=== PATIENT | female | born 1940 | race Caucasian/White ===

== ENCOUNTER 2019-02-25 05:00 | Inpatient (IN) | payer MEDICARE, OTHER ==
[2019-02-25] MEDS ORDERED: SODIUM CHLORIDE 0.9% 500 ML 500 ML IV STA (05:31)
[2019-02-25] MEDS ORDERED: LORazepam 2 MG/ML INJ IV STA (05:42)
--- NOTE | 2019-02-25 05:43 | ED ---
Neuro HPI - General Chief Complaint: Neuro Symptoms/Deficit Stated Complaint: Poss Stroke Time Seen by Provider: 02/25/19 05:21 Source: patient, EMS Mode of arrival: EMS Limitations: no limitations - History of Present Illness Is the patient presenting with stroke symptoms?: Yes Last Known Well Date: 02/24/19 Last Known Well Time: 12:00 -: hour(s) Initial Comments: This patient is a 78-year-old woman coming by ambulance from [facility]. When I interview the patient she states that she started feeling weak with her left side yesterday around "midmorning" the patient states that she also shortly thereafter noticed that she was having some shaking of her left side. She states that the symptoms did get progressively worse and the staff there felt she needed to be seen for the shaking this morning. Location: left arm, left leg History of same: No Place: home Severity: severe Quality: weak Improves With: none Worsens With: none Context: gradual onset Associated Symptoms: other (Shaking) - Related Data Home Medications: Home Medications Medication Instructions Recorded Confirmed Aspirin EC [Ecotrin Low Dose] 81 mg PO DAILY 02/25/19 02/25/19 Atenolol [Tenormin] 25 mg PO DAILY 02/25/19 02/25/19 Atorvastatin [Lipitor] 20 mg PO HS 02/25/19 02/25/19 Betamethasone Valerate 1 applic TOPICAL 02/25/19 [Betamethasone Valerate 0.1%] Fluticasone Nasal [place] [Flonase 2 spr EA NOSTRIL DAILY 02/25/19 02/25/19 Nasal [place]] Ipratropium/Albuterol Sulfate 1 puff INHALATION QID 02/25/19 02/25/19 [Combivent Respimat Inhaler] amLODIPine [Norvasc] 5 mg PO DAILY 02/25/19 02/25/19 Allergies/Adverse Reactions: Allergies Allergy/AdvReac Type Severity Reaction Status Date / Time No Known Allergies Allergy Verified 02/25/19 05:12 Review of Systems ROS Statement: Those systems with pertinent positive or pertinent negative responses have been documented in the HPI. ROS Other: All systems not noted in ROS Statement are negative. Constitutional: Denies: fever, chills Respiratory: Denies: cough, dyspnea Cardiovascular: Denies: chest pain, palpitations Gastrointestinal: Denies: abdominal pain, nausea, vomiting Musculoskeletal: Denies: back pain Skin: Denies: rash Neurological: Reports: weakness, numbness. Denies: headache, confusion Hematological/Lymphatic: Denies: easy bleeding General Exam Limitations: no limitations General appearance: alert, in no apparent distress Head exam: Present: atraumatic, normocephalic Eye exam: Present: normal appearance, PERRL, EOMI. Absent: scleral icterus, conjunctival injection ENT exam: Present: normal oropharynx Neck exam: Present: normal inspection. Absent: tenderness, meningismus Respiratory exam: Present: normal lung sounds bilaterally. Absent: respiratory distress, wheezes, rales, rhonchi, stridor Cardiovascular Exam: Present: normal rhythm, tachycardia, normal heart sounds. Absent: systolic murmur, diastolic murmur, rubs, gallop GI/Abdominal exam: Present: soft. Absent: distended, tenderness, guarding, rebound, mass Extremities exam: Present: normal inspection, normal capillary refill. Absent: pedal edema, calf tenderness Back exam: Present: normal inspection. Absent: CVA tenderness (R), CVA tenderness (L) Neurological exam: Present: alert, CN II-XII intact, motor sensory deficit. Absent: oriented X3 (Patient is disoriented to date) Expanded Patient oriented to: Present: person, place. Absent: time Speech: Present: fluid speech Cranial nerves: EOM's Intact: Normal, Gag Reflex: Normal Motor strength exam: RUE: 5, LUE: 0, RLE: 5, LLE: 0 Eye Response: (4) open spontaneously Motor Response: (6) obeys commands Verbal Response: (5) oriented Skin exam: Present: warm, dry, intact, normal color. Absent: rash Stroke MDM - Lab Data Result diagrams: 02/25/19 05:20 02/25/19 05:20 Lab Results 02/25/19 02/25/19 02/25/19 Range/Units 05:20 05:20 05:20 WBC 8.7 (3.8-10.6) k/uL RBC 5.13 (3.80-5.40) m/uL Hgb 14.5 (11.4-16.0) gm/dL Hct 44.3 (34.0-46.0) % MCV 86.3 (80.0-100.0) fL MCH 28.3 (25.0-35.0) pg MCHC 32.8 (31.0-37.0) g/dL RDW 13.4 (11.5-15.5) % Plt Count 204 (150-450) k/uL Neutrophils % 51 % Lymphocytes % 35 % Monocytes % 7 % Eosinophils % 4 % Basophils % 0 % Neutrophils # 4.4 (1.3-7.7) k/uL Lymphocytes # 3.0 (1.0-4.8) k/uL Monocytes # 0.6 (0-1.0) k/uL Eosinophils # 0.3 (0-0.7) k/uL Basophils # 0.0 (0-0.2) k/uL PT 10.8 (9.0-12.0) sec INR 1.0 (<1.2) APTT 25.3 (22.0-30.0) sec Sodium 140 (137-145) mmol/L Potassium 4.2 (3.5-5.1) mmol/L Chloride 106 (98-107) mmol/L Carbon Dioxide 17 L (22-30) mmol/L Anion Gap 17 mmol/L BUN 13 (7-17) mg/dL Creatinine 0.68 (0.52-1.04) mg/dL Est GFR (CKD-EPI)AfAm >90 (>60 ml/min/1.73 sqM) Est GFR (CKD-EPI)NonAf 85 (>60 ml/min/1.73 sqM) Glucose 152 H (74-99) mg/dL Calcium 9.2 (8.4-10.2) mg/dL Total Bilirubin 1.0 (0.2-1.3) mg/dL AST 27 (14-36) U/L ALT 9 (9-52) U/L Alkaline Phosphatase 107 (38-126) U/L Troponin I (0.000-0.034) ng/mL Total Protein 7.4 (6.3-8.2) g/dL Albumin 4.3 (3.5-5.0) g/dL 02/25/19 Range/Units 05:20 WBC (3.8-10.6) k/uL RBC (3.80-5.40) m/uL Hgb (11.4-16.0) gm/dL Hct (34.0-46.0) % MCV (80.0-100.0) fL MCH (25.0-35.0) pg MCHC (31.0-37.0) g/dL RDW (11.5-15.5) % Plt Count (150-450) k/uL Neutrophils % % Lymphocytes % % Monocytes % % Eosinophils % % Basophils % % Neutrophils # (1.3-7.7) k/uL Lymphocytes # (1.0-4.8) k/uL Monocytes # (0-1.0) k/uL Eosinophils # (0-0.7) k/uL Basophils # (0-0.2) k/uL PT (9.0-12.0) sec INR (<1.2) APTT (22.0-30.0) sec Sodium (137-145) mmol/L Potassium (3.5-5.1) mmol/L Chloride (98-107) mmol/L Carbon Dioxide (22-30) mmol/L Anion Gap mmol/L BUN (7-17) mg/dL Creatinine (0.52-1.04) mg/dL Est GFR (CKD-EPI)AfAm (>60 ml/min/1.73 sqM) Est GFR (CKD-EPI)NonAf (>60 ml/min/1.73 sqM) Glucose (74-99) mg/dL Calcium (8.4-10.2) mg/dL Total Bilirubin (0.2-1.3) mg/dL AST (14-36) U/L ALT (9-52) U/L Alkaline Phosphatase (38-126) U/L Troponin I <0.012 (0.000-0.034) ng/mL Total Protein (6.3-8.2) g/dL Albumin (3.5-5.0) g/dL - Thrombolytic Inclusion/Exclusion Thrombolytic Exclusion Criteria: Symptom Onset > 3 Hours - Medical Decision Making When I initially saw the patient, she was having focal seizure. Following a dose of Ativan, the seizure activity did stop. The patient did not have postictal period. - EKG Data -: EKG Interpreted by Me EKG shows normal: sinus rhythm, axis (Normal), intervals (Normal), QRS complexes (Normal) Rate: tachycardia (Approximate 137 bpm) Interpretation: nonspecific ST-T wave changes Past Medical History Past Medical History: No Reported History History of Any Multi-Drug Resistant Organisms: None Reported Past Surgical History: Adenoidectomy, Appendectomy, Cholecystectomy, Tons illectomy Past Psychological History: No Psychological Hx Reported Smoking Status: Current every day smoker Past Alcohol Use History: Occasional Past Drug Use History: None Reported Course Vital Signs 02/25/19 02/25/19 05:04 06:21 Pulse Rate 126 H 89 Respiratory 20 22 Rate Blood Pressure 114/65 O2 Sat by Pulse 99 99 Oximetry Disposition Clinical Impression: Cerebrovascular accident (CVA), Focal seizure Disposition: ADMITTED IP TO THIS HOSP Condition: Serious Is patient prescribed a controlled substance at d/c from ED?: No Referrals: Nonstaff,Physician [REFERRING] - 1-2 days
[2019-02-25 05:54] LABS: Basophils % (A) 0 %; Eosinophils # (A) 0.3 k/uL (0-0.7); Eosinophils % (A) 4 %; HCT 44.3 % (34.0-46.0); HGB 14.5 gm/dL (11.4-16.0); Lymphocytes % (A) 35 %; MCH 28.3 pg (25.0-35.0); MCHC 32.8 g/dL (31.0-37.0); MCV 86.3 fL (80.0-100.0); Mean Platelet Volume 7.4; Monocytes # (A) 0.6 k/uL (0-1.0); Monocytes % (A) 7 %; Neutrophils # (A) 4.4 k/uL (1.3-7.7); Neutrophils % (A) 51 %; Platelet Count 204 k/uL (150-450); RBC 5.13 m/uL (3.80-5.40); RDW 13.4 % (11.5-15.5); WBC 8.7 k/uL (3.8-10.6)
[2019-02-25 06:02] LABS: ALT 9 U/L (9-52); AST 27 U/L (14-36); African American GFR (CKD) >90 (>60 ml/min/1.73 sqM); Albumin 4.3 g/dL (3.5-5.0); Alkaline Phosphatase 107 U/L (38-126); Anion Gap 17 mmol/L; Blood Urea Nitrogen 13 mg/dL (7-17); Calcium 9.2 mg/dL (8.4-10.2); Carbon Dioxide 17 mmol/L (22-30); Chloride 106 mmol/L (98-107); Glucose 152 mg/dL (74-99); Potassium 4.2 mmol/L (3.5-5.1); Sodium 140 mmol/L (137-145); Total Protein 7.4 g/dL (6.3-8.2)
[2019-02-25 06:03] LABS: Partial Thromboplastin Time 25.3 sec (22.0-30.0); Prothrombin Time 10.8 sec (9.0-12.0)
--- NOTE | 2019-02-25 06:30 | XR ---
EXAMINATION TYPE: XR chest 1V portable DATE OF EXAM: 02/25/2019 COMPARISON: NONE HISTORY: Altered mental status and weakness. TECHNIQUE: Single AP portable frontal upright view of the chest is obtained. FINDINGS: Overlying EKG leads are seen. There is chronic parenchymal changes including right apical s carring without suspicious focal air space opacity, pleural effusion, or pneumothorax seen. The card iac silhouette size is upper limits of normal with atherosclerotic aorta. The osseous structures ar e demineralized. Slight scoliotic curvature is present. IMPRESSION: Chronic changes without acute pulmonary process.
--- NOTE | 2019-02-25 06:47 | CT ---
EXAMINATION TYPE: CT brain wo con for TPA DATE OF EXAM: 02/25/2019 HISTORY: Stroke like symptoms, altered mental status CT DLP: 1162.4 mGycm. Automated Exposure Control for Dose Reduction was Utilized. TECHNIQUE: CT scan of the head is performed without contrast. COMPARISON: MRI brain March 13, 2016 FINDINGS: There is no acute intracranial hemorrhage or midline shift identified. There is diffuse v entricular and sulcal prominence consistent with diffuse age-related cerebral atrophy. There is low- attenuation most prominent in the periventricular white matter consistent with chronic small vessel i schemic change. Asymmetric area of low attenuation posterior right frontal lobe axial image 19 is not ed at the level of jones radiata extending superiorly. The globes are intact and the visualized sinu ses are clear. IMPRESSION: No acute intracranial hemorrhage or midline shift. There is moderate diffuse age-relate d cerebral atrophy and advanced chronic small vessel ischemic change redemonstrated. Cannot exclude evolving acute/subacute infarct posterior right frontal lobe. Consider MRI follow-up.
[2019-02-25] MEDS ORDERED: ASPIRIN 325 MG TAB PO STA (06:59)
[2019-02-25] MEDS ORDERED: SODIUM CHLORIDE 0.9% 1,000 ML IV SCH (07:00)
[2019-02-25] MEDS ORDERED: FAMOTIDINE 20 MG/2 ML VIAL IV SCH (09:00)
[2019-02-25] MEDS: IPRATROPIUM-ALBUTEROL 3 ML NEB INHALATION SCH ×4 (09:20→19:57)
[2019-02-25 09:44] LABS: Glucose,Whole Blood 120 mg/dL (75-99)
--- NOTE | 2019-02-25 10:37 | US ---
EXAMINATION TYPE: US carotid duplex BILAT DATE OF EXAM: 02/25/2019 COMPARISON: MRA neck March 13, 2016 CLINICAL HISTORY: Stenosis. Left sided weakness EXAM MEASUREMENTS: RIGHT: Peak Systolic Velocity (PSV) cm/sec ----- Right CCA: 84.6 ----- Right ICA: 218.3 bulb ----- Right ECA: 186.6 ICA/CCA ratio: 2.6 RIGHT: End Diastole cm/sec ----- Right CCA: 16.8 ----- Right ICA: 37.1 ----- Right ECA: 0.0 LEFT: Peak Systolic Velocity (PSV) cm/sec ----- Left CCA: 98.3 ----- Left ICA: 151.1 bulb ----- Left ECA: 126.5 ICA/CCA ratio: 1.5 LEFT: End Diastole cm/sec ----- Left CCA: 13.6 ----- Left ICA: 25.5 ----- Left ECA: 0.0 VERTEBRALS (direction of flow): Right Vertebral: Antegrade Left Vertebral: Antegrade Rhythm: Normal Moderate to severe plaque bilaterally as present most prominent at carotid bulb. Increased peak systo lic velocities bilaterally. Abnormal right-sided ratio. IMPRESSION: Fairly severe atherosclerotic changes, hemodynamically significant stenosis estimated 50-69% likely present on the right. Cannot exclude significant stenosis on the left. Advise CTA or MR A of the neck to better evaluate and characterize. Criteria for Assigning % of Stenosis / Diameter reduction (Estimation based on the indirect measurements of the internal carotid artery velocities (ICA PSV). 1. Normal (no stenosis)=ICA PSV < 125 cm/s: ratio < 2.0: ICA EDV<40 cm/s. 2. Less than 50% stenosis=ICA PSV < 125 cm/s: ratio < 2.0: ICA EDV<40 cm/s. 3. 50 to 69% stenosis=ICA PSV of 125 to 230 cm/s: ration 2.0 ? 4.0: ICA EDV 40-100 cm/s. 4. Greater than 70% stenosis to near occlusion= ICA PSV > 230 cm/s: ratio > 4.0: ICA EDV > 100 cm/s. 5. Near occlusion= ICA PSV velocities may be low or undetectable: variable ratio and ICA EDV. 6. Total occlusion=unable to detect flow.
[2019-02-25] MEDS: ATENOLOL 25 MG TAB PO SCH (11:46)
[2019-02-25] MEDS: amLODIPine 5 MG TAB PO SCH (11:46)
[2019-02-25] MEDS: FLUTICASONE 50MCG/SPRAY NASAL 16GM EA NOSTRIL SCH (11:54)
[2019-02-25 12:40] LABS: Appearance,Urine Clear (Clear); Bacteria,Urine Rare /hpf; Bilirubin,Urine Negative (Negative); Blood,Urine Trace (Negative); Color,Urine Yellow; Glucose,Urine (UA) Negative (Negative); Hyaline Casts,Urine 4 /lpf (0-2); Ketones,Urine Negative (Negative); Leukocyte Esterase,Urine Negative (Negative); Mucus,Urine Rare /hpf; Nitrite,Urine Negative (Negative); PH, Urine 6.5 (5.0-8.0); Protein,Urine Trace (Negative); RBC,Urine 5 /hpf (0-5); Specific Gravity,Urine 1.013 (1.001-1.035); Squamous Epithelial Cell,Urine 1 /hpf (0-4); Urobilinogen,Urine <2.0 mg/dL (<2.0); WBC,Urine 2 /hpf (0-5)
--- NOTE | 2019-02-25 16:02 | P.HPIM ---
History of Present Illness H&P Date: 02/25/19 Presenting complaint: Left arm weakness History of presenting complaint: This is a pleasant 78-year-old patient who is a resident of [facility]. 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 Does not know more ab out the same., Arthritis in multiple joints. Patient was admitted to the ER via the EMS. Patient states that she's been weak in the left arm for about a week. Finding it difficult to scrap picker things. It has not been progressive remained the same. In fact with some improvement. No change in elevation speech headaches. No difficulty walking. No trouble with her swallowing. Patient is also noticed some jerking in the left arm.. Some improvement in the left arm strength since the symptoms started about a week ago. She was admitted for the same. Not sure she's had previous TIAs. 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 Does use a walker. He smoking a pack a day since 1957. No alcohol Family history: Cancer Physical examination: VITAL SIGNS: Afebrile, 89, 22, 11 4/65, 96% on 2 L GENERAL: Average built, sitting up, tired. EYES: Pupils equal. Conjunctiva normal. HEENT: External appearance of nose and ears normal, oral cavity grossly normal. NECK: JVD not raised; masses not palpable. HEART: First and second heart sounds are normal; no edema. LUNGS: Respiratory rate increased, diminished breath sounds on expiration some wheezing. ABDOMEN: Soft, nontender, liver spleen not palpable, no masses palpable. PSYCH: Alert and oriented x3; mood and affect normal. NEUROLOGICAL: Cranial nerves grossly intact; no facial asymmetry, or in the left arm 3/5. Reflexes sensation grossly preserved.. LYMPHATICS: No lymph nodes palpable in the axilla and neck MUSCULOSKELETAL: Evidence of OA's stay in the hands INVESTIGATIONS, reviewed in the clinical context: White count 8.7, hemoglobin 14.5, platelets 204, potassium 4.2, creatinine 0.68, TSH 4.3 EKG tracing personally reviewed by me shows increased heart rate questionable ST segment depression. Chest x-ray film personally reviewed by me-cardiomegaly Computed tomography scan of the brain-cannot exclude an evolving acute subacute infarct posterior right frontal lobe Carotid Doppler-cannot exclude significant stenosis on the left carotid Assessment: -Acute stroke in the right frontal lobe, with symptoms starting about a week ago. Likely ischemic, and the right anterior cerebral artery territory -Possible focal epilepsy in the left arm from ischemic stroke site -COPD in a current smoker -Chronic nicotine dependence patient cigarette smoker -Hyperlipidemia -Essential hypertension -Primary osteoarthritis Plan: Patient is to be on aspirin and high-dose Lipitor. Patient is to benefit from dual antiplatelet agents in the first few days. Hence will add Plavix. MRI of the brain and carotids are been ordered. Physical therapy to be involved. We'll also get a vascular opinion. Neurology was consulted. Neuro checks are in place. Given the presentation for 1 week patient's duration patient is out of the window for any acute invasive intervention. Patient is put on bronchodilators. Nicotine patch. Neuro checks are in place. Home medications resumed. Lovenox for DVT prophylaxis.. Past Medical History Past Medical History: CVA/TIA, Hyperlipidemia, Hypertension, Osteoarthritis (O A), Pneumonia Additional Past Medical History / Comment(s): Possible TIAs in past per pt, pt believes she has the beginnings of dementia, bronchitis, pituitary dysfunction, seasonal allergies/sinus problems, arthritis in multiple joints. History of Any Multi-Drug Resistant Organisms: None Reported Past Surgical History: Adenoidectomy, Appendectomy, Cholecystectomy, Tonsillectomy Past Anesthesia/Blood Transfusion Reactions: No Reported Reaction Smoking Status: Current every day smoker - Past Family History Father Family Medical History: Cancer Additional Family Medical History / Comment(s): Pt states by the time they found out that her father had cancer, it was thru out his body. Mother Family Medical History: No Reported History Additional Family Medical History / Comment(s): Mother was healthy. Medications and Allergies Home Medications Medication Instructions Recorded Confirmed Type Aspirin EC [Ecotrin Low Dose] 81 mg PO DAILY 02/25/19 02/25/19 History Atenolol [Tenormin] 25 mg PO DAILY 02/25/19 02/25/19 History Atorvastatin [Lipitor] 20 mg PO HS 02/25/19 02/25/19 History Betamethasone Valerate 1 applic TOPICAL BID PRN 02/25/19 02/25/19 History [Betamethasone Valerate 0.1%] Fluticasone Nasal [place] [Flonase 2 spr EA NOSTRIL HS 02/25/19 02/25/19 History Nasal [place]] Ipratropium/Albuterol Sulfate 1 puff INHALATION RT-Q6H PRN 02/25/19 02/25/19 His tory [Combivent Respimat Inhaler] Loratadine [Claritin] 10 mg PO DAILY 02/25/19 02/25/19 History amLODIPine [Norvasc] 5 mg PO DAILY 02/25/19 02/25/19 History guaiFENesin [guaiFENesin Oral 10 mg PO Q6H PRN 02/25/19 02/25/19 History Solution] Allergies Allergy/AdvReac Type Severity Reaction Status Date / Time No Known Allergies Allergy Verified 02/25/19 07:48 Physical Exam Vitals: Vital Signs Temp Pulse Resp BP Pulse Ox 02/25/19 12:16 65 02/25/19 12:09 62 02/25/19 12:00 98.2 F 75 15 118/60 94 L 02/25/19 11:00 71 22 113/45 02/25/19 10:00 63 25 H 113/64 02/25/19 07:30 92 16 118/59 96 02/25/19 06:21 89 22 114/65 99 02/25/19 05:04 126 H 20 99 Intake and Output 02/25/19 02/25/19 02/25/19 06:59 14:59 22:59 Intake Total 600 Output Total 250 Balance 350 Intake: IV 600 Sodium Chloride 0.9% 1, 600 000 ml @ 100 mls/hr IV . Q10H ISREAL Rx#:[id number] Output: Urine 250 Other: # Voids 1 Weight 58.967 kg 60.4 kg Results CBC & Chem 7: 02/25/19 05:20 02/25/19 05:20 Labs: Abnormal Lab Results - Last 24 Hours (Table) 02/25/19 02/25/19 02/25/19 Range/Units 05:20 09:41 12:10 Carbon Dioxide 17 L (22-30) mmol/L Glucose 152 H (74-99) mg/dL POC Glucose (mg/dL) 120 H (75-99) mg/dL Urine Protein Trace H (Negative) Urine Blood Trace H (Negative) Urine Bacteria Rare H (None) /hpf Hyaline Casts 4 H (0-2) /lpf Urine Mucus Rare H (None) /hpf Thrombosis Risk Factor Assmnt - Choose All That Apply Any of the Below Risk Factors Present?: Yes Other Risk Factors: Yes Each Risk Factor Represents 3 Points: Age 75 years or older Other congenital or acquired thrombophilia - If yes, enter type in comment: No Each Risk Factor Represents 5 Points: Stroke (< 1 month) Thrombosis Risk Factor Assessment Total Risk Factor Score: 8 Thrombosis Risk Factor Assessment Level: High Risk
--- NOTE | 2019-02-25 16:49 | MR ---
EXAMINATION TYPE: MR brain wo con DATE OF EXAM: 02/25/2019 COMPARISON: 03/13/2016 HISTORY: Weakness, tremor Standard multiplanar, multisequence MRI departmental protocol Multiplanar, multisequence images of the brain were acquired. Diffusion weighted imaging was performe d. FINDINGS: There is diffuse cerebral cortical atrophy. There is extensive abnormal increased signal in the periventricular white matter on the T2 and FLAIR images. There is no mass effect nor midline samantha ft. There is no sign of intracranial hemorrhage. There is mild patchy increased signal within the nataly s. There is thinning of the corpus callosum. Sella turcica appears normal. IMPRESSION: Moderately severe diffuse atrophy. Extensive chronic small vessel ischemia. Demyelinating disease not excluded. No acute intracranial abnormality. No acute cortical infarct.
[2019-02-25] MEDS: ENOXAPARIN 40 MG/0.4 ML SYRINGE SQ SCH (17:10)
[2019-02-25] MEDS: CLOPIDOGREL 75 MG TAB PO SCH (17:11)
[2019-02-25] MEDS: NICOTINE 21MG/24HR PATCH TRANSDERM SCH (17:11)
--- NOTE | 2019-02-25 17:26 | MR ---
EXAMINATION TYPE: MR angio head/neck wo con DATE OF EXAM: 02/25/2019 COMPARISON: Brain MR same date and MR angiogram of the neck 03/13/2016, carotid Doppler 02/25/2019 HISTORY: Weakness, tremor TECHNIQUE: Time of flight images focusing on the [place] were performed without contrast.. 2-D and 3-D postprocessing imaging is performed. FINDINGS: There is motion on the exam. [place] shows no evidence of sizable aneurysm, there is no filling defect or dissection. Ant erior and posterior circulation is patent. Persistent origin of the left posterior cerebral art elyse is noted. Neck MRA shows patent common carotid, internal and external carotid arteries. Right vertebral artery is dominant. No evident dissection or significant stenosis of the proximal internal carotid artery on the left. There is atheromatous change involving the internal carotid artery on the right correspond ing to 60%-70 diameter stenosis by Nascet criteria. Atheromatous changes are present at the bilateral carotid bulbs. IMPRESSION: Hemodynamic significant stenosis of the proximal internal carotid artery on the right cor responding to patient's carotid Doppler exam. Motion present on the exam. CTA may be of benefit.
[2019-02-25] MEDS: ATORVASTATIN 80 MG TAB PO SCH (20:28)
[2019-02-25] MEDS: FAMOTIDINE 20 MG TAB PO SCH (20:28)
[2019-02-25 20:30] LABS: Hemoglobin A1C 5.7 % (4.0-6.0)
[2019-02-26 05:32] LABS: Basophils % (A) 1 %; Eosinophils # (A) 0.2 k/uL (0-0.7); Eosinophils % (A) 3 %; HCT 41.1 % (34.0-46.0); HGB 13.8 gm/dL (11.4-16.0); Lymphocytes # (A) 1.2 k/uL (1.0-4.8); Lymphocytes % (A) 21 %; MCH 28.8 pg (25.0-35.0); MCHC 33.7 g/dL (31.0-37.0); MCV 85.5 fL (80.0-100.0); Mean Platelet Volume 7.6; Monocytes # (A) 0.4 k/uL (0-1.0); Monocytes % (A) 8 %; Neutrophils # (A) 3.6 k/uL (1.3-7.7); Neutrophils % (A) 66 %; Platelet Count 155 k/uL (150-450); RBC 4.81 m/uL (3.80-5.40); RDW 15.3 % (11.5-15.5); WBC 5.5 k/uL (3.8-10.6)
[2019-02-26 05:49] LABS: African American GFR (CKD) >90 (>60 ml/min/1.73 sqM); Anion Gap 6 mmol/L; Blood Urea Nitrogen 7 mg/dL (7-17); Calcium 9.2 mg/dL (8.4-10.2); Carbon Dioxide 29 mmol/L (22-30); Chloride 103 mmol/L (98-107); Cholesterol 127 mg/dL (<200); Glucose 99 mg/dL (74-99); HDL Cholesterol 37 mg/dL (40-60); LDL Cholesterol,Calculated 66 mg/dL (0-99); Potassium 3.6 mmol/L (3.5-5.1); Sodium 138 mmol/L (137-145); Triglycerides 122 mg/dL (<150)
[2019-02-26] MEDS ORDERED: POTASSIUM CHLORIDE ER 20 MEQ TAB.ER PO SCH (07:00)
[2019-02-26] MEDS ORDERED: ASPIRIN 325 MG TAB PO SCH (07:02)
[2019-02-26] MEDS: IPRATROPIUM-ALBUTEROL 3 ML NEB INHALATION SCH ×4 (07:39→21:11)
[2019-02-26] MEDS: ENOXAPARIN 40 MG/0.4 ML SYRINGE SQ SCH (08:21)
[2019-02-26] MEDS: NICOTINE 21MG/24HR PATCH TRANSDERM SCH (08:21)
[2019-02-26] MEDS: ASPIRIN 81 MG PO SCH (08:21)
[2019-02-26] MEDS: FAMOTIDINE 20 MG TAB PO SCH ×2 (08:21→22:20)
[2019-02-26] MEDS: CLOPIDOGREL 75 MG TAB PO SCH (08:21)
[2019-02-26] MEDS: amLODIPine 5 MG TAB PO SCH (08:22)
[2019-02-26] MEDS: ATENOLOL 25 MG TAB PO SCH (08:22)
[2019-02-26] MEDS: FLUTICASONE 50MCG/SPRAY NASAL 16GM EA NOSTRIL SCH (08:22)
--- NOTE | 2019-02-26 09:33 | P.CNNES ---
History of Present Illness Consult date: 02/25/19 Reason for Consult: Stroke Chief complaint: Shaking of her left side History of Present Illness: REFERRING PHYSICIAN: Dr. Anuel Malagon HISTORY OF PRESENT ILLNESS: Thank you for allowing me to evaluate Ms. Aviva Boles. Ms. Boles is a 78-year-old L-handed woman with no known past medical history presenting with acute onset left-sided shaking, consulting neurology for stroke workup and management. Patient lives in an assisted living facility, and since about 1 month ago, patient had been told by people who live near her that she didn't seem well. Around the same time, she started having feeling off balance and had occipital headache. Patient also reports that she had a stroke a couple of months ago, and since then, she has been having some difficulty with patient safety coordinator rdination in her L hand and writing with it. Patient denies any recent sickness, nausea, vomiting, CP, SOB, numbness or tingling, double/blurry vision, dysarthria, aphasia. Patient states she saw some jerking movement of her L arm, maybe lasted for 30 seconds, did not lose consciousness and was fully aware. PAST MEDICAL HISTORY: Hypertension, asthma PAST SURGICAL HISTORY: Appendectomy, cholecystectomy, tonsillectomy, adenoidectomy HOME MEDICATIONS: Patient states that she's been only taking ASA and vitamin, and not much else. However, listed meds include: Aspirin, atenolol, atorvastatin, Flonase, Combivent, amlodipine ALLERGIES: No known ALLERGIES SOCIAL HISTORY: Current every day smoker. Smokes 5 cigs/day, has been smoking since age 25. Social drinker. Denies drug abuse history. Patient used to work in [employer] FAMILY HISTORY: Father with throat cancer. Mother had HTN and CABG (mother's side of family has various heart conditions) REVIEW OF SYSTEMS: The 14 systems are reviewed and no additional points are identified compared to the review of systems documented history and physical PHYSICAL EXAMINATION: VITAL SIGNS: Pulse rate 92 RR 16 blood pressure 118/59 O2 saturation 96% on 2 L via nasal cannula GEN.: NAD, pleasant and cooperative HEENT: NCAT, sclera without icterus NECK: Supple, no carotid bruit SKIN AND EXTREMITIES: Warm to touch, no edema NEURO: MENTAL STATUS: Patient alert and oriented to self, place, time. Able to name the current president. Speech fluent, able to name and repeat, following all commands readily. No right and left disorientation, extinction to double simultaneous stimulation, finger agnosia, neglect. CRANIAL NERVES II THROUGH XII: II: Pupils are equal and reactive to light symmetrically. No afferent pupillary defect. Visual anguiano are intact. III, IV, : No ptosis. Extraocular movements full. No nystagmus. V: Facial sensation intact from V1-3. VII. Mild L facial droop. VIII: Hearing intact to finger rub bilaterally. IX, X: Symmetric palate elevation. XI: Shoulder shrug intact. XII: Tongue midline without fasciculation or atrophy. MOTOR: Normal bulk/tone. LUE pronator drift. Strength is 5/5 in proximal LUE, 4+/5 in biceps/triceps, 4+/5 with finger chainstitch hemmer. Otherwise, strength is 5/5 throughout all other extremities. SENSORY: Intact to light touch in all 4 extremities. Romberg is negative. REFLEXES: 2+ throughout. Toes are downgoing. COORDINATION: Finger to nose intact. No dysmetria. GAIT: Narrow-based and stable. Able to toe/heel/tandem walk but some difficulty with tandem walking. DIAGNOSTIC TESTING: LABORATORY: WBC 8.7 hemoglobin 14.5 platelet 204 PT 10.8 INR 1.0 sodium 140 potassium 4.2 chloride 106 bicarb 17 BUN 13 creatinine 0.68 glucose 152 AST 27 ALT 9 alk phos 107 troponin <0.012 Total cholesterol 127 LDL 66 and HDL 37 triglycerides 122 TSH 4.370 A1C 5.7 IMAGING: CT head without contrast 02/25/2019: No acute intracranial hemorrhage or midline shift. There is moderate diffuse age-related cerebral atrophy and advanced chronic small vessel ischemic change we demonstrated. Cannot exclude evolving acute/subacute infarct posterior right frontal lobe. MRI brain without contrast 02/25/2019: Moderately severe diffuse atrophy. Extensive chronic small vessel ischemia. Demyelinating disease not excluded. No acute intracranial abnormality. No acute cortical infarct. MRI brain without contrast 03/13/2016: No acute intracranial process. Extensive degenerative remote ischemic change. Prominent CSF spaces along both parietal convexities may be related to asymmetric atrophy rather than an arachnoid cyst or tiny subdural chronic hygromas. No significant mass effect or midline shift. Carotid Doppler bilateral 02/25/2019: Fairly severe atherosclerotic changes, hemodynamically significant stenosis estimated 50-69% likely present on the right. Cannot exclude significant stenos is on the left. Advised CTA or MRA of the neck to better evaluate and characterize ASSESSMENT: Ms. Boles is a 78-year-old L-handed woman with no known past medical history presenting with acute onset left-sided shaking, consulting neurology for stroke workup and management. MRI brain with no infarct. There was report of patient having possible L hand shaking. Possible that patient was having a focal seizure that led to weakness of her LUE although Aurelio's paralysis does not usually last for a week. RECOMMENDATIONS: 1. Will start Keppra 750mg BID 2. Transthoracic echocardiogram obtained; pending final read 3. Cardiac monitoring with no events during this admission 4. ASA 81mg qday, Atorvastatin 80mg qhs 5. Routine EEG 6. PT/OT/ST per protocol 7. Patient will need to follow up with neurologist as outpatient 8. Neurology will continue to follow Past Medical History Past Medical History: CVA/TIA, Hyperlipidemia, Hypertension, Osteoarthritis (OA), Pneumonia Additional Past Medical History / Comment(s): Possible TIAs in past per pt, pt believes she has the beginnings of dementia, bronchitis, pituitary dysfunction, seasonal allergies/sinus problems, arthritis in multiple joints. History of Any Multi-Drug Resistant Organisms: None Reported Past Surgical History: Adenoidectomy, Appendectomy, Cholecystectomy, Tonsillectomy Past Anesthesia/Blood Transfusion Reactions: No Reported Reaction Smoking Status: Current every day smoker - Past Family History Father Family Medical History: Cancer Additional Family Medical History / Comment(s): Pt states by the time they found out that her father had cancer, it was thru out his body. Mother Family Medical History: No Reported History Additional Family Medical History / Comment(s): Mother was healthy. Medications and Allergies Home Medications Medication Instructions Recorded Confirmed Type Aspirin EC [Ecotrin Low Dose] 81 mg PO DAILY 02/25/19 02/25/19 History Atenolol [Tenormin] 25 mg PO DAILY 02/25/19 02/25/19 History Atorvastatin [Lipitor] 20 mg PO HS 02/25/19 02/25/19 History Betamethasone Valerate 1 applic TOPICAL BID PRN 02/25/19 02/25/19 History [Betamethasone Valerate 0.1%] Fluticasone Nasal [place] [Flonase 2 spr EA NOSTRIL HS 02/25/19 02/25/19 History Nasal [place]] Ipratropium/Albuterol Sulfate 1 puff INHALATION RT-Q6H PRN 02/25/19 02/25/19 History [Combivent Respimat Inhaler] Loratadine [Claritin] 10 mg PO DAILY 02/25/19 02/25/19 History amLODIPine [Norvasc] 5 mg PO DAILY 02/25/19 02/25/19 History guaiFENesin [guaiFENesin Oral 10 mg PO Q6H PRN 02/25/19 02/25/19 History Solution] Allergies Allergy/AdvReac Type Severity Reaction Status Date / Time No Known Allergies Allergy Verified 02/25/19 07:48 Physical Examination - Vital Signs Vital Signs: Vital Signs Pulse Resp BP Pulse Ox 02/25/19 07:30 92 16 118/59 96 02/25/19 06:21 89 22 114/65 99 02/25/19 05:04 126 H 20 99 Intake and Output 02/24/19 02/25/19 02/25/19 22:59 06:59 14:59 Other: Weight 58.967 kg Results - Laboratory Findings CBC and BMP: 02/26/19 04:58 02/26/19 04:58 Abnormal Lab Findings: Abnormal Labs 02/25/19 05:20 Carbon Dioxide 17 L Glucose 152 H
--- NOTE | 2019-02-26 11:41 | ECHOF ---
Referral Reason:Thrombus MEASUREMENTS -------- HEIGHT: 160.0 cm WEIGHT: 59.0 kg BP: 120/60 IVSd: 1.9 cm (0.6 - 1.1) LVIDd: 2.7 cm (3.9 - 5.3) LVPWd: 1.6 cm (0.6 - 1.1) IVSs: 1.6 cm LVIDs: 2.1 cm LVPWs: 1.3 cm LA Diam: 4.6 cm (2.7 - 3.8) LAESV Index (A-L): 38.29 ml/m Ao Diam: 2.8 cm (2.0 - 3.7) AV Cusp: 1.0 cm (1.5 - 2.6) LA Diam: 4.7 cm (2.7 - 3.8) MV EXCURSION: 10.065 mm (> 18.000) MV EF SLOPE: 27 mm/s (70 - 150) EPSS: 0.2 cm MV E Agus: 1.39 m/s MV DecT: 314 ms MV A Agus: 2.02 m/s MV E/A Ratio: 0.69 RAP: 5.00 mmHg RVSP: 62.11 mmHg FINDINGS -------- Sinus rhythm. This was a technically adequate study. The left ventricular size is normal. There is severe concentric left ventricular hypertrophy. Ove rall left ventricular systolic function is normal with, an EF between 60 - 65 %. Systolic anterior motion of the mitral valve with LVOT Obstruction MaxPg 79.53mmHg & Lvot mean gradient 37.01mmHg. The right ventricle is normal in size. The left atrium is moderately dilated. LA is moderately dilated 34-39 ml/m2 The right atrium was not well visualized. Moderate mitral regurgitation is present. The peak and mean MV gradients are 19.18mmHg 6.17mmHg as measured by doppler. Moderate mitral stenosis. Moderate tricuspid regurgitation present. There is mild pulmonary hypertension. The right ventric ular systolic pressure, as measured by Doppler, is 62.11mmHg. There is no pulmonic regurgitation present. The aortic root size is normal. There is no pericardial effusion. CONCLUSIONS -------- 1. Sinus rhythm. 2. This was a technically adequate study. 3. The left ventricular size is normal. 4. There is severe concentric left ventricular hypertrophy. 5. Overall left ventricular systolic function is normal with, an EF between 60 - 65 %. 6. Systolic anterior motion of the mitral valve with LVOT Obstruction MaxPg 79.53mmHg & Lvot mean gra dient 37.01mmHg. 7. The right ventricle is normal in size. 8. The left atrium is moderately dilated. 9. LA is moderately dilated 34-39 ml/m2 10. The right atrium was not well visualized. 11. Moderate mitral regurgitation is present. 12. The peak and mean MV gradients are 19.18mmHg 6.17mmHg as measured by doppler. 13. Moderate mitral stenosis. 14. Moderate tricuspid regurgitation present. 15. There is mild pulmonary hypertension. 16. The right ventricular systolic pressure, as measured by Doppler, is 62.11mmHg. 17. There is no pulmonic regurgitation present. 18. The aortic root size is normal. 19. There is no pericardial effusion. SKIP TENDER: Nidia Rocha RDCS
--- NOTE | 2019-02-26 12:01 | P.PN ---
Subjective This is a pleasant 78 years old female with past medical history of CVA/TIA, hyperlipidemia, hypertension, osteoarthritis. Presents because of syncope. Patient states that she was walking her living room when she just passed out, her son was there and he called the ambulance for her. She remembers she was in the emergency room however she denies chest pain or dyspnea. No abdominal pain. Also patient was complaining of from left upper extremity weakness and numbness for 1 week which is improved now but not back to normal, as per patient estimated her left arm weakness and numbness is back to normal/usual state by 80%. Patient was admitted to the ICU and she remains fair. She denies chest pain or dyspnea. No abdominal pain. No change in urine or bowel habits. No headache. No swallowing or talking difficulty. No dizziness. Patient is hemodynamically stable. unremarkable cbc and bmp. troponin is negative. patient has been already evaluated by neurologist and found to have significant stenosis in the right carotid artery about 50-60%. also on admission patient had tachycardia has been showing in the ekg at a rate of 137. echocardiogram showing ejection fraction of 60-65%. Severe LVH, moderate mitral regurgitation and tricuspid regurgitation. MRI of the brain: Moderate to Severe diffuse atrophy. MRA and carotid duplex, right carotid artery stenosis, 50-60%. Review of systems CONSTITUTIONAL: No fever, no malaise, no fatigue. HEENT: No recent visual problems or hearing problems. Denied any sore throat. CARDIOVASCULAR: No orthopnea, PND, no palpitations, no syncope. PULMONARY: No shortness of breath, no cough, no hemoptysis. GASTROINTESTINAL: No diarrhea, no nausea, no vomiting, no abdominal pain. Normoa ctive bowel sounds. NEUROLOGICAL: No headaches, no weakness, no numbness. HEMATOLOGICAL: Denies any bleeding or petechiae. GENITOURINARY: Denies any burning micturition, frequency, or urgency. MUSCULOSKELETAL/RHEUMATOLOGICAL: Denies any joint pain, swelling, or any muscle pain. ENDOCRINE: Denies any polyuria or polydipsia. Active Medications Generic Name Dose Route Start Last Admin Trade Name Freq PRN Reason Stop Dose Admin Albuterol/Ipratropium 3 ml 02/25/19 08:00 02/26/19 10:55 Duoneb 0.5 Mg-3 Mg/3 Ml Soln INHALATION 3 ml RT-QID ISREAL Administration Amlodipine Besylate 5 mg 02/25/19 09:00 02/26/19 08:22 Norvasc PO Not Given DAILY ISREAL Aspirin 81 mg 02/26/19 09:00 02/26/19 08:21 Aspirin PO 81 mg DAILY ISREAL Administration Atenolol 25 mg 02/25/19 09:00 02/26/19 08:22 Tenormin PO Not Given DAILY ISREAL Atorvastatin Calcium 80 mg 02/25/19 21:00 02/25/19 20:28 Lipitor PO 80 mg HS ISREAL Administration Clopidogrel Bisulfate 75 mg 02/25/19 16:15 02/26/19 08:21 Plavix PO 75 mg DAILY ISREAL Administration Enoxaparin Sodium 40 mg 02/25/19 16:00 02/26/19 08:21 Lovenox SQ 40 mg DAILY ISREAL Administration Famotidine 20 mg 02/25/19 21:00 02/26/19 08:21 Pepcid PO 20 mg BID ISREAL Administration Fluticasone Propionate 2 spray 02/25/19 09:00 02/26/19 08:22 Flonase Nasal [place] EA NOSTRIL 2 spray DAILY ISREAL Administration Levetiracetam 750 mg 02/26/19 09:30 02/26/19 10:36 Keppra PO 750 mg Q12HR ISREAL Administration Nicotine 1 patch 02/25/19 16:00 02/26/19 08:21 Habitrol 21mg/24hr Patch TRANSDERM 1 patch DAILY ISREAL Administration Objective - Vital Signs Vital signs: Vital Signs Temp 97.8 F 02/26/19 08:00 Pulse 63 02/26/19 11:08 Resp 26 H 02/26/19 08:00 BP 122/96 02/26/19 08:00 Pulse Ox 95 02/26/19 08:00 Intake & Output 02/25/19 02/26/19 02/26/19 18:59 06:59 18:59 Intake Total 600 500 Output Total 250 650 Balance 350 -150 Weight 60.4 kg 60.1 kg Intake: IV 600 Sodium Chloride 0.9% 1, 600 000 ml @ 100 mls/hr IV . Q10H ISREAL Rx#:[id number] Oral 500 Output: Urine 250 650 Other: Voiding Method Toilet Toilet Toilet # Voids 2 1 2 - Exam GENERAL: The patient is alert and oriented x3, not in any acute distress. Well developed, well nourished. HEENT: Pupils are round and equally reacting to light. EOMI. No scleral icterus. No conjunctival pallor. Normocephalic, atraumatic. No pharyngeal erythema. No thyromegaly. CARDIOVASCULAR: S1 and S2 present. No murmurs, rubs, or gallops. PULMONARY: Chest is clear to auscultation, no wheezing or crackles. ABDOMEN: Soft, nontender, nondistended, normoactive bowel sounds. No palpable organomegaly. MUSCULOSKELETAL: No joint swelling or deformity. EXTREMITIES: No cyanosis, clubbing, or pedal edema. -NEUROLOGICAL: Cranial nerves are grossly intact. Strength: 5/5 except Mild left upper extremity weakness. Sensation is intact in all extremities. Meningeal signs are absent SKIN: No rashes. - Labs CBC & Chem 7: 02/26/19 04:58 02/26/19 04:58 Labs: Abnormal Lab Results - Last 24 Hours (Table) 02/25/19 02/26/19 Range/Units 12:10 04:58 HDL Cholesterol 37 L (40-60) mg/dL Urine Protein Trace H (Negative) Urine Blood Trace H (Negative) Urine Bacteria Rare H (None) /hpf Hyaline Casts 4 H (0-2) /lpf Urine Mucus Rare H (None) /hpf Assessment and Plan Assessment: Syncope, rule out cardiac causes Left upper extremity weakness and numbness Right carotid artery stenosis, 50-60%. Plan to have surgical intervention Severe left ventricular hypertrophy with normal ejection fraction Tachycardia Moderate mitral and tricuspid regurgitation Mild pulmonary hypertension Plan: This is a pleasant 78 years old female who presents with syncope and left upper extremity weakness found to have right carotid artery stenosis, patient has been evaluated by vascular surgery and planned to have endarterectomy however she needs to be off aspirin and Plavix for a few days. Also we are going to consult cardiology team and in view of her heart disease with tachycardia, LVH which was contributing to her presentation of syncope and to help in preop evaluation as well. Continue neuro check and patient is ICU. Labs and medication were reviewed.. Continue same treatment. Continue with symptomatic treatment. Resume home medication. Monitor lytes and vitals. DVT and GI prophylaxis. Further recommendations of the clinical course of the patient DVT prophylaxis: Subcutaneous Lovenox GI Prophylaxis: Pepcid PT/OT: Pending Prognosis is guarded
--- NOTE | 2019-02-26 13:48 | P.PN ---
Progress Note - Text Progress Note Date: 02/26/19 SUBJECTIVE/INTERVAL EVENTS: No acute overnight events. Patient is doing well. Denies any headache, nausea, vomiting, weakness or numbness or tingling. PHYSICAL EXAMINATION: VITAL SIGNS: T 97.8 HR 71 RR 20 60 pressure 122/96 O2 saturation 95% on room air GEN.: NAD, pleasant and cooperative HEENT: NCAT, sclera without icterus NECK: Supple, no carotid bruit SKIN AND EXTREMITIES: Warm to touch, no edema NEURO: MENTAL STATUS: Patient alert and oriented to self, place, time. Able to name the current president. Speech fluent, able to name and repeat, following all commands readily. No right and left disorientation, extinction to double simultaneous stimulation, finger agnosia, neglect. CRANIAL NERVES II THROUGH XII: II: Pupils are equal and reactive to light symmetrically. No afferent pupillary defect. Visual anguiano are intact. III, IV, : No ptosis. Extraocular movements full. No nystagmus. V: Facial sensation intact from V1-3. VII. Mild L facial droop. VIII: Hearing intact to finger rub bilaterally. IX, X: Symmetric palate elevation. XI: Shoulder shrug intact. XII: Tongue midline without fasciculation or atrophy. MOTOR: Normal bulk/tone. LUE pronator drift. Strength is 5/5 in proximal LUE, 4+/5 in biceps/triceps, 4+/5 with finger vending stand supervisor. Otherwise, strength is 5/5 throughout all other extremities. SENSORY: Intact to light touch in all 4 extremities. Romberg is negative. REFLEXES: 2+ throughout. Toes are downgoing. COORDINATION: Finger to nose intact. No dysmetria. GAIT: Narrow-based and stable. Able to toe/heel/tandem walk but some difficulty with tandem walking. DIAGNOSTIC TESTING: LABORATORY: WBC 8.7 hemoglobin 14.5 platelet 204 PT 10.8 INR 1.0 sodium 140 potassium 4.2 chloride 106 bicarb 17 BUN 13 creatinine 0.68 glucose 152 AST 27 ALT 9 alk phos 107 troponin <0.012 Total cholesterol 127 LDL 66 and HDL 37 triglycerides 122 TSH 4.370 A1C 5.7 IMAGING: CT head without contrast 02/25/2019: No acute intracranial hemorrhage or midline shift. There is moderate diffuse age-related cerebral atrophy and advanced chronic small vessel ischemic change we demonstrated. Cannot exclude evolving acute/subacute infarct posterior right frontal lobe. MRI brain without contrast 02/25/2019: Moderately severe diffuse atrophy. Extensive chronic small vessel ischemia. Demyelinating disease not excluded. No acute intracranial abnormality. No acute cortical infarct. MRI brain without contrast 03/13/2016: No acute intracranial process. Extensive degenerative remote ischemic change. Prominent CSF spaces along both parietal convexities may be related to asymmetric atrophy rather than an arachnoid cyst or tiny subdural chronic hygromas. No significant mass effect or midline shift. Carotid Doppler bilateral 02/25/2019: Fairly severe atherosclerotic changes, hemodynamically significant stenosis estimated 50-69% likely present on the right. Cannot exclude significant steno sis on the left. Advised CTA or MRA of the neck to better evaluate and characterize Transthoracic echocardiogram 02/25/2019: Signs rhythm. Severe concentric left ventricular hypertrophy. Ejection fraction 60-65%. LV/RV are normal in size. LA is moderately dilated. ASSESSMENT: Ms. Boles is a 78-year-old L-handed woman with no known past medical history presenting with acute onset left-sided shaking, consulting neurology for stroke workup and management. MRI brain with no infarct. There was report of patient having possible L hand shaking. Possible that patient was having a focal seizure that led to weakness of her LUE although Aurelio's paralysis does not usually last for a week. Transthoracic echocardiogram showing dilated left atrium, but patient's cardiac monitoring so far has not shown any arrhythmias. RECOMMENDATIONS: 1. Will start Keppra 750mg BID 2. Cardiac monitoring with no events during this admission. However, patient's MRI with extensive remote ischemic changes along with echocardiogram showing dilated left atrium. Recommend loop recorder placement 3. ASA 81mg qday, Atorvastatin 80mg qhs 4. Routine EEG; will review report later today. 5. PT/OT/ST per protocol 6. Patient will need to follow up with neurologist as outpatient 7. There will be no neurology coverage over the weekend. Feel free to [employer] message me over the weekend if you have any questions or concerns. Neurology will sign off
--- NOTE | 2019-02-26 18:39 | EEG ---
ELECTROENCEPHALOGRAM REPORT DATE OF PROCEDURE: 02/26/2019 ELECTROENCEPHALOGRAM (EEG) REPORT: TECHNIQUE: A routine 18-channel EEG was performed with video using the 10/20 international electrode placement system. HISTORY: Stroke, seizures. Other medical history includes hypertension and asthma. CURRENT MEDICATIONS: 1. Keppra. 2. Pepcid. 3. Plavix. 4. Tenormin. 5. Aspirin,. 6. Norvasc. STUDY DURATION: 25 minutes. FINDINGS: BACKGROUND: The background activity consisted of 7 to 8 Hz rhythmic waveforms symmetrically distributed through both posterior quadrants. ACTIVATION: Hyperventilation: Not performed. Photic stimulation: Mild symmetric driving seen. Sleep: Drowsy. ABNORMALITIES: Frequent focal right midtemporal theta range slowing was seen. IMPRESSION: Abnormal EEG. The frequent focal right midtemporal theta range slowing mentioned above is not epileptiform in nature. In combination with the slow background, these findings indicate mild diffuse cerebral dysfunction with greater focal involvement of the right midtemporal region. No seizures were recorded. Clinical correlation is recommended. MMODL / IJN: [id number] /
--- NOTE | 2019-02-26 20:33 | CONS ---
CONSULTATION Mrs. Boles is a 78-year-old female who is seen for cardiac evaluation. The patient's electronic medical record was reviewed. The patient is a rather poor historian. Patient is a resident of [facility]. The patient has a history of hypertension, hyperlipidemia, pituitary dysfunction. Patient was admitted through the emergency room with a complaint of weakness in the left arm for about a week as well as some shaking. She was told in the past that she had a stroke a couple of months ago. There is no history suggestive of myocardial infarction. Patient denies any shortness of breath with routine activities, orthopnea or PND. PAST MEDICAL HISTORY: Past medical history includes: 1. History of hypertension. 2. Pituitary dysfunction in the remote past. 3. History of possible TIA in the past. 4. History of dementia. 5. The patient has a public legal guardian. 6. Appendicectomy. 7. Cholecystectomy. 8. Tonsillectomy. PHYSICAL EXAMINATION: Physical examination at present reveals a 78-year-old female who does not appear to be in any acute distress. Blood pressure is 130/80 mmHg. Head/ENT examination is negative. Neck is supple. There is no increase in jugular venous pressure. Both the carotid pulses are felt. There is a murmur present which is conducted to the carotid arteries. HEART: The first and second heart sounds are normal. There is a mid systolic murmur heard at the left sternal border which is conducted to the near carotid. Lungs are clinically clear to auscultation and percussion. Abdomen is negative. EXTREMITIES: Peripheral pulsations are 2+. The patient had an echocardiogram done which shows moderate to severe LVH with evidence of subaortic gradient of about 70 mmHg. The patient's MRI does not show any definite evidence of stroke. There is moderate to severe diffuse atrophy and extensive chronic small-vessel disease was noted. MRA is suggestive of right 50% to 60% stenosis of the right internal carotid artery. FINAL IMPRESSION: 1. This patient is admitted with symptoms of weakness and some shaking of left upper extremity. It is not clear whether really patient had any recent stroke. MRI does not show any significant abnormality. 2. Patient has a mid systolic murmur secondary to subaortic hypertrophic cardiomyopathy. There is no evidence of valvular aortic stenosis. 3. History of hypertension. RECOMMENDATIONS: We will discontinue atenolol and amlodipine and start the patient on metoprolol succinate 50 mg daily from tomorrow. The dose can be increased as the patient tolerates. MMODL / IJN: [id number] /
--- NOTE | 2019-02-26 20:37 | P.GSCN ---
History of Present Illness Consult date: 02/26/19 History of present illness: Ms Boles is a 78 year old female who initially presented to the ER from [facility], she reports no past medical history and no medications. She also states that she lives at home currently but then redirects to agreeing she came in from [place]. She notably has a charted history of hypertension, hyperlipidemia, osteoarthritis, pituitary dysfunction. She states that about a week or more ago she noticed she had weakness in her left arm that has improved since. She denied any other weakness or facial droop. She denies any visual changes or headaches. She also noted some jerky movements to her arm. She has underwent an MRI which showed no acute findings. A carotid doppler and MRA showed hemodynamically significant stenosis (likely residing somewhere in the 60s) Review of Systems 14 point review of systems performed. Pertinent positives and negatives per the hpi Past Medical History Past Medical History: CVA/TIA, Hyperlipidemia, Hypertension, Osteoarthritis (OA), Pneumonia Additional Past Medical History / Comment(s): Possible TIAs in past per pt, pt believes she has the beginnings of dementia, bronchitis, pituitary dysfunction, seasonal allergies/sinus problems, arthritis in multiple joints. History of Any Multi-Drug Resistant Organisms: None Reported Past Surgical History: Adenoidectomy, Appendectomy, Cholecystectomy, Tonsillectomy Past Anesthesia/Blood Transfusion Reactions: No Reported Reaction Smoking Status: Current every day smoker - Past Family History Father Family Medical History: Cancer Additional Family Medical History / Comment(s): Pt states by the time they found out that her father had cancer, it was thru out his body. Mother Family Medical History: No Reported History Additional Family Medical History / Comment(s): Mother was healthy. Medications and Allergies Home Medications Medication Instructions Recorded Confirmed Type Aspirin EC [Ecotrin Low Dose] 81 mg PO DAILY 02/25/19 02/25/19 History Atenolol [Tenormin] 25 mg PO DAILY 02/25/19 02/25/19 History Atorvastatin [Lipitor] 20 mg PO HS 02/25/19 02/25/19 History Betamethasone Valerate 1 applic TOPICAL BID PRN 02/25/19 02/25/19 History [Betamethasone Valerate 0.1%] Fluticasone Nasal [place] [Flonase 2 spr EA NOSTRIL HS 02/25/19 02/25/19 History Nasal [place]] Ipratropium/Albuterol Sulfate 1 puff INHALATION RT-Q6H PRN 02/25/19 02/25/19 History [Combivent Respimat Inhaler] Loratadine [Claritin] 10 mg PO DAILY 02/25/19 02/25/19 History amLODIPine [Norvasc] 5 mg PO DAILY 02/25/19 02/25/19 History guaiFENesin [guaiFENesin Oral 10 mg PO Q6H PRN 02/25/19 02/25/19 History Solution] Allergies Allergy/AdvReac Type Severity Reaction Status Date / Time No Known Allergies Allergy Verified 02/25/19 07:48 Surgical - Exam Vital Signs Pulse Resp Pulse Ox 126 H 20 99 02/25/19 05:04 02/25/19 05:04 02/25/19 05:04 Gen: Pleasant female in no acute distress HEENT normocephalic, atraumatic. EOMI Heart RRR Lungs CTAB Abd soft, nt/nd ext palpable radial pulses bilaterally. feet warm and dry, no palpable pulses Results US, MRI reviewed. 50-69% and 60-70% stenosis of the LA respectively. MRI brain no acute ischemic changes - Labs 02/26/19 04:58 02/26/19 04:58 Abnormal Lab Results - Last 24 Hours (Table) 02/26/19 Range/Units 04:58 HDL Cholesterol 37 L (40-60) mg/dL Diabetes panel 02/25/19 02/26/19 Range/Units 05:20 04:58 Sodium 138 (137-145) mmol/L Potassium 3.6 (3.5-5.1) mmol/L Chloride 103 (98-107) mmol/L Carbon Dioxide 29 (22-30) mmol/L BUN 7 (7-17) mg/dL Creatinine 0.58 (0.52-1.04) mg/dL Glucose 99 (74-99) mg/dL Hemoglobin A1c 5.7 (4.0-6.0) % Calcium 9.2 (8.4-10.2) mg/dL Triglycerides 122 (<150) mg/dL HDL Cholesterol 37 L (40-60) mg/dL Calcium panel 02/26/19 Range/Units 04:58 Calcium 9.2 (8.4-10.2) mg/dL Pituitary panel 02/26/19 Range/Units 04:58 Sodium 138 (137-145) mmol/L Potassium 3.6 (3.5-5.1) mmol/L Chloride 103 (98-107) mmol/L Carbon Dioxide 29 (22-30) mmol/L BUN 7 (7-17) mg/dL Creatinine 0.58 (0.52-1.04) mg/dL Glucose 99 (74-99) mg/dL Calcium 9.2 (8.4-10.2) mg/dL Adrenal panel 02/26/19 Range/Units 04:58 Sodium 138 (137-145) mmol/L Potassium 3.6 (3.5-5.1) mmol/L Chloride 103 (98-107) mmol/L Carbon Dioxide 29 (22-30) mmol/L BUN 7 (7-17) mg/dL Creatinine 0.58 (0.52-1.04) mg/dL Glucose 99 (74-99) mg/dL Calcium 9.2 (8.4-10.2) mg/dL Assessment and Plan Assessment: LA stenosis, likely asymptomatic per reports COPD in a current smoker Chronic nicotine dependence Hyperlipidemia Essential hypertension Primary osteoarthritis Plan: Chart thoroughly reviewed, discussion had with neurology. They feel this is more likely seizure related, and in fact EEG correlates with this. At this time, would recommend best medical therapy with aspirin and statin. We will follow up as outpatient for carotid surveillance. Also likely peripheral vascular disease follow up. discussed smoking cessation, pt reluctant. Patient and plan was discussed with primary team.
[2019-02-26] MEDS: ATORVASTATIN 80 MG TAB PO SCH (22:20)
[2019-02-27] MEDS: IPRATROPIUM-ALBUTEROL 3 ML NEB INHALATION SCH ×4 (07:18→19:01)
[2019-02-27] MEDS: ENOXAPARIN 40 MG/0.4 ML SYRINGE SQ SCH (09:58)
[2019-02-27] MEDS: NICOTINE 21MG/24HR PATCH TRANSDERM SCH (09:58)
[2019-02-27] MEDS: FAMOTIDINE 20 MG TAB PO SCH ×2 (09:59→21:06)
[2019-02-27] MEDS: CLOPIDOGREL 75 MG TAB PO SCH (09:59)
[2019-02-27] MEDS: ASPIRIN 81 MG PO SCH (09:59)
[2019-02-27] MEDS: METOPROLOL SUCCINATE (ER) 50 MG TAB.ER.24H PO SCH (09:59)
[2019-02-27] MEDS: FLUTICASONE 50MCG/SPRAY NASAL 16GM EA NOSTRIL SCH (10:00)
--- NOTE | 2019-02-27 10:38 | P.PN ---
Subjective Progress Note Date: 02/27/19 Patient seen and examined. Doing well overall. No further neurologic events. No acute distress No respiratory distress No new motor weakness or changes. Still slightly weaker on the left side upper extremity but very minimal #1 asymptomatic right ICA stenosis, incidental finding #2 left upper extremity weakness/jerking movements, correlated with EEG findings #3 no evidence of acute ischemic events on MRI At this point conversation was had with the patient, we recommend medical management given there is no evidence of this being a symptomatic right ICA stenosis. The patient seemingly understands and is very much in agreement as she is not interested in surgery at this time regardless. Going forward we will follow-up with her for surveillance. Is discussed with her that at some point it may become necessary for surgical intervention, at which time she says she would consider it. We will follow-up with her in the office on an outpatient basis in the next 2-4 weeks. Objective - Vital Signs Vital signs: Vital Signs Temp 97.3 F L 02/27/19 08:25 Pulse 88 02/27/19 08:25 Resp 16 02/27/19 08:25 BP 123/57 02/27/19 08:25 Pulse Ox 95 02/27/19 08:25 Intake & Output 02/26/19 02/27/19 02/27/19 18:59 06:59 18:59 Intake Total 240 Balance 240 Weight 56.2 kg Intake: Oral 240 Other: Voiding Method Toilet Toilet # Voids 2 1 - Labs CBC & Chem 7: 02/26/19 04:58 02/26/19 04:58
[2019-02-27] MEDS ORDERED: POTASSIUM CHLORIDE ER 20 MEQ TAB.ER PO STA (11:25)
--- NOTE | 2019-02-27 11:27 | P.PN ---
Subjective This is a pleasant 78 years old female with past medical history of CVA/TIA, hyperlipidemia, hypertension, osteoarthritis. Presents because of syncope. Patient states that she was walking her living room when she just passed out, her son was there and he called the ambulance for her. She remembers she was in the emergency room however she denies chest pain or dyspnea. No abdominal pain. Also patient was complaining of from left upper extremity weakness and numbness for 1 week which is improved now but not back to normal, as per patient estimated her left arm weakness and numbness is back to normal/usual state by 80%. Patient was admitted to the ICU and she remains fair. She denies chest pain or dyspnea. No abdominal pain. No change in urine or bowel habits. No headache. No swallowing or talking difficulty. No dizziness. Patient is hemodynamically stable. unremarkable cbc and bmp. troponin is negative. patient has been already evaluated by neurologist and found to have significant stenosis in the right carotid artery about 50-60%. also on admission patient had tachycardia has been showing in the ekg at a rate of 137. echocardiogram showing ejection fraction of 60-65%. Severe LVH, moderate mitral regurgitation and tricuspid regurgitation. MRI of the brain: Moderate to Severe diffuse atrophy. MRA and carotid duplex, right carotid artery stenosis, 50-60%. 02/27/2019 Patient was moved out of the ICU to the select unit today. No more dizziness or syncope. No chest pain or dyspnea. Her left upper extremity weakness and numbness improved significantly up to 95% of her normal state as per patient. Discussed the case with vascular surgery team, it looks like the right carotid artery stenosis is incidental finding as her symptoms are not really due to stroke. Differential diagnoses including seizure versus cardiac abnormality. Neurology signed off the case and the recommended loop records. Cartilages evaluated the patient and recommended to stop atenolol and amlodipine and started on metoprolol 50 mg daily. Blood pressure today is 123/57. Patient is cleared by vascular surgery and neurology as well as cardiology for discharge. She is back close to her baseline. Patient does not know where she is going, she states she comes from adult home at [facility] close to a [place] in [place]. 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 Patient has a guardian. preparation room worker has been consulted. Discussed with staff Objective - Vital Signs Vital signs: Vital Signs Temp 97.3 F L 02/27/19 08:25 Pulse 88 02/27/19 08:25 Resp 16 02/27/19 08:25 BP 123/57 02/27/19 08:25 Pulse Ox 95 02/27/19 08:25 Intake & Output 02/26/19 02/27/19 02/27/19 18:59 06:59 18:59 Intake Total 240 Balance 240 Weight 56.2 kg Intake: Oral 240 Other: Voiding Method Toilet Toilet # Voids 2 1 - Exam GENERAL: The patient is alert and oriented x3, not in any acute distress. Well developed, well nourished. HEENT: Pupils are round and equally reacting to light. EOMI. No scleral icterus. No conjunctival pallor. Normocephalic, atraumatic. No pharyngeal erythema. No thyromegaly. CARDIOVASCULAR: S1 and S2 present. No murmurs, rubs, or gallops. PULMONARY: Chest is clear to auscultation, no wheezing or crackles. ABDOMEN: Soft, nontender, nondistended, normoactive bowel sounds. No palpable organomegaly. MUSCULOSKELETAL: No joint swelling or deformity. EXTREMITIES: No cyanosis, clubbing, or pedal edema. -NEUROLOGICAL: Cranial nerves are grossly intact. Strength: 5/5 except Mild left upper extremity weakness, improved. Sensation is intact in all extremities. Meningeal signs are absent SKIN: No rashes. - Labs CBC & Chem 7: 02/26/19 04:58 02/26/19 04:58 Assessment and Plan Assessment: Syncope, cardiac causes ruled out. Left upper extremity weakness and numbness, improving. Could be related to seizure versus other. Catapres started Right carotid artery stenosis, 50-60%. Incidental finding. Discussed with vascular surgery team. Patient needs no surgical intervention currently Severe left ventricular hypertrophy with normal ejection fraction Tachycardia. Improved Moderate mitral and tricuspid regurgitation Mild pulmonary hypertension Plan: This is a pleasant 78 years old female who presents with syncope and left upper extremity weakness found to have right carotid artery stenosis, patient has been evaluated by a consult is for the neurology, vascular surgery and cardiology who cleared her for discharge. No need for surgical intervention as per vascular surgery for her right carotid artery lesion which is most likely incidental. Neurology team and it Keppra and recommended loop records as an outpatient. Cardiology started on metoprolol. Patient is not sure where she is going. We asking for social media designer for further evaluation. Patient states she does not have a primary care doctor currently. Labs and medication were reviewed.. Continue same treatment. Continue with symptomatic treatment. Resume home medication. Monitor lytes and vitals. DVT and GI prophylaxis. Further recommendations of the clinical course of the patient DVT prophylaxis: Subcutaneous Lovenox GI Prophylaxis: Pepcid PT/OT: Recommended home with supervision 06/01 Prognosis is guarded
[2019-02-27] MEDS: ATORVASTATIN 80 MG TAB PO SCH (21:06)
[2019-02-28] MEDS: IPRATROPIUM-ALBUTEROL 3 ML NEB INHALATION SCH ×4 (07:29→21:09)
[2019-02-28] MEDS: FLUTICASONE 50MCG/SPRAY NASAL 16GM EA NOSTRIL SCH (09:17)
[2019-02-28] MEDS: METOPROLOL SUCCINATE (ER) 50 MG TAB.ER.24H PO SCH (09:18)
[2019-02-28] MEDS: NICOTINE 21MG/24HR PATCH TRANSDERM SCH (09:18)
[2019-02-28] MEDS: ENOXAPARIN 40 MG/0.4 ML SYRINGE SQ SCH (09:18)
[2019-02-28] MEDS: ASPIRIN 81 MG PO SCH (09:18)
[2019-02-28] MEDS: CLOPIDOGREL 75 MG TAB PO SCH (09:18)
[2019-02-28] MEDS: FAMOTIDINE 20 MG TAB PO SCH ×2 (09:18→21:04)
--- NOTE | 2019-02-28 10:18 | P.PN ---
Subjective This is a pleasant 78 years old female with past medical history of CVA/TIA, hyperlipidemia, hypertension, osteoarthritis. Presents because of syncope. Patient states that she was walking her living room when she just passed out, her son was there and he called the ambulance for her. She remembers she was in the emergency room however she denies chest pain or dyspnea. No abdominal pain. Also patient was complaining of from left upper extremity weakness and numbness for 1 week which is improved now but not back to normal, as per patient estimated her left arm weakness and numbness is back to normal/usual state by 80%. Patient was admitted to the ICU and she remains fair. She denies chest pain or dyspnea. No abdominal pain. No change in urine or bowel habits. No headache. No swallowing or talking difficulty. No dizziness. Patient is hemodynamically stable. unremarkable cbc and bmp. troponin is negative. patient has been already evaluated by neurologist and found to have significant stenosis in the right carotid artery about 50-60%. also on admission patient had tachycardia has been showing in the ekg at a rate of 137. echocardiogram showing ejection fraction of 60-65%. Severe LVH, moderate mitral regurgitation and tricuspid regurgitation. MRI of the brain: Moderate to Severe diffuse atrophy. MRA and carotid duplex, right carotid artery stenosis, 50-60%. 02/27/2019 Patient was moved out of the ICU to the select unit today. No more dizziness or syncope. No chest pain or dyspnea. Her left upper extremity weakness and numbness improved significantly up to 95% of her normal state as per patient. Discussed the case with vascular surgery team, it looks like the right carotid artery stenosis is incidental finding as her symptoms are not really due to stroke. Differential diagnoses including seizure versus cardiac abnormality. Neurology signed off the case and the recommended loop records. Cartilages evaluated the patient and recommended to stop atenolol and amlodipine and started on metoprolol 50 mg daily. Blood pressure today is 123/57. Patient is cleared by vascular surgery and neurology as well as cardiology for discharge. She is back close to her baseline. Patient does not know where she is going, she states she comes from adult home at [facility] close to a [place] in [place]. 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 Patient has a guardian. social worker masters has been consulted. Discussed with staff 02/28/2019 Patient is awake and alert. No chest pain or dyspnea. Her left upper extremity weakness and numbness are significantly improved back very close to baseline with only very minimal weakness and numbness as per patient. Patient has no abdominal pain or nausea vomiting but she had 5-6 bouts of loose stool yesterday and early this morning. So she complains from frequent urination but she says she drinks a lot of liquids as well. Discussed the case with the social professionals/case management social worker, patient can go back to her assisted living where she came in from. Also we will send urine analysis and check C. diff. Patient states she has no PCP but she agrees to go see Dr. Vaughan in the outpatient setting. I called Dr. Vaughan office and made her an appointment on 03/05/[address] Vaughan and discussed the case with him including the recommendation for outpatient follow-up with the neurologist, foundation director and vascular surgery and he kindly took note of this. Patient can be transferred from select the general medical floor. Discussed with the staff Review of systems CONSTITUTIONAL: No fever, no malaise, no fatigue. HEENT: No recent visual problems or hearing problems. Denied any sore throat. CARDIOVASCULAR: No orthopnea, PND, no palpitations, no syncope. PULMONARY: No shortness of breath, no cough, no hemoptysis. GASTROINTESTINAL: No diarrhea, no nausea, no vomiting, no abdominal pain. Normoactive bowel sounds. NEUROLOGICAL: No headaches, no weakness, no numbness. HEMATOLOGICAL: Denies any bleeding or petechiae. GENITOURINARY: Denies any burning micturition, frequency, or urgency. MUSCULOSKELETAL/RHEUMATOLOGICAL: Denies any joint pain, swelling, or any muscle pain. ENDOCRINE: Denies any polyuria or polydipsia. Active Medications Generic Name Dose Route Start Last Admin Trade Name Freq PRN Reason Stop Dose Admin Albuterol/Ipratropium 3 ml 02/25/19 08:00 02/28/19 07:29 Duoneb 0.5 Mg-3 Mg/3 Ml Soln INHALATION Not Given RT-QID ISREAL Aspirin 81 mg 02/26/19 09:00 02/28/19 09:18 Aspirin PO 81 mg DAILY ISREAL Administration Atorvastatin Calcium 80 mg 02/25/19 21:00 02/27/19 21:06 Lipitor PO 80 mg HS ISREAL Administration Clopidogrel Bisulfate 75 mg 02/25/19 16:15 02/28/19 09:18 Plavix PO 75 mg DAILY ISREAL Administration Enoxaparin Sodium 40 mg 02/25/19 16:00 02/28/19 09:18 Lovenox SQ 40 mg DAILY ISREAL Administration Famotidine 20 mg 02/25/19 21:00 02/28/19 09:18 Pepcid PO 20 mg BID ISREAL Administration Fluticasone Propionate 2 spray 02/25/19 09:00 02/28/19 09:17 Flonase Nasal [place] EA NOSTRIL 2 spray DAILY ISREAL Administration Levetiracetam 750 mg 02/26/19 09:30 02/28/19 09:18 Keppra PO 750 mg Q12HR ISREAL Administration Metoprolol Succinate 50 mg 02/27/19 09:00 02/28/19 09:18 Toprol Xl PO 50 mg DAILY ISREAL Administration Nicotine 1 patch 02/25/19 16:00 02/28/19 09:18 Habitrol 21mg/24hr Patch TRANSDERM 1 patch DAILY ISREAL Administration Objective - Vital Signs Vital signs: Vital Signs Temp 97.4 F L 02/28/19 09:22 Pulse 60 02/28/19 09:22 Resp 16 02/28/19 09:22 BP 156/65 02/28/19 09:22 Pulse Ox 93 L 02/28/19 09:22 Intake & Output 02/27/19 02/28/19 02/28/19 18:59 06:59 18:59 Intake Total 840 240 Balance 840 240 Intake: Oral 840 240 Other: Voiding Method Toilet Toilet Toilet # Voids 2 1 # Bowel Movements 1 - Exam GENERAL: The patient is alert and oriented x3, not in any acute distress. Well developed, well nourished. HEENT: Pupils are round and equally reacting to light. EOMI. No scleral icterus. No conjunctival pallor. Normocephalic, atraumatic. No pharyngeal erythema. No thyromegaly. CARDIOVASCULAR: S1 and S2 present. No murmurs, rubs, or gallops. PULMONARY: Chest is clear to auscultation, no wheezing or crackles. ABDOMEN: Soft, nontender, nondistended, normoactive bowel sounds. No palpable organomegaly. MUSCULOSKELETAL: No joint swelling or deformity. EXTREMITIES: No cyanosis, clubbing, or pedal edema. -NEUROLOGICAL: Cranial nerves are grossly intact. Strength: 5/5 except Mild left upper extremity weakness, improved. Sensation is intact in all extremities. Meningeal signs are absent SKIN: No rashes. - Labs CBC & Chem 7: 02/26/19 04:58 02/26/19 04:58 Assessment and Plan Assessment: Syncope, cardiac causes ruled out. Left upper extremity weakness and numbness, improving. Could be related to seizure versus other. Keppra was started Loose bowel movement with frequent urination. Check C. diff and urine analysis Right carotid artery stenosis, 50-60%. Incidental finding. Discussed with vascular surgery team. Patient needs no surgical intervention currently Severe left ventricular hypertrophy with normal ejection fraction Tachycardia. Improved Moderate mitral and tricuspid regurgitation Mild pulmonary hypertension Plan: This is a pleasant 78 years old female who presents with syncope and left upper extremity weakness found to have right carotid artery stenosis, patient has been evaluated by a consult is for the neurology, vascular surgery and cardiology who cleared her for discharge. No need for surgical intervention as per vascular surgery for her right carotid artery lesion which is most likely incidental. Neurology team and it Kera and recommended loop records as an outpatient. Cardiology started on metoprolol. Patient is not sure where she is going. We asking for social professionals for further evaluation. Patient states she does not have a primary care doctor currently. Labs and medication were reviewed.. Continue same treatment. Continue with symptomatic treatment. Resume home medication. Monitor lytes and vitals. DVT and GI prophylaxis. Further recommendations of the clinical course of the patient DVT prophylaxis: Subcutaneous Lovenox GI Prophylaxis: Pepcid PT/OT: Recommended home with supervision 06/01 Prognosis is guarded I called Dr. Ingram office and made her an appointment on 03/05/[address] Ingram and discussed the case with him including the recommendation for outpatient follow-up with the neurologist, foundation director and vascular surgery and he kindly took note of this. Discussed with the staff
[2019-02-28] MEDS: amLODIPine 5 MG TAB PO SCH (12:08)
[2019-02-28 13:14] LABS: Amorphous Sediment,Urine Rare /hpf; Appearance,Urine Cloudy (Clear); Bilirubin,Urine Negative (Negative); Blood,Urine Trace (Negative); Color,Urine Yellow; Glucose,Urine (UA) Negative (Negative); Ketones,Urine Negative (Negative); Leukocyte Esterase,Urine Large (Negative); Mucus,Urine Rare /hpf; Nitrite,Urine Negative (Negative); PH, Urine 5.5 (5.0-8.0); Protein,Urine Negative (Negative); RBC,Urine 3 /hpf (0-5); Specific Gravity,Urine 1.012 (1.001-1.035); Squamous Epithelial Cell,Urine 8 /hpf (0-4); Urobilinogen,Urine <2.0 mg/dL (<2.0)
[2019-02-28] MEDS: LOPERAMIDE 2 MG CAP PO PRN (18:30)
[2019-02-28 19:23] LABS: Basophils % (A) 0 %; Eosinophils # (A) 0.5 k/uL (0-0.7); Eosinophils % (A) 5 %; HCT 42.7 % (34.0-46.0); HGB 14.2 gm/dL (11.4-16.0); Lymphocytes # (A) 1.3 k/uL (1.0-4.8); Lymphocytes % (A) 15 %; MCH 28.4 pg (25.0-35.0); MCHC 33.1 g/dL (31.0-37.0); MCV 85.8 fL (80.0-100.0); Mean Platelet Volume 7.4; Monocytes # (A) 0.7 k/uL (0-1.0); Monocytes % (A) 7 %; Neutrophils # (A) 6.3 k/uL (1.3-7.7); Neutrophils % (A) 71 %; Platelet Count 164 k/uL (150-450); RBC 4.98 m/uL (3.80-5.40); RDW 13.5 % (11.5-15.5); WBC 8.9 k/uL (3.8-10.6)
[2019-02-28 20:03] LABS: African American GFR (CKD) >90 (>60 ml/min/1.73 sqM); Anion Gap 11 mmol/L; Blood Urea Nitrogen 11 mg/dL (7-17); Calcium 9.4 mg/dL (8.4-10.2); Carbon Dioxide 22 mmol/L (22-30); Chloride 100 mmol/L (98-107); Glucose 120 mg/dL (74-99); Potassium 4.3 mmol/L (3.5-5.1); Sodium 133 mmol/L (137-145)
[2019-02-28] MEDS: ATORVASTATIN 80 MG TAB PO SCH (21:03)
[2019-03-01] MEDS: ENOXAPARIN 40 MG/0.4 ML SYRINGE SQ SCH (08:35)
[2019-03-01] MEDS: ASPIRIN 81 MG PO SCH (08:36)
[2019-03-01] MEDS: FAMOTIDINE 20 MG TAB PO SCH (08:36)
[2019-03-01] MEDS: amLODIPine 5 MG TAB PO SCH (08:36)
[2019-03-01] MEDS: CLOPIDOGREL 75 MG TAB PO SCH (08:36)
[2019-03-01] MEDS: FLUTICASONE 50MCG/SPRAY NASAL 16GM EA NOSTRIL SCH (08:36)
[2019-03-01] MEDS: NICOTINE 21MG/24HR PATCH TRANSDERM SCH (08:36)
[2019-03-01] MEDS: LOPERAMIDE 2 MG CAP PO PRN (08:36)
[2019-03-01] MEDS: METOPROLOL SUCCINATE (ER) 50 MG TAB.ER.24H PO SCH (08:36)
[2019-03-01] MEDS: IPRATROPIUM-ALBUTEROL 3 ML NEB INHALATION SCH ×3 (08:52→15:23)
[2019-03-01 12:08] LABS: Potassium 4.5 mmol/L (3.5-5.1)
[2019-03-01 14:23] VITALS: BP 134/77; RESP 16; TEMP 98.3
[2019-03-01 15:26] VITALS: PULSE 68
--- NOTE | 2019-03-01 21:23 | P.DS ---
Providers Date of admission: 02/25/19 07:00 Attending physician: Mariusz Em Consults: 02/25/19 07:00 Consult Physician Urgent Consulting Provider: Rhea Willis Consult Reason/Comments: Acute ischemic stroke. Seizure Do you want consulting provider notified?: Yes 02/25/19 16:02 Consult Physician Routine Consulting Provider: Jalil Valenzuela Consult Reason/Comments: Carotid stenosis Do you want consulting provider notified?: Yes 02/25/19 17:50 Consult Physician Routine Consulting Provider: Lupis Delatorre Consult Reason/Comments: carotid stenosis Do you want consulting provider notified?: Already Contacted 02/26/19 10:52 Consult Physician Routine Consulting Provider: Alondra Mitchell Consult Reason/Comments: syncope/surgical clearance Do you want consulting provider notified?: Yes Primary care physician: Stated None Hospital Course: Diagnoses: Syncope, cardiac causes ruled out. Left upper extremity weakness and numbness, improving. Could be related to seizure versus other. Keppra was started Right carotid artery stenosis, 50-60%. Incidental finding. Discussed with vascular surgery team. Patient needs no surgical intervention currently Severe left ventricular hypertrophy with normal ejection fraction Tachycardia. Improved Mild UTI, improved ( caused only diarrhea with no overt urinary s/s . and diarrhea resolved 24 hours prior to discharge) dc on oral antibiotic ,short course Moderate mitral and tricuspid regurgitation Mild pulmonary hypertension Hospital course This is a pleasant 78 years old female with past medical history of CVA/TIA, hyperlipidemia, hypertension, osteoarthritis. Presents because of syncope on the day of admission to the hospital associated with left upper extremity weakness and numbness for about a week. Patient has been evaluated by neurologist however workup including MRI and MRA of the brain did not show evidence of stroke. Suspicion was for seizures for this other than neurologist as patient on Keppra. However patient left upper extremity weakness is significantly improved and back to normal or very close to normal with only very minimal weakness and numbness as per patient. No more syncope or dizziness and patient has been evaluated by neurologist and administrative support assistant. Neurologist recommended also loop records as an outpatient. Molding Plasterer recommended to stop atenolol and started on metoprolol 50 mg daily, blood pressure and heart rate are better controlled. Workup also showed significant stenosis in the right carotid artery about 50- 60%, patient has been evaluated by vascular surgery who recommended this an incidental finding and there was no need for surgical intervention and can follow-up as an outpatient. 2 days prior to discharge patient developed loose bowel movement about 5-6 bouts per day and was watery. Workup showed possible UTI and patient was started on ceftriaxone and switched to Ceftin on discharge. On the day of discharge on the day before it patient diarrhea is resolved and patient had no bowel movements are no abdominal pain or vomiting and she tolerates diet. No dysuria or change of frequency of urination. No other S/Sx of UTI Patient back to her baseline and on the day of discharge she denies chest pain or dyspnea. No abdominal pain. No nausea vomiting. No fever Patient was cleared for discharge by neurologist, administrative support assistant and vascular surgery team. Patient has public guardian and she came from assisted living. drug department worker/case monitor helped with her placement. Problems and management plan were discussed with the patient and he verbalized understanding and acceptance Patient was found stable and can be discharged home however he needs follow-up as an outpatient. Patient was instructed to follow up with her PCP in one week as well as with administrative support assistant and neurologist. Patient agrees with the appointments made for her with her PCP, cardiology and vascular surgery and said she will follow up. while neurology office will contact the pt after discharge for f/u Guardian is informed Gen: patient is a AAOx3, no distress CVS: S1-S2, RRR, no murmur Lungs: B/L CTA, no wheezing Abdomen: soft, no distention, no tenderness, positive bowel sounds Extremity: no leg edema or induration Time spent more than 35 minutes Patient Condition at Discharge: Serious Plan - Discharge Summary Discharge Rx Participant: No New Discharge Prescriptions: New Cefuroxime Axetil [Ceftin] 500 mg PO BID 2 Days #4 tab Nicotine 21Mg/24Hr Patch [Habitrol] 1 patch TRANSDERM DAILY #30 patch levETIRAcetam [Keppra] 750 mg PO Q12HR #60 tab Atorvastatin [Lipitor] 80 mg PO HS #30 tab amLODIPine [Norvasc] 2.5 mg PO DAILY #30 tab Famotidine [Pepcid] 20 mg PO BID #30 tab Clopidogrel [Plavix] 75 mg PO DAILY #30 tab Metoprolol Succinate (ER) [Toprol XL] 50 mg PO DAILY #30 tab.er.24h Continue Ipratropium/Albuterol Sulfate [Combivent Respimat Inhaler] 1 puff INHALATION RT-Q6H PRN PRN Reason: Shortness Of Breath Fluticasone Nasal [place] [Flonase Nasal [place]] 2 spr EA NOSTRIL HS Loratadine [Claritin] 10 mg PO DAILY Aspirin EC [Ecotrin Low Dose] 81 mg PO DAILY #30 tab Discontinued Atorvastatin [Lipitor] 20 mg PO HS Atenolol [Tenormin] 25 mg PO DAILY amLODIPine [Norvasc] 5 mg PO DAILY Betamethasone Valerate [Betamethasone Valerate 0.1%] 1 applic TOPICAL BID PRN PRN Reason: Rash guaiFENesin [guaiFENesin Oral Solution] 10 mg PO Q6H PRN PRN Reason: Cough Discharge Medication List Fluticasone Nasal [place] [Flonase Nasal [place]] 2 spr EA NOSTRIL HS 02/25/19 [History] Ipratropium/Albuterol Sulfate [Combivent Respimat Inhaler] 1 puff INHALATION RT- Q6H PRN 02/25/19 [History] Loratadine [Claritin] 10 mg PO DAILY 02/25/19 [History] Aspirin EC [Ecotrin Low Dose] 81 mg PO DAILY #30 tab 03/01/19 [Rx] Atorvastatin [Lipitor] 80 mg PO HS #30 tab 03/01/19 [Rx] Cefuroxime Axetil [Ceftin] 500 mg PO BID 2 Days #4 tab 03/01/19 [Rx] Clopidogrel [Plavix] 75 mg PO DAILY #30 tab 03/01/19 [Rx] Famotidine [Pepcid] 20 mg PO BID #30 tab 03/01/19 [Rx] Metoprolol Succinate (ER) [Toprol XL] 50 mg PO DAILY #30 tab.er.24h 03/01/19 [Rx] Nicotine 21Mg/24Hr Patch [Habitrol] 1 patch TRANSDERM DAILY #30 patch 03/01/19 [Rx] amLODIPine [Norvasc] 2.5 mg PO DAILY #30 tab 03/01/19 [Rx] levETIRAcetam [Keppra] 750 mg PO Q12HR #60 tab 03/01/19 [Rx] Follow up Appointment(s)/Referral(s): Foster Luna MD [REFERRING] - 03/05/19 9:30 am Lupis Delatorre DO [STAFF PHYSICIAN] - 03/10/19 9:00 am (Please follow up with [facility]. [address] [place] [id number] #[phone]) Nonstaff,Physician [REFERRING] - 1-2 days Cristino Villasenor DO [STAFF PHYSICIAN] - 10 Days (Office will call with appointment time and date) Alondra Mitchell MD [STAFF PHYSICIAN] - 03/15/19 2:45 pm Patient Instructions/Handouts: Epilepsy (DC) Activity/Diet/Wound Care/Special Instructions: APPT WITH DR RIVAS IF NOT AVAIL WITH DR VILLASENOR cardiac diet activity is limited till you see your doctor Discharge Disposition: HOME SELF-CARE
== END 2019-03-01 15:57 | disposition home or self-care (01) | DRG 101 ==
LOC: EC 05:00 → EEVIPCON 05:00 → 2SICU 07:00 → 3SCARD 02-26 12:34 → 4MS4W 02-28 10:21
PROVIDERS: ADMIT Hospitalist; ATTEND Hospitalist
DX: G40.909 Epilepsy, unspecified, not intractable, without status epilepticus (principal); I42.2 Other hypertrophic cardiomyopathy; N39.0 Urinary tract infection, site not specified; E78.5 Hyperlipidemia, unspecified; F03.90 Unspecified dementia, unspecified severity, without behavioral disturbance, psychotic disturbance, mood disturbance, and anxiety; F17.210 Nicotine dependence, cigarettes, uncomplicated; I08.1 Rheumatic disorders of both mitral and tricuspid valves; I10 Essential (primary) hypertension; I27.20 Pulmonary hypertension, unspecified; I65.21 Occlusion and stenosis of right carotid artery; J44.9 Chronic obstructive pulmonary disease, unspecified; M19.91 Primary osteoarthritis, unspecified site; Z79.82 Long term (current) use of aspirin; Z79.899 Other long term (current) drug therapy; Z80.8 Family history of malignant neoplasm of other organs or systems; Z82.49 Family history of ischemic heart disease and other diseases of the circulatory system; Z86.73 Personal history of transient ischemic attack (TIA), and cerebral infarction without residual deficits; Z90.49 Acquired absence of other specified parts of digestive tract; Z79.51 Long term (current) use of inhaled steroids
CPT/HCPCS: 36415; 70450; 70544; 70547; 70551; 71045; 80048; 80051; 80053; 80061; 81001; 83036; 84443; 84484; 85025; 85610; 85730; 87324; 93005; 93306; 93880; 94640; 95816; 96361; 96374; 99285

== ENCOUNTER 2019-03-26 16:11 | Emergency (ER) | payer MEDICARE, OTHER ==
[2019-03-26] MEDS ORDERED: SODIUM CHLORIDE 0.9% 1,000 ML IV STA (16:43)
--- NOTE | 2019-03-26 16:46 | ED ---
General Adult HPI - General Chief complaint: Neuro Symptoms/Deficit Stated complaint: Neuro symptoms Time Seen by Provider: 03/26/19 16:32 Source: patient, RN notes reviewed Mode of arrival: EMS Limitations: no limitations - History of Present Illness Initial comments: Patient is a pleasant 79-year-old female presenting to the emergency Department with left arm weakness. Last known well was 10 PM when she went to bed last night. Patient woke up at 1:30 the morning and did notice some symptoms. Patient laid down again for a nap today at 12:30 and woke up around 2 and feels symptoms were somewhat worse at that time. Patient denies any confusion or speech problems. No leg problems or difficulty with gait. No headaches. - Related Data Home Medications Medication Instructions Recorded Confirmed Fluticasone Nasal [place] [Flonase 2 spr EA NOSTRIL HS 02/25/19 03/26/19 Nasal [place]] Loratadine [Claritin] 10 mg PO DAILY 02/25/19 03/26/19 Previous Rx's Medication Instructions Recorded Aspirin EC [Ecotrin Low Dose] 81 mg PO DAILY #30 tab 03/01/19 Atorvastatin [Lipitor] 80 mg PO HS #30 tab 03/01/19 Clopidogrel [Plavix] 75 mg PO DAILY #30 tab 03/01/19 Famotidine [Pepcid] 20 mg PO BID #30 tab 03/01/19 Metoprolol Succinate (ER) [Toprol 50 mg PO DAILY #30 tab.er.24h 03/01/19 XL] amLODIPine [Norvasc] 2.5 mg PO DAILY #30 tab 03/01/19 levETIRAcetam [Keppra] 750 mg PO Q12HR #60 tab 03/01/19 Allergies Allergy/AdvReac Type Severity Reaction Status Date / Time No Known Allergies Allergy Verified 03/26/19 17:18 Review of Systems ROS Statement: Those systems with pertinent positive or pertinent negative responses have been documented in the HPI. ROS Other: All systems not noted in ROS Statement are negative. Constitutional: Denies: fever Eyes: Denies: eye pain ENT: Denies: ear pain Respiratory: Denies: cough, dyspnea Cardiovascular: Denies: chest pain Endocrine: Denies: fatigue Gastrointestinal: Denies: abdominal pain Genitourinary: Denies: dysuria Musculoskeletal: Denies: back pain Skin: Denies: rash Neurological: Reports: weakness. Denies: headache Past Medical History Past Medical History: CVA/TIA, Hyperlipidemia, Hypertension, Osteoarthritis (OA), Pneumonia Additional Past Medical History / Comment(s): Possible TIAs in past per pt, pt believes she has the beginnings of dementia, bronchitis, pituitary dysfunction, seasonal allergies/sinus problems, arthritis in multiple joints. History of Any Multi-Drug Resistant Organisms: None Reported Past Surgical History: Adenoidectomy, Appendectomy, Cholecystectomy, Tonsillectomy Past Anesthesia/Blood Transfusion Reactions: No Reported Reaction Past Psychological History: No Psychological Hx Reported Smoking Status: Current every day smoker Past Alcohol Use History: None Reported Past Drug Use History: None Reported - Past Family History Father Family Medical History: Cancer Additional Family Medical History / Comment(s): Pt states by the time they found out that her father had cancer, it was thru out his body. Mother Family Medical History: No Reported History Additional Family Medical History / Comment(s): Mother was healthy. General Exam Limitations: no limitations General appearance: alert, in no apparent distress Head exam: Present: normocephalic Eye exam: Present: normal appearance, PERRL ENT exam: Present: normal oropharynx Neck exam: Present: normal inspection Respiratory exam: Present: normal lung sounds bilaterally Cardiovascular Exam: Present: regular rate, normal rhythm GI/Abdominal exam: Present: soft. Absent: tenderness Extremities exam: Present: normal inspection. Absent: pedal edema, calf tenderness Neurological exam: Present: alert, CN II-XII intact Expanded Neurological exam: Present: protecting the airway Patient oriented to: Present: person, place. Absent: time Speech: Present: fluid speech Cranial nerves: EOM's Intact: Normal, Facial Sensation: Normal Cerebellar function: Finger to Nose: Abnormal Left Motor strength exam: RUE: 5, LUE: 3, RLE: 5, LLE: 5 Eye Response: (4) open spontaneously Motor Response: (6) obeys commands Verbal Response: (4) confused conversation Psychiatric exam: Present: normal affect, normal mood Skin exam: Present: normal color Course Vital Signs 03/26/19 03/26/19 03/26/19 16:18 17:00 17:15 Temperature 98.1 F Pulse Rate 61 64 58 L Respiratory 20 22 30 H Rate Blood Pressure 168/68 157/64 153/57 O2 Sat by Pulse 97 99 99 Oximetry - Reevaluation(s) Reevaluation #1: 03/26/19 16:59 Case was discussed in detail with Dr. Ling who agrees patient is not a TPA candidate. EKG Findings - EKG Comments: EKG Findings:: Normal sinus rhythm 62. NJ 166. QRS 74. QT 438. QTC 444. Left axis. LVH with repolarization change. Medical Decision Making - Medical Decision Making Patient reevaluated and resting comfortably in bed. There may be slight improvement of left arm weakness. Patient is updated on results and plan. Case was discussed in detail with Dr. Paiz, at [facility], who will accept transfer. - Lab Data Result diagrams: 03/26/19 16:30 03/26/19 16:30 Lab Results 03/26/19 03/26/19 03/26/19 Range/Units 16:30 16:30 16:30 WBC 5.7 (3.8-10.6) k/uL RBC 4.72 (3.80-5.40) m/uL Hgb 14.3 (11.4-16.0) gm/dL Hct 41.1 (34.0-46.0) % MCV 87.1 (80.0-100.0) fL MCH 30.2 (25.0-35.0) pg MCHC 34.7 (31.0-37.0) g/dL RDW 13.1 (11.5-15.5) % Plt Count 150 (150-450) k/uL Neutrophils % 63 % Lymphocytes % 22 % Monocytes % 8 % Eosinophils % 5 % Basophils % 0 % Neutrophils # 3.6 (1.3-7.7) k/uL Lymphocytes # 1.3 (1.0-4.8) k/uL Monocytes # 0.4 (0-1.0) k/uL Eosinophils # 0.3 (0-0.7) k/uL Basophils # 0.0 (0-0.2) k/uL PT 10.5 (9.0-12.0) sec INR 1.0 (<1.2) APTT 25.4 (22.0-30.0) sec Sodium 140 (137-145) mmol/L Potassium 4.0 (3.5-5.1) mmol/L Chloride 102 (98-107) mmol/L Carbon Dioxide 29 (22-30) mmol/L Anion Gap 9 mmol/L BUN 12 (7-17) mg/dL Creatinine 0.80 (0.52-1.04) mg/dL Est GFR (CKD-EPI)AfAm 82 (>60 ml/min/1.73 sqM) Est GFR (CKD-EPI)NonAf 72 (>60 ml/min/1.73 sqM) Glucose 105 H (74-99) mg/dL POC Glucose (mg/dL) (75-99) mg/dL POC Glu Failure Analysis Technician ID Calcium 9.2 (8.4-10.2) mg/dL Total Bilirubin 0.8 (0.2-1.3) mg/dL AST 29 (14-36) U/L ALT 19 (9-52) U/L Alkaline Phosphatase 115 (38-126) U/L Troponin I (0.000-0.034) ng/mL Total Protein 6.9 (6.3-8.2) g/dL Albumin 4.0 (3.5-5.0) g/dL 03/26/19 03/26/19 Range/Units 16:30 16:41 WBC (3.8-10.6) k/uL RBC (3.80-5.40) m/uL Hgb (11.4-16.0) gm/dL Hct (34.0-46.0) % MCV (80.0-100.0) fL MCH (25.0-35.0) pg MCHC (31.0-37.0) g/dL RDW (11.5-15.5) % Plt Count (150-450) k/uL Neutrophils % % Lymphocytes % % Monocytes % % Eosinophils % % Basophils % % Neutrophils # (1.3-7.7) k/uL Lymphocytes # (1.0-4.8) k/uL Monocytes # (0-1.0) k/uL Eosinophils # (0-0.7) k/uL Basophils # (0-0.2) k/uL PT (9.0-12.0) sec INR (<1.2) APTT (22.0-30.0) sec Sodium (137-145) mmol/L Potassium (3.5-5.1) mmol/L Chloride (98-107) mmol/L Carbon Dioxide (22-30) mmol/L Anion Gap mmol/L BUN (7-17) mg/dL Creatinine (0.52-1.04) mg/dL Est GFR (CKD-EPI)AfAm (>60 ml/min/1.73 sqM) Est GFR (CKD-EPI)NonAf (>60 ml/min/1.73 sqM) Glucose (74-99) mg/dL POC Glucose (mg/dL) 113 H (75-99) mg/dL POC Glu Failure Analysis Technician ID Duane Monique Calcium (8.4-10.2) mg/dL Total Bilirubin (0.2-1.3) mg/dL AST (14-36) U/L ALT (9-52) U/L Alkaline Phosphatase (38-126) U/L Troponin I <0.012 (0.000-0.034) ng/mL Total Protein (6.3-8.2) g/dL Albumin (3.5-5.0) g/dL - Radiology Data Radiology results: report reviewed (Computed tomography scan of the brain shows old infarct. No acute abnormality. CTA shows up to 50% stenosis), image reviewed (Chest x-ray shows no acute abnormality. COPD.) Disposition Clinical Impression: Cerebrovascular accident (CVA) Disposition: OTHER INSTITUTION NOT DEFINED Is patient prescribed a controlled substance at d/c from ED?: No Referrals: None,Stated [Primary Care Provider] - 1-2 days Time of Disposition: 19:19 - Out of Hospital Transfer - Req. Specs Out of Hospital Transfer - Requested Specifics: Other Emergency Center
[2019-03-26 16:51] LABS: Basophils % (A) 0 %; Eosinophils # (A) 0.3 k/uL (0-0.7); Eosinophils % (A) 5 %; HCT 41.1 % (34.0-46.0); HGB 14.3 gm/dL (11.4-16.0); Lymphocytes # (A) 1.3 k/uL (1.0-4.8); Lymphocytes % (A) 22 %; MCH 30.2 pg (25.0-35.0); MCHC 34.7 g/dL (31.0-37.0); MCV 87.1 fL (80.0-100.0); Mean Platelet Volume 7.2; Monocytes # (A) 0.4 k/uL (0-1.0); Monocytes % (A) 8 %; Neutrophils # (A) 3.6 k/uL (1.3-7.7); Neutrophils % (A) 63 %; Platelet Count 150 k/uL (150-450); RBC 4.72 m/uL (3.80-5.40); RDW 13.1 % (11.5-15.5); WBC 5.7 k/uL (3.8-10.6)
[2019-03-26 16:59] LABS: Glucose,Whole Blood 113 mg/dL (75-99)
[2019-03-26 16:59] LABS: Partial Thromboplastin Time 25.4 sec (22.0-30.0); Prothrombin Time 10.5 sec (9.0-12.0)
[2019-03-26 17:01] LABS: Calcium 9.2 mg/dL (8.4-10.2); Total Bilirubin 0.8 mg/dL (0.2-1.3); Total Protein 6.9 g/dL (6.3-8.2)
--- NOTE | 2019-03-26 17:07 | CT ---
EXAMINATION TYPE: CT brain wo con for TPA DATE OF EXAM: 03/26/2019 COMPARISON: 02/25/2019 HISTORY: neuro deficits CT DLP: unavailable mGycm Automated exposure control for dose reduction was used. FINDINGS: There is extensive hypodensity in the periventricular white matter. Atrophy and encephalomalacia invo lving the right parietal lobe related to ischemic infarct. There is no mass effect nor midline shift. There is no sign of intracranial hemorrhage. The calvarium is intact. IMPRESSION: CEREBRAL ATROPHY AND CHRONIC SMALL VESSEL ISCHEMIA. OLD RIGHT PARIETAL CORTICAL INFARCT. NO SIGNIFICA NT CHANGE COMPARED TO LAST EXAM.
--- NOTE | 2019-03-26 17:32 | CT ---
EXAMINATION TYPE: CT angio head neck DATE OF EXAM: 03/26/2019 HISTORY: neuro deficits COMPARISON: None CT DLP: 325.4 mGycm. Automated Exposure Control for Dose Reduction was Utilized. TECHNIQUE: CTA scan of the neck is performed with IV Contrast, patient injected with 65 mL of Isovue 370, axial images are obtained, coronal and sagittal reformatted images are reviewed. Three-D recons tructed images are created on an independent workstation and reviewed. FINDINGS: There is normal branching pattern of the great vessels on the aortic arch. There is moderate atheroma tous change of the aortic arch. There is arterial flow in both subclavian arteries. There is arterial flow in the common internal and external carotid arteries bilaterally. There is extensive calcificat ion. There is approximate 50% stenosis of the distal left common carotid artery. There is probably 50 % stenosis origin of the right internal carotid artery. There is bilateral arterial flow in the verte bral arteries. Right vertebral artery is larger than the left. The basilar artery fills mostly from t he right side. There is arterial flow in the anterior middle and posterior cerebral arteries. There is arterial flow in the vertebrobasilar artery system. I see no evidence of intracranial hemodynamic stenosis. There is no mass effect. There is no sign of intracranial aneurysm or neovascularity. There is normal contr ast opacification of the venous sinuses. IMPRESSION: Atherosclerotic plaque at the carotid artery bifurcations as above. No intracranial angiographic abno rmality.
--- NOTE | 2019-03-26 18:10 | XR ---
EXAMINATION TYPE: XR chest 2V DATE OF EXAM: 03/26/2019 COMPARISON: 02/25/2019 HISTORY: Weakness and numbness TECHNIQUE: Frontal and lateral views of the chest are obtained. FINDINGS: There is no heart failure nor confluent pneumonic infiltrate. Costophrenic angles are aissatou r. There is flattening of the diaphragm. Thoracic aorta is atheromatous. There are chest leads. IMPRESSION: There is evidence of COPD. No acute lung disease. No change.
[2019-03-26 19:59] VITALS: BP 156/66; PULSE 77; RESP 18; TEMP 97
== END 2019-03-26 19:58 | disposition short-term general hospital (02) ==
LOC: EC 16:11
DX: I63.9 Cerebral infarction, unspecified (principal); F17.200 Nicotine dependence, unspecified, uncomplicated; Z79.51 Long term (current) use of inhaled steroids; Z79.899 Other long term (current) drug therapy; Z87.01 Personal history of pneumonia (recurrent)
CPT/HCPCS: 36415; 93005; 80053; 84484; 85025; 85610; 85730; 71046; 70496; 70450; 70498; 99285; 96360; 96361 ×2; Q9967

== ENCOUNTER 2019-05-02 16:10 | Emergency (ER) | payer MEDICARE ==
[2019-05-02] MEDS ORDERED: SODIUM CHLORIDE 0.9% 1,000 ML IV STA (16:12)
[2019-05-02] MEDS ORDERED: levETIRAcetam IV 500 MG in SODIUM CHLORIDE 0.9% 100 ML IVPB STA (16:15)
[2019-05-02 16:19] VITALS: TEMP 98.2
--- NOTE | 2019-05-02 16:34 | ED ---
Seizure HPI - General Chief Complaint: Seizure Stated Complaint: seizures Time Seen by Provider: 05/02/19 16:10 Source: patient, EMS, RN notes reviewed Mode of arrival: EMS Limitations: no limitations - History of Present Illness Initial Comments: This is a 79-year-old female with a known seizure disorder who does take Keppra who is brought in from a local adult care facility with complaints of left-sided seizure that started earlier this afternoon lasting approximately 10-15 minutes. She states she normally his pain prior to the seizure did not have any today. No recent change in medications no falls no fevers chills nausea vomiting sweats or other symptoms. It did seem to settle down she did have some slight tremor to left upper extremity but arrival with the resolved and recurred again and is now resolved. Nothing new in the presentation of the above MD Complaint: seizure - Related Data Home Medications Medication Instructions Recorded Confirmed Fluticasone Nasal [place] [Flonase 2 spr EA NOSTRIL HS 02/25/19 05/02/19 Nasal [place]] Loratadine [Claritin] 10 mg PO DAILY 02/25/19 05/02/19 Atorvastatin [Lipitor] 20 mg PO HS 05/02/19 05/02/19 Previous Rx's Medication Instructions Recorded Aspirin EC [Ecotrin Low Dose] 81 mg PO DAILY #30 tab 03/01/19 Clopidogrel [Plavix] 75 mg PO DAILY #30 tab 03/01/19 Famotidine [Pepcid] 20 mg PO BID #30 tab 03/01/19 Metoprolol Succinate (ER) [Toprol 50 mg PO DAILY #30 tab.er.24h 03/01/19 XL] amLODIPine [Norvasc] 2.5 mg PO DAILY #30 tab 03/01/19 levETIRAcetam [Keppra] 750 mg PO Q12HR #60 tab 03/01/19 Allergies Allergy/AdvReac Type Severity Reaction Status Date / Time No Known Allergies Allergy Verified 05/02/19 17:40 Review of Systems ROS Statement: Those systems with pertinent positive or pertinent negative responses have been documented in the HPI. ROS Other: All systems not noted in ROS Statement are negative. Past Medical History Past Medical History: CVA/TIA, Hyperlipidemia, Hypertension, Osteoarthritis (OA), Pneumonia Additional Past Medical History / Comment(s): Possible TIAs in past per pt, pt believes she has the beginnings of dementia, bronchitis, pituitary dysfunction, seasonal allergies/sinus problems, arthritis in multiple joints. History of Any Multi-Drug Resistant Organisms: None Reported Past Surgical History: Adenoidectomy, Appendectomy, Cholecystectomy, Tonsillectomy Past Anesthesia/Blood Transfusion Reactions: No Reported Reaction Past Psychological History: No Psychological Hx Reported Smoking Status: Current every day smoker Past Alcohol Use History: None Reported Past Drug Use History: None Reported - Past Family History Father Family Medical History: Cancer Additional Family Medical History / Comment(s): Pt states by the time they found out that her father had cancer, it was thru out his body. Mother Family Medical History: No Reported History Additional Family Medical History / Comment(s): Mother was healthy. General Exam - General Exam Comments Initial Comments: This is a well-developed sec appearing female who is awake alert oriented 3 Limitations: no limitations General appearance: alert, in no apparent distress Head exam: Present: atraumatic, normocephalic, normal inspection Eye exam: Present: normal appearance, PERRL, EOMI. Absent: scleral icterus, conjunctival injection, periorbital swelling ENT exam: Present: mucous membranes dry Neck exam: Present: normal inspection, full ROM, other (No stridor JVD or bruits). Absent: tenderness, meningismus, lymphadenopathy Respiratory exam: Present: normal lung sounds bilaterally. Absent: respiratory distress, wheezes, rales, rhonchi, stridor Cardiovascular Exam: Present: regular rate, normal rhythm, normal heart sounds. Absent: systolic murmur, diastolic murmur, rubs, gallop, clicks GI/Abdominal exam: Present: soft, normal bowel sounds. Absent: distended, tenderness, guarding, rebound, rigid Extremities exam: Present: normal inspection, full ROM, normal capillary refill. Absent: tenderness, pedal edema, joint swelling, calf tenderness Back exam: Present: normal inspection Neurological exam: Present: alert, oriented X3, CN II-XII intact Psychiatric exam: Present: normal affect, normal mood Skin exam: Present: warm, dry, intact, normal color. Absent: rash Course Vital Signs 05/02/19 05/02/19 05/02/19 16:11 16:27 17:26 Temperature 98.2 F Pulse Rate 71 65 62 Respiratory 16 16 16 Rate Blood Pressure 116/57 116/57 104/81 O2 Sat by Pulse 98 100 96 Oximetry Medical Decision Making - Medical Decision Making Patient is feeling much improved this time she will be discharged she did get an additional dose of Keppra. She did get IV fluids. She did get food and fluids and she was noted have a mildly low blood sugar and labs. She is in satisfactory condition for discharge back to her facility. - Lab Data Result diagrams: 05/02/19 16:25 05/02/19 16:55 Lab Results 05/02/19 05/02/19 Range/Units 16:25 16:55 WBC 6.5 (3.8-10.6) k/uL RBC 4.57 (3.80-5.40) m/uL Hgb 13.3 (11.4-16.0) gm/dL Hct 39.3 (34.0-46.0) % MCV 86.0 (80.0-100.0) fL MCH 29.2 (25.0-35.0) pg MCHC 34.0 (31.0-37.0) g/dL RDW 13.1 (11.5-15.5) % Plt Count 161 (150-450) k/uL Neutrophils % 73 % Lymphocytes % 15 % Monocytes % 6 % Eosinophils % 3 % Basophils % 1 % Neutrophils # 4.7 (1.3-7.7) k/uL Lymphocytes # 1.0 (1.0-4.8) k/uL Monocytes # 0.4 (0-1.0) k/uL Eosinophils # 0.2 (0-0.7) k/uL Basophils # 0.1 (0-0.2) k/uL Sodium 133 L (137-145) mmol/L Potassium 4.5 (3.5-5.1) mmol/L Chloride 105 (98-107) mmol/L Carbon Dioxide 25 (22-30) mmol/L Anion Gap 3 mmol/L BUN 15 (7-17) mg/dL Creatinine 0.68 (0.52-1.04) mg/dL Est GFR (CKD-EPI)AfAm >90 (>60 ml/min/1.73 sqM) Est GFR (CKD-EPI)NonAf 85 (>60 ml/min/1.73 sqM) Glucose 65 L (74-99) mg/dL Calcium 8.4 (8.4-10.2) mg/dL Magnesium 1.8 (1.6-2.3) mg/dL Total Bilirubin 1.1 (0.2-1.3) mg/dL AST 34 (14-36) U/L ALT 23 (9-52) U/L Alkaline Phosphatase 92 (38-126) U/L Creatine Kinase 47 (30-135) U/L Total Protein 6.5 (6.3-8.2) g/dL Albumin 3.6 (3.5-5.0) g/dL - EKG Data -: EKG Interpreted by De EKG shows normal: sinus rhythm (Sinus rhythm a 73. Interval 156 QRS duration 74 QT since QTC 420/462 evidence of LVH.) - Radiology Data Radiology results: report reviewed (Imaging was reviewed no acute findings), image reviewed Disposition Clinical Impression: Seizure, Hypoglycemia, Dehydration Disposition: HOME SELF-CARE Condition: Good Instructions (If sedation given, give patient instructions): Recurrent Seizures in Adults (ED), Dehydration (ED), Non-diabetic Hypoglycemia (ED) Is patient prescribed a controlled substance at d/c from ED?: No Referrals: None,Stated [Primary Care Provider] - 1-2 days
[2019-05-02 16:40] LABS: Basophils # (A) 0.1 k/uL (0-0.2); Basophils % (A) 1 %; Eosinophils # (A) 0.2 k/uL (0-0.7); Eosinophils % (A) 3 %; HCT 39.3 % (34.0-46.0); HGB 13.3 gm/dL (11.4-16.0); Lymphocytes % (A) 15 %; MCH 29.2 pg (25.0-35.0); Mean Platelet Volume 7.6; Monocytes # (A) 0.4 k/uL (0-1.0); Monocytes % (A) 6 %; Neutrophils # (A) 4.7 k/uL (1.3-7.7); Neutrophils % (A) 73 %; Platelet Count 161 k/uL (150-450); RBC 4.57 m/uL (3.80-5.40); RDW 13.1 % (11.5-15.5); WBC 6.5 k/uL (3.8-10.6)
--- NOTE | 2019-05-02 16:54 | CT ---
EXAMINATION TYPE: CT brain wo con DATE OF EXAM: 05/02/2019 COMPARISON: 03/26/2019 HISTORY: new onset of seizures CT DLP: 1070.4 mGycm Automated exposure control for dose reduction was used. FINDINGS: There is cerebral cortical atrophy. There is extensive hypodensity in the periventricular white matte r. There is evidence of old bilateral temporal parietal cortical infarcts. There is no midline shift. There is no sign of intracranial hemorrhage. Calvarium is intact. IMPRESSION: CEREBRAL ATROPHY AND CHRONIC SMALL VESSEL ISCHEMIA. 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 NO ACUTE INTRACRANIAL ABN ORMALITY. NO CHANGE.
[2019-05-02 17:31] LABS: ALT 23 U/L (9-52); AST 34 U/L (14-36); African American GFR (CKD) >90 (>60 ml/min/1.73 sqM); Albumin 3.6 g/dL (3.5-5.0); Alkaline Phosphatase 92 U/L (38-126); Anion Gap 3 mmol/L; Blood Urea Nitrogen 15 mg/dL (7-17); Calcium 8.4 mg/dL (8.4-10.2); Carbon Dioxide 25 mmol/L (22-30); Chloride 105 mmol/L (98-107); Creatine Kinase 47 U/L (30-135); Glucose 65 mg/dL (74-99); Magnesium 1.8 mg/dL (1.6-2.3); Non-African American GFR(CKD) 85 (>60 ml/min/1.73 sqM); Sodium 133 mmol/L (137-145); Total Bilirubin 1.1 mg/dL (0.2-1.3); Total Protein 6.5 g/dL (6.3-8.2)
[2019-05-02 17:32] LABS: Potassium 4.5 mmol/L (3.5-5.1)
[2019-05-02 18:42] VITALS: RESP 18
[2019-05-02 19:03] VITALS: BP 104/81; PULSE 79
== END 2019-05-02 19:36 | disposition home or self-care (01) ==
LOC: EC 16:10
DX: G40.909 Epilepsy, unspecified, not intractable, without status epilepticus (principal); E16.2 Hypoglycemia, unspecified; E86.0 Dehydration; E78.5 Hyperlipidemia, unspecified; F17.200 Nicotine dependence, unspecified, uncomplicated; Z86.73 Personal history of transient ischemic attack (TIA), and cerebral infarction without residual deficits; Z79.899 Other long term (current) drug therapy
CPT/HCPCS: 99285; 96374; 96361 ×2; 36415; 93005; 80053; 82550; 83735; 85025; 70450; J1953

== ENCOUNTER 2019-06-09 17:52 | Inpatient (IN) | payer MEDICARE ==
[2019-06-09] MEDS ORDERED: DILTIAZEM DRIP BOLUS FROM BAG 1 MG SOLN IV ONE (18:12)
--- NOTE | 2019-06-09 18:17 | ED ---
General Adult HPI - General Chief complaint: Arrhythmia/Palpitations Stated complaint: palpitations Time Seen by Provider: 06/09/19 18:07 Source: patient, EMS Mode of arrival: EMS Limitations: no limitations - History of Present Illness Initial comments: Patient presents to the ED by ambulance from her assisted living facility for evaluation. Patient states that she has felt generally weak and dyspneic today, and she states that she has had rapid heart palpitations today. Patient also states that she has fallen today secondary to generalized weakness, but she denies syncope, and she denies any injury from her fall. Patient denies having any pain, fever or chills, head injury, headache, LOC, focal numbness/weakness/neuro deficit, visual changes, neck/back/extremity pain, chest pain, cough or cold symptoms, abdominal pain, nausea/vomiting/diarrhea, bloody or melanotic stool, dysuria or urinary symptoms, leg or calf swelling or pain, or any other symptoms or complaints. - Related Data Home Medications Medication Instructions Recorded Confirmed Fluticasone Nasal [place] [Flonase 2 spray EA NOSTRIL HS@199902/25/19 06/09/19 Nasal [place]] Loratadine [Claritin] 10 mg PO HS@199902/25/19 06/09/19 Atorvastatin [Lipitor] 20 mg PO HS@199905/02/19 06/09/19 Aspirin EC [Ecotrin Low Dose] 81 mg PO DAILY@0800 06/09/19 06/09/19 Clopidogrel [Plavix] 75 mg PO HS@199906/09/19 06/09/19 Famotidine [Pepcid] 20 mg PO BID@080006/09/19 06/09/19 Metoprolol Succinate (ER) [Toprol 50 mg PO DAILY@0800 06/09/19 06/09/19 XL] amLODIPine [Norvasc] 2.5 mg PO HS@199906/09/19 06/09/19 levETIRAcetam [Keppra] 750 mg PO BID@0800,199906/09/19 06/09/19 Allergies Allergy/AdvReac Type Severity Reaction Status Date / Time No Known Allergies Allergy Verified 06/09/19 19:44 Review of Systems ROS Statement: Those systems with pertinent positive or pertinent negative responses have been documented in the HPI. ROS Other: All systems not noted in ROS Statement are negative. Past Medical History Past Medical History: CVA/TIA, Hyperlipidemia, Hypertension, Osteoarthritis (OA), Pneumonia Additional Past Medical History / Comment(s): Possible TIAs in past per pt, pt believes she has the beginnings of dementia, bronchitis, pituitary dysfunction, seasonal allergies/sinus problems, arthritis in multiple joints. History of Any Multi-Drug Resistant Organisms: None Reported Past Surgical History: Adenoidectomy, Appendectomy, Cholecystectomy, Tonsillectomy Past Anesthesia/Blood Transfusion Reactions: No Reported Reaction Past Psychological History: No Psychological Hx Reported Smoking Status: Current every day smoker Past Alcohol Use History: None Reported Past Drug Use History: None Reported - Past Family History Father Family Medical History: Cancer Additional Family Medical History / Comment(s): Pt states by the time they found out that her father had cancer, it was thru out his body. Mother Family Medical History: No Reported History Additional Family Medical History / Comment(s): Mother was healthy. General Exam Limitations: no limitations General appearance: alert, in no apparent distress Head exam: Present: atraumatic, normocephalic Eye exam: Present: normal appearance, PERRL, EOMI ENT exam: Present: mucous membranes dry Neck exam: Present: full ROM, other (Trachea is in midline). Absent: tenderness, meningismus Respiratory exam: Present: normal lung sounds bilaterally. Absent: respiratory distress, wheezes, rales, rhonchi Cardiovascular Exam: Present: tachycardia, irregular rhythm, normal heart sounds, other (Normal radial pulses bilaterally) GI/Abdominal exam: Present: soft. Absent: distended, tenderness, guarding Extremities exam: Present: full ROM, other (Negative Curt's sign bilaterally). Absent: tenderness, pedal edema, calf tenderness Back exam: Present: normal inspection. Absent: tenderness Neurological exam: Present: alert, oriented X3, CN II-XII intact. Absent: motor sensory deficit Psychiatric exam: Present: normal affect, normal mood Skin exam: Present: warm, dry, intact, normal color Course Vital Signs 06/09/19 06/09/19 06/09/19 18:04 18:18 18:47 Temperature 97.9 F Pulse Rate 164 H 125 H Pulse Rate [ 174 H Bilateral Radial] Respiratory 15 18 Rate Blood Pressure 104/87 82/45 O2 Sat by Pulse 98 97 Oximetry 06/09/19 19:35 Temperature Pulse Rate 155 H Pulse Rate [ Bilateral Radial] Respiratory 20 Rate Blood Pressure 100/67 O2 Sat by Pulse 95 Oximetry - Reevaluation(s) Reevaluation #1: 06/09/19 20:24 Case, H&P, test results and ED management thus far were discussed with Dr. Mahan. He accepts hospital admission. He recommends heparin anticoagulation and cardiology consultation. He has no further recommendations at this time. 06/09/19 20:33 Patient states that she is now feeling better. Patient continues to deny having any chest pain, and she denies development of any new symptoms while in the ED. Patient remains alert and breathing comfortably. 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 Diltiazem IV drip has been ordered and will be started shortly. Patient is aware of her test results, and she agrees with hospital admission this time. EKG Findings - EKG Comments: EKG Findings:: Atrial fibrillation with RVR, ventricular rate of 179 bpm, EKG findings of LVH with QRS widening, QRS duration of 162 ms, normal QT interval, left axis deviation, diffuse ST and T-wave abnormality Medical Decision Making - Medical Decision Making I suspect the patient's symptoms are secondary to new onset atrial fibrillation with RVR. IV diltiazem drip was started for rate control. IV heparin was ordered for anticoagulation. Patient's troponin is elevated, but she denies having any chest pain-> I suspect that this elevation is likely rate-related. Patient was also given a dose of aspirin in the ED. Patient is aware of her test results, and she agrees with hospital admission. Dr. Mahan has accepted hospital admission. - Lab Data Result diagrams: 06/09/19 18:16 06/09/19 18:16 Lab Results 06/09/19 06/09/19 06/09/19 Range/Units 18:16 18:16 18:16 WBC 12.2 H (3.8-10.6) k/uL RBC 4.54 (3.80-5.40) m/uL Hgb 13.5 (11.4-16.0) gm/dL Hct 39.2 (34.0-46.0) % MCV 86.4 (80.0-100.0) fL MCH 29.7 (25.0-35.0) pg MCHC 34.4 (31.0-37.0) g/dL RDW 13.2 (11.5-15.5) % Plt Count 170 (150-450) k/uL Neutrophils % 83 % Lymphocytes % 9 % Monocytes % 6 % Eosinophils % 1 % Basophils % 0 % Neutrophils # 10.2 H (1.3-7.7) k/uL Lymphocytes # 1.1 (1.0-4.8) k/uL Monocytes # 0.8 (0-1.0) k/uL Eosinophils # 0.1 (0-0.7) k/uL Basophils # 0.0 (0-0.2) k/uL PT 10.9 (9.0-12.0) sec INR 1.0 (<1.2) APTT 22.4 (22.0-30.0) sec Sodium 141 (137-145) mmol/L Potassium 4.2 (3.5-5.1) mmol/L Chloride 106 (98-107) mmol/L Carbon Dioxide 23 (22-30) mmol/L Anion Gap 12 mmol/L BUN 17 (7-17) mg/dL Creatinine 1.02 (0.52-1.04) mg/dL Est GFR (CKD-EPI)AfAm 62 (>60 ml/min/1.73 sqM) Est GFR (CKD-EPI)NonAf 54 (>60 ml/min/1.73 sqM) Glucose 163 H (74-99) mg/dL Calcium 9.2 (8.4-10.2) mg/dL Magnesium 1.9 (1.6-2.3) mg/dL Total Bilirubin 0.8 (0.2-1.3) mg/dL AST 34 (14-36) U/L ALT 15 (4-34) U/L Alkaline Phosphatase 112 (38-126) U/L Troponin I (0.000-0.034) ng/mL NT-Pro-B Natriuret Pep pg/mL Total Protein 7.0 (6.3-8.2) g/dL Albumin 4.1 (3.5-5.0) g/dL TSH 2.600 (0.465-4.680) mIU/L 12/25/19 12/25/19 Range/Units 18:16 18:16 WBC (3.8-10.6) k/uL RBC (3.80-5.40) m/uL Hgb (11.4-16.0) gm/dL Hct (34.0-46.0) % MCV (80.0-100.0) fL MCH (25.0-35.0) pg MCHC (31.0-37.0) g/dL RDW (11.5-15.5) % Plt Count (150-450) k/uL Neutrophils % % Lymphocytes % % Monocytes % % Eosinophils % % Basophils % % Neutrophils # (1.3-7.7) k/uL Lymphocytes # (1.0-4.8) k/uL Monocytes # (0-1.0) k/uL Eosinophils # (0-0.7) k/uL Basophils # (0-0.2) k/uL PT (9.0-12.0) sec INR (<1.2) APTT (22.0-30.0) sec Sodium (137-145) mmol/L Potassium (3.5-5.1) mmol/L Chloride (98-107) mmol/L Carbon Dioxide (22-30) mmol/L Anion Gap mmol/L BUN (7-17) mg/dL Creatinine (0.52-1.04) mg/dL Est GFR (CKD-EPI)AfAm (>60 ml/min/1.73 sqM) Est GFR (CKD-EPI)NonAf (>60 ml/min/1.73 sqM) Glucose (74-99) mg/dL Calcium (8.4-10.2) mg/dL Magnesium (1.6-2.3) mg/dL Total Bilirubin (0.2-1.3) mg/dL AST (14-36) U/L ALT (4-34) U/L Alkaline Phosphatase (38-126) U/L Troponin I 0.107 H* (0.000-0.034) ng/mL NT-Pro-B Natriuret Pep 800 pg/mL Total Protein (6.3-8.2) g/dL Albumin (3.5-5.0) g/dL TSH (0.465-4.680) mIU/L - Radiology Data Radiology results: image reviewed (Chest x-ray is negative) Disposition Clinical Impression: Atrial fibrillation with rapid ventricular response, Elevated troponin Disposition: ADMITTED IP TO THIS HOSP Condition: Stable Is patient prescribed a controlled substance at d/c from ED?: No Referrals: Mir Sosa MD [Primary Care Provider] - 1-2 days Time of Disposition: 20:24
[2019-06-09 18:53] LABS: Basophils % (A) 0 %; Eosinophils # (A) 0.1 k/uL (0-0.7); Eosinophils % (A) 1 %; HCT 39.2 % (34.0-46.0); HGB 13.5 gm/dL (11.4-16.0); Lymphocytes # (A) 1.1 k/uL (1.0-4.8); Lymphocytes % (A) 9 %; MCH 29.7 pg (25.0-35.0); MCHC 34.4 g/dL (31.0-37.0); MCV 86.4 fL (80.0-100.0); Mean Platelet Volume 7.7; Monocytes # (A) 0.8 k/uL (0-1.0); Monocytes % (A) 6 %; Neutrophils # (A) 10.2 k/uL (1.3-7.7); Neutrophils % (A) 83 %; Platelet Count 170 k/uL (150-450); RBC 4.54 m/uL (3.80-5.40); RDW 13.2 % (11.5-15.5); WBC 12.2 k/uL (3.8-10.6)
[2019-06-09 19:03] LABS: Partial Thromboplastin Time 22.4 sec (22.0-30.0); Prothrombin Time 10.9 sec (9.0-12.0)
--- NOTE | 2019-06-09 19:04 | XR ---
EXAMINATION TYPE: XR chest 2V DATE OF EXAM: 06/09/2019 COMPARISON: 03/26/2019 HISTORY: Altered mental status TECHNIQUE: 2 views FINDINGS: There is no heart failure nor confluent pneumonic infiltrate. Costophrenic angles are clear . Thoracic aorta is atheromatous. There are chest leads. There are calcified pleural plaques at the l sunita apices. IMPRESSION: No active cardiopulmonary disease. No change.
[2019-06-09 19:28] LABS: Albumin 4.1 g/dL (3.5-5.0); Calcium 9.2 mg/dL (8.4-10.2); Magnesium 1.9 mg/dL (1.6-2.3); Potassium 4.2 mmol/L (3.5-5.1); Total Bilirubin 0.8 mg/dL (0.2-1.3)
[2019-06-09] MEDS ORDERED: SODIUM CHLORIDE 0.9% 1,000 ML IV ONE (19:28)
[2019-06-09] MEDS ORDERED: DILTIAZEM 125 MG in SODIUM CHLORIDE 0.9% 100 ML IV SCH (20:00)
[2019-06-09] MEDS ORDERED: ASPIRIN 81 MG PO STA (20:01)
[2019-06-09] MEDS ORDERED: HEPARIN SODIUM,PORCINE 5,000 UNIT/ML 1 ML VIAL IV PRN (20:27)
[2019-06-09] MEDS ORDERED: HEPARIN SODIUM,PORCINE 5,000 UNIT/ML 1 ML VIAL IV ONE (20:27)
[2019-06-09] MEDS: HEPARIN SOD,PORK IN 0.45% NACL 25,000 UNIT in 0.45% NACL 1 250ML.BAG IV SCH (21:08)
--- NOTE | 2019-06-09 23:30 | P.HPIM ---
History of Present Illness H&P Date: 06/09/19 Patient is a 79-year-old female, was sent from her assisted living facility due to a fall with possible loss of consciousness. The patient notes that ever since waking up this morning, she felt more fatigued along with having palpitations and dyspnea. She notes that she was in her bed in the afternoon and feels that she might gotten up too early as she became lightheaded and fell to the ground. She denies hitting her head, though is unable to fully recall the events and is unsure if she lost consciousness or not. She denied having any complaints at time of the interview. She notes that she often gets lightheaded if she stands up too quickly at her assisted living facility. She denied chest pain, cough, fever, chills, nausea, vomiting, dizziness, or diaphoresis. She also denied dysuria, melena, or leg pain. The patient underwent an extensive evaluation in the ED with EKG showing Afib w/ RVR @ 179 bpm. CXR was unremarkable with laboratory evaluation showing troponin 0.107, BNP 800, TSH 2.6, WBC 12.2, hemoglobin 13.5, sodium 141, potassium 4.2, BUN 17, creatinine 1.02, and glucose 163. She was given Cardizem IV push, and was started on a Cardizem infusion along with heparin for evaluation. Cardiology was consulted and the patient was admitted for further management. Review of Systems Pertinent positives and negatives as discussed in HPI, a complete review of systems was performed and all other systems are negative. Past Medical History Past Medical History: CVA/TIA, Hyperlipidemia, Hypertension, Osteoarthritis (OA), Pneumonia Additional Past Medical History / Comment(s): Possible TIAs in past per pt, pt believes she has the beginnings of dementia, bronchitis, pituitary dysfunction, seasonal allergies/sinus problems, arthritis in multiple joints. History of Any Multi-Drug Resistant Organisms: None Reported Past Surgical History: Adenoidectomy, Appendectomy, Cholecystectomy, Tonsillectomy Past Anesthesia/Blood Transfusion Reactions: No Reported Reaction Past Psychological History: No Psychological Hx Reported Additional Psychological History / Comment(s): Pt has a public legal guardian. She states that she was not functioning well at one point and a legal guardian was appointed. She resides at [facility]. She uses a walker to ambulate. Staff manages her meds. Pt states she is able to perform the rest of her ADLs. Smoking Status: Current every day smoker Past Alcohol Use History: None Reported Additional Past Alcohol Use History / Comment(s): Pt started smoking in 1958 and is a ppd smoker. Past Drug Use History: None Reported - Past Family History Father Family Medical History: Cancer Additional Family Medical History / Comment(s): Pt states by the time they found out that her father had cancer, it was thru out his body. Mother Family Medical History: No Reported History Additional Family Medical History / Comment(s): Mother was healthy. Medications and Allergies Home Medications Medication Instructions Recorded Confirmed Type Fluticasone Nasal [place] [Flonase 2 spray EA NOSTRIL HS@199902/25/19 06/09/19 History Nasal [place]] Loratadine [Claritin] 10 mg PO HS@199902/25/19 06/09/19 History Atorvastatin [Lipitor] 20 mg PO HS@199905/02/19 06/09/19 History Aspirin EC [Ecotrin Low Dose] 81 mg PO DAILY@0800 06/09/19 06/09/19 History Clopidogrel [Plavix] 75 mg PO HS@199906/09/19 06/09/19 History Famotidine [Pepcid] 20 mg PO BID@0800,199906/09/19 06/09/19 History Metoprolol Succinate (ER) [Toprol 50 mg PO DAILY@0800 06/09/19 06/09/19 History XL] amLODIPine [Norvasc] 2.5 mg PO HS@199906/09/19 06/09/19 History levETIRAcetam [Keppra] 750 mg PO BID@0800,199906/09/19 06/09/19 History Allergies Allergy/AdvReac Type Severity Reaction Status Date / Time No Known Allergies Allergy Verified 06/09/19 19:44 Physical Exam Vitals: Vital Signs Temp Pulse Pulse Resp BP Pulse Ox 06/09/19 20:36 150 H 20 108/77 95 06/09/19 19:35 155 H 20 100/67 95 06/09/19 18:47 125 H 18 82/45 97 06/09/19 18:18 174 H 06/09/19 18:04 97.9 F 164 H 15 104/87 98 Intake and Output 06/09/19 06/09/19 06/10/19 14:59 22:59 06:59 Other: Weight 56.2 kg General: non toxic, no distress, appears at stated age, normal weight Derm: no unusual rashes/lesions no unusual ecchymoses, warm, dry Head: atraumatic, normocephalic, symmetric Eyes: EOMI, no lid lag, anicteric sclera, pupils equal round reactive to light ENT: Nose and ears atraumatic, no thrush, no pharyngeal erythema Neck: No thyromegaly, no cervical lymphadenopathy, trachea midline, supple Mouth: no lip lesion, mucus membranes moist Cardiovascular: Irregularly irregular, tachycardia, no murmur, positive posterior tibial pulse bilateral, no edema, capillary refill less than 2 seconds Lungs: CTA bilateral, no rhonchi, no rales , no accessory muscle use Abdominal: soft, nontender to palpation, no guarding, no appreciable organomegaly, normal bowel sounds Ext: no gross muscle atrophy, muscle strength 4 out of 5 in all 4 extremities grossly, no contractures, Neuro: CN II-XI grossly intact, light touch intact all 4 extremities, finger to nose within normal limits, Psych: Alert, oriented, appropriate affect Results CBC & Chem 7: 06/09/19 18:16 06/09/19 18:16 Labs: Abnormal Lab Results - Last 24 Hours (Table) 06/09/19 06/09/19 06/09/19 Range/Units 18:16 18:16 18:16 WBC 12.2 H (3.8-10.6) k/uL Neutrophils # 10.2 H (1.3-7.7) k/uL Glucose 163 H (74-99) mg/dL Troponin I 0.107 H* (0.000-0.034) ng/mL Thrombosis Risk Factor Assmnt - Choose All That Apply Any of the Below Risk Factors Present?: No Other Risk Factors: Yes Each Risk Factor Represents 3 Points: Age 75 years or older Other congenital or acquired thrombophilia - If yes, enter type in comment: No Thrombosis Risk Factor Assessment Total Risk Factor Score: 3 Thrombosis Risk Factor Assessment Level: Moderate Risk Assessment and Plan Plan: Tracie valdez with RVR -Cardiology consult -Continue with heparin infusion -Cardizem infusion -Cardiac monitoring Elevated troponin -Likely secondary to demand due to tachycardia -Given aspirin 325 mg once in the ED -Continue with aspirin daily -Trend troponin -Currently on heparin infusion Fall with possible loss of consciousness -Possibly due to A. fib with RVR -Patient with recent CVA, though no residual deficits noted -Continue with home antiseizure medications Chronic conditions: Hypertension, hyperlipidemia, history of CVA, seizure disorder -Continue with home meds Hyperglycemia -Check A1c -Sliding scale Leukocytosis -Likely due to stress -Monitor CBC DVT prophylaxis -Heparin infusion The patient is admitted with an anticipated greater than 2 midnight stay for evaluation of Afib with RVR CODE STATUS: No Code Discussed with: Patient Anticipated discharge date: 2-[address]: Assisted living A total of 40 minutes was spent on the care of this complex patient more than 50% of the time was spent in counseling and care coordination.
[2019-06-09] MEDS ORDERED: METOPROLOL TARTRATE 50 MG TAB PO STA (23:55)
[2019-06-10 01:10] LABS: Basophils % (A) 0 %; Eosinophils % (A) 0 %; HCT 38.2 % (34.0-46.0); HGB 12.4 gm/dL (11.4-16.0); Lymphocytes # (A) 0.8 k/uL (1.0-4.8); Lymphocytes % (A) 8 %; MCH 28.7 pg (25.0-35.0); MCHC 32.4 g/dL (31.0-37.0); MCV 88.4 fL (80.0-100.0); Monocytes # (A) 0.6 k/uL (0-1.0); Monocytes % (A) 6 %; Neutrophils # (A) 8.3 k/uL (1.3-7.7); Neutrophils % (A) 84 %; Platelet Count 142 k/uL (150-450); RBC 4.33 m/uL (3.80-5.40); RDW 13.4 % (11.5-15.5); WBC 9.8 k/uL (3.8-10.6)
[2019-06-10 01:34] LABS: INR 1.1 (<1.2); Prothrombin Time 11.1 sec (9.0-12.0)
[2019-06-10 01:43] LABS: Partial Thromboplastin Time 148.1 sec (22.0-30.0)
[2019-06-10 03:02] LABS: Basophils % (A) 0 %; Eosinophils % (A) 0 %; HGB 12.4 gm/dL (11.4-16.0); Lymphocytes # (A) 1.2 k/uL (1.0-4.8); Lymphocytes % (A) 11 %; MCH 28.2 pg (25.0-35.0); MCHC 31.7 g/dL (31.0-37.0); MCV 88.9 fL (80.0-100.0); Mean Platelet Volume 8.5; Monocytes # (A) 0.9 k/uL (0-1.0); Monocytes % (A) 8 %; Neutrophils # (A) 9.2 k/uL (1.3-7.7); Neutrophils % (A) 80 %; Platelet Count 167 k/uL (150-450); RBC 4.38 m/uL (3.80-5.40); RDW 13.4 % (11.5-15.5); WBC 11.5 k/uL (3.8-10.6)
[2019-06-10 03:25] LABS: Albumin 3.5 g/dL (3.5-5.0); Total Bilirubin 0.8 mg/dL (0.2-1.3); Total Protein 6.3 g/dL (6.3-8.2)
[2019-06-10 04:13] LABS: Calcium 8.2 mg/dL (8.4-10.2)
[2019-06-10] MEDS ORDERED: METOPROLOL SUCCINATE (ER) 50 MG TAB.ER.24H PO SCH (08:00)
[2019-06-10] MEDS: INSULIN ASPART (NovoLOG) 100 UNIT/ML VIAL SQ SCH ×3 (08:41→17:14)
[2019-06-10 08:45] LABS: Glucose,Whole Blood 111 mg/dL (75-99)
[2019-06-10] MEDS ORDERED: SODIUM CHLORIDE 0.9% 500 ML 500 ML IV ONE (09:23)
--- NOTE | 2019-06-10 09:34 | P.PN ---
Subjective Progress Note Date: 06/10/19 Patient presented with syncope at home found to be in A. fib with RVR, overnight patient also had episode @ appx 0230 was bradycardic with HR - 30 -40s and hypotensive SBP 60 -70s. Patient complains of lightheadedness and thinks she would be unsteady sure able to get up, continue bedrest. Echocardiogram results are pending, magnesium 1.9. Troponins 0.107/1.800/3.29 Objective - Vital Signs Vital signs: Vital Signs Temp 98.3 F 06/10/19 08:00 Pulse 136 H 06/10/19 08:00 Resp 18 06/10/19 08:00 BP 90/60 06/10/19 08:00 Pulse Ox 98 06/10/19 08:00 Intake & Output 06/09/19 06/10/19 06/10/19 18:59 06:59 18:59 Intake Total 626.298 Output Total 300 Balance 326.298 Weight 58.06 kg 72.5 kg Intake: Intake, IV Titration 86.298 Amount Diltiazem 125 mg In 54.250 Sodium Chloride 0.9% 100 ml @ 15 MG/HR 15 mls/hr IV .Q8H20M [facility] Rx#: [id number] Heparin Sod,Pork in 0.45% 32.048 NaCl 25,000 unit In 0.45 % NaCl 1 250ml.bag @ 12 UNITS/KG/HR 6.967 mls/hr IV .Q24H [facility] Rx#: [id number] Oral 540 Output: Urine 300 Other: Voiding Method Bedpan Bedpan Diaper Diaper - Exam Constitutional: No acute distress, conversant, pleasant Eyes: Anicteric sclerae, moist conjunctiva, no lid-lag, PERRLA ENMT: NC/AT,Oropharynx clear, no erythema, exudates Neck:Supple, FROM, no masses, or JVD, No carotid bruits; No thyromegaly Lungs: Clear to auscultation, Clear to percussion, Normal respiratory effort, no accessory muscle use Cardiovascular: Irregularly irregular tachycardic, No murmurs, gallops, or rubs no peripheral edema Abdominal: Soft Nontender, nom distended, no guarding, no rebound or rigidity, Normoactive bowel sounds No hepatomegaly, No splenomegaly, No palpable mass No abdominal wall hernia noted Skin: Normal temperature, tone, texture, turgor, No induration No subcutaneous nodules, No rash, lesions, No ulcers Extremities:No digital cyanosis No clubbing, Pedal pulses intact and symmetrical Radial pulses intact and symmetrical Normal gait and station, No calf tenderness Psychiatric: Alert and oriented to person, place and time, Appropriate affect Intact judgement Neuro: Muscles Strength 5/5 in all 4 extremities, Sensation to light touch grossly present throughout, Cranial nerves II-XII grossly intact. No focal sensory deficits - Labs CBC & Chem 7: 06/10/19 02:31 06/10/19 02:31 Labs: Abnormal Lab Results - Last 24 Hours (Table) 06/09/19 06/09/19 06/09/19 Range/Units 18:16 18:16 18:16 WBC 12.2 H (3.8-10.6) k/uL Plt Count (150-450) k/uL Neutrophils # 10.2 H (1.3-7.7) k/uL Lymphocytes # (1.0-4.8) k/uL APTT (22.0-30.0) sec Chloride (98-107) mmol/L Glucose 163 H (74-99) mg/dL POC Glucose (mg/dL) (75-99) mg/dL Calcium (8.4-10.2) mg/dL AST (14-36) U/L Troponin I 0.107 H* (0.000-0.034) ng/mL 06/10/19 06/10/19 06/10/19 Range/Units 00:33 00:33 00:33 WBC (3.8-10.6) k/uL Plt Count 142 L (150-450) k/uL Neutrophils # 8.3 H (1.3-7.7) k/uL Lymphocytes # 0.8 L (1.0-4.8) k/uL APTT 148.1 H* (22.0-30.0) sec Chloride (98-107) mmol/L Glucose (74-99) mg/dL POC Glucose (mg/dL) (75-99) mg/dL Calcium (8.4-10.2) mg/dL AST (14-36) U/L Troponin I 1.800 H* (0.000-0.034) ng/mL 06/10/19 06/10/19 06/10/19 Range/Units 02:31 02:31 02:31 WBC 11.5 H (3.8-10.6) k/uL Plt Count (150-450) k/uL Neutrophils # 9.2 H (1.3-7.7) k/uL Lymphocytes # (1.0-4.8) k/uL APTT 82.5 H (22.0-30.0) sec Chloride 109 H (98-107) mmol/L Glucose 224 H (74-99) mg/dL POC Glucose (mg/dL) (75-99) mg/dL Calcium 8.2 L (8.4-10.2) mg/dL AST 76 H (14-36) U/L Troponin I (0.000-0.034) ng/mL 06/10/19 06/10/19 Range/Units 06:28 08:40 WBC (3.8-10.6) k/uL Plt Count (150-450) k/uL Neutrophils # (1.3-7.7) k/uL Lymphocytes # (1.0-4.8) k/uL APTT (22.0-30.0) sec Chloride (98-107) mmol/L Glucose (74-99) mg/dL POC Glucose (mg/dL) 111 H (75-99) mg/dL Calcium (8.4-10.2) mg/dL AST (14-36) U/L Troponin I 3.290 H* (0.000-0.034) ng/mL Assessment and Plan Assessment: A. fib with RVR * Cardiology consult pending consider cardioversion as blood pressure is borderline plan for 500 mL NS bolus * Cardizem infusion and continue IV heparin will likely be transitioned to DOACs This patient is a high risk for repeat CVA * Echocardiogram ordered results are pending, consider adding amiodarone Elevated troponin * Likely secondary to demand due to A. fib with RVR in due to demand perfusion mismatch * -Given aspirin 325 mg once in the ED * -Continue with aspirin daily * -Currently on heparin infusion * Patient will likely good candidate for heart catheterization Syncopal episode * Possibly due to A. fib with RVR * Patient with recent CVA, though no residual deficits noted * Continue with home antiseizure medications Hypotension * Given 500 cc NS bolus and recheck blood pressure Chronic conditions: Hypertension, hyperlipidemia, history of CVA, seizure disorder * Continue with home meds Hyperglycemia * Check A1c * Sliding scale Leukocytosis * -lkely due to stress Monitor CBC DVT prophylaxis -Heparin infusion The patient is admitted with an anticipated greater than 2 midnight stay for evaluation of Afib with RVR CODE STATUS: No Code Discussed with: Patient Anticipated discharge date: 2-[address]: Assisted living A total of 40 minutes was spent on the care of this complex patient more than 50% of the time was spent in counseling and care coordination.
[2019-06-10] MEDS: DIGOXIN 250 MCG/ML 2 ML AMP IVP SCH ×2 (09:59→15:49)
--- NOTE | 2019-06-10 10:27 | P.CRDCN ---
History of Present Illness Consult date: 06/10/19 History of present illness: This is a 79-year-old female with history of hypertension and previous CVA who [facility] who was admitted to the hospital with an episode of syncope. Patient was found to be in atrial fibrillation with rapid ventricular response. Patient was treated with IV Cardizem 20 mg bolus. Apparently patient became hypotensive and also bradycardic and had another episode of syncope while in the hospital. Patient denied any chest pains. Her EKG showed atrial fibrillation with rapid ventricular response with a diffuse ST-T changes. Echocardiogram showed severe concentric left ventricle hypertrophy with preserved LV function. See was also given metoprolol but that is discontinued now. Patient received IV Cardizem 1 bolus and repeat dose is being given in 6 hours. Most probably once blood pressure is stable, we will start her on amiodarone bolus and drip. If necessary DARLENE cardioversion will be considered. Patient may also need a cardiac catheterization to rule out underlying ischemic heart disease. At this point, patient appears to be comfortable. Further recommendation will depend upon the clinical course. Review of Systems As per the chart Past Medical History Past Medical History: CVA/TIA, Hyperlipidemia, Hypertension, Osteoarthritis (OA), Pneumonia Additional Past Medical History / Comment(s): Possible TIAs in past per pt, pt believes she has the beginnings of dementia, bronchitis, pituitary dysfunction, seasonal allergies/sinus problems, arthritis in multiple joints. History of Any Multi-Drug Resistant Organisms: None Reported Past Surgical History: Adenoidectomy, Appendectomy, Cholecystectomy, Tonsillectomy Past Anesthesia/Blood Transfusion Reactions: No Reported Reaction Past Psychological History: No Psychological Hx Reported Additional Psychological History / Comment(s): Pt has a public legal guardian. She states that she was not functioning well at one point and a legal guardian was appointed. She resides at [facility]. She uses a walker to ambulate. Staff manages her meds. Pt states she is able to perform the rest of her ADLs. Smoking Status: Current every day smoker Past Alcohol Use History: None Reported Additional Past Alcohol Use History / Comment(s): Pt started smoking in 1958 and is a ppd smoker. Past Drug Use History: None Reported - Past Family History Father Family Medical History: Cancer Additional Family Medical History / Comment(s): Pt states by the time they found out that her father had cancer, it was thru out his body. Mother Family Medical History: No Reported History Additional Family Medical History / Comment(s): Mother was healthy. Medications and Allergies Home Medications Medication Instructions Recorded Confirmed Type Fluticasone Nasal [place] [Flonase 2 spray EA NOSTRIL HS@199902/25/19 06/09/19 History Nasal [place]] Loratadine [Claritin] 10 mg PO HS@199902/25/19 06/09/19 History Atorvastatin [Lipitor] 20 mg PO HS@199905/02/19 06/09/19 History Aspirin EC [Ecotrin Low Dose] 81 mg PO DAILY@0800 06/09/19 06/09/19 History Clopidogrel [Plavix] 75 mg PO HS@199906/09/19 06/09/19 History Famotidine [Pepcid] 20 mg PO BID@0800,199906/09/19 06/09/19 History Metoprolol Succinate (ER) [Toprol 50 mg PO DAILY@0800 06/09/19 06/09/19 History XL] amLODIPine [Norvasc] 2.5 mg PO HS@199906/09/19 06/09/19 History levETIRAcetam [Keppra] 750 mg PO BID@0800,199906/09/19 06/09/19 History Allergies Allergy/AdvReac Type Severity Reaction Status Date / Time No Known Allergies Allergy Verified 06/09/19 19:44 Physical Exam Vitals: Vital Signs Temp Pulse Pulse Pulse Resp BP BP 06/10/19 10:05 140 H 81/49 06/10/19 09:42 147 H 78/52 06/10/19 09:35 150 H 63/42 06/10/19 08:00 98.3 F 136 H 18 90/60 06/10/19 04:00 98.0 F 118 H 141 H 20 117/74 06/10/19 02:39 111 H 107/68 06/10/19 02:28 114 H 104/59 06/10/19 02:02 104 H 68/40 06/10/19 02:00 86 100/60 06/10/19 01:53 74/58 06/10/19 00:42 156/57 06/10/19 00:00 97.8 F 147 H 147 H 18 112/69 06/09/19 20:36 150 H 20 108/77 06/09/19 19:35 155 H 20 100/67 06/09/19 18:47 125 H 18 82/45 06/09/19 18:18 174 H 06/09/19 18:04 97.9 F 164 H 15 104/87 Pulse Ox 06/10/19 10:05 06/10/19 09:42 06/10/19 09:35 06/10/19 08:00 98 06/10/19 04:00 98 06/10/19 02:39 06/10/19 02:28 06/10/19 02:02 06/10/19 02:00 06/10/19 01:53 06/10/19 00:42 06/10/19 00:00 93 L 06/09/19 20:36 95 06/09/19 19:35 95 06/09/19 18:47 97 06/09/19 18:18 06/09/19 18:04 98 Intake and Output 06/09/19 06/10/19 06/10/19 22:59 06:59 14:59 Intake Total 10.083 616.215 47.608 Output Total 0 300 Balance 10.083 316.215 47.608 Intake: Intake, IV Titration 10.083 76.215 47.608 Amount Diltiazem 125 mg In 10.083 44.167 Sodium Chloride 0.9% 100 ml @ 15 MG/HR 15 mls/hr IV .Q8H20M [facility] Rx#: [id number] Heparin Sod,Pork in 0.45% 32.048 47.608 NaCl 25,000 unit In 0.45 % NaCl 1 250ml.bag @ 12 UNITS/KG/HR 6.967 mls/hr IV .Q24H [facility] Rx#: [id number] Oral 0 540 Output: Urine 0 300 Other: Voiding Method Bedpan Bedpan Diaper Diaper Weight 56.2 kg 72.5 kg GENERAL EXAM: Patient is alert and oriented and doesn't appear to be in any acute distress HEENT: Normocephalic. Normal reaction of pupils, equal size, normal range of extraocular motion. No erythema or exudates in the throat. NECK: No masses, no nuchal rigidity. CHEST: No chest wall deformity. LUNGS: Equal air entry with no crackles or wheeze. HEART: S1 and S2 normal. Irregular heart sounds ABDOMEN: No hepatosplenomegaly, normal bowel sounds, no guarding or rigidity. SKIN: No rashes CENTRAL NERVOUS SYSTEM: No focal deficits. EXTREMITIES: No cyanosis, clubbing or edema. Results 06/10/19 02:31 06/10/19 02:31 Cardiac Enzymes 06/09/19 06/09/19 06/10/19 Range/Units 18:16 18:16 00:33 AST 34 (14-36) U/L Troponin I 0.107 H* 1.800 H* (0.000-0.034) ng/mL 06/10/19 06/10/19 Range/Units 02:31 06:28 AST 76 H (14-36) U/L Troponin I 3.290 H* (0.000-0.034) ng/mL Coagulation 06/09/19 06/10/19 06/10/19 Range/Units 18:16 00:33 02:31 PT 10.9 11.1 (9.0-12.0) sec APTT 22.4 148.1 H* 82.5 H (22.0-30.0) sec 06/10/19 Range/Units 08:43 PT (9.0-12.0) sec APTT 91.7 H (22.0-30.0) sec CBC 06/09/19 06/10/19 06/10/19 Range/Units 18:16 00:33 02:31 WBC 12.2 H 9.8 11.5 H (3.8-10.6) k/uL RBC 4.54 4.33 4.38 (3.80-5.40) m/uL Hgb 13.5 12.4 12.4 (11.4-16.0) gm/dL Hct 39.2 38.2 39.0 (34.0-46.0) % Plt Count 170 142 L 167 (150-450) k/uL Comprehensive Metabolic Panel 06/09/19 06/10/19 Range/Units 18:16 02:31 Sodium 141 142 (137-145) mmol/L Potassium 4.2 5.0 (3.5-5.1) mmol/L Chloride 106 109 H (98-107) mmol/L Carbon Dioxide 23 23 (22-30) mmol/L BUN 17 17 (7-17) mg/dL Creatinine 1.02 0.76 (0.52-1.04) mg/dL Glucose 163 H 224 H (74-99) mg/dL Calcium 9.2 8.2 L (8.4-10.2) mg/dL AST 34 76 H (14-36) U/L ALT 15 34 (4-34) U/L Alkaline Phosphatase 112 115 (38-126) U/L Total Protein 7.0 6.3 (6.3-8.2) g/dL Albumin 4.1 3.5 (3.5-5.0) g/dL Current Medications Generic Name Dose Route Start Last Admin Trade Name Freq PRN Reason Stop Dose Admin Aspirin 81 mg 06/10/19 08:00 Aspirin PO DAILY@0800 [facility] Atorvastatin Calcium 20 mg 06/10/19 20:00 Lipitor PO HS@1999 [facility] Clopidogrel Bisulfate 75 mg 06/10/19 20:00 Plavix PO HS@1999 [facility] Digoxin 250 mcg 06/10/19 12:00 06/10/19 09:59 Lanoxin IVP 06/10/19 18:01 250 mcg Q6HR [facility] Administration Famotidine 20 mg 06/10/19 08:00 Pepcid PO BID@799,1999 [facility] Heparin Sodium (Porcine) 0 unit 06/09/19 20:27 Heparin IV PER PROTOCOL PRN Low PTT Protocol Diltiazem HCl 125 mg/ Sodium 125 mls @ 15 mls/hr 06/09/19 20:00 06/10/19 05:12 Chloride IV 5 mg/hr .Q8H20M [facility] 5 mls/hr Infusion 15 MG/HR Heparin Sodium/Sodium Chloride 250 mls @ 6.967 mls/hr 06/09/19 20:30 06/10/19 09:44 25,000 unit/ Sodium Chloride IV 10 units/kg/hr .Q24H [facility] 5.806 mls/hr Titration Protocol 12 UNITS/KG/HR Insulin Aspart 0 unit 06/10/19 07:30 06/10/19 08:41 Novolog SQ Not Given AC-TID [facility] Protocol Levetiracetam 750 mg 06/10/19 08:00 Keppra PO BID@08,1999 [facility] Metoprolol Succinate 50 mg 06/10/19 08:00 Toprol Xl PO DAILY@0800 [facility] Intake and Output 06/09/19 06/10/19 06/10/19 22:59 06:59 14:59 Intake Total 10.083 616.215 47.608 Output Total 0 300 Balance 10.083 316.215 47.608 Intake: Intake, IV Titration 10.083 76.215 47.608 Amount Diltiazem 125 mg In 10.083 44.167 Sodium Chloride 0.9% 100 ml @ 15 MG/HR 15 mls/hr IV .Q8H20M [facility] Rx#: [id number] Heparin Sod,Pork in 0.45% 32.048 47.608 NaCl 25,000 unit In 0.45 % NaCl 1 250ml.bag @ 12 UNITS/KG/HR 6.967 mls/hr IV .Q24H [facility] Rx#: [id number] Oral 0 540 Output: Urine 0 300 Other: Voiding Method Bedpan Bedpan Diaper Diaper Weight 56.2 kg 72.5 kg 06/10/19 02:31 06/10/19 02:31 EKG Interpretations (text) Atrial fibrillation with rapid ventricular response. Diffuse ST-T changes Assessment and Plan (1) History of hypertension Current Visit: Yes Status: Acute Code(s): Z86.79 - PERSONAL HISTORY OF OTHER DISEASES OF THE CIRCULATORY SYSTEM SNOMED Code(s): 849246534 (2) Atrial fibrillation with rapid ventricular response Current Visit: Yes Status: Acute Code(s): I48.91 - UNSPECIFIED ATRIAL FIBRILLATION SNOMED Code(s): 485560314724848 (3) Elevated troponin Current Visit: Yes Status: Acute Code(s): R79.89 - OTHER SPECIFIED ABNORMAL FINDINGS OF BLOOD CHEMISTRY SNOMED Code(s): 209928455 (4) Cerebrovascular accident (CVA) Current Visit: No Status: Acute Code(s): I63.9 - CEREBRAL INFARCTION, UNSPECIFIED SNOMED Code(s): 063913081 (5) Recurrent syncope Current Visit: Yes Status: Acute Code(s): R55 - SYNCOPE AND COLLAPSE SNOMED Code(s): 812449432 Plan: Continue with the IV Lanoxin. We'll may also start her on IV amiodarone. If necessary, may consider DARLENE cardioversion. We'll continue with IV heparin. Patient may need a cardiac catheterization to rule out underlying ischemic heart disease though the troponin elevation could be secondary to supply demand mismatch, underlying ischemic heart disease cannot be excluded. Prognosis is guarded
[2019-06-10] MEDS: ASPIRIN 81 MG PO SCH (10:36)
[2019-06-10] MEDS: FAMOTIDINE 20 MG TAB PO SCH ×2 (10:36→21:40)
[2019-06-10] MEDS ORDERED: DEXTROSE 5% IN WATER 100 ML with AMIODARONE 150 MG IV ONE (11:45)
--- NOTE | 2019-06-10 11:55 | ECHOF ---
Referral Reason:Afib MEASUREMENTS -------- HEIGHT: 157.5 cm WEIGHT: 72.1 kg BP: 112/69 IVSd: 1.8 cm (0.6 - 1.1) LVIDd: 2.9 cm (3.9 - 5.3) LVPWd: 1.5 cm (0.6 - 1.1) IVSs: 2.0 cm LVIDs: 2.5 cm LVPWs: 1.6 cm LAESV Index (A-L): 47.94 ml/m Ao Diam: 2.7 cm (2.0 - 3.7) AV Cusp: 1.6 cm (1.5 - 2.6) LA Diam: 4.7 cm (2.7 - 3.8) RAP: 5.00 mmHg RVSP: 36.29 mmHg FINDINGS -------- Atrial fibrillation. This was a technically adequate study. The left ventricular size is normal. There is severe concentric left ventricular hypertrophy. Ove rall left ventricular systolic function is normal with, an EF between 55 - 60 %. Left ventricular f illimg pressure cannot be estimated due to Atrial fibrillation. Lvot Obstruction Gradient Of (LVOT 83.57 max PG). The right ventricle is normal in size. LA is severely dilated >40 ml/m2 The right atrial size is normal. There is mild aortic valve sclerosis. There is no evidence of aortic regurgitation. Mild mitral annular calcification present. Moderate mitral regurgitation is present. Moderate tricuspid regurgitation present. There is mild pulmonary hypertension. The right ventric ular systolic pressure, as measured by Doppler, is 36.29mmHg. Trace/mild (physiologic) pulmonic regurgitation. The aortic root size is normal. There is no pericardial effusion. CONCLUSIONS -------- 1. Atrial fibrillation. 2. This was a technically adequate study. 3. There is severe concentric left ventricular hypertrophy. 4. Overall left ventricular systolic function is normal with, an EF between 55 - 60 %. 5. Left ventricular fillimg pressure cannot be estimated due to Atrial fibrillation. 6. Lvot Obstruction Gradient Of (LVOT 83.57 max PG). 7. LA is severely dilated >40 ml/m2 8. There is mild aortic valve sclerosis. 9. Mild mitral annular calcification present. 10. Moderate mitral regurgitation is present. 11. Moderate tricuspid regurgitation present. 12. There is mild pulmonary hypertension. 13. Trace/mild (physiologic) pulmonic regurgitation. 14. There is no pericardial effusion. CHECK OUT CASHIER: Nidia Rocha RDCS
[2019-06-10] MEDS ORDERED: AMIODARONE 360 MG in DEXTROSE 5% IN WATER 200 ML IV ONE ×2 (12:00)
[2019-06-10] MEDS ORDERED: MAGNESIUM SULFATE-D5W PMX 1 GM in DEXTROSE/WATER 1 100ML.BAG IVPB ONE (12:00)
[2019-06-10 12:01] LABS: Glucose,Whole Blood 109 mg/dL (75-99)
[2019-06-10 14:42] LABS: Hemoglobin A1C 5.4 % (4.0-6.0)
[2019-06-10] MEDS ORDERED: DILTIAZEM 125 MG in SODIUM CHLORIDE 0.9% 100 ML IV SCH (16:00)
[2019-06-10 16:56] LABS: Glucose,Whole Blood 135 mg/dL (75-99)
[2019-06-10] MEDS ORDERED: AMIODARONE 300 MG in DEXTROSE 5% IN WATER 250 ML IV SCH ×2 (18:00)
[2019-06-10] MEDS: DILTIAZEM 125 MG in SODIUM CHLORIDE 0.9% 100 ML IV SCH ×2 (19:00→21:14)
[2019-06-10] MEDS ORDERED: ACETAMINOPHEN TAB 325 MG TAB PO PRN (19:25)
[2019-06-10] MEDS ORDERED: amLODIPine 2.5 MG TAB PO SCH (20:00)
[2019-06-10 20:34] LABS: Glucose,Whole Blood 143 mg/dL (75-99)
[2019-06-10] MEDS: CLOPIDOGREL 75 MG TAB PO SCH (21:40)
[2019-06-10] MEDS: ATORVASTATIN 20 MG TAB PO SCH (21:40)
[2019-06-10] MEDS: METOPROLOL TARTRATE 25 MG TAB PO SCH (23:35)
[2019-06-11 00:37] LABS: Glucose,Whole Blood 337 mg/dL (75-99)
[2019-06-11 01:06] LABS: ABG HCO3 24 mmol/L (21-25); ABG PO2 219 mmHg (83-108); ABG TCO2 26 mmol/L (19-24); Allen Test Performed? Yes
[2019-06-11 01:08] LABS: ABG PCO2 88 mmHg (35-45); ABG PH 7.04 (7.35-7.45)
--- NOTE | 2019-06-11 01:08 | XR ---
EXAMINATION TYPE: XR chest 1V portable DATE OF EXAM: 06/11/2019 COMPARISON: 06/09/2019 HISTORY: Short of breath TECHNIQUE: 2 views FINDINGS: There is pulmonary interstitial edema. Heart is not grossly enlarged. There are chest leads . Thoracic aorta is atheromatous. IMPRESSION: There is new pulmonary edema compared to last exam and could relate to acute heart failur e.
[2019-06-11 01:22] LABS: Basophils # (A) 0.1 k/uL (0-0.2); Basophils % (A) 0 %; Eosinophils # (A) 0.2 k/uL (0-0.7); Eosinophils % (A) 1 %; HCT 41.7 % (34.0-46.0); Hypochromasia Slight; Lymphocytes # (A) 1.9 k/uL (1.0-4.8); Lymphocytes % (A) 9 %; MCH 28.8 pg (25.0-35.0); MCHC 31.2 g/dL (31.0-37.0); MCV 92.3 fL (80.0-100.0); Mean Platelet Volume 8.2; Monocytes # (A) 1.4 k/uL (0-1.0); Monocytes % (A) 7 %; Neutrophils # (A) 17.4 k/uL (1.3-7.7); Neutrophils % (A) 82 %; Platelet Count 204 k/uL (150-450); RBC 4.52 m/uL (3.80-5.40); RDW 13.3 % (11.5-15.5); WBC 21.2 k/uL (3.8-10.6)
[2019-06-11 01:35] LABS: African American GFR (CKD) >90 (>60 ml/min/1.73 sqM); Anion Gap 10 mmol/L; Blood Urea Nitrogen 18 mg/dL (7-17); Calcium 8.4 mg/dL (8.4-10.2); Carbon Dioxide 23 mmol/L (22-30); Chloride 106 mmol/L (98-107); Glucose 314 mg/dL (74-99); Non-African American GFR(CKD) 79 (>60 ml/min/1.73 sqM); Potassium 3.9 mmol/L (3.5-5.1); Sodium 139 mmol/L (137-145)
[2019-06-11] MEDS: HEPARIN SOD,PORK IN 0.45% NACL 25,000 UNIT in 0.45% NACL 1 250ML.BAG IV SCH (01:37)
[2019-06-11] MEDS ORDERED: FUROSEMIDE 10 MG/ML 4 ML VIAL IV STA (01:55)
--- NOTE | 2019-06-11 02:08 | P.PN ---
Progress Note - Text Progress Note Date: 06/11/19 A team was called on the patient at 12:25 am. The patient was previously seen at 11:45 pm, at which time she was awake, alert, responsive, and following commands appropriately as per the nursing staff. The patient was subsequently found at 12:25 am with her nasal canula off (6 L/min), unresponsive with SpO2 75%. The patient was immediately placed on 10 L via Oxy-mask. Within a few minutes, the patient began moving her extremities and grimacing to noxious stimuli. CXR was obtained which revealed new pulmonary edema, as compared to previous exam. ABG revealed pCO2 88 with pH 7.04. She was placed on BiPAP with gradual improvement of her mental status. Physical examination was performed as below. At 1:50, the patient was opening her eyes to verbal stimuli, able to follow commands, moving all extremities equally, and without slurring of speech. Cardiac monitoring revealed period of normal sinus rhythm along with sinus tachycardia and atrial fibrillation with RVR. Physical examination General: Elderly F, on BiPAP, in NAD HEENT: Anicteric sclera, PERRL Cardiovascular: S1 S2 normal with no murmurs, rubs, or gallops appreciated Lungs: Scattered coarse breath sounds appreciated. Minimal bibasilar rales. Extremities: No LE edema greg Neuro: Opening eyes to verbal stimuli, following commands, strength 4/5 and equal bilaterally, lethargic Assessment/Plan Episode of unresponsive -Likely secondary to hypoxia from nasal canula coming off -Significantly improved with supplemental oxygen -Continue to monitor closely -Patient is a DNI -Neurochecks q4h Leukocytosis -Likely due to acute stress -Monitor for now Pulmonary edema -Will give single dose of Lasix 40 mg IVP
[2019-06-11 06:03] LABS: Glucose,Whole Blood 153 mg/dL (75-99)
[2019-06-11 06:46] LABS: Basophils % (A) 0 %; Eosinophils % (A) 0 %; HGB 11.8 gm/dL (11.4-16.0); Lymphocytes # (A) 0.4 k/uL (1.0-4.8); Lymphocytes % (A) 4 %; MCH 29.4 pg (25.0-35.0); MCHC 32.8 g/dL (31.0-37.0); MCV 89.7 fL (80.0-100.0); Monocytes # (A) 0.8 k/uL (0-1.0); Monocytes % (A) 8 %; Neutrophils # (A) 9.5 k/uL (1.3-7.7); Neutrophils % (A) 87 %; Platelet Count 119 k/uL (150-450); RBC 4.02 m/uL (3.80-5.40); RDW 13.4 % (11.5-15.5); WBC 10.9 k/uL (3.8-10.6)
--- NOTE | 2019-06-11 07:47 | XR ---
EXAMINATION TYPE: XR chest 1V DATE OF EXAM: 06/11/2019 CLINICAL HISTORY: Difficulty breathing and CHF progress study. TECHNIQUE: Single AP portable upright view of the chest is obtained. COMPARISON: Chest x-ray from earlier today and older studies. FINDINGS: There is persistent cardiomegaly with bibasilar opacity silhouetting left hemidiaphragm. B ackground chronic emphysematous change. Atherosclerotic thoracic aorta with mitral annular calcificat ions redemonstrated. Osseous structures are demineralized. IMPRESSION: There is some improved interstitial edema. Persistent mild cardiomegaly with left greater than right bibasilar acute infiltrate and/or atelectasis and probable small bilateral pleural effusi ons best appreciated in the right lung.
[2019-06-11] MEDS: INSULIN ASPART (NovoLOG) 100 UNIT/ML VIAL SQ SCH ×3 (08:55→17:10)
[2019-06-11] MEDS: METOPROLOL TARTRATE 25 MG TAB PO SCH ×2 (09:05→20:47)
[2019-06-11] MEDS: ASPIRIN 81 MG PO SCH (09:06)
[2019-06-11] MEDS: FAMOTIDINE 20 MG TAB PO SCH ×2 (09:08→20:47)
[2019-06-11] MEDS: APIXABAN 2.5 MG TABLET PO SCH ×2 (11:28→20:47)
[2019-06-11] MEDS: FUROSEMIDE 10 MG/ML 2 ML VIAL IV SCH ×3 (11:28→20:48)
[2019-06-11] MEDS: DILTIAZEM 125 MG in SODIUM CHLORIDE 0.9% 100 ML IV SCH (11:29)
[2019-06-11 11:48] LABS: Glucose,Whole Blood 131 mg/dL (75-99)
[2019-06-11] MEDS ORDERED: PIPERACILLIN-TAZOBACTAM 3.375 GM in SODIUM CHLORIDE 0.9% 100 ML IVPB SCH (12:00)
--- NOTE | 2019-06-11 12:07 | P.PN ---
Subjective Progress Note Date: 06/11/19 Patient seen and examined at bedside reporting that her breathing is much improved since this morning when patient had an episode of unresponsiveness and was found to be hypoxic and had been placed on BiPAP. ABG suggested severe hypercarbic respiratory acidosis. she's currently on 6 L via nasal cannula and reports to being more comfortable. White count is down to 10.9, patient has been off of amiodarone drip and continues on IV Lasix. Chest x-ray showing improvement in interstitial edema, [id number] Objective - Vital Signs Vital signs: Vital Signs Temp 98.2 F 06/11/19 08:35 Pulse 68 06/11/19 10:55 Resp 20 06/11/19 10:55 BP 119/54 06/11/19 10:55 Pulse Ox 99 06/11/19 10:55 Intake & Output 06/10/19 06/11/19 06/11/19 18:59 06:59 18:59 Intake Total 782.025 997.167 Balance 782.025 997.167 Weight 62.9 kg Intake: Intake, IV Titration 662.025 79.167 Amount Diltiazem 125 mg In 79.167 Sodium Chloride 0.9% 100 ml @ 10 MG/HR 10 mls/hr IV .[id number] [facility] [place] Rx#: [id number] Diltiazem 125 mg In 14.417 Sodium Chloride 0.9% 100 ml @ 5 MG/HR 5 mls/hr IV .Q24H [facility] [place] Rx#:[id number] Heparin Sod,Pork in 0.45% 47.608 NaCl 25,000 unit In 0.45 % NaCl 1 250ml.bag @ 12 UNITS/KG/HR 6.967 mls/hr IV .Q24H [facility] [place] Rx#: [id number] Magnesium Sulfate-D5w Pmx 100 1 gm In Dextrose/Water 1 100ml.bag @ 100 mls/hr IVPB ONCE ONE Rx#: [id number] Sodium Chloride 0.9% 500 500 ml 500 ml @ 999 mls/hr IV .Q31M [facility] Rx#:[id number] Oral 120 918 Other: Voiding Method Bedpan Bedpan Bedpan Diaper Diaper Diaper # Voids 1 - Exam Constitutional: No acute distress, conversant, pleasant Eyes: Anicteric sclerae, moist conjunctiva, no lid-lag, PERRLA ENMT: NC/AT,Oropharynx clear, no erythema, exudates Neck:Supple, FROM, no masses, or JVD, No carotid bruits; No thyromegaly Lungs: Clear to auscultation, Clear to percussion, Normal respiratory effort, no accessory muscle use Cardiovascular: Regular rate and rhythm, No murmurs, gallops, or rubs no peripheral edema Abdominal: Soft Nontender, nom distended, no guarding, no rebound or rigidity, Normoactive bowel sounds No hepatomegaly, No splenomegaly, No palpable mass No abdominal wall hernia noted Skin: Normal temperature, tone, texture, turgor, No induration No subcutaneous nodules, No rash, lesions, No ulcers Extremities:No digital cyanosis No clubbing, Pedal pulses intact and symmetrical Radial pulses intact and symmetrical Normal gait and station, No calf tenderness Psychiatric: Alert and oriented to person, place and time, Appropriate affect Intact judgement Neuro: Muscles Strength 5/5 in all 4 extremities, Sensation to light touch grossly present throughout, Cranial nerves II-XII grossly intact. No focal sensory deficits - Labs CBC & Chem 7: 06/11/19 05:59 06/11/19 00:47 Labs: Abnormal Lab Results - Last 24 Hours (Table) 06/10/19 06/10/19 06/10/19 Range/Units 12:00 16:11 16:54 WBC (3.8-10.6) k/uL Plt Count (150-450) k/uL Neutrophils # (1.3-7.7) k/uL Lymphocytes # (1.0-4.8) k/uL Monocytes # (0-1.0) k/uL APTT 65.6 H (22.0-30.0) sec ABG pH (7.35-7.45) ABG pCO2 (35-45) mmHg ABG pO2 (83-108) mmHg ABG Total CO2 (19-24) mmol/L ABG O2 Saturation (94-97) % BUN (7-17) mg/dL Glucose (74-99) mg/dL POC Glucose (mg/dL) 109 H 135 H (75-99) mg/dL 06/10/19 06/11/19 06/11/19 Range/Units 20:33 00:35 00:47 WBC 21.2 H (3.8-10.6) k/uL Plt Count (150-450) k/uL Neutrophils # 17.4 H (1.3-7.7) k/uL Lymphocytes # (1.0-4.8) k/uL Monocytes # 1.4 H (0-1.0) k/uL APTT (22.0-30.0) sec ABG pH (7.35-7.45) ABG pCO2 (35-45) mmHg ABG pO2 (83-108) mmHg ABG Total CO2 (19-24) mmol/L ABG O2 Saturation (94-97) % BUN (7-17) mg/dL Glucose (74-99) mg/dL POC Glucose (mg/dL) 143 H 337 H (75-99) mg/dL 06/11/19 06/11/19 06/11/19 Range/Units 00:47 01:03 05:59 WBC 10.9 H (3.8-10.6) k/uL Plt Count 119 L (150-450) k/uL Neutrophils # 9.5 H (1.3-7.7) k/uL Lymphocytes # 0.4 L (1.0-4.8) k/uL Monocytes # (0-1.0) k/uL APTT (22.0-30.0) sec ABG pH 7.04 L* (7.35-7.45) ABG pCO2 88 H* (35-45) mmHg ABG pO2 219 H (83-108) mmHg ABG Total CO2 26 H (19-24) mmol/L ABG O2 Saturation 99.0 H (94-97) % BUN 18 H (7-17) mg/dL Glucose 314 H (74-99) mg/dL POC Glucose (mg/dL) (75-99) mg/dL 06/11/19 06/11/19 Range/Units 05:59 06:02 WBC (3.8-10.6) k/uL Plt Count (150-450) k/uL Neutrophils # (1.3-7.7) k/uL Lymphocytes # (1.0-4.8) k/uL Monocytes # (0-1.0) k/uL APTT 63.9 H (22.0-30.0) sec ABG pH (7.35-7.45) ABG pCO2 (35-45) mmHg ABG pO2 (83-108) mmHg ABG Total CO2 (19-24) mmol/L ABG O2 Saturation (94-97) % BUN (7-17) mg/dL Glucose (74-99) mg/dL POC Glucose (mg/dL) 153 H (75-99) mg/dL Assessment and Plan Assessment: Acute respiratory failure with hypoxemia and hypercapnia * Multifactorial secondary to acute diastolic CHF superimposed on possible underlying pneumonia * Metabolic encephalopathy secondary to CO2 narcosis with severe respiratory acidosis pulmonary consulted for further recommendation * Patient encouraged to wear her BiPAP when sleeping but has been minimally compliant Acute diastolic CHF * Chest x-ray showing improving interstitial edema, mild persistent cardiomegaly left greater than right basilar acute infiltrate * Echo with preserved LVEF of 55-60%, severely dilated left atrium, moderate MR, moderate TR * Continue diuresis with Lasix 20 mg IV TID A. fib with RVR * Converted to normal sinus rhythm rate is currently controlled * Cardizem infusion and discontinue IV heparin and transitioned to Eliquis This patient is a high risk for repeat CVA * Echocardiogram indicating dilated left atrium Elevated troponin * Likely secondary to demand due to A. fib with RVR in due to demand perfusion mismatch * -Given aspirin 325 mg once in the ED * -Continue with aspirin daily * Patient will likely good candidate for heart catheterization Syncopal episode * Possibly due to A. fib with RVR * Patient with recent CVA, though no residual deficits noted * Continue with home antiseizure medications history of CVA * Continue to do on Depakote therapy with Plavix and aspirin Hypotension * Resolved continue to monitor closely Thrombocytopenia * Significant drop in platelets possibly secondary to heparin which was discontinued we'll check a hit antibody * Continue to monitor platelets Hyperglycemia * Check A1c * Sliding scale Chronic conditions: Hypertension, hyperlipidemia, , seizure disorder * Continue with home meds DVT prophylaxis -eliquis The patient is admitted with an anticipated greater than 2 midnight stay for evaluation of Afib with RVR CODE STATUS: No Code Discussed with: Patient Anticipated discharge date: 2-[address]: Assisted living A total of 40 minutes was spent on the care of this complex patient more than 50% of the time was spent in counseling and care coordination.
[2019-06-11 12:25] LABS: Calcium 8.4 mg/dL (8.4-10.2); Potassium 4.2 mmol/L (3.5-5.1)
[2019-06-11 12:29] LABS: ABG Base Excess 1.3 mmol/L; ABG HCO3 27 mmol/L (21-25); ABG Oxygen Saturation 99.4 % (94-97); ABG PCO2 52 mmHg (35-45); ABG PH 7.33 (7.35-7.45); ABG PO2 174 mmHg (83-108); ABG TCO2 29 mmol/L (19-24); Allen Test Performed? Yes
--- NOTE | 2019-06-11 13:30 | P.CNPUL ---
History of Present Illness Consult date: 06/11/19 Requesting physician: Tammie Mahan Reason for consult: dyspnea Chief complaint: Palpitations, lightheadedness, falls, weakness History of present illness: This is a pleasant 79-year-old female patient who follows with Dr. Wei as her primary care physician. She has a history of CVA/TIAs, hyperlipidemia, hypertension, osteoarthritis, chronic obstructive pulmonary disease, chronic and ongoing tobacco dependence. She resides in a foster care facility. She was brought in on 06/09/2019. EMS with recurrent falls without injury, palpitations, weakness. She was found to be in atrial fibrillation with a rapid ventricular response and was admitted for the same. She had been followed by cardiology. She been on and off Cardizem drip, amiodarone drip and digoxin. She is currently in normal sinus rhythm. Last night she developed increasing shortness of breath atrial fibrillation with rapid ventricular response. An A team was called Arterial blood gases were drawn on 100% FiO2 with a PaO2 of 219, pCO2 of 88 and a pH of 7.04. She was placed on BiPAP 12/6 and 60% FiO2. She was initiated on Lasix 20 mg IV every 8 hours. She had been taking her BiPAP off and approximately 11:00 this morning she was yelling for help from her room. Her O2 saturation was still at 88%. She is placed on 6 L and subsequently recovered. We are consulted for the same. She is seen today by Dr. Sorensen on the selective care unit. Currently she is on the BiPAP 12/6. Decrease the FiO2 to 30%. Most recent blood gases reveal a pCO2 of 174, pCO2 52 and a pH of 7.33 on 60% FiO2. He had that one of the patient on more than 2 L nasal cannula once she is off the BiPAP. She is awake and alert denies any worsening shortness of breath at this time. She is currently in sinus rhythm in the 70s. She has been afebrile. Chest x-ray shows some atelectatic changes in the right lung base. No infiltrates. White count 10.9. Hemoglobin 11.8. Sodium 140. Potassium 4.2. Creatinine 0.81. Heart rate controlled with Lopressor 25 twice a day now. Anticoagulation initiated with Eliquis. Review of Systems REVIEW OF SYSTEMS: CONSTITUTIONAL: Denies any recent significant weight loss or weight gain. EYES: Denies change in vision. EARS, NOSE, MOUTH, THROAT: Denies headaches, denies sore throat. CARDIOVASCULAR: Positive for palpitations or syncopal episodes. RESPIRATORY: Denies shortness of breath, cough, congestion or hemoptysis. GASTROINTESTINAL: Denies change in appetite, denies abdominal pain GENITOURINARY: Denies hematuria, denies infections. MUSKULOSKELETAL: Denies pain, denies swelling. INTEGUMENTARY: Denies rash, denies eczema. NEUROLOGICAL: Positive for recent memory loss, no recent seizure activity. PSYCHIATRIC: Positive for anxiety, denies depression. HEMATOLOGIC/LYMPHATIC: Denies anemia, denies enlarged lymph nodes. Past Medical History Past Medical History: CVA/TIA, Hyperlipidemia, Hypertension, Osteoarthritis (OA), Pneumonia Additional Past Medical History / Comment(s): Possible TIAs in past per pt, pt believes she has the beginnings of dementia, bronchitis, pituitary dysfunction, seasonal allergies/sinus problems, arthritis in multiple joints. History of Any Multi-Drug Resistant Organisms: None Reported Past Surgical History: Adenoidectomy, Appendectomy, Cholecystectomy, Tonsillectomy Past Anesthesia/Blood Transfusion Reactions: No Reported Reaction Past Psychological History: No Psychological Hx Reported Additional Psychological History / Comment(s): Pt has a public legal guardian. She states that she was not functioning well at one point and a legal guardian was appointed. She resides at [facility]. She uses a walker to ambulate. Staff manages her meds. Pt states she is able to perform the rest of her ADLs. Smoking Status: Current every day smoker Past Alcohol Use History: None Reported Additional Past Alcohol Use History / Comment(s): Pt started smoking in 1958 and is a ppd smoker. Past Drug Use History: None Reported - Past Family History Father Family Medical History: Cancer Additional Family Medical History / Comment(s): Pt states by the time they found out that her father had cancer, it was thru out his body. Mother Family Medical History: No Reported History Additional Family Medical History / Comment(s): Mother was healthy. Medications and Allergies Home Medications Medication Instructions Recorded Confirmed Type Fluticasone Nasal Mary D [Flonase 2 spray EA NOSTRIL HS@199902/25/19 06/09/19 History Nasal Mary D] Loratadine [Claritin] 10 mg PO HS@199902/25/19 06/09/19 History Atorvastatin [Lipitor] 20 mg PO HS@199905/02/19 06/09/19 History Aspirin EC [Ecotrin Low Dose] 81 mg PO DAILY@0800 06/09/19 06/09/19 History Clopidogrel [Plavix] 75 mg PO HS@199906/09/19 06/09/19 History Famotidine [Pepcid] 20 mg PO BID@0800,199906/09/19 06/09/19 History Metoprolol Succinate (ER) [Toprol 50 mg PO DAILY@0800 06/09/19 06/09/19 History XL] amLODIPine [Norvasc] 2.5 mg PO HS@199906/09/19 06/09/19 History levETIRAcetam [Keppra] 750 mg PO BID@0800,199906/09/19 06/09/19 History Allergies Allergy/AdvReac Type Severity Reaction Status Date / Time No Known Allergies Allergy Verified 06/09/19 19:44 Physical Exam Vitals: Vital Signs Temp Pulse Pulse Resp BP Pulse Ox 06/11/19 12:00 98.0 F 66 18 106/57 100 06/11/19 10:55 68 20 119/54 99 06/11/19 08:35 98.2 F 75 18 107/61 99 06/11/19 04:00 118 H 60 20 84/46 99 06/11/19 00:00 98 F 118 H 120 H 22 96/48 93 L 06/10/19 20:25 93 L 06/10/19 20:00 98.1 F 118 H 124 H 22 120/71 92 L 06/10/19 17:09 98.6 F 130 H 18 101/64 96 06/10/19 16:30 155 H 20 95/51 96 06/10/19 15:37 156 H 20 101/62 96 06/10/19 13:46 67 102/62 Intake and Output 06/10/19 06/11/19 06/11/19 22:59 06:59 14:59 Intake Total 532.417 479.167 280 Balance 532.417 479.167 280 Intake: IV 160 saline 160 Intake, IV Titration 14.417 79.167 Amount Diltiazem 125 mg In 79.167 Sodium Chloride 0.9% 100 ml @ 10 MG/HR 10 mls/hr IV .[id number] [facility] Rx#: [id number] Diltiazem 125 mg In 14.417 Sodium Chloride 0.9% 100 ml @ 5 MG/HR 5 mls/hr IV .Q24H [facility] Rx#:[id number] Oral 518 400 120 Other: Voiding Method Bedpan Bedpan Bedpan Diaper Diaper Diaper Weight 62.9 kg GENERAL EXAM: Alert, frail, cachectic 79-year-old female patient, on BiPAP 12/6 and 30% FiO2, more comfortable in no apparent distress. HEAD: Normocephalic. EYES: Normal reaction of pupils, equal size. NOSE: Clear with pink turbinates. THROAT: No erythema or exudates. NECK: No masses, no JVD. CHEST: No chest wall deformity. LUNGS: Equal air entry with no crackles, wheeze, rhonchi or dullness. Diminished throughout. CVS: S1 and S2 normal with no audible murmur,irregular rhythm. ABDOMEN: No hepatosplenomegaly, normal bowel sounds, no guarding or rigidity. SPINE: No scoliosis or deformity SKIN: No rashes CENTRAL NERVOUS SYSTEM: No focal deficits, tone is normal in all 4 extremities. EXTREMITIES: There is no peripheral edema. No clubbing, no cyanosis. Peripheral pulses are intact. Results - Laboratory Findings CBC and BMP: 06/11/19 05:59 06/11/19 05:59 ABG ABG pH 7.33 (7.35-7.45) L 06/11/19 12:03 ABG pCO2 52 mmHg (35-45) H 06/11/19 12:03 ABG pO2 174 mmHg (83-108) H 06/11/19 12:03 ABG O2 Saturation 99.4 % (94-97) H 06/11/19 12:03 PT/INR, D-dimer PT 11.1 sec (9.0-12.0) 06/10/19 00:33 INR 1.1 (<1.2) 06/10/19 00:33 Abnormal lab findings: Abnormal Labs 06/09/19 06/09/19 06/09/19 18:16 18:16 18:16 WBC 12.2 H Plt Count Neutrophils # 10.2 H Lymphocytes # Monocytes # APTT ABG pH ABG pCO2 ABG pO2 ABG HCO3 ABG Total CO2 ABG O2 Saturation Chloride BUN Glucose 163 H POC Glucose (mg/dL) Calcium AST Troponin I 0.107 H* 06/10/19 06/10/19 06/10/19 00:33 00:33 00:33 WBC Plt Count 142 L Neutrophils # 8.3 H Lymphocytes # 0.8 L Monocytes # APTT 148.1 H* ABG pH ABG pCO2 ABG pO2 ABG HCO3 ABG Total CO2 ABG O2 Saturation Chloride BUN Glucose POC Glucose (mg/dL) Calcium AST Troponin I 1.800 H* 06/10/19 06/10/19 06/10/19 02:31 02:31 02:31 WBC 11.5 H Plt Count Neutrophils # 9.2 H Lymphocytes # Monocytes # APTT 82.5 H ABG pH ABG pCO2 ABG pO2 ABG HCO3 ABG Total CO2 ABG O2 Saturation Chloride 109 H BUN Glucose 224 H POC Glucose (mg/dL) Calcium 8.2 L AST 76 H Troponin I 06/10/19 06/10/19 06/10/19 06:28 08:40 08:43 WBC Plt Count Neutrophils # Lymphocytes # Monocytes # APTT 91.7 H ABG pH ABG pCO2 ABG pO2 ABG HCO3 ABG Total CO2 ABG O2 Saturation Chloride BUN Glucose POC Glucose (mg/dL) 111 H Calcium AST Troponin I 3.290 H* 06/10/19 06/10/19 06/10/19 12:00 16:11 16:54 WBC Plt Count Neutrophils # Lymphocytes # Monocytes # APTT 65.6 H ABG pH ABG pCO2 ABG pO2 ABG HCO3 ABG Total CO2 ABG O2 Saturation Chloride BUN Glucose POC Glucose (mg/dL) 109 H 135 H Calcium AST Troponin I 06/10/19 06/11/19 06/11/19 20:33 00:35 00:47 WBC 21.2 H Plt Count Neutrophils # 17.4 H Lymphocytes # Monocytes # 1.4 H APTT ABG pH ABG pCO2 ABG pO2 ABG HCO3 ABG Total CO2 ABG O2 Saturation Chloride BUN Glucose POC Glucose (mg/dL) 143 H 337 H Calcium AST Troponin I 06/11/19 06/11/19 06/11/19 00:47 01:03 05:59 WBC 10.9 H Plt Count 119 L Neutrophils # 9.5 H Lymphocytes # 0.4 L Monocytes # APTT ABG pH 7.04 L* ABG pCO2 88 H* ABG pO2 219 H ABG HCO3 ABG Total CO2 26 H ABG O2 Saturation 99.0 H Chloride BUN 18 H Glucose 314 H POC Glucose (mg/dL) Calcium AST Troponin I 06/11/19 06/11/19 06/11/19 05:59 05:59 06:02 WBC Plt Count Neutrophils # Lymphocytes # Monocytes # APTT 63.9 H ABG pH ABG pCO2 ABG pO2 ABG HCO3 ABG Total CO2 ABG O2 Saturation Chloride BUN 22 H Glucose 149 H POC Glucose (mg/dL) 153 H Calcium AST Troponin I 06/11/19 06/11/19 11:46 12:03 WBC Plt Count Neutrophils # Lymphocytes # Monocytes # APTT ABG pH 7.33 L ABG pCO2 52 H ABG pO2 174 H ABG HCO3 27 H ABG Total CO2 29 H ABG O2 Saturation 99.4 H Chloride BUN Glucose POC Glucose (mg/dL) 131 H Calcium AST Troponin I - Diagnostic Findings Chest x-ray: image reviewed Assessment and Plan Assessment: 1 Acute hypercapnic respiratory failure secondary to an acute exacerbation of chronic obstructive pulmonary disease 2 Chronic and ongoing tobacco dependence. 3 New-onset atrial fibrillation with rapid ventricular response currently in normal sinus rhythm, anticoagulated with Eliquis 4 Recurrent syncope suspect secondary to atrial fibrillation with rapid ventricular response 5 Elevated troponin 6 History of CVA/TIA 7 History of hypertension 8 Hyperlipidemia 9 Early dementia his legal guardian, resides in adult foster care Plan The patient was seen and evaluated by Dr. Sorensen. Chest x-ray, ABGs and labs reviewed We'll continue with BiPAP for now 05/21 on 30% FiO2 Transitioned to nasal canula oxygen once stable to be kept at 2 L with O2 saturations 88-92% Add DuoNeb inhalations and Pulmicort Add IV Cymetra 40 mg IV every 8 hours Discontinue Zosyn She is educated regarding importance of complete smoking cessation NicoDerm patch will be offered She would benefit from a workup in our office including full PFTs to determine the severity of her COPD and make recommendations regarding maintenance medications We will continue to follow and make further recommendations based on her clinical status I, the cosigning physician, performed a history & physical examination of the patient. Lungs sounds are clear. Maintaining good O2 saturations in the 90s on BiPAP /6 and 30% FiO2. I discussed the assessment and plan of care with my nurse practitioner, Yasmine Crow. I attest to the above consultation as dictated by her. Time with Patient: Greater than 30
--- NOTE | 2019-06-11 14:05 | P.PN ---
Subjective Progress Note Date: 06/11/19 This is a pleasant 79-year-old female who has a history of CVA/TIAs, hyperlipidemia, hypertension, osteoarthritis, chronic obstructive pulmonary disease, chronic and ongoing tobacco dependence. She resides in a foster care facility. She was brought in on 06/09/2019. EMS with recurrent falls without injury, palpitations, weakness. She was found to be in atrial fibrillation with a rapid ventricular response and was admitted for the same. She has been on and off Cardizem drip, amiodarone drip and digoxin. She is currently in normal sinus rhythm. Last night she developed increasing shortness of breath atrial fibrillation with rapid ventricular response. An A team was called Arterial blood gases were drawn on 100% FiO2 with a PaO2 of 219, pCO2 of 88 and a pH of 7.04. She was placed on BiPAP 05/21 and 60% FiO2. She was initiated on Lasix 20 mg IV every 8 hours. She had been taking her BiPAP off and approximately 11:00 this morning she was yelling for help from her room. Her O2 saturation was still at 88%. She is placed on 6 L and subsequently recovered. Pulmonary consultation was requested. Currently she is on the BiPAP . She is awake and alert complainsof worsening shortness of breath at this time. She is currently in sinus rhythm in the 70s. She has been afebrile. Chest x-ray shows some atelectatic changes in the right lung base. No infiltrates. White count 10.9. Hemoglobin 11.8. Sodium 140. Potassium 4.2. Creatinine 0.81. Heart rate controlled with Lopressor 25 twice a day now. we will initiate anticoagulation with Eliquis and discontinue the IV heparin. We also recommend a pulmonary evaluation. Objective - Vital Signs Vital signs: Vital Signs Temp 98.0 F 06/11/19 12:00 Pulse 66 06/11/19 12:00 Resp 20 06/11/19 13:20 BP 106/57 06/11/19 12:00 Pulse Ox 95 06/11/19 13:20 Intake & Output 06/10/19 06/11/19 06/11/19 18:59 06:59 18:59 Intake Total 782.025 997.167 280 Balance 782.025 997.167 280 Weight 62.9 kg Intake: IV 160 saline 160 Intake, IV Titration 662.025 79.167 Amount Diltiazem 125 mg In 79.167 Sodium Chloride 0.9% 100 ml @ 10 MG/HR 10 mls/hr IV .[id number] [facility] Rx#: [id number] Diltiazem 125 mg In 14.417 Sodium Chloride 0.9% 100 ml @ 5 MG/HR 5 mls/hr IV .Q24H [facility] Rx#:[id number] Heparin Sod,Pork in 0.45% 47.608 NaCl 25,000 unit In 0.45 % NaCl 1 250ml.bag @ 12 UNITS/KG/HR 6.967 mls/hr IV .Q24H [facility] Rx#: [id number] Magnesium Sulfate-D5w Pmx 100 1 gm In Dextrose/Water 1 100ml.bag @ 100 mls/hr IVPB ONCE ONE Rx#: [id number] Sodium Chloride 0.9% 500 500 ml 500 ml @ 999 mls/hr IV .Q31M [facility] Rx#:[id number] Oral 120 918 120 Other: Voiding Method Bedpan Bedpan Bedpan Diaper Diaper Diaper # Voids 1 - Exam GENERAL EXAM: Alert, frail, cachectic 79-year-old female patient, on BiPAP 12/6 and 30% FiO2, more comfortable in no apparent distress. HEAD: Normocephalic. EYES: Normal reaction of pupils, equal size. NOSE: Clear with pink turbinates. THROAT: No erythema or exudates. NECK: No masses, no JVD. CHEST: No chest wall deformity. LUNGS: Equal air entry with crackles bilaterally to the bases. Diminished throughout. CVS: S1 and S2 normal with no audible murmur,irregular rhythm. ABDOMEN: No hepatosplenomegaly, normal bowel sounds, no guarding or rigidity. SPINE: No scoliosis or deformity SKIN: No rashes CENTRAL NERVOUS SYSTEM: No focal deficits, tone is normal in all 4 extremities. EXTREMITIES: There is no peripheral edema. No clubbing, no cyanosis. Peripheral pulses are intact. - Labs CBC & Chem 7: 06/11/19 05:59 06/11/19 05:59 Labs: Abnormal Lab Results - Last 24 Hours (Table) 06/10/19 06/10/19 06/10/19 Range/Units 16:11 16:54 20:33 WBC (3.8-10.6) k/uL Plt Count (150-450) k/uL Neutrophils # (1.3-7.7) k/uL Lymphocytes # (1.0-4.8) k/uL Monocytes # (0-1.0) k/uL APTT 65.6 H (22.0-30.0) sec ABG pH (7.35-7.45) ABG pCO2 (35-45) mmHg ABG pO2 (83-108) mmHg ABG HCO3 (21-25) mmol/L ABG Total CO2 (19-24) mmol/L ABG O2 Saturation (94-97) % BUN (7-17) mg/dL Glucose (74-99) mg/dL POC Glucose (mg/dL) 135 H 143 H (75-99) mg/dL 06/11/19 06/11/19 06/11/19 Range/Units 00:35 00:47 00:47 WBC 21.2 H (3.8-10.6) k/uL Plt Count (150-450) k/uL Neutrophils # 17.4 H (1.3-7.7) k/uL Lymphocytes # (1.0-4.8) k/uL Monocytes # 1.4 H (0-1.0) k/uL APTT (22.0-30.0) sec ABG pH (7.35-7.45) ABG pCO2 (35-45) mmHg ABG pO2 (83-108) mmHg ABG HCO3 (21-25) mmol/L ABG Total CO2 (19-24) mmol/L ABG O2 Saturation (94-97) % BUN 18 H (7-17) mg/dL Glucose 314 H (74-99) mg/dL POC Glucose (mg/dL) 337 H (75-99) mg/dL 06/11/19 06/11/19 06/11/19 Range/Units 01:03 05:59 05:59 WBC 10.9 H (3.8-10.6) k/uL Plt Count 119 L (150-450) k/uL Neutrophils # 9.5 H (1.3-7.7) k/uL Lymphocytes # 0.4 L (1.0-4.8) k/uL Monocytes # (0-1.0) k/uL APTT 63.9 H (22.0-30.0) sec ABG pH 7.04 L* (7.35-7.45) ABG pCO2 88 H* (35-45) mmHg ABG pO2 219 H (83-108) mmHg ABG HCO3 (21-25) mmol/L ABG Total CO2 26 H (19-24) mmol/L ABG O2 Saturation 99.0 H (94-97) % BUN (7-17) mg/dL Glucose (74-99) mg/dL POC Glucose (mg/dL) (75-99) mg/dL 06/11/19 06/11/19 06/11/19 Range/Units 05:59 06:02 11:46 WBC (3.8-10.6) k/uL Plt Count (150-450) k/uL Neutrophils # (1.3-7.7) k/uL Lymphocytes # (1.0-4.8) k/uL Monocytes # (0-1.0) k/uL APTT (22.0-30.0) sec ABG pH (7.35-7.45) ABG pCO2 (35-45) mmHg ABG pO2 (83-108) mmHg ABG HCO3 (21-25) mmol/L ABG Total CO2 (19-24) mmol/L ABG O2 Saturation (94-97) % BUN 22 H (7-17) mg/dL Glucose 149 H (74-99) mg/dL POC Glucose (mg/dL) 153 H 131 H (75-99) mg/dL 06/11/19 Range/Units 12:03 WBC (3.8-10.6) k/uL Plt Count (150-450) k/uL Neutrophils # (1.3-7.7) k/uL Lymphocytes # (1.0-4.8) k/uL Monocytes # (0-1.0) k/uL APTT (22.0-30.0) sec ABG pH 7.33 L (7.35-7.45) ABG pCO2 52 H (35-45) mmHg ABG pO2 174 H (83-108) mmHg ABG HCO3 27 H (21-25) mmol/L ABG Total CO2 29 H (19-24) mmol/L ABG O2 Saturation 99.4 H (94-97) % BUN (7-17) mg/dL Glucose (74-99) mg/dL POC Glucose (mg/dL) (75-99) mg/dL Assessment and Plan Plan: Assessmentand plan: 1 Acute hypercapnic respiratory failure secondary to an acute exacerbation of chronic obstructive pulmonary disease and CHF exacerbation 2 Chronic and ongoing tobacco dependence. 3 New-onset atrial fibrillation with rapid ventricular response , paroxysmal currently in normal sinus rhythm, anticoagulated with Eliquis 4 Recurrent syncope suspect secondary to atrial fibrillation with rapid ventricular response 5 Elevated troponin 6 History of CVA/TIA 7 History of hypertension 8 Hyperlipidemia 9 Early dementia his legal guardian, resides in adult foster care Plan Discontinue the IV heparin and initiate Eliquis,Initiate amiodarone, increase dose of beta maria dolores. Start the patient on Lasix 20 mg IV every 8 hourly and consult pulmonary. DNP note has been reviewed, I agree with a documented findings and plan of care. Patient was seen and examined.
[2019-06-11] MEDS: NICOTINE 14MG/24HR PATCH TRANSDERM SCH (15:50)
[2019-06-11] MEDS: methylPREDNISolone SOD SUCCI 40 MG/ML 1 ML VIAL IV SCH ×2 (15:50→20:48)
[2019-06-11 17:04] LABS: Glucose,Whole Blood 112 mg/dL (75-99)
[2019-06-11] MEDS: CLOPIDOGREL 75 MG TAB PO SCH (20:47)
[2019-06-11] MEDS: ATORVASTATIN 20 MG TAB PO SCH (20:47)
[2019-06-11] MEDS: IPRATROPIUM-ALBUTEROL 3 ML NEB INHALATION PRN (21:35)
[2019-06-11] MEDS: BUDESONIDE 1 MG/2 ML NEBU INHALATION SCH (21:35)
[2019-06-12 06:34] LABS: Glucose,Whole Blood 160 mg/dL (75-99)
[2019-06-12] MEDS: INSULIN ASPART (NovoLOG) 100 UNIT/ML VIAL SQ SCH ×3 (06:38→18:17)
[2019-06-12 07:01] LABS: Basophils % (A) 0 %; Eosinophils % (A) 0 %; HCT 33.3 % (34.0-46.0); HGB 11.1 gm/dL (11.4-16.0); Lymphocytes # (A) 0.4 k/uL (1.0-4.8); Lymphocytes % (A) 5 %; MCH 28.7 pg (25.0-35.0); MCHC 33.2 g/dL (31.0-37.0); MCV 86.5 fL (80.0-100.0); Mean Platelet Volume 8.6; Monocytes # (A) 0.3 k/uL (0-1.0); Monocytes % (A) 5 %; Neutrophils # (A) 6.7 k/uL (1.3-7.7); Neutrophils % (A) 90 %; Platelet Count 132 k/uL (150-450); RBC 3.85 m/uL (3.80-5.40); RDW 13.1 % (11.5-15.5); WBC 7.5 k/uL (3.8-10.6)
[2019-06-12 07:15] LABS: African American GFR (CKD) >90 (>60 ml/min/1.73 sqM); Anion Gap 7 mmol/L; Blood Urea Nitrogen 24 mg/dL (7-17); Calcium 8.7 mg/dL (8.4-10.2); Carbon Dioxide 31 mmol/L (22-30); Chloride 101 mmol/L (98-107); Glucose 134 mg/dL (74-99); Non-African American GFR(CKD) 87 (>60 ml/min/1.73 sqM); Potassium 3.8 mmol/L (3.5-5.1); Sodium 139 mmol/L (137-145)
[2019-06-12] MEDS: FUROSEMIDE 10 MG/ML 2 ML VIAL IV SCH ×2 (08:46→21:20)
[2019-06-12] MEDS: METOPROLOL TARTRATE 25 MG TAB PO SCH ×3 (08:46→21:19)
[2019-06-12] MEDS: methylPREDNISolone SOD SUCCI 40 MG/ML 1 ML VIAL IV SCH ×3 (08:46→21:20)
[2019-06-12] MEDS: ASPIRIN 81 MG PO SCH (08:46)
[2019-06-12] MEDS: APIXABAN 2.5 MG TABLET PO SCH ×2 (08:46→21:18)
[2019-06-12] MEDS: FAMOTIDINE 20 MG TAB PO SCH ×2 (08:46→21:18)
[2019-06-12] MEDS: NICOTINE 14MG/24HR PATCH TRANSDERM SCH (08:46)
[2019-06-12] MEDS: IPRATROPIUM-ALBUTEROL 3 ML NEB INHALATION PRN ×4 (09:04→20:16)
[2019-06-12] MEDS: BUDESONIDE 1 MG/2 ML NEBU INHALATION SCH ×2 (09:05→20:16)
[2019-06-12 11:56] LABS: Glucose,Whole Blood 217 mg/dL (75-99)
--- NOTE | 2019-06-12 13:31 | P.PN ---
Subjective Progress Note Date: 06/12/19 Principal diagnosis: Acute hypercapnic respiratory failure secondary to an acute exacerbation of chronic obstructive pulmonary disease This is a pleasant 79-year-old female patient who follows with Dr. Jimenez as her primary care physician. She has a history of CVA/TIAs, hyperlipidemia, hypertension, osteoarthritis, chronic obstructive pulmonary disease, chronic and ongoing tobacco dependence. She resides in a foster care facility. She was brought in on 06/09/2019. EMS with recurrent falls without injury, palpitations, weakness. She was found to be in atrial fibrillation with a rapid ventricular response and was admitted for the same. She had been followed by cardiology. She been on and off Cardizem drip, amiodarone drip and digoxin. She is currently in normal sinus rhythm. Last night she developed increasing shortness of breath atrial fibrillation with rapid ventricular response. An A team was called Arterial blood gases were drawn on 100% FiO2 with a PaO2 of 219, pCO2 of 88 and a pH of 7.04. She was placed on BiPAP 12/6 and 60% FiO2. She was initiated on Lasix 20 mg IV every 8 hours. She had been taking her BiPAP off and approximately 11:00 this morning she was yelling for help from her room. Her O2 saturation was still at 88%. She is placed on 6 L and subsequently recovered. We are consulted for the same. She is seen today by Dr. Sorensen on the selective care unit. Currently she is on the BiPAP 12/6. Decrease the FiO2 to 30%. Most recent blood gases reveal a pCO2 of 174, pCO2 52 and a pH of 7.33 on 60% FiO2. He had that one of the patient on more than 2 L nasal cannula once she is off the BiPAP. She is awake and alert denies any worsening shortness of breath at this time. She is currently in sinus rhythm in the 70s. She has been afebrile. Chest x-ray shows some atelectatic changes in the right lung base. No infiltrates. White count 10.9. Hemoglobin 11.8. Sodium 140. Potassium 4.2. Creatinine 0.81. Heart rate controlled with Lopressor 25 twice a day now. Anticoagulation initiated with Eliquis. The patient is seen today 06/12/2019 on the selective care unit. She is awake and alert in no acute distress. Resting comfortably in bed. Maintaining O2 saturations in the 90s on 2 L/m per nasal cannula. She's been afebrile. Heart rate better controlled today. White count 7.5. Hemoglobin 11.1. Sodium 139. Potassium 3.8. Creatinine 0.62. Remains on bronchodilators, IV diuretics, IV Solu-Medrol. NicoDerm patch in place. Anticoagulated with Eliquis. Objective - Vital Signs Vital signs: Vital Signs Temp 96.4 F L 06/12/19 08:00 Pulse 78 06/12/19 12:24 Resp 16 06/12/19 11:37 BP 125/57 06/12/19 08:00 Pulse Ox 97 06/12/19 08:00 Intake & Output 06/11/19 06/12/19 06/12/19 18:59 06:59 18:59 Intake Total 280 240 Output Total 600 1200 1025 Balance -320 -1200 -785 Weight 61 kg Intake: IV 160 saline 160 Oral 120 240 Output: Urine 600 1200 1025 Other: Voiding Method Indwelling Catheter Indwelling Catheter Indwelling Catheter # Voids 1 - Exam GENERAL EXAM: Alert, frail, cachectic 79-year-old female patient, on 3 L/m per nasal cannula, more comfortable in no apparent distress. HEAD: Normocephalic. EYES: Normal reaction of pupils, equal size. NOSE: Clear with pink turbinates. THROAT: No erythema or exudates. NECK: No masses, no JVD. CHEST: No chest wall deformity. LUNGS: Equal air entry with no crackles, wheeze, rhonchi or dullness. Diminished throughout. CVS: S1 and S2 normal with no audible murmur,irregular rhythm. ABDOMEN: No hepatosplenomegaly, normal bowel sounds, no guarding or rigidity. SPINE: No scoliosis or deformity SKIN: No rashes CENTRAL NERVOUS SYSTEM: No focal deficits, tone is normal in all 4 extremities. EXTREMITIES: There is no peripheral edema. No clubbing, no cyanosis. Peripheral pulses are intact. - Labs CBC & Chem 7: 06/12/19 06:17 06/12/19 06:17 Labs: Abnormal Lab Results - Last 24 Hours (Table) 06/11/19 06/11/19 06/12/19 Range/Units 05:59 17:01 06:17 Hgb 11.1 L (11.4-16.0) gm/dL Hct 33.3 L (34.0-46.0) % Plt Count 132 L (150-450) k/uL Lymphocytes # 0.4 L (1.0-4.8) k/uL Carbon Dioxide (22-30) mmol/L BUN (7-17) mg/dL Glucose (74-99) mg/dL POC Glucose (mg/dL) 112 H (75-99) mg/dL Procalcitonin 0.16 H (0.02-0.09) ng/mL 06/12/19 06/12/19 06/12/19 Range/Units 06:17 06:32 11:50 Hgb (11.4-16.0) gm/dL Hct (34.0-46.0) % Plt Count (150-450) k/uL Lymphocytes # (1.0-4.8) k/uL Carbon Dioxide 31 H (22-30) mmol/L BUN 24 H (7-17) mg/dL Glucose 134 H (74-99) mg/dL POC Glucose (mg/dL) 160 H 217 H (75-99) mg/dL Procalcitonin (0.02-0.09) ng/mL Assessment and Plan Assessment: 1 Acute hypercapnic respiratory failure secondary to an acute exacerbation of chronic obstructive pulmonary disease, improved and off BiPAP 2 Chronic and ongoing tobacco dependence 3 New-onset atrial fibrillation with rapid ventricular response currently in normal sinus rhythm, anticoagulated with Eliquis 4 Recurrent syncope suspect secondary to atrial fibrillation with rapid ventricular response 5 Elevated troponin 6 History of CVA/TIA 7 History of hypertension 8 Hyperlipidemia 9 Early dementia his legal guardian, resides in adult foster care Plan The patient was seen and evaluated by Dr. Sorensen. Transitioned to nasal canula oxygen once stable to be kept at 2 L with O2 saturations 88-92% Continue DuoNeb inhalations and Pulmicort Continue IV Solu-Medrol 40 mg IV every 8 hours Continue IV diuretic She is again educated regarding importance of complete smoking cessation She would benefit from a workup in our office including full PFTs to determine the severity of her COPD and make recommendations regarding maintenance medica tions We will continue to follow and make further recommendations based on her clinical status I, the cosigning physician, performed a history & physical examination of the patient. Lungs sounds are clear, diminished. Maintaining good O2 saturations in the 90s on 3 L/m per nasal cannula. I discussed the assessment and plan of care with my nurse practitioner, Yasmine Crow. I attest to the above note as dictated by her.
--- NOTE | 2019-06-12 15:03 | P.PN ---
Subjective Progress Note Date: 06/12/19 Principal diagnosis: new onset A. fib RVR. PROGRESS NOTE: 06/12/19 Patient examined at bedside with no current complaints of chest pain, chest pressure or palpitations. Patient resting comfortably with no acute distress. Patient sinus rhythm on monitors currently heart rate 79. VSS. Pt continues wiht Eliquis 2.5 mg twice daily for anticoagulation. Cardiology to follow-up on a when necessary basis. Patient to have follow-up visit with Dr. Garcias at discharge. Pt continues with Bipap use at hour of sleep. PHYSICAL EXAMINATION: HEENT: Head is atraumatic, normocephalic. Pupils are equal, round. Sclerae anicteric. Conjunctivae are clear. Mucous membranes of the mouth are moist. Neck is supple. There is no jugular venous distention. No carotid bruit is heard. No thyromegaly. LUNGS: Clear to auscultation no wheezes, rales or rhonchi. No chest wall tenderness is noted on palpation or with deep breathing. HEART: Regular rate and rhythm without murmurs, rubs or gallops. S1 and S2 heard. ABDOMEN: Abdominal exam revealed normal bowel sounds. The abdomen was soft, non- tender, and without masses, organomegaly, or appreciable enlargement of the abdominal aorta. EXTREMITIES: Examination of the extremities revealed easily palpable radial, femoral and pedal pulses. There was no cyanosis, clubbing or edema. No calf tenderness noted. VASCULAR: Radial and dorsalis pedis pulses palpated, no evidence of clubbing. NEUROLOGIC: Patient is awake, alert and oriented x3. There were no obvious focal neurologic abnormalities. LAB DATA: WNL. FINAL IMPRESSION: 1. New onset atrial fibrillation - resolved 2. hypertension 3. hyperlipidemia 4. smoking 5. COPD PLAN: Increase metoprolol tartrate 25 mg to every 8 hours. Continue same all other medications/medical regime. Cardiology to follow along on a when necessary basis. Smoking cessation education advised. Patient to have follow-up visit with Dr. Garcias at discharge. Pt continues with Bipap use at hour of sleep. Objective - Vital Signs Vital signs: Vital Signs Temp 96.4 F L 06/12/19 08:00 Pulse 78 06/12/19 12:24 Resp 16 06/12/19 14:41 BP 125/57 12/28/19 08:00 Pulse Ox 97 06/12/19 08:00 Intake & Output 06/11/19 06/12/19 06/12/19 18:59 06:59 18:59 Intake Total 280 240 Output Total 600 1200 1025 Balance -320 1200 -786 Weight 61 kg Intake: IV 160 saline 160 Oral 120 240 Output: Urine 600 1200 1025 Other: Voiding Method Indwelling Catheter Indwelling Catheter Indwelling Catheter # Voids 1 1 - Labs CBC & Chem 7: 06/12/19 06:17 06/12/19 06:17 Labs: Abnormal Lab Results - Last 24 Hours (Table) 06/11/19 06/11/19 06/12/19 Range/Units 05:59 17:01 06:17 Hgb 11.1 L (11.4-16.0) gm/dL Hct 33.3 L (34.0-46.0) % Plt Count 132 L (150-450) k/uL Lymphocytes # 0.4 L (1.0-4.8) k/uL Carbon Dioxide (22-30) mmol/L BUN (7-17) mg/dL Glucose (74-99) mg/dL POC Glucose (mg/dL) 112 H (75-99) mg/dL Procalcitonin 0.16 H (0.02-0.09) ng/mL 06/12/19 06/12/19 06/12/19 Range/Units 06:17 06:32 11:50 Hgb (11.4-16.0) gm/dL Hct (34.0-46.0) % Plt Count (150-450) k/uL Lymphocytes # (1.0-4.8) k/uL Carbon Dioxide 31 H (22-30) mmol/L BUN 24 H (7-17) mg/dL Glucose 134 H (74-99) mg/dL POC Glucose (mg/dL) 160 H 217 H (75-99) mg/dL Procalcitonin (0.02-0.09) ng/mL
[2019-06-12 17:18] LABS: Glucose,Whole Blood 176 mg/dL (75-99)
--- NOTE | 2019-06-12 17:51 | P.PN ---
Subjective Progress Note Date: 06/12/19 Principal diagnosis: Dyspnea Patient is a 79 yo CF with a past medical hisotry of HTN, HLD, CVA, and dementia who presented fro [place] assisted living due to shortness of breath ad palpitations. She believed that she had gotten up to early and fell to the ground strikin her head, but is unable to confirm if she every lost consciousness. The emergency department extensive evaluation. She was found in A. fib with rapid ventricular response at 179 bpm. Chest x-ray was unremarkable and troponin was mildly elevated at 0.107, BNP was normal for her age at 800, TSH 2.6, mild elevated white blood cell count of 12.2 area and electrolytes were within normal limits. She was given a dose of IV Cardizem and started on Cardizem infusion and heparin infusion. She was admitted for A. fib with RVR and possible syncopal episode. Cardiology was consulted. She underwent an echo which showed EF 55-60 % associated with MR and TR adn LVOT gradient due to severe concentric left ventricular hypertrophy. She had been weaned off of the BiPAP. Overnight on 06/11 she was found to be altered and hypoxic and had taken herself off of her nasal cannula. ABG showed hypercapnia. She was placed on BiPAP therapy. She progressed well throughout her hospital stay howevere she was seen by physical therapy and was quite weak and will require SNF on Discharge. By 06/12 she had converted back to NSR. She was continued on eliquis and metoprolol. Patient seen and examined at bedside. She has no complaints and states that her breathing is back to baseline, she has no palpitations, she denies any chest pain.She thinks that she is living at the [facility] and that she has been walking outside, though she has been to weak to get out of bed. Objective - Vital Signs Vital signs: Vital Signs Temp 96.4 F L 06/12/19 08:00 Pulse 76 06/12/19 16:20 Resp 16 06/12/19 16:00 BP 111/56 06/12/19 16:00 Pulse Ox 93 L 06/12/19 16:00 Intake & Output 06/11/19 06/12/19 06/12/19 18:59 06:59 18:59 Intake Total 280 480 Output Total 600 1200 1025 Balance -320 -1200 -545 Weight 61 kg Intake: IV 160 saline 160 Oral 120 480 Output: Urine 600 1200 1025 Other: Voiding Method Indwelling Catheter Indwelling Catheter Indwelling Catheter # Voids 1 1 - Exam General: non toxic, no distress, appears at stated age Derm: warm, dry Head: atraumatic, normocephalic, symmetric Eyes: EOMI, no lid lag, anicteric sclera Mouth: no lip lesion, mucus membranes moist Cardiovascular: S1S2 reg, + murmur addear mitral and grade 2-3, positive posterior tibial pulse bilateral, Lungs: CTA bilateral, no rhonchi, no rales , no accessory muscle use Abdominal: soft, nontender to palpation, no guarding, no appreciable organomegaly Ext: no gross muscle atrophy, no edema, no contractures Neuro: CN II-XI grossly intact, no focal neuro deficits Psych: Alert, oriented to self, appropriate affect - Labs CBC & Chem 7: 06/12/19 06:17 06/12/19 06:17 Labs: Abnormal Lab Results - Last 24 Hours (Table) 06/11/19 06/12/19 06/12/19 Range/Units 05:59 06:17 06:17 Hgb 11.1 L (11.4-16.0) gm/dL Hct 33.3 L (34.0-46.0) % Plt Count 132 L (150-450) k/uL Lymphocytes # 0.4 L (1.0-4.8) k/uL Carbon Dioxide 31 H (22-30) mmol/L BUN 24 H (7-17) mg/dL Glucose 134 H (74-99) mg/dL POC Glucose (mg/dL) (75-99) mg/dL Procalcitonin 0.16 H (0.02-0.09) ng/mL 06/12/19 06/12/19 06/12/19 Range/Units 06:32 11:50 17:14 Hgb (11.4-16.0) gm/dL Hct (34.0-46.0) % Plt Count (150-450) k/uL Lymphocytes # (1.0-4.8) k/uL Carbon Dioxide (22-30) mmol/L BUN (7-17) mg/dL Glucose (74-99) mg/dL POC Glucose (mg/dL) 160 H 217 H 176 H (75-99) mg/dL Procalcitonin (0.02-0.09) ng/mL Assessment and Plan Assessment: A fib with RR, new onset - now in NSR - Continue wtih metoprolol and follow with Dr. Garcias in 1 week Myocardial infarction - ASA, betablocker - cardio recs, will discuss with team inpatient vs outpatient ischemic evaluation Acute exacerbation of COPD - pulm recs - steroids, bronchodilators, pulm hygeine - doxycycline - follow-up in Pulmonary office Fall with possible syncopal episode - Has LVOT gradient - Cardio recs - PT evaluation - check orthostatics Hyperglycemia - improveind - A1C 5.4 - continue to monitor Leukocytosis - resolved - suspect stress induced and steroid use Tobacco abuse - cessation - nicotine replacement Chronic conditions: Hypertension Dyslipidemia History of CVA Seizure disorder DVT prophylaxis: Go Discussed with: patient, nursing Anticipated discharge: 1-[address]: SNF, requiring 2 person assist A total of 65 minutes was spent on the care of this complex patient more than 50% of the time was spent in counseling and care coordination.
[2019-06-12 20:59] LABS: Glucose,Whole Blood 225 mg/dL (75-99)
[2019-06-12] MEDS: ATORVASTATIN 20 MG TAB PO SCH (21:18)
[2019-06-12] MEDS: CLOPIDOGREL 75 MG TAB PO SCH (21:18)
[2019-06-13 06:59] LABS: Glucose,Whole Blood 143 mg/dL (75-99)
[2019-06-13] MEDS: INSULIN ASPART (NovoLOG) 100 UNIT/ML VIAL SQ SCH ×2 (07:05→13:27)
[2019-06-13 07:49] LABS: African American GFR (CKD) >90 (>60 ml/min/1.73 sqM); Anion Gap 5 mmol/L; Blood Urea Nitrogen 19 mg/dL (7-17); Calcium 8.8 mg/dL (8.4-10.2); Carbon Dioxide 34 mmol/L (22-30); Chloride 99 mmol/L (98-107); Glucose 132 mg/dL (74-99); Non-African American GFR(CKD) 87 (>60 ml/min/1.73 sqM); Potassium 3.7 mmol/L (3.5-5.1); Sodium 138 mmol/L (137-145)
[2019-06-13] MEDS: NICOTINE 14MG/24HR PATCH TRANSDERM SCH (08:34)
[2019-06-13] MEDS: ASPIRIN 81 MG PO SCH (08:41)
[2019-06-13] MEDS: FAMOTIDINE 20 MG TAB PO SCH ×2 (08:41→20:04)
[2019-06-13] MEDS: METOPROLOL TARTRATE 25 MG TAB PO SCH ×3 (08:41→20:04)
[2019-06-13] MEDS: APIXABAN 2.5 MG TABLET PO SCH ×2 (08:41→20:04)
[2019-06-13] MEDS: methylPREDNISolone SOD SUCCI 40 MG/ML 1 ML VIAL IV SCH (08:41)
[2019-06-13] MEDS: FUROSEMIDE 10 MG/ML 2 ML VIAL IV SCH ×2 (08:41→20:04)
[2019-06-13] MEDS: BUDESONIDE 1 MG/2 ML NEBU INHALATION SCH ×2 (09:55→21:49)
[2019-06-13] MEDS: IPRATROPIUM-ALBUTEROL 3 ML NEB INHALATION PRN ×3 (09:55→21:49)
--- NOTE | 2019-06-13 11:42 | P.PN ---
Subjective Progress Note Date: 06/13/19 Principal diagnosis: Acute hypercapnic respiratory failure secondary to Acute exacerbation of COPD This is a pleasant 79-year-old female patient who follows with Dr. Jimenez as her primary care physician. She has a history of CVA/TIAs, hyperlipidemia, hypertension, osteoarthritis, chronic obstructive pulmonary disease, chronic and ongoing tobacco dependence. She resides in a foster care facility. She was brought in on 06/09/2019. EMS with recurrent falls without injury, p alpitations, weakness. She was found to be in atrial fibrillation with a rapid ventricular response and was admitted for the same. She had been followed by cardiology. She been on and off Cardizem drip, amiodarone drip and digoxin. She is currently in normal sinus rhythm. Last night she developed increasing shortness of breath atrial fibrillation with rapid ventricular response. An A team was called Arterial blood gases were drawn on 100% FiO2 with a PaO2 of 219, pCO2 of 88 and a pH of 7.04. She was placed on BiPAP 12/6 and 60% FiO2. She was initiated on Lasix 20 mg IV every 8 hours. She had been taking her BiPAP off and approximately 11:00 this morning she was yelling for help from her room. Her O2 saturation was still at 88%. She is placed on 6 L and subsequently recovered. We are consulted for the same. She is seen today by Dr. Sorensen on the selective care unit. Currently she is on the BiPAP 12/6. Decrease the FiO2 to 30%. Most recent blood gases reveal a pCO2 of 174, pCO2 52 and a pH of 7.33 on 60% FiO2. He had that one of the patient on more than 2 L nasal cannula once she is off the BiPAP. She is awake and alert denies any worsening shortness of breath at this time. She is currently in sinus rhythm in the 70s. She has been afebrile. Chest x-ray shows some atelectatic changes in the right lung base. No infiltrates. White count 10.9. Hemoglobin 11.8. Sodium 140. Potassium 4.2. Creatinine 0.81. Heart rate controlled with Lopressor 25 twice a day now. Anticoagulation initiated with Eliquis. The patient is seen today 06/12/2019 on the selective care unit. She is awake and alert in no acute distress. Resting comfortably in bed. Maintaining O2 saturations in the 90s on 2 L/m per nasal cannula. She's been afebrile. Heart rate better controlled today. White count 7.5. Hemoglobin 11.1. Sodium 139. Potassium 3.8. Creatinine 0.62. Remains on bronchodilators, IV diuretics, IV Solu-Medrol. NicoDerm patch in place. Anticoagulated with Eliquis. On 06/13/2019 patient seen in follow-up on selective care unit, she is awake and alert, breathing has significantly improved in last couple of days, has not required BiPAP in the last 24 hours, currently on 2 L of oxygen and her pulse ox is 94-97%, she is afebrile, hemodynamically patient is stable, no arrhythmias, currently in sinus rhythm with a controlled rate. Apparently patient at times is confused, but she was able to tell me that she is in the hospital, although she thought she was in [place], he correctly stated the month but not the year. Lung sounds reveal extremely diminished breath sounds, with a few rales, no major wheezing or rhonchi. These labs have been reviewed, showing sodium of 138, potassium is 3.7, chloride is 99, CO2 is 34, BUN is 19, creatinine 0.62. Patient has had no fever or chills, she continues on IV Solu-Medrol, nebulized bronchodilators, Pulmicort and Perforomist. Vision is on IV Lasix at 20 mg every 12 hours, she is maintaining negative fluid balance. Objective - Vital Signs Vital signs: Vital Signs Temp 97.7 F 06/13/19 08:00 Pulse 72 06/13/19 10:08 Resp 16 06/13/19 08:00 BP 159/67 06/13/19 08:00 Pulse Ox 97 06/13/19 08:00 Intake & Output 06/12/19 06/13/19 06/13/19 18:59 06:59 18:59 Intake Total 680 400 Output Total 1025 1950 Balance -345 -1550 Weight 61 kg Intake: Oral 680 400 Output: Urine 1025 1950 Other: Voiding Method Indwelling Catheter Indwelling Catheter # Voids 1 1 # Bowel Movements 3 2 - Exam GENERAL EXAM: Alert, very pleasant, 79-year-old white female, on 2 L of oxygen with a pulse ox of 97%, comfortable in no apparent distress. HEAD: Normocephalic/atraumatic. EYES: Normal reaction of pupils, equal size. Conjunctiva pink, sclera white. NOSE: Clear with pink turbinates. THROAT: No erythema or exudates. NECK: No masses, no JVD, no thyroid enlargement, no adenopathy. CHEST: No chest wall deformity. Symmetrical expansion. LUNGS: Equal air entry with minimal basilar crackles, wheeze, rhonchi or dullness. CVS: Regular rate and rhythm, normal S1 and S2, no gallops, no murmurs, no rubs ABDOMEN: Soft, nontender. No hepatosplenomegaly, normal bowel sounds, no guarding or rigidity. EXTREMITIES: No clubbing, no edema, no cyanosis, 2+ pulses and upper and lower extremities. MUSCULOSKELETAL: Muscle strength and tone normal. SPINE: No scoliosis or deformity SKIN: No rashes CENTRAL NERVOUS SYSTEM: Alert and oriented -3. No focal deficits, tone is normal in all 4 extremities. PSYCHIATRIC: Alert and oriented -3. Appropriate affect. Intact judgment and insight. - Labs CBC & Chem 7: 06/12/19 06:17 06/13/19 05:55 Labs: Abnormal Lab Results - Last 24 Hours (Table) 06/12/19 06/12/19 06/12/19 Range/Units 11:50 17:14 20:44 Carbon Dioxide (22-30) mmol/L BUN (7-17) mg/dL Glucose (74-99) mg/dL POC Glucose (mg/dL) 217 H 176 H 225 H (75-99) mg/dL 06/13/19 06/13/19 Range/Units 05:55 06:55 Carbon Dioxide 34 H (22-30) mmol/L BUN 19 H (7-17) mg/dL Glucose 132 H (74-99) mg/dL POC Glucose (mg/dL) 143 H (75-99) mg/dL Assessment and Plan Plan: Assessment: #1. Acute hypercapnic respiratory failure secondary to an acute exacerbation of COPD improved. #2. Chronic and ongoing tobacco dependence #3. New onset atrial fibrillation with rapid ventricular response, currently in sinus rhythm anticoagulated with Eliquis #4. Recurrent syncope possibly related to A. fib with RVR #5. Elevated troponin, possibly related to acute myocardial infarction, cardiology is on the case and is following with the patient #6. History of CVA/TIA #7. History of hypertension #8. Hyperlipidemia #9. History of dementia, patient is a legal guardian resides in adult foster care Plan: Continue breathing treatments, and continues to diurese, maintaining negative fluid balance, did not require BiPAP support last night, vital signs have been stable, switch the IV steroids to oral prednisone. Continue oral anticoagulation, currently patient is in sinus rhythm. Cardiology is following. maintain safety precautions, and fall precautions. Breathing easier, less bronchospastic. Increase activity as tolerated. I performed a history & physical examination of the patient and discussed their management with my nurse practitioner, Araceli Mckeon. I reviewed the nurse practitioner's note and agree with the documented findings and plan of care. Lung sounds are positive for minimal crackles. The findings and the impression was discussed with the patient. I attest to the documentation by the nurse practitioner. Time with Patient: Less than 30
[2019-06-13 13:19] LABS: Glucose,Whole Blood 130 mg/dL (75-99)
--- NOTE | 2019-06-13 15:57 | PN ---
PROGRESS NOTE Mrs. Boles has significant issues of COPD. Also, had atrial fibrillation, RVR, and also echocardiogram revealed a normal LV function with mid cavitary obstruction and hyperdynamic LV. I have started her on beta blockers yesterday. Elevated troponin was noted but I do not believe this represents primary myocardial injury. This could be contributed because of atrial fibrillation, rapid rate, COPD, hypoxia, and also hypercontractile state with a mid cavitary obstruction. I am recommending that she should be on a beta maria dolores, can be discharged tomorrow and advised to see Dr. Garcias in one week for further workup if necessary. Vitals are stable. Ejection systolic murmur is audible at the left lower sternal border. Lungs reveal diminished air entry. Abdomen and lower extremity exam otherwise is unchanged. MMODL / IJN: [id number] /
--- NOTE | 2019-06-13 17:13 | P.PN ---
Subjective Progress Note Date: 06/13/19 (delayed charting seen at 1000) Principal diagnosis: Dyspnea Patient is a 79 yo CF with a past medical history of HTN, HLD, CVA, and dementia who presented fro [facility] assisted [facility] due to shortness of breath and palpitations. She believed that she had gotten up to early and fell to the ground striking her head, but is unable to confirm if she every lost consciousne ss. The emergency department she underwent an extensive evaluation. She was found in A. fib with rapid ventricular response at 179 bpm. Chest x-ray was unremarkable and troponin was mildly elevated at 0.107, BNP was normal for her age at 800, TSH 2.6, mild elevated white blood cell count of 12.2 and electrolytes were within normal limits. She was given a dose of IV Cardizem and started on Cardizem infusion and heparin infusion. She was admitted for A. fib with RVR and possible syncopal episode. Cardiology was consulted. Her troponin were elevated to increaed to 3. She underwent an echo which showed EF 55-60 % associated with MR and TR and LVOT gradient due to severe concentric left v entricular hypertrophy. She had been weaned off of the BiPAP. Overnight on 06/11 she was found to be altered and hypoxic and had taken herself off of her nasal cannula. ABG showed hypercapnia. She was placed on BiPAP therapy. She progressed well throughout her hospital stay. Howevere she was seen by physical therapy and was quite weak and will require SNF on Discharge. By 06/12 she had converted back to NSR. She was continued on eliquis and metoprolol. Patient seen and examined at bedside. Feeling well, No chest pain, SOB, or nausea. Still confused to the fact that she is in the hospital, confuses this with rehab. Objective - Vital Signs Vital signs: Vital Signs Temp 97.7 F 06/13/19 08:00 Pulse 72 06/13/19 16:00 Resp 16 06/13/19 16:00 BP 133/64 06/13/19 16:00 Pulse Ox 97 06/13/19 08:00 Intake & Output 06/12/19 06/13/19 06/13/19 18:59 06:59 18:59 Intake Total 680 400 430 Output Total 1025 1950 Balance -345 -1550 430 Weight 61 kg Intake: Oral 680 400 430 Output: Urine 1025 1950 Other: Voiding Method Indwelling Catheter Indwelling Catheter Indwelling Catheter # Voids 1 1 # Bowel Movements 3 2 - Exam General: non toxic, no distress, appears at stated age Derm: warm, dry Head: atraumatic, normocephalic, symmetric Eyes: EOMI, no lid lag, anicteric sclera Mouth: no lip lesion, mucus membranes moist Cardiovascular: S1S2 reg, + murmur rade 2-3, positive posterior tibial pulse bilateral, Lungs: CTA bilateral, no rhonchi, no rales , no accessory muscle use Abdominal: soft, nontender to palpation, no guarding, no appreciable organomegaly Ext: no gross muscle atrophy, no edema, no contractures Neuro: CN II-XI grossly intact, no focal neuro deficits Psych: Alert, oriented to self, appropriate affect - Labs CBC & Chem 7: 06/12/19 06:17 06/13/19 05:55 Labs: Abnormal Lab Results - Last 24 Hours (Table) 06/12/19 06/12/19 06/13/19 Range/Units 17:14 20:44 05:55 Carbon Dioxide 34 H (22-30) mmol/L BUN 19 H (7-17) mg/dL Glucose 132 H (74-99) mg/dL POC Glucose (mg/dL) 176 H 225 H (75-99) mg/dL 06/13/19 06/13/19 Range/Units 06:55 13:17 Carbon Dioxide (22-30) mmol/L BUN (7-17) mg/dL Glucose (74-99) mg/dL POC Glucose (mg/dL) 143 H 130 H (75-99) mg/dL Assessment and Plan Assessment: A fib with RR, new onset - now in NSR - Continue with metoprolol and eliquis and follow with Dr. Garcias in 1 week - fall precautions Myocardial infarction, undetermined etiology - ASA, betablocker, lipitor - D/W cardio, plan will be for outpatient evaluation in 1-2 weeks Acute exacerbation of COPD - pulm recs - steroids, bronchodilators, pulm hygeine - doxycycline - follow-up in Pulmonary office Fall with possible syncopal episode - Has LVOT gradient, BB initiated - D/W cardio - PT evaluation - check orthostatics Tobacco abuse - cessation - nicotine replacement Hyperglycemia, resolved A1C 5.4 Leukocytosis, resolved Chronic conditions: Hypertension Dyslipidemia History of CVA Seizure disorder DVT prophylaxis: Eliquis Discussed with: patient, nursing Anticipated discharge: in AM Anticipated discharge place: SNF, requiring 2 person assist A total of 35 minutes was spent on the care of this complex patient more than 50% of the time was spent in counseling and care coordination.
[2019-06-13 18:11] LABS: Glucose,Whole Blood 148 mg/dL (75-99)
[2019-06-13] MEDS: ATORVASTATIN 20 MG TAB PO SCH (20:04)
[2019-06-13] MEDS: CLOPIDOGREL 75 MG TAB PO SCH (20:04)
[2019-06-13 20:29] LABS: Glucose,Whole Blood 180 mg/dL (75-99)
[2019-06-14 03:58] VITALS: TEMP 97.6
[2019-06-14 06:35] LABS: Calcium 8.9 mg/dL (8.4-10.2); Potassium 3.3 mmol/L (3.5-5.1)
[2019-06-14] MEDS: IPRATROPIUM-ALBUTEROL 3 ML NEB INHALATION PRN (07:29)
[2019-06-14] MEDS: BUDESONIDE 1 MG/2 ML NEBU INHALATION SCH (07:29)
[2019-06-14] MEDS: APIXABAN 2.5 MG TABLET PO SCH (08:30)
[2019-06-14] MEDS: ASPIRIN 81 MG PO SCH (08:30)
[2019-06-14] MEDS: FAMOTIDINE 20 MG TAB PO SCH (08:30)
[2019-06-14] MEDS: METOPROLOL TARTRATE 25 MG TAB PO SCH (08:31)
[2019-06-14] MEDS: NICOTINE 14MG/24HR PATCH TRANSDERM SCH (08:31)
[2019-06-14] MEDS: FUROSEMIDE 10 MG/ML 2 ML VIAL IV SCH (08:31)
[2019-06-14] MEDS ORDERED: predniSONE 20 MG TAB PO SCH (09:00)
[2019-06-14] MEDS ORDERED: POTASSIUM CHLORIDE ER 20 MEQ TAB.ER PO STA (09:10)
[2019-06-14 12:03] LABS: Glucose,Whole Blood 141 mg/dL (75-99)
[2019-06-14 12:40] VITALS: BP 141/67; PULSE 55; RESP 18
--- NOTE | 2019-06-14 12:53 | P.DS ---
Providers Date of admission: 06/09/19 20:31 Expected date of discharge: 06/14/19 Attending physician: Tammie Mahan MD Consults: 06/09/19 20:33 Consult Physician Urgent Consulting Provider: Vinita Wu Consult Reason/Comments: atrial fibrillation Do you want consulting provider notified?: Yes 06/11/19 11:01 Consult Physician Urgent Consulting Provider: Eloise Sorensen Consult Reason/Comments: respiratory distress/abg's Do you want consulting provider notified?: Yes Primary care physician: Mir Sosa Hospital Course: Discharge Diagnosis: A fib ith RVR, new onset Myocardial infarction, undetermined etiology Acute Exacerbation of COPD Fall with possible syncopal episode Tobacco abuse Hyperglycemia Leukocytosis HTN HLD Hx of CVA Seizure disorder Hospital Course: Patient is a 79 yo CF with a past medical history of HTN, HLD, CVA, and dementia who presented from [facility] assisted [facility] due to shortness of breath and palpitations. She believed that she had gotten up early and fell to the ground striking her head, but is unable to confirm if she every lost consciousness. In the emergency department she underwent an extensive evaluation. She was found in A. fib with rapid ventricular response at 179 bpm. Chest x-ray was unremarkable and troponin was mildly elevated at 0.107, BNP was normal for her a ge at 800, TSH 2.6, mild elevated white blood cell count of 12.2 and electrolytes were within normal limits. She was given a dose of IV Cardizem and started on Cardizem infusion and heparin infusion. She was admitted for A. fib with RVR and possible syncopal episode. Cardiology was consulted. Her troponin were elevated to increaed to 3. She underwent an echo which showed EF 55-60 % associated with MR and TR and LVOT gradient due to severe concentric left ventricular hypertrophy. She had been weaned off of the BiPAP. Overnight on 06/11 she was found to be altered and hypoxic and had taken herself off of her nasal cannula. ABG showed hypercapnia. She was placed on BiPAP therapy. She progressed well throughout her hospital stay. However she was seen by physical therapy and was quite weak and will require SNF on Discharge. By 06/12 she had converted back to NSR. She was continued on eliquis and metoprolol. She will follow-up with Dr. Garcias in 1 week, Dr. [facility], and Dr. Sorensen in 1-2 weeks Patient seen and examined at bedside. Feeling well, no chest pain, SOB, wheezing, or nausea. Vital signs reviewed and stable. General: non toxic, no distress, appears at stated age Derm: warm, dry Head: atraumatic, normocephalic, symmetric Eyes: EOMI, no lid lag, anicteric sclera Mouth: no lip lesion, mucus membranes moist Cardiovascular: S1S2 reg, no murmur, positive posterior tibial pulse bilateral, Lungs: CTA bilateral, no rhonchi, no rales , no accessory muscle use Abdominal: soft, nontender to palpation, no guarding, no appreciable organomegaly Ext: no gross muscle atrophy, no edema, no contractures Neuro: CN II-XI grossly intact, no focal neuro deficits Psych: Alert, oriented to place and intermittently situation, appropriate affect A total of 35 minutes of time were spent preparing this complex discharge summary . Patient Condition at Discharge: Stable Plan - Discharge Summary Discharge Rx Participant: No New Discharge Prescriptions: New Ipratropium-Albuterol Nebulize [Duoneb 0.5 mg-3 mg/3 ml Soln] 3 ml INHALATION RT-QID PRN ampul.neb PRN Reason: Shortness Of Breath Or Wheezing Apixaban [Eliquis] 2.5 mg PO BID tablet Nicotine 14Mg/24Hr Patch [Habitrol] 1 patch TRANSDERM DAILY patch Furosemide [Lasix] 20 mg PO DAILY tab Metoprolol Tartrate [Lopressor] 25 mg PO TID tab predniSONE 40 mg PO DAILY 5 Days tab Continue Fluticasone Nasal [place] [Flonase Nasal [place]] 2 spray EA NOSTRIL HS@1999 Loratadine [Claritin] 10 mg PO HS@1999 Atorvastatin [Lipitor] 20 mg PO HS@1999 Clopidogrel [Plavix] 75 mg PO HS@1999 Aspirin EC [Ecotrin Low Dose] 81 mg PO DAILY@0800 Famotidine [Pepcid] 20 mg PO BID@ levETIRAcetam [Keppra] 750 mg PO BID@799,1999 Discontinued amLODIPine [Norvasc] 2.5 mg PO HS@1999 Metoprolol Succinate (ER) [Toprol XL] 50 mg PO DAILY@0800 Discharge Medication List Fluticasone Nasal [place] [Flonase Nasal [place]] 2 spray EA NOSTRIL HS@02/14 [History] Loratadine [Claritin] 10 mg PO HS@199902/25/19 [History] Atorvastatin [Lipitor] 20 mg PO HS@199905/02/19 [History] Aspirin EC [Ecotrin Low Dose] 81 mg PO DAILY@0800 06/09/19 [History] Clopidogrel [Plavix] 75 mg PO HS@199906/09/19 [History] Famotidine [Pepcid] 20 mg PO BID@08,199906/09/19 [History] levETIRAcetam [Keppra] 750 mg PO BID@799,199906/09/19 [History] Apixaban [Eliquis] 2.5 mg PO BID tablet 06/14/19 [Rx] Furosemide [Lasix] 20 mg PO DAILY tab 06/14/19 [Rx] Ipratropium-Albuterol Nebulize [Duoneb 0.5 mg-3 mg/3 ml Soln] 3 ml INHALATION RT-QID PRN ampul.neb 06/14/19 [Rx] Metoprolol Tartrate [Lopressor] 25 mg PO TID tab 06/14/19 [Rx] Nicotine 14Mg/24Hr Patch [Habitrol] 1 patch TRANSDERM DAILY patch 06/14/19 [Rx] predniSONE 40 mg PO DAILY 5 Days tab 06/14/19 [Rx] Follow up Appointment(s)/Referral(s): Mir Sosa MD [Primary Care Provider] - 1-2 days Amy Garcias MD [STAFF PHYSICIAN] - 1 Week Eloise Sorensen MD [STAFF PHYSICIAN] - 1 Week Activity/Diet/Wound Care/Special Instructions: Activity: as tolerated fall precautions Diet: Heart Healthy Special Instructions: CBC and BMP in the next 2-3 days DK: hypokalemia, anemia
--- NOTE | 2019-06-14 15:26 | P.PN ---
Subjective Progress Note Date: 06/14/19 Principal diagnosis: Acute hypercapnic respiratory failure secondary to Acute exacerbation of COPD This is a pleasant 79-year-old female patient who follows with Dr. Jimenez as her primary care physician. She has a history of CVA/TIAs, hyperlipidemia, hypertension, osteoarthritis, chronic obstructive pulmonary disease, chronic and ongoing tobacco dependence. She resides in a foster care facility. She was brought in on 06/09/2019. EMS with recurrent falls without injury, p alpitations, weakness. She was found to be in atrial fibrillation with a rapid ventricular response and was admitted for the same. She had been followed by cardiology. She been on and off Cardizem drip, amiodarone drip and digoxin. She is currently in normal sinus rhythm. Last night she developed increasing shortness of breath atrial fibrillation with rapid ventricular response. An A team was called Arterial blood gases were drawn on 100% FiO2 with a PaO2 of 219, pCO2 of 88 and a pH of 7.04. She was placed on BiPAP 12/6 and 60% FiO2. She was initiated on Lasix 20 mg IV every 8 hours. She had been taking her BiPAP off and approximately 11:00 this morning she was yelling for help from her room. Her O2 saturation was still at 88%. She is placed on 6 L and subsequently recovered. We are consulted for the same. She is seen today by Dr. Sorensen on the selective care unit. Currently she is on the BiPAP 12/6. Decrease the FiO2 to 30%. Most recent blood gases reveal a pCO2 of 174, pCO2 52 and a pH of 7.33 on 60% FiO2. He had that one of the patient on more than 2 L nasal cannula once she is off the BiPAP. She is awake and alert denies any worsening shortness of breath at this time. She is currently in sinus rhythm in the 70s. She has been afebrile. Chest x-ray shows some atelectatic changes in the right lung base. No infiltrates. White count 10.9. Hemoglobin 11.8. Sodium 140. Potassium 4.2. Creatinine 0.81. Heart rate controlled with Lopressor 25 twice a day now. Anticoagulation initiated with Eliquis. The patient is seen today 06/12/2019 on the selective care unit. She is awake and alert in no acute distress. Resting comfortably in bed. Maintaining O2 saturations in the 90s on 2 L/m per nasal cannula. She's been afebrile. Heart rate better controlled today. White count 7.5. Hemoglobin 11.1. Sodium 139. Potassium 3.8. Creatinine 0.62. Remains on bronchodilators, IV diuretics, IV Solu-Medrol. NicoDerm patch in place. Anticoagulated with Eliquis. On 06/13/2019 patient seen in follow-up on selective care unit, she is awake and alert, breathing has significantly improved in last couple of days, has not required BiPAP in the last 24 hours, currently on 2 L of oxygen and her pulse ox is 94-97%, she is afebrile, hemodynamically patient is stable, no arrhythmias, currently in sinus rhythm with a controlled rate. Apparently patient at times is confused, but she was able to tell me that she is in the hospital, although she thought she was in [place], he correctly stated the month but not the year. Lung sounds reveal extremely diminished breath sounds, with a few rales, no major wheezing or rhonchi. These labs have been reviewed, showing sodium of 138, potassium is 3.7, chloride is 99, CO2 is 34, BUN is 19, creatinine 0.62. Patient has had no fever or chills, she continues on IV Solu-Medrol, nebulized bronchodilators, Pulmicort and Perforomist. Vision is on IV Lasix at 20 mg every 12 hours, she is maintaining negative fluid balance. On 06/14/2019 patient seen in follow-up on medical surgical floor. Patient is awake and alert, in no acute distress, patient is on 2 L of oxygen with a pulse ox of 95%, no fever or chills, hemodynamically patient is stable, no worsening dyspnea, lung sounds are clear. Patient has been transitioned to oral prednisone, she is on oral Lasix, nebulized bronchodilators, she is on oral anticoagulation for her new onset atrial fibrillation, currently remains in sinus rhythm, doing well, she is in negative fluid balance, did not require BiPAP support, reading much improved, Objective - Vital Signs Vital signs: Vital Signs Temp 97.6 F 06/14/19 12:05 Pulse 55 L 06/14/19 12:15 Resp 18 06/14/19 12:05 BP 141/67 06/14/19 12:05 Pulse Ox 95 06/14/19 12:05 Intake & Output 06/13/19 06/14/19 06/14/19 18:59 06:59 18:59 Intake Total 430 480 Output Total 1600 2700 650 Balance -1170 -2700 -170 Weight 53.6 kg Intake: Oral 430 480 Output: Urine 1600 2700 650 Uretheral (Delatorre) 800 650 Other: Voiding Method Indwelling Catheter Indwelling Catheter # Voids 1 3 # Bowel Movements 1 - Exam GENERAL EXAM: Alert, very pleasant, 79-year-old white female, on 2 L of oxygen with a pulse ox of 97%, comfortable in no apparent distress. HEAD: Normocephalic/atraumatic. EYES: Normal reaction of pupils, equal size. Conjunctiva pink, sclera white. NOSE: Clear with pink turbinates. THROAT: No erythema or exudates. NECK: No masses, no JVD, no thyroid enlargement, no adenopathy. CHEST: No chest wall deformity. Symmetrical expansion. LUNGS: Equal air entry with minimal basilar crackles, wheeze, rhonchi or du llness. CVS: Regular rate and rhythm, normal S1 and S2, no gallops, no murmurs, no rubs ABDOMEN: Soft, nontender. No hepatosplenomegaly, normal bowel sounds, no guarding or rigidity. EXTREMITIES: No clubbing, no edema, no cyanosis, 2+ pulses and upper and lower extremities. MUSCULOSKELETAL: Muscle strength and tone normal. SPINE: No scoliosis or deformity SKIN: No rashes CENTRAL NERVOUS SYSTEM: Alert and oriented -3. No focal deficits, tone is normal in all 4 extremities. PSYCHIATRIC: Alert and oriented -3. Appropriate affect. Intact judgment and insight. - Labs CBC & Chem 7: 06/12/19 06:17 06/14/19 05:42 Labs: Abnormal Lab Results - Last 24 Hours (Table) 06/13/19 06/13/19 06/14/19 Range/Units 18:09 20:27 05:42 Potassium 3.3 L (3.5-5.1) mmol/L Chloride 97 L (98-107) mmol/L Carbon Dioxide 38 H (22-30) mmol/L BUN 20 H (7-17) mg/dL POC Glucose (mg/dL) 148 H 180 H (75-99) mg/dL 06/14/19 Range/Units 12:00 Potassium (3.5-5.1) mmol/L Chloride (98-107) mmol/L Carbon Dioxide (22-30) mmol/L BUN (7-17) mg/dL POC Glucose (mg/dL) 141 H (75-99) mg/dL Assessment and Plan Plan: Assessment: #1. Acute hypercapnic respiratory failure secondary to an acute exacerbation of COPD improved. #2. Chronic and ongoing tobacco dependence #3. New onset atrial fibrillation with rapid ventricular response, currently in sinus rhythm anticoagulated with Eliquis #4. Recurrent syncope possibly related to A. fib with RVR #5. Elevated troponin, possibly related to acute myocardial infarction, gricel chavarria is on the case and is following with the patient #6. History of CVA/TIA #7. History of hypertension #8. Hyperlipidemia #9. History of dementia, patient is a legal guardian resides in adult foster care Plan: Continue current medical treatment, oral prednisone, oral diuretics, patient is doing well, diuresed, maintaining negative fluid balance, breathing easier, vital signs are stable, no couplets of chest pain or shortness of breath, anticipate discharge home today. Follow-up with Dr. Winkler in the office in one to 2 weeks. I performed a history & physical examination of the patient and discussed their management with my nurse practitioner, Araceli Mckeon. I reviewed the nurse practitioner's note and agree with the documented findings and plan of care. Lung sounds are positive for minimal crackles. The findings and the impression was discussed with the patient. I attest to the documentation by the nurse practitioner. Time with Patient: Less than 30
--- NOTE | 2019-06-14 15:32 | P.PN ---
Subjective Progress Note Date: 06/14/19 This is a pleasant 79-year-old female who has a history of CVA/TIAs, hyperlipidemia, hypertension, osteoarthritis, chronic obstructive pulmonary disease, chronic and ongoing tobacco dependence. She resides in a foster care facility. She was brought in on 06/09/2019. EMS with recurrent falls without injury, palpitations, weakness. She was found to be in atrial fibrillation with a rapid ventricular response and was admitted for the same. She has been on and off Cardizem drip, amiodarone drip and digoxin. She is currently in normal sinus rhythm. Last night she developed increasing shortness of breath atrial fibrillation with rapid ventricular response. An A team was called Arterial blood gases were drawn on 100% FiO2 with a PaO2 of 219, pCO2 of 88 and a pH of 7.04. She was placed on BiPAP 05/21 and 60% FiO2. She was initiated on Lasix 20 mg IV every 8 hours. She had been taking her BiPAP off and approximately 11:00 this morning she was yelling for help from her room. Her O2 saturation was still at 88%. She is placed on 6 L and subsequently recovered. Pulmonary consultation was requested. Currently she is on the BiPAP . She is awake and alert complainsof worsening shortness of breath at this time. She is currently in sinus rhythm in the 70s. She has been afebrile. Chest x-ray shows some atelectatic changes in the right lung base. No infiltrates. White count 10.9. Hemoglobin 11.8. Sodium 140. Potassium 4.2. Creatinine 0.81. Heart rate controlled with Lopressor 25 twice a day now. we will initiate anticoagulation with Eliquis and discontinue the IV heparin. We also recommend a pulmonary evaluation. 06/14/2019 Patient seen and examined this morning, overall doing well. Dr. Garcias did have a lengthy discussion with the patient regarding possible need for pacemaker. It appears that when the patient converts from A. fib to sinus rhythm that she does have significant pauses. At this point in time the patient wishes to wait on that she will be discharged to the [facility] today, we recommend that she has an event monitor on discharge. And a follow-up in the office. Objective - Vital Signs Vital signs: Vital Signs Temp 97.6 F 06/14/19 12:05 Pulse 55 L 06/14/19 12:15 Resp 18 06/14/19 12:05 BP 141/67 06/14/19 12:05 Pulse Ox 95 06/14/19 12:05 Intake & Output 06/13/19 06/14/19 06/14/19 18:59 06:59 18:59 Intake Total 430 480 Output Total 1600 2700 650 Balance -1170 -2700 -170 Weight 53.6 kg Intake: Oral 430 480 Output: Urine 1600 2700 650 Uretheral (Delatorre) 800 650 Other: Voiding Method Indwelling Catheter Indwelling Catheter # Voids 1 3 # Bowel Movements 1 - Exam GENERAL EXAM: Alert, frail, cachectic 79-year-old female patient, on BiPAP 05/21 and 30% FiO2, more comfortable in no apparent distress. HEAD: Normocephalic. EYES: Normal reaction of pupils, equal size. NOSE: Clear with pink turbinates. THROAT: No erythema or exudates. NECK: No masses, no JVD. CHEST: No chest wall deformity. LUNGS: Equal air entry with crackles bilaterally to the bases. Diminished throughout. CVS: S1 and S2 normal with no audible murmur,irregular rhythm. ABDOMEN: No hepatosplenomegaly, normal bowel sounds, no guarding or rigidity. SPINE: No scoliosis or deformity SKIN: No rashes CENTRAL NERVOUS SYSTEM: No focal deficits, tone is normal in all 4 extremities. EXTREMITIES: There is no peripheral edema. No clubbing, no cyanosis. Peripheral pulses are intact. - Labs CBC & Chem 7: 06/12/19 06:17 06/14/19 05:42 Labs: Abnormal Lab Results - Last 24 Hours (Table) 06/13/19 06/13/19 06/14/19 Range/Units 18:09 20:27 05:42 Potassium 3.3 L (3.5-5.1) mmol/L Chloride 97 L (98-107) mmol/L Carbon Dioxide 38 H (22-30) mmol/L BUN 20 H (7-17) mg/dL POC Glucose (mg/dL) 148 H 180 H (75-99) mg/dL 06/14/19 Range/Units 12:00 Potassium (3.5-5.1) mmol/L Chloride (98-107) mmol/L Carbon Dioxide (22-30) mmol/L BUN (7-17) mg/dL POC Glucose (mg/dL) 141 H (75-99) mg/dL Assessment and Plan Plan: Assessmentand plan: 1 Acute hypercapnic respiratory failure secondary to an acute exacerbation of chronic obstructive pulmonary disease and CHF exacerbation 2 Chronic and ongoing tobacco dependence. 3 New-onset atrial fibrillation with rapid ventricular response , paroxysmal currently in normal sinus rhythm, anticoagulated with Eliquis 4 Recurrent syncope suspect secondary to atrial fibrillation with rapid ventricular response 5 Elevated troponin 6 History of CVA/TIA 7 History of hypertension 8 Hyperlipidemia 9 Early dementia his legal guardian, resides in adult foster care Plan cardiology's perspective, [facility] may be [facility]. We do recommend that the patient have a 30 day event monitor on discharge. DNP note has been reviewed, I agree with a documented findings and plan of care. Patient was seen and examined.
[2019-06-15] MEDS ORDERED: FUROSEMIDE 20 MG TAB PO SCH (09:00)
== END 2019-06-14 15:20 | DRG 280 ==
LOC: EC 17:52 → 3SCARD 20:31
PROVIDERS: ADMIT Internal Medicine; ATTEND Internal Medicine
DX: I21.9 Acute myocardial infarction, unspecified (principal); G93.41 Metabolic encephalopathy; I50.31 Acute diastolic (congestive) heart failure; J96.01 Acute respiratory failure with hypoxia; J96.02 Acute respiratory failure with hypercapnia; E87.2 Acidosis; J44.1 Chronic obstructive pulmonary disease with (acute) exacerbation; D69.6 Thrombocytopenia, unspecified; D72.829 Elevated white blood cell count, unspecified; E78.5 Hyperlipidemia, unspecified; F03.90 Unspecified dementia, unspecified severity, without behavioral disturbance, psychotic disturbance, mood disturbance, and anxiety; F17.210 Nicotine dependence, cigarettes, uncomplicated; G40.909 Epilepsy, unspecified, not intractable, without status epilepticus; I11.0 Hypertensive heart disease with heart failure; I48.91 Unspecified atrial fibrillation; Z86.73 Personal history of transient ischemic attack (TIA), and cerebral infarction without residual deficits; R29.6 Repeated falls; W19.XXXA Unspecified fall, initial encounter; Z66 Do not resuscitate; Z79.01 Long term (current) use of anticoagulants; Z79.82 Long term (current) use of aspirin; Z79.899 Other long term (current) drug therapy; Z80.9 Family history of malignant neoplasm, unspecified; Z87.01 Personal history of pneumonia (recurrent); R73.9 Hyperglycemia, unspecified; M15.9 Polyosteoarthritis, unspecified; Z79.51 Long term (current) use of inhaled steroids; Z90.49 Acquired absence of other specified parts of digestive tract; Z91.81 History of falling; R55 Syncope and collapse
CPT/HCPCS: 36415; 36600; 71045; 71046; 80048; 80053; 82805; 83036; 83735; 83880; 84145; 84443; 84484; 85025; 85610; 85730; 86022; 93005; 93270; 93306; 94640; 94660; 94760; 96361; 96365; 96375; 96376; 99285

== ENCOUNTER 2019-06-15 12:40 | Inpatient (IN) | payer MEDICARE ==
--- NOTE | 2019-06-15 12:55 | ED ---
General Adult HPI - General Stated complaint: Tachycardia Time Seen by Provider: 06/15/19 12:40 Source: patient, EMS, RN notes reviewed, old records reviewed - History of Present Illness Initial comments: This is a 79-year-old female who presents to the emergency department with past medical history significant for atrial fibrillation. Patient was at physical therapy and they took her pulse rate and they realized it was high so they called EMS. Patient according to EMS was asymptomatic at the time. Patient currently denies any chest pain or palpitations. Patient denies any shortness of breath. Patient denies any abdominal pain. Patient denies any nausea or vomiting. Patient denies any recent fever chills or cough. - Related Data Home Medications Medication Instructions Recorded Confirmed Fluticasone Nasal [place] [Flonase 2 spray EA NOSTRIL HS@199902/25/19 06/09/19 Nasal [place]] Loratadine [Claritin] 10 mg PO HS@199902/25/19 06/09/19 Atorvastatin [Lipitor] 20 mg PO HS@199905/02/19 06/09/19 Aspirin EC [Ecotrin Low Dose] 81 mg PO DAILY@0800 06/09/19 06/09/19 Clopidogrel [Plavix] 75 mg PO HS@199906/09/19 06/09/19 Famotidine [Pepcid] 20 mg PO BID@0800,199906/09/19 06/09/19 levETIRAcetam [Keppra] 750 mg PO BID@0800,199906/09/19 06/09/19 Previous Rx's Medication Instructions Recorded Apixaban [Eliquis] 2.5 mg PO BID tablet 06/14/19 Furosemide [Lasix] 20 mg PO DAILY tab 06/14/19 Ipratropium-Albuterol Nebulize 3 ml INHALATION RT-QID PRN 06/14/19 [Duoneb 0.5 mg-3 mg/3 ml Soln] ampul.neb Metoprolol Tartrate [Lopressor] 25 mg PO TID tab 06/14/19 Nicotine 14Mg/24Hr Patch [Habitrol] 1 patch TRANSDERM DAILY patch 06/14/19 predniSONE 40 mg PO DAILY 5 Days tab 06/14/19 Allergies Allergy/AdvReac Type Severity Reaction Status Date / Time No Known Allergies Allergy Verified 06/09/19 19:44 Review of Systems ROS Statement: Those systems with pertinent positive or pertinent negative responses have been documented in the HPI. ROS Other: All systems not noted in ROS Statement are negative. Past Medical History Past Medical History: CVA/TIA, Hyperlipidemia, Hypertension, Osteoarthritis (OA), Pneumonia Additional Past Medical History / Comment(s): Possible TIAs in past per pt, pt believes she has the beginnings of dementia, bronchitis, pituitary dysfunction, seasonal allergies/sinus problems, arthritis in multiple joints. History of Any Multi-Drug Resistant Organisms: None Reported Past Surgical History: Adenoidectomy, Appendectomy, Cholecystectomy, Tonsillectomy Past Anesthesia/Blood Transfusion Reactions: No Reported Reaction Past Psychological History: No Psychological Hx Reported Additional Psychological History / Comment(s): Pt has a public legal guardian. She states that she was not functioning well at one point and a legal guardian was appointed. She resides at [facility]. She uses a walker to ambulate. Staff manages her meds. Pt states she is able to perform the rest of her ADLs. Smoking Status: Current every day smoker Past Alcohol Use History: None Reported Additional Past Alcohol Use History / Comment(s): Pt started smoking in 10 and is a ppd smoker. Past Drug Use History: None Reported - Past Family History Father Family Medical History: Cancer Additional Family Medical History / Comment(s): Pt states by the time they found out that her father had cancer, it was thru out his body. Mother Family Medical History: No Reported History Additional Family Medical History / Comment(s): Mother was healthy. General Exam - General Exam Comments Initial Comments: GENERAL: Patient is well-developed and well-nourished. Patient is nontoxic and well-h ydrated and is in mild distress. ENT: Neck is soft and supple. No significant lymphadenopathy is noted. Oropharynx is clear. Moist mucous membranes. Neck has full range of motion without eliciting any pain. EYES: The sclera were anicteric and conjunctiva were pink and moist. Extraocular mov ements were intact and pupils were equal round and reactive to light. Eyelids were unremarkable. PULMONARY: Unlabored respirations. Good breath sounds bilaterally. No audible rales rhonchi or wheezing was noted. CARDIOVASCULAR: She is tachycardic at about 150 beats a minute ABDOMEN: Soft and nontender with normal bowel sounds. No palpable organomegaly was noted. There is no palpable pulsatile mass. SKIN: Skin is clear with no lesions or rashes and otherwise unremarkable. NEUROLOGIC: Patient is alert and oriented x3. Cranial nerves II through XII are grossly intact. Motor and sensory are also intact. Normal speech, volume and content. Symmetrical smile. MUSCULOSKELETAL: Normal extremities with adequate strength and full range of motion. LYMPHATICS: No significant lymphadenopathy is noted PSYCHIATRIC: Normal psychiatric evaluation. Course Vital Signs 06/15/19 06/15/19 06/15/19 12:49 12:50 13:00 Temperature 98.6 F Pulse Rate 154 H 156 H 154 H Pulse Rate [ 156 H Pulse Oximetery ] Respiratory 19 18 18 Rate Blood Pressure 112/84 104/73 93/73 O2 Sat by Pulse 97 98 98 Oximetry 06/15/19 06/15/19 06/15/19 13:15 13:30 14:00 Temperature Pulse Rate 156 H 156 H 158 H Pulse Rate [ Pulse Oximetery ] Respiratory 15 17 16 Rate Blood Pressure 96/69 93/67 103/74 O2 Sat by Pulse 96 97 Oximetry Medical Decision Making - Medical Decision Making EKG shows atrial flutter with a 2-1 block at a rate of 156 bpm QRS 162 QT interval 314 QTC is 506 per patient's EKG shows no ST segment elevation. I started the patient on a Cardizem drip at 5 an hour and gave the patient 5 mg bolus. That did not slow the patient's heart rate down but the blood pressure was between 96 systolic 203. I spoke with Dr. Wu he wanted me to increase the drip to 10 give her another 10 bolus of Cardizem and give her 50 of Lopressor by mouth. This was done. I spoke with Dr. Pulido he agreed to admit the patient admitted the patient wrote admitting orders. - Lab Data Result diagrams: 06/15/19 12:49 06/15/19 12:49 Lab Results 06/15/19 06/15/19 06/15/19 Range/Units 12:49 12:49 12:49 WBC 12.3 H (3.8-10.6) k/uL RBC 4.80 (3.80-5.40) m/uL Hgb 14.1 D (11.4-16.0) gm/dL Hct 41.0 (34.0-46.0) % MCV 85.3 (80.0-100.0) fL MCH 29.4 (25.0-35.0) pg MCHC 34.4 (31.0-37.0) g/dL RDW 13.3 (11.5-15.5) % Plt Count 281 D (150-450) k/uL Neutrophils % 73 % Lymphocytes % 15 % Monocytes % 9 % Eosinophils % 1 % Basophils % 0 % Neutrophils # 8.9 H (1.3-7.7) k/uL Lymphocytes # 1.8 (1.0-4.8) k/uL Monocytes # 1.1 H (0-1.0) k/uL Eosinophils # 0.1 (0-0.7) k/uL Basophils # 0.0 (0-0.2) k/uL PT 10.8 (9.0-12.0) sec INR 1.0 (<1.2) APTT 23.6 (22.0-30.0) sec Sodium 138 (137-145) mmol/L Potassium 3.7 (3.5-5.1) mmol/L Chloride 100 (98-107) mmol/L Carbon Dioxide 31 H (22-30) mmol/L Anion Gap 7 mmol/L BUN 23 H (7-17) mg/dL Creatinine 0.81 (0.52-1.04) mg/dL Est GFR (CKD-EPI)AfAm 82 (>60 ml/min/1.73 sqM) Est GFR (CKD-EPI)NonAf 71 (>60 ml/min/1.73 sqM) Glucose 123 H (74-99) mg/dL Calcium 9.3 (8.4-10.2) mg/dL Magnesium 1.9 (1.6-2.3) mg/dL Total Bilirubin 1.2 (0.2-1.3) mg/dL AST 29 (14-36) U/L ALT 27 (4-34) U/L Alkaline Phosphatase 97 (38-126) U/L Troponin I (0.000-0.034) ng/mL Total Protein 6.7 (6.3-8.2) g/dL Albumin 3.7 (3.5-5.0) g/dL 06/15/19 Range/Units 12:49 WBC (3.8-10.6) k/uL RBC (3.80-5.40) m/uL Hgb (11.4-16.0) gm/dL Hct (34.0-46.0) % MCV (80.0-100.0) fL MCH (25.0-35.0) pg MCHC (31.0-37.0) g/dL RDW (11.5-15.5) % Plt Count (150-450) k/uL Neutrophils % % Lymphocytes % % Monocytes % % Eosinophils % % Basophils % % Neutrophils # (1.3-7.7) k/uL Lymphocytes # (1.0-4.8) k/uL Monocytes # (0-1.0) k/uL Eosinophils # (0-0.7) k/uL Basophils # (0-0.2) k/uL PT (9.0-12.0) sec INR (<1.2) APTT (22.0-30.0) sec Sodium (137-145) mmol/L Potassium (3.5-5.1) mmol/L Chloride (98-107) mmol/L Carbon Dioxide (22-30) mmol/L Anion Gap mmol/L BUN (7-17) mg/dL Creatinine (0.52-1.04) mg/dL Est GFR (CKD-EPI)AfAm (>60 ml/min/1.73 sqM) Est GFR (CKD-EPI)NonAf (>60 ml/min/1.73 sqM) Glucose (74-99) mg/dL Calcium (8.4-10.2) mg/dL Magnesium (1.6-2.3) mg/dL Total Bilirubin (0.2-1.3) mg/dL AST (14-36) U/L ALT (4-34) U/L Alkaline Phosphatase (38-126) U/L Troponin I 0.390 H* (0.000-0.034) ng/mL Total Protein (6.3-8.2) g/dL Albumin (3.5-5.0) g/dL Critical Care Time Critical Care Time: Yes Total Critical Care Time: 35 Disposition Clinical Impression: Atrial flutter with rapid ventricular response Disposition: ADMITTED IP TO THIS HOSP Referrals: Danny Rodriguez DO [Primary Care Provider] - 1-2 days Time of Disposition: 14:19
[2019-06-15 13:08] LABS: Basophils % (A) 0 %; Eosinophils # (A) 0.1 k/uL (0-0.7); Eosinophils % (A) 1 %; Lymphocytes # (A) 1.8 k/uL (1.0-4.8); Lymphocytes % (A) 15 %; MCH 29.4 pg (25.0-35.0); MCHC 34.4 g/dL (31.0-37.0); MCV 85.3 fL (80.0-100.0); Monocytes # (A) 1.1 k/uL (0-1.0); Monocytes % (A) 9 %; Neutrophils # (A) 8.9 k/uL (1.3-7.7); Neutrophils % (A) 73 %; RDW 13.3 % (11.5-15.5); WBC 12.3 k/uL (3.8-10.6)
[2019-06-15] MEDS ORDERED: DILTIAZEM DRIP BOLUS FROM BAG 1 MG SOLN IV ONE ×2 (13:13→14:13)
[2019-06-15 13:14] LABS: HGB 14.1 gm/dL (11.4-16.0); Platelet Count 281 k/uL (150-450)
[2019-06-15 13:16] LABS: Albumin 3.7 g/dL (3.5-5.0); Calcium 9.3 mg/dL (8.4-10.2); Magnesium 1.9 mg/dL (1.6-2.3); Potassium 3.7 mmol/L (3.5-5.1); Total Bilirubin 1.2 mg/dL (0.2-1.3); Total Protein 6.7 g/dL (6.3-8.2)
--- NOTE | 2019-06-15 13:19 | XR ---
EXAMINATION TYPE: XR chest 2V DATE OF EXAM: 06/15/2019 COMPARISON: 06/11/2019 TECHNIQUE: PA and lateral views submitted. HISTORY: Shortness of breath FINDINGS: Heart is enlarged and there is hyperinflation. Calcifications overlying the apices could be vascular. Atherosclerotic change aorta. Hyperinflation suggests COPD and there is degenerative change of the s pine. Suspect tiny bilateral pleural effusions. Interval improvement in the interstitium suggestive o f improving vascular congestion. Annular calcification noted. IMPRESSION: 1. COPD, cardiomegaly and small bilateral pleural effusions improved from the prior exam of 9.
[2019-06-15 13:23] LABS: Partial Thromboplastin Time 23.6 sec (22.0-30.0); Prothrombin Time 10.8 sec (9.0-12.0)
[2019-06-15] MEDS ORDERED: DILTIAZEM 125 MG in SODIUM CHLORIDE 0.9% 100 ML IV SCH (13:30)
[2019-06-15] MEDS ORDERED: SODIUM CHLORIDE 0.9% 1,000 ML IV STA (13:30)
[2019-06-15] MEDS ORDERED: METOPROLOL TARTRATE 50 MG TAB PO STA (14:13)
[2019-06-15] MEDS ORDERED: NITROGLYCERIN SL TABS 0.4 MG TAB SUBLINGUAL PRN (14:20)
[2019-06-15] MEDS: DILTIAZEM 125 MG in SODIUM CHLORIDE 0.9% 100 ML IV SCH (14:27)
[2019-06-15] MEDS ORDERED: IPRATROPIUM-ALBUTEROL 3 ML NEB INHALATION PRN (15:13)
[2019-06-15] MEDS ORDERED: ALPRAZolam 0.25 MG TAB PO PRN (15:14)
[2019-06-15] MEDS ORDERED: ACETAMINOPHEN TAB 500 MG TAB PO PRN (15:14)
[2019-06-15] MEDS ORDERED: HYDROcodone/APAP 5-325MG 1 EACH TAB PO PRN (15:14)
--- NOTE | 2019-06-15 16:02 | HP ---
HISTORY AND PHYSICAL DATE OF SERVICE: 06/15/2019 CHIEF COMPLAINTS: Tachycardia, palpitations. HISTORY OF PRESENT ILLNESS: This 79-year-old woman with a past medical history of hypertension, hyperlipidemia, history of DJD, history of pneumonia, history of TIA, being followed by Dr. Rodriguez in the outpatient setting, was complaining of palpitations. The patient was at physical therapy and the pulse rate was very high. The patient was taken to [facility] and admitted for further evaluation and treatment. Cardizem was given. Subsequently the patient had some relatively slight hypotension and Cardiology was consulted. The troponin was found to be 0.390. There is no history of any fever, rigor or chills. No history of headache, loss of consciousness, seizures at this time. Cardiology recommended Cardizem drip and beta blockers. PAST MEDICAL HISTORY: 1. History of CVA, TIA. 2. Hypertension. 3. Hyperlipidemia. 4. History of DJD. 5. History of pneumonia. 6. History of multiple TIAs. HOME MEDICATIONS: 1. Keppra 750 mg p.o. b.i.d. 2. Lopressor 25 mg p.o. t.i.d. 3. Claritin 10 mg at bedtime. 4. DuoNeb q.i.d. and p.r.n. 5. Flonase 2 sprays at bedtime. 6. Pepcid 20 mg p.o. b.i.d. 7. Plavix 75 mg at bedtime. 8. Lipitor 20 mg at bedtime. 9. Ecotrin 81 mg daily. 10.Eliquis 2.5 mg daily b.i.d. ALLERGIES: NONE. FAMILY HISTORY: History of cancer in the family. SOCIAL HISTORY: History of smoking, continued ongoing. Occasional alcohol intake. REVIEW OF SYSTEMS: ENT: Diminished hearing. Diminished vision. CARDIOVASCULAR SYSTEM: As mentioned earlier. RESPIRATORY SYSTEM: As mentioned earlier. GI: No nausea, vomiting. : No dysuria or retention. NERVOUS SYSTEM: No numbness, weakness. ALLERGY/IMMUNOLOGY: No asthma, hayfever. MUSCULOSKELETAL: As mentioned earlier. HEMATOLOGY/ONCOLOGY: No history of anemia. ENDOCRINE: No history of diabetes, hypothyroidism. CONSTITUTIONAL: As mentioned earlier. DERMATOLOGY: Negative. RHEUMATOLOGY: Negative. NEUROLOGY: As mentioned earlier. PSYCHIATRY: As mentioned earlier. PHYSICAL EXAMINATION: Patient alert and oriented x3. Pulse 154, irregular. Blood pressure is 100/71, respiration 15, temperature normal, pulse ox 98% on 2 L. HEENT: Conjunctivae normal. Oral mucosa moist. NECK: No jugular venous distention. No carotid bruit. No lymph node enlargement. CARDIOVASCULAR SYSTEM: S1, S2 muffled. RESPIRATORY SYSTEM: Breath sounds diminished at the bases. Bilateral scattered rhonchi and crackles. CARDIOVASCULAR SYSTEM: S1, S2 muffled and tachycardic. ABDOMEN: Soft, non-tender. No mass palpable. LEGS: No edema. No swelling. NERVOUS SYSTEM: Higher functions as mentioned earlier. Moves all 4 limbs. No focal motor or sensory deficit. LYMPHATICS: No lymph node palpable in neck, axillae or groin. SKIN: No ulcer, rash, bleeding. JOINTS: No active deforming arthropathy. LABS: WBC 12.3, hemoglobin 14.1. Sodium 138, potassium 3.7. Troponin 0.39. ASSESSMENT: 1. Atrial flutter with fast ventricular rate with possible 2:1 AV block. 2. Troponin 0.390; possible acute ucb-SN-fkeoyoa-elevation myocardial infarction. 3. Increased random blood sugar. 4. Increased white count. 5. History of cerebrovascular accident, transient ischemic attack. 6. Hypertension. 7. Hyperlipidemia. 8. History of degenerative joint disease. 9. History of pneumonia. 10.History of multiple transient ischemic attacks. 11.History of pituitary dysfunction. 12.Seasonal allergies. 13.Adenoidectomy. 14.History of cholecystectomy. 15.Continued ongoing nicotine dependence. 16.Public legal guardian. RECOMMENDATIONS AND DISCUSSION: In this 79-year-old woman who presented with multiple complex medical issues, we will monitor the patient closely, continue the current medications, continue symptomatic treatment. Otherwise at this time cardiology consultation. Continue with the beta blockers as recommended. I would also recommend antiplatelet agents, anticoagulants. Two-D echo with Doppler. Also recommend TSH. Guarded prognosis because of multiple complex medical issues. Further recommendations to follow. A copy of this dictation is being forwarded to Dr. Rodriguez, who is the primary physician. MMODL / IJN: [id number] /
[2019-06-15] MEDS: NICOTINE 14MG/24HR PATCH TRANSDERM SCH (16:36)
[2019-06-15 20:21] LABS: Glucose,Whole Blood 138 mg/dL (75-99)
[2019-06-15] MEDS ORDERED: CLOPIDOGREL 75 MG TAB PO SCH (21:00)
[2019-06-15] MEDS ORDERED: APIXABAN 2.5 MG TABLET PO SCH (21:00)
[2019-06-15] MEDS: FAMOTIDINE 20 MG TAB PO SCH (22:13)
[2019-06-15] MEDS: ATORVASTATIN 20 MG TAB PO SCH (22:13)
[2019-06-15] MEDS: LORATADINE 10 MG TAB PO SCH (22:13)
[2019-06-15] MEDS: FLUTICASONE 50MCG/SPRAY NASAL 16GM EA NOSTRIL SCH (22:14)
[2019-06-16 05:30] LABS: Basophils % (A) 0 %; Eosinophils # (A) 0.3 k/uL (0-0.7); Eosinophils % (A) 4 %; HGB 13.1 gm/dL (11.4-16.0); Lymphocytes # (A) 1.5 k/uL (1.0-4.8); Lymphocytes % (A) 18 %; MCHC 33.7 g/dL (31.0-37.0); MCV 86.1 fL (80.0-100.0); Mean Platelet Volume 7.5; Monocytes # (A) 0.6 k/uL (0-1.0); Monocytes % (A) 7 %; Neutrophils # (A) 5.4 k/uL (1.3-7.7); Neutrophils % (A) 68 %; Platelet Count 219 k/uL (150-450); RBC 4.53 m/uL (3.80-5.40); RDW 13.2 % (11.5-15.5)
[2019-06-16 05:36] LABS: African American GFR (CKD) >90 (>60 ml/min/1.73 sqM); Anion Gap 2 mmol/L; Blood Urea Nitrogen 18 mg/dL (7-17); Calcium 8.3 mg/dL (8.4-10.2); Carbon Dioxide 30 mmol/L (22-30); Chloride 106 mmol/L (98-107); Cholesterol 132 mg/dL (<200); Glucose 93 mg/dL (74-99); HDL Cholesterol 42 mg/dL (40-60); LDL Cholesterol,Calculated 66 mg/dL (0-99); Non-African American GFR(CKD) 87 (>60 ml/min/1.73 sqM); Sodium 138 mmol/L (137-145); Triglycerides 120 mg/dL (<150)
[2019-06-16 05:55] LABS: Glucose,Whole Blood 96 mg/dL (75-99)
[2019-06-16] MEDS: PANTOPRAZOLE 40 MG TABLET PO SCH (07:11)
[2019-06-16] MEDS: DILTIAZEM 125 MG in SODIUM CHLORIDE 0.9% 100 ML IV SCH ×2 (08:53→14:59)
[2019-06-16] MEDS ORDERED: ASPIRIN 325 MG TAB PO SCH (09:00)
[2019-06-16] MEDS ORDERED: ASPIRIN 81 MG PO SCH (09:00)
[2019-06-16] MEDS: APIXABAN 5 MG TAB PO SCH ×2 (09:02→19:50)
[2019-06-16] MEDS: MULTIVITAMINS, THERA 1 EACH TAB PO SCH (09:03)
[2019-06-16] MEDS: NICOTINE 14MG/24HR PATCH TRANSDERM SCH (09:03)
[2019-06-16] MEDS: FAMOTIDINE 20 MG TAB PO SCH ×2 (09:03→19:50)
[2019-06-16] MEDS: METOPROLOL TARTRATE 25 MG TAB PO SCH ×2 (09:05→19:49)
[2019-06-16 12:16] LABS: Glucose,Whole Blood 99 mg/dL (75-99)
--- NOTE | 2019-06-16 12:22 | P.CRDCN ---
<Ynes Sheets - Last Filed: 06/16/19 12:21> History of Present Illness History of present illness: This is Ynes Sheets PA-C dictating a consult on this patient The patient was interviewed and examined by me as well as by Dr. Linda Case discussed with Dr. Linda and he agrees with the plan of care IMPRESSION / ASSESSMENT: Symptomatic atrial flutter with RVR, converted on IV Cardizem with long postconversion pause, anticoagulated Abnormal troponins, likely type II [place], secondary to demand ischemia secondary to tachycardia arrhythmia History of CVA Hypertension Dyslipidemia Current smoker PLAN: Based on her age, kidney function, and weight she should be on eliquis 5 mg twice a day Stop IV Cardizem and start metoprolol 25 mg twice a day Stop aspirin and continue Plavix to minimize bleeding risk Continue Lipitor Discussion with patient about treatment options, would recommend and atrial flutter ablation in view of her frequent symptomatic episodes, long postconversion pauses on medications, and history of syncope HPI Patient is a 79-year-old female with a medical history significant for CVA, hypertension, dyslipidemia, and atrial fibrillation who presented with complaints of shortness of breath. Patient states she has seen a precision jig grinder in the past but does not follow with a precision jig grinder regularly. She states she was at home when she became short of breath and felt a tightness and heaviness in her chest. She felt dizzy but she did not pass out. Denies palpitations. She states she has had symptoms like this before and she has passed out from it. She has also had a productive cough. No fevers. She presented to the emergency department for further evaluation. EKG upon admission shows likely atrial flutter RVR, rate 156. Chest x-ray showed hyperinflation suggestive of COPD, small bilateral pleural effusions. Troponins are abnormal. She was started on IV Cardizem and converted to sinus rhythm with a long postconversion pause. Patient seen and examined resting in bed. States she had some dizziness while in the hospital but is feeling better. Continues to have a productive cough and some shortness of breath. Denies chest pain. She has a significant history of smoking and continues to smoke a few cigarettes a day She denies a history of anemia or bleeding issues ROS: No fevers, chills or rigors, Positive for cough, phlegm no nausea, vomiting or diarrhea, no hematuria, dysuria, no musculoskeletal complaints, no strokes or seizures, no skin lesions. EXAMINATION: Patient is afebrile, pulse 52, respirations 16, blood pressure 139/68, oxygen saturation 99% on 2 L nasal cannula Patient seen and examined resting in bed, in no acute distress Bilateral breath sounds severely reduced, rhonchi bilaterally Heart is regular, systolic murmur audible No elevated JVD No lower extremity edema Abdomen soft and nontender to palpation REVIEW OF LABS, ECG & MEDICAL DATA WBC 8.0, hemoglobin 13, platelets 219, potassium 4.0, BUN 18, creatinine 0.62 Troponin 0.390, 0.53, 0.453 TSH normal LDL 66 Echocardiogram on 06/10/2019 showed EF 55-60%, severe concentric LVH Past Medical History Past Medical History: Atrial Fibrillation, CVA/TIA, Hyperlipidemia, Hypertension, Osteoarthritis (OA), Pneumonia Additional Past Medical History / Comment(s): Possible TIAs in past per pt, pt believes she has the beginnings of dementia, bronchitis, pituitary dysfunction, seasonal allergies/sinus problems, arthritis in multiple joints. History of Any Multi-Drug Resistant Organisms: None Reported Past Surgical History: Adenoidectomy, Appendectomy, Cholecystectomy, Tonsillectomy Past Anesthesia/Blood Transfusion Reactions: No Reported Reaction Smoking Status: Current every day smoker - Past Family History Father Family Medical History: Cancer Additional Family Medical History / Comment(s): Pt states by the time they found out that her father had cancer, it was thru out his body. Mother Family Medical History: No Reported History Additional Family Medical History / Comment(s): Mother was healthy. Medications and Allergies Home Medications Medication Instructions Recorded Confirmed Type Fluticasone Nasal [place] [Flonase 2 spray EA NOSTRIL HS 02/25/19 06/15/19 History Nasal [place]] Loratadine [Claritin] 10 mg PO HS 02/25/19 06/15/19 History Atorvastatin [Lipitor] 20 mg PO HS 05/02/19 06/15/19 History Aspirin EC [Ecotrin Low Dose] 81 mg PO DAILY 06/09/19 06/15/19 History Clopidogrel [Plavix] 75 mg PO HS 06/09/19 06/15/19 History Famotidine [Pepcid] 20 mg PO BID 06/09/19 06/15/19 History levETIRAcetam [Keppra] 750 mg PO BID@0800,199906/09/19 06/15/19 History Apixaban [Eliquis] 2.5 mg PO BID tablet 06/14/19 06/15/19 Rx Metoprolol Tartrate [Lopressor] 25 mg PO TID tab 06/14/19 06/15/19 Rx Ipratropium-Albuterol Nebulize 3 ml INHALATION RT-Q6H PRN 06/15/19 06/15/19 Hi story [Duoneb 0.5 mg-3 mg/3 ml Soln] Allergies Allergy/AdvReac Type Severity Reaction Status Date / Time No Known Allergies Allergy Verified 06/15/19 14:37 Physical Exam Vitals: Vital Signs Temp Pulse Pulse Resp BP BP Pulse Ox 06/16/19 11:07 98.6 F 52 L 16 139/68 99 06/16/19 08:00 97.8 F 69 16 144/62 96 06/16/19 04:30 97.3 F L 60 16 160/78 95 06/15/19 23:25 97.9 F 67 16 131/60 95 06/15/19 21:05 97.7 F 85 18 111/56 97 06/15/19 17:30 98 F 93 18 119/66 95 06/15/19 16:37 86 18 97/76 99 06/15/19 16:00 129 H 18 97/76 100 06/15/19 15:00 101 H 15 98/61 98 06/15/19 14:33 154 H 15 100/71 98 06/15/19 14:30 152 H 19 90/67 98 06/15/19 14:00 158 H 16 103/74 97 06/15/19 13:30 156 H 17 93/67 06/15/19 13:15 156 H 15 96/69 96 06/15/19 13:00 154 H 156 H 18 93/73 98 06/15/19 12:50 156 H 18 104/73 98 06/15/19 12:49 98.6 F 154 H 19 112/84 97 Intake and Output 06/15/19 06/16/19 06/16/19 22:59 06:59 14:59 Intake Total 120 110 Output Total 241 280 Balance -121 -280 110 Intake: Oral 120 110 Output: Urine 240 280 Stool 1 Other: Voiding Method Toilet Toilet Toilet # Voids 1 1 1 Weight 53.524 kg 76 kg Results 06/16/19 04:56 06/16/19 04:56 Cardiac Enzymes 06/15/19 06/15/19 06/15/19 Range/Units 12:49 12:49 17:59 AST 29 (14-36) U/L Troponin I 0.390 H* 0.532 H* (0.000-0.034) ng/mL 06/16/19 Range/Units 00:06 AST (14-36) U/L Troponin I 0.453 H* (0.000-0.034) ng/mL Coagulation 06/15/19 Range/Units 12:49 PT 10.8 (9.0-12.0) sec APTT 23.6 (22.0-30.0) sec Lipids 06/16/19 Range/Units 04:56 Triglycerides 120 (<150) mg/dL Cholesterol 132 (<200) mg/dL HDL Cholesterol 42 (40-60) mg/dL CBC 06/15/19 06/16/19 Range/Units 12:49 04:56 WBC 12.3 H 8.0 (3.8-10.6) k/uL RBC 4.80 4.53 (3.80-5.40) m/uL Hgb 14.1 D 13.1 (11.4-16.0) gm/dL Hct 41.0 39.0 (34.0-46.0) % Plt Count 281 D 219 (150-450) k/uL Comprehensive Metabolic Panel 06/15/19 06/16/19 Range/Units 12:49 04:56 Sodium 138 138 (137-145) mmol/L Potassium 3.7 4.0 (3.5-5.1) mmol/L Chloride 100 106 (98-107) mmol/L Carbon Dioxide 31 H 30 (22-30) mmol/L BUN 23 H 18 H (7-17) mg/dL Creatinine 0.81 0.62 (0.52-1.04) mg/dL Glucose 123 H 93 (74-99) mg/dL Calcium 9.3 8.3 L (8.4-10.2) mg/dL AST 29 (14-36) U/L ALT 27 (4-34) U/L Alkaline Phosphatase 97 (38-126) U/L Total Protein 6.7 (6.3-8.2) g/dL Albumin 3.7 (3.5-5.0) g/dL Current Medications Generic Name Dose Route Start Last Admin Trade Name Freq PRN Reason Stop Dose Admin Acetaminophen 500 mg 06/15/19 15:14 Tylenol Tab PO Q6HR PRN Fever and/ or Mild Pain Hydrocodone Bitart/Acetaminophen 1 each 06/15/19 15:14 [place] 5-325 PO Q6HR PRN Pain Albuterol/Ipratropium 3 ml 06/15/19 15:13 Duoneb 0.5 Mg-3 Mg/3 Ml Soln INHALATION RT-Q6H PRN Shortness Of Breath Or Wheezing Alprazolam 0.25 mg 06/15/19 15:14 Xanax PO TID PRN Anxiety Apixaban 5 mg 06/16/19 09:00 06/16/19 09:02 Eliquis PO 5 mg BID ISREAL Administration Atorvastatin Calcium 20 mg 06/15/19 21:00 06/15/19 22:13 Lipitor PO 20 mg HS ISREAL Administration Clopidogrel Bisulfate 75 mg 06/16/19 21:00 Plavix PO HS ISREAL Famotidine 20 mg 06/15/19 21:00 06/16/19 09:03 Pepcid PO 20 mg BID ISREAL Administration Fluticasone Propionate 2 spray 06/15/19 21:00 06/15/19 22:14 Flonase Nasal [place] EA NOSTRIL 2 spray HS ISREAL Administration Sodium Chloride 1,000 mls @ 20 mls/hr 06/15/19 13:30 06/15/19 13:35 Saline 0.9% IV 06/16/19 13:29 20 mls/hr .Q24H STA Administration Diltiazem HCl 125 mg/ Sodium 125 mls @ 10 mls/hr 06/15/19 14:15 06/16/19 08:53 Chloride IV Not Given .[id number] ISREAL 10 MG/HR Levetiracetam 750 mg 06/15/19 20:00 06/16/19 09:02 Keppra PO 750 mg BID@0800,2000 ISREAL Administration Loratadine 10 mg 06/15/19 21:00 06/15/19 22:13 Claritin PO 10 mg HS ISREAL Administration Metoprolol Tartrate 25 mg 06/16/19 09:00 06/16/19 09:05 Lopressor PO 25 mg BID ISREAL Administration Multivitamins 1 each 06/16/19 12:00 06/16/19 09:03 Theragran PO 1 each DAILY@1200 ISREAL Administration Nicotine 1 patch 06/15/19 15:30 06/16/19 09:03 Habitrol 14mg/24hr Patch TRANSDERM 1 patch DAILY ISREAL Administration Nitroglycerin 0.4 mg 06/15/19 14:20 Nitrostat SUBLINGUAL Q5M PRN Chest Pain Pantoprazole Sodium 40 mg 06/16/19 07:30 06/16/19 07:11 Protonix PO 40 mg [id number] ISREAL Administration Intake and Output 06/15/19 06/16/19 06/16/19 22:59 06:59 14:59 Intake Total 120 110 Output Total 241 280 Balance -121 -280 110 Intake: Oral 120 110 Output: Urine 240 280 Stool 1 Other: Voiding Method Toilet Toilet Toilet # Voids 1 1 1 Weight 53.524 kg 76 kg 06/16/19 04:56 06/16/19 04:56 <Neptali Linda - Last Filed: 06/16/19 14:25> History of Present Illness History of present illness: This lady presented with symptomatic atrial flutter flutter with RVR She's had recurrent episodes of shortness of breath palpitations and dizzy spells possibly presyncope or syncope She had a very long postconversion pause on IV Cardizem She needs anticoagulation lifelong but she was on 2.5 g twice daily of ELIQUIS Would recommend increasing to 5 g twice daily Her best option would be in atrial flutter ablation. I would not advise medical treatment for atrial flutter especially since she is very long postconversion pauses If in the future she develops atrial fibrillation, hopefully this can be better controlled with medications I will talk to her about an atrial flutter ablation At this time she has a COPD exacerbation also Borderline troponins likely type II [place] Physical Exam Vitals: Vital Signs Temp Pulse Pulse Resp BP BP Pulse Ox 06/16/19 11:07 98.6 F 52 L 16 139/68 99 06/16/19 08:00 97.8 F 69 16 144/62 96 06/16/19 04:30 97.3 F L 60 16 160/78 95 06/15/19 23:25 97.9 F 67 16 131/60 95 06/15/19 21:05 97.7 F 85 18 111/56 97 06/15/19 17:30 98 F 93 18 119/66 95 06/15/19 16:37 86 18 97/76 99 06/15/19 16:00 129 H 18 97/76 100 06/15/19 15:00 101 H 15 98/61 98 06/15/19 14:33 154 H 15 100/71 98 06/15/19 14:30 152 H 19 90/67 98 Intake and Output 06/15/19 06/16/19 06/16/19 22:59 06:59 14:59 Intake Total 120 230 Output Total 241 280 Balance -121 -280 230 Intake: Oral 120 230 Output: Urine 240 280 Stool 1 Other: Voiding Method Toilet Toilet Toilet # Voids 1 1 3 Weight 53.524 kg 76 kg Results 06/16/19 04:56 06/16/19 04:56 Cardiac Enzymes 06/15/19 06/16/19 Range/Units 17:59 00:06 Troponin I 0.532 H* 0.453 H* (0.000-0.034) ng/mL Lipids 06/16/19 Range/Units 04:56 Triglycerides 120 (<150) mg/dL Cholesterol 132 (<200) mg/dL HDL Cholesterol 42 (40-60) mg/dL CBC 06/16/19 Range/Units 04:56 WBC 8.0 (3.8-10.6) k/uL RBC 4.53 (3.80-5.40) m/uL Hgb 13.1 (11.4-16.0) gm/dL Hct 39.0 (34.0-46.0) % Plt Count 219 (150-450) k/uL Comprehensive Metabolic Panel 06/16/19 Range/Units 04:56 Sodium 138 (137-145) mmol/L Potassium 4.0 (3.5-5.1) mmol/L Chloride 106 (98-107) mmol/L Carbon Dioxide 30 (22-30) mmol/L BUN 18 H (7-17) mg/dL Creatinine 0.62 (0.52-1.04) mg/dL Glucose 93 (74-99) mg/dL Calcium 8.3 L (8.4-10.2) mg/dL Current Medications Generic Name Dose Route Start Last Admin Trade Name Freq PRN Reason Stop Dose Admin Acetaminophen 500 mg 06/15/19 15:14 Tylenol Tab PO Q6HR PRN Fever and/ or Mild Pain Hydrocodone Bitart/Acetaminophen 1 each 06/15/19 15:14 [place] 5-325 PO Q6HR PRN Pain Albuterol/Ipratropium 3 ml 06/15/19 15:13 Duoneb 0.5 Mg-3 Mg/3 Ml Soln INHALATION RT-Q6H PRN Shortness Of Breath Or Wheezing Alprazolam 0.25 mg 06/15/19 15:14 Xanax PO TID PRN Anxiety Apixaban 5 mg 06/16/19 09:00 06/16/19 09:02 Eliquis PO 5 mg BID ISREAL Administration Atorvastatin Calcium 20 mg 06/15/19 21:00 06/15/19 22:13 Lipitor PO 20 mg HS ISREAL Administration Clopidogrel Bisulfate 75 mg 06/16/19 21:00 Plavix PO HS ISREAL Famotidine 20 mg 06/15/19 21:00 06/16/19 09:03 Pepcid PO 20 mg BID ISREAL Administration Fluticasone Propionate 2 spray 06/15/19 21:00 06/15/19 22:14 Flonase Nasal [place] EA NOSTRIL 2 spray HS ISREAL Administration Diltiazem HCl 125 mg/ Sodium 125 mls @ 10 mls/hr 06/15/19 14:15 06/16/19 08:53 Chloride IV Not Given .[id number] ISREAL 10 MG/HR Levetiracetam 750 mg 06/15/19 20:00 06/16/19 09:02 Keppra PO 750 mg BID@0800,2000 ISREAL Administration Loratadine 10 mg 06/15/19 21:00 06/15/19 22:13 Claritin PO 10 mg HS ISREAL Administration Metoprolol Tartrate 25 mg 06/16/19 09:00 06/16/19 09:05 Lopressor PO 25 mg BID ISREAL Administration Multivitamins 1 each 06/16/19 12:00 01/01/20 09:03 Theragran PO 1 each DAILY@1200 ISREAL Administration Nicotine 1 patch 06/15/19 15:30 06/16/19 09:03 Habitrol 14mg/24hr Patch TRANSDERM 1 patch DAILY ISREAL Administration Nitroglycerin 0.4 mg 06/15/19 14:20 Nitrostat SUBLINGUAL Q5M PRN Chest Pain Pantoprazole Sodium 40 mg 06/16/19 07:30 06/16/19 07:11 Protonix PO 40 mg AC-[id number] ISREAL Administration Intake and Output 06/15/19 06/16/19 06/16/19 22:59 06:59 14:59 Intake Total 120 230 Output Total 241 280 Balance -121 -280 230 Intake: Oral 120 230 Output: Urine 240 280 Stool 1 Other: Voiding Method Toilet Toilet Toilet # Voids 1 1 3 Weight 53.524 kg 76 kg 06/16/19 04:56 06/16/19 04:56
[2019-06-16 17:09] LABS: Glucose,Whole Blood 121 mg/dL (75-99)
[2019-06-16] MEDS: FLUTICASONE 50MCG/SPRAY NASAL 16GM EA NOSTRIL SCH (19:49)
[2019-06-16] MEDS: CLOPIDOGREL 75 MG TAB PO SCH (19:49)
[2019-06-16] MEDS: ATORVASTATIN 20 MG TAB PO SCH (19:49)
[2019-06-16] MEDS: LORATADINE 10 MG TAB PO SCH (19:50)
[2019-06-16 20:29] LABS: Glucose,Whole Blood 138 mg/dL (75-99)
[2019-06-17] MEDS: PANTOPRAZOLE 40 MG TABLET PO SCH (06:04)
--- NOTE | 2019-06-17 06:11 | PN ---
PROGRESS NOTE DATE OF SERVICE: 06/16/2019 This 79-year-old woman who was admitted with acute cardiac palpitations, atrial flutter with a fast ventricular rate. Patient is being closely monitored with Cardiology. After Cardizem, patient was cardioverted. Beta-blockers have been initiated. Atrial flutter ablation was recommended by Dr. Linda. No chest pain. No palpitations. No fever. PHYSICAL EXAMINATION: On exam, alert and oriented x3. Pulse 58, blood pressure 163/70, respirations 16, temperature 97.9, pulse ox 99% on 3 L. HEENT: Conjunctivae normal. Neck: No jugular venous distention. CARDIOVASCULAR: S1, S2 muffled. RESPIRATORY: Breath sounds diminished at the bases. A few scattered rhonchi and crackles. ABDOMEN: Soft, nontender. LEGS: No edema, no swelling. NERVOUS SYSTEM: No focal deficit. LABS: CBC within normal limits, otherwise glucose 121. Troponin 0.453. ASSESSMENT: 1. Atrial flutter with fast ventricular rate with possible 2:1 AV block, converted to normal sinus rhythm, paroxysmal. 2. Troponin 0.39, rule out acute bok-QC-veskzzj-elevation myocardial infarction or type 2 myocardial infarction supply demand mismatch. 3. Increased random blood sugar. 4. Increased WBC. 5. History of cerebrovascular accident, transient ischemic attack. 6. History of hypertension. 7. History of hyperlipidemia. 8. History of degenerative joint disease. 9. History of pneumonia. 10.History of multiple transient ischemic attacks. 11.History of pituitary dysfunction. 12.Seasonal allergies. 13.History of adenoidectomy. 14.History of cholecystectomy. 15.Continued ongoing nicotine dependence. 16.Public legal guardian. RECOMMENDATIONS AND DISCUSSION: I recommend to continue current medications. Continue monitoring and continue symptomatic treatment. Closely follow with Cardiology. Continue the rest of medications. Prognosis guarded. Further recommendations to follow. MMODL / IJN: [id number] /
[2019-06-17 06:18] LABS: Glucose,Whole Blood 100 mg/dL (75-99)
[2019-06-17 06:59] LABS: Basophils % (A) 0 %; Eosinophils # (A) 0.4 k/uL (0-0.7); Eosinophils % (A) 5 %; HCT 38.2 % (34.0-46.0); HGB 12.8 gm/dL (11.4-16.0); Lymphocytes # (A) 1.1 k/uL (1.0-4.8); Lymphocytes % (A) 16 %; MCH 29.3 pg (25.0-35.0); MCHC 33.6 g/dL (31.0-37.0); MCV 87.1 fL (80.0-100.0); Mean Platelet Volume 7.7; Monocytes # (A) 0.5 k/uL (0-1.0); Monocytes % (A) 7 %; Neutrophils # (A) 5.2 k/uL (1.3-7.7); Neutrophils % (A) 71 %; Platelet Count 228 k/uL (150-450); RBC 4.38 m/uL (3.80-5.40); RDW 13.4 % (11.5-15.5); WBC 7.4 k/uL (3.8-10.6)
[2019-06-17 07:06] LABS: African American GFR (CKD) >90 (>60 ml/min/1.73 sqM); Anion Gap 1 mmol/L; Blood Urea Nitrogen 14 mg/dL (7-17); Calcium 8.3 mg/dL (8.4-10.2); Carbon Dioxide 34 mmol/L (22-30); Chloride 103 mmol/L (98-107); Glucose 88 mg/dL (74-99); Non-African American GFR(CKD) 84 (>60 ml/min/1.73 sqM); Sodium 138 mmol/L (137-145)
[2019-06-17] MEDS: APIXABAN 5 MG TAB PO SCH ×2 (08:58→21:21)
[2019-06-17] MEDS: NICOTINE 14MG/24HR PATCH TRANSDERM SCH (08:58)
[2019-06-17] MEDS: FAMOTIDINE 20 MG TAB PO SCH ×2 (08:58→21:20)
[2019-06-17] MEDS: METOPROLOL TARTRATE 25 MG TAB PO SCH ×2 (08:58→21:21)
[2019-06-17] MEDS: MULTIVITAMINS, THERA 1 EACH TAB PO SCH (12:21)
--- NOTE | 2019-06-17 14:30 | P.PN ---
Subjective Progress Note Date: 06/17/19 Patient is a 79-year-old female with a medical history significant for CVA, hypertension, dyslipidemia, and atrial fibrillation who presented with complaints of shortness of breath. Patient states she has seen a attending anesthesiologist in the past but does not follow with a attending anesthesiologist regularly. She states she w as at home when she became short of breath and felt a tightness and heaviness in her chest. She felt dizzy but she did not pass out. Denies palpitations. She states she has had symptoms like this before and she has passed out from it. She has also had a productive cough. No fevers. She presented to the emergency department for further evaluation. EKG upon admission shows likely atrial flutt er RVR, rate 156. Chest x-ray showed hyperinflation suggestive of COPD, small bilateral pleural effusions. Troponins are abnormal. She was started on IV Cardizem and converted to sinus rhythm with a long postconversion pause. Patient seen and examined resting in bed. States she had some dizziness while in the hospital but is feeling better. Continues to have a productive cough and some shortness of breath. Denies chest pain. 06/17/2019 Patient was seen and examined this morning, she does state that her breathing is improved significantly from presentation here. Patient is currently in a normal sinus rhythm. Blood pressure 140/60 with a heart rate in the 50s, 97% on 2 L of oxygen. Blood cell count 7.4, hemoglobin 12.8, platelet count 228. Sodium 138, potassium 4.0, BUN 14 and creatinine 0.6. We will repeat a chest x-ray tomorrow morning. Objective - Vital Signs Vital signs: Vital Signs Temp 97.5 F L 06/17/19 11:14 Pulse 56 L 06/17/19 11:14 Resp 20 06/17/19 11:14 BP 140/64 06/17/19 11:14 Pulse Ox 97 06/17/19 11:14 Intake & Output 06/16/19 06/17/19 06/17/19 18:59 06:59 18:59 Intake Total 350 198 240 Output Total 1 Balance 350 197 240 Weight 54.1 kg Intake: Intake, IV Titration 80 Amount Sodium Chloride 0.9% 1, 80 000 ml @ 20 mls/hr IV . Q24H STA Rx#:[id number] Oral 350 118 240 Output: Stool 1 Other: Voiding Method Toilet Toilet Toilet # Voids 3 - Exam GENERAL EXAM: Alert, frail, cachectic 79-year-old female patient, on BiPAP 12/6 and 30% FiO2, more comfortable in no apparent distress. HEAD: Normocephalic. EYES: Normal reaction of pupils, equal size. NOSE: Clear with pink turbinates. THROAT: No erythema or exudates. NECK: No masses, no JVD. CHEST: No chest wall deformity. LUNGS: Equal air entry with crackles bilaterally to the bases. Diminished t hroughout. CVS: S1 and S2 normal with no audible murmur,irregular rhythm. ABDOMEN: No hepatosplenomegaly, normal bowel sounds, no guarding or rigidity. SPINE: No scoliosis or deformity SKIN: No rashes CENTRAL NERVOUS SYSTEM: No focal deficits, tone is normal in all 4 extremities. EXTREMITIES: There is no peripheral edema. No clubbing, no cyanosis. Peripheral pulses are intact. - Labs CBC & Chem 7: 06/17/19 05:57 06/17/19 05:57 Labs: Abnormal Lab Results - Last 24 Hours (Table) 06/16/19 06/16/19 06/17/19 Range/Units 17:08 20:28 05:57 Carbon Dioxide 34 H (22-30) mmol/L POC Glucose (mg/dL) 121 H 138 H (75-99) mg/dL Calcium 8.3 L (8.4-10.2) mg/dL 06/17/19 Range/Units 06:17 Carbon Dioxide (22-30) mmol/L POC Glucose (mg/dL) 100 H (75-99) mg/dL Calcium (8.4-10.2) mg/dL Assessment and Plan Plan: IMPRESSION / ASSESSMENT: #1Symptomatic atrial flutter with RVR, converted on IV Cardizem with long postconversion pause, anticoagulated #2Abnormal troponins, likely type II [place], secondary to demand ischemia secondary to tachycardia arrhythmia #3History of CVA #4Hypertension #5Dyslipidemia #6Current smoker Plan We will repeat the patient's chest x-ray in the morning tomorrow. Patient does require a flutter ablation once her lungs have stabilized. She is in agreement with this DNP note has been reviewed, I agree with a documented findings and plan of care. Patient was seen and examined.
[2019-06-17] MEDS: DILTIAZEM 125 MG in SODIUM CHLORIDE 0.9% 100 ML IV SCH (19:33)
[2019-06-17 20:38] LABS: Glucose,Whole Blood 280 mg/dL (75-99)
[2019-06-17] MEDS: CLOPIDOGREL 75 MG TAB PO SCH (21:21)
[2019-06-17] MEDS: ATORVASTATIN 20 MG TAB PO SCH (21:21)
[2019-06-17] MEDS: LORATADINE 10 MG TAB PO SCH (21:21)
[2019-06-17] MEDS: FLUTICASONE 50MCG/SPRAY NASAL 16GM EA NOSTRIL SCH (21:25)
--- NOTE | 2019-06-17 23:01 | PN ---
PROGRESS NOTE DATE OF SERVICE: 06/17/2019 This 79-year-old woman was admitted with atrial flutter with fast ventricular rate also had elevated troponin. Cardiology is following the patient closely for possible flutter ablation. No chest pain. No palpitations. No fever. EXAM: Alert and oriented times three. Pulse 57. Blood pressure 150/71, respiration 20, temperature 97.6, pulse ox 97 percent on 2 L. HEENT is conjunctivae normal. NECK: No JVD. CARDIOVASCULAR system: S1, S2 muffled. RESPIRATIONS: Breath sounds diminished in the bases. Bilateral scattered rhonchi and crackles. Abdomen soft, nontender. LEGS are no edema. No swelling. CENTRAL NERVOUS SYSTEM: No focal deficits. LABS: Calcium 8.3. CBC, BMP noted. Chest x-ray shows COPD and cardiomegaly. Small bilateral pleural effusions. Otherwise other labs are noted. ASSESSMENT: 1. Atrial flutter with fast ventricular rate with possible 2:1 AV block converted normal sinus rhythm paroxysmal. 2. Troponin 0.39. Possible acute dde-CP-ouobowm-elevation myocardial infarction type 2 for supply demand mismatch. 3. Increased random blood sugars. 4. Increased WBC. 5. History of cerebrovascular accident/transient ischemic attack. 6. Hypertension. 7. Hyperlipidemia. 8. History of degenerative joint disease. 9. History of pneumonia. 10.History of multiple transient ischemic attacks. 11.History of pituitary dysfunction. 12.History of allergies. 13.History of adenoidectomy. 14.History of cholecystectomy. 15.Continued ongoing nicotine dependence. 16.Public legal guardian. RECOMMENDATIONS AND DISCUSSION: Recommend to continue current medications, management and symptomatic treatment. Continue with beta blockers. Patient is on 25 mg p.o. twice daily as well as Plavix 75 mg p.o. daily at this time. Continue to monitor. Follow closely with Cardiology. Guarded prognosis because of multiple complex medical issues. Further recommendations to follow. MMODL / IJN: [id number] /
[2019-06-18 06:35] LABS: Glucose,Whole Blood 119 mg/dL (75-99)
[2019-06-18 06:43] LABS: Basophils % (A) 0 %; Eosinophils # (A) 0.3 k/uL (0-0.7); Eosinophils % (A) 4 %; HCT 37.3 % (34.0-46.0); HGB 12.6 gm/dL (11.4-16.0); Lymphocytes # (A) 1.1 k/uL (1.0-4.8); Lymphocytes % (A) 15 %; MCH 29.3 pg (25.0-35.0); MCHC 33.8 g/dL (31.0-37.0); MCV 86.6 fL (80.0-100.0); Mean Platelet Volume 7.8; Monocytes # (A) 0.5 k/uL (0-1.0); Monocytes % (A) 6 %; Neutrophils # (A) 5.7 k/uL (1.3-7.7); Neutrophils % (A) 73 %; Platelet Count 226 k/uL (150-450); RBC 4.31 m/uL (3.80-5.40); RDW 13.2 % (11.5-15.5); WBC 7.7 k/uL (3.8-10.6)
[2019-06-18] MEDS: PANTOPRAZOLE 40 MG TABLET PO SCH (06:47)
[2019-06-18 06:55] LABS: African American GFR (CKD) >90 (>60 ml/min/1.73 sqM); Anion Gap 2 mmol/L; Blood Urea Nitrogen 13 mg/dL (7-17); Calcium 8.4 mg/dL (8.4-10.2); Carbon Dioxide 34 mmol/L (22-30); Chloride 103 mmol/L (98-107); Glucose 90 mg/dL (74-99); Non-African American GFR(CKD) 87 (>60 ml/min/1.73 sqM); Potassium 3.9 mmol/L (3.5-5.1); Sodium 139 mmol/L (137-145)
[2019-06-18] MEDS: METOPROLOL TARTRATE 25 MG TAB PO SCH ×2 (09:25→20:07)
[2019-06-18] MEDS: APIXABAN 5 MG TAB PO SCH ×2 (09:25→20:08)
[2019-06-18] MEDS: FAMOTIDINE 20 MG TAB PO SCH ×2 (09:25→20:07)
[2019-06-18] MEDS: NICOTINE 14MG/24HR PATCH TRANSDERM SCH (09:25)
[2019-06-18 12:01] LABS: Glucose,Whole Blood 106 mg/dL (75-99)
[2019-06-18] MEDS: MULTIVITAMINS, THERA 1 EACH TAB PO SCH (12:22)
--- NOTE | 2019-06-18 13:00 | P.PN ---
Subjective Progress Note Date: 06/18/19 Patient is a 79-year-old female with a medical history significant for CVA, hypertension, dyslipidemia, and atrial fibrillation who presented with complaints of shortness of breath. Patient states she has seen a conveyancer in the past but does not follow with a conveyancer regularly. She states she w as at home when she became short of breath and felt a tightness and heaviness in her chest. She felt dizzy but she did not pass out. Denies palpitations. She states she has had symptoms like this before and she has passed out from it. She has also had a productive cough. No fevers. She presented to the emergency department for further evaluation. EKG upon admission shows likely atrial flutt er RVR, rate 156. Chest x-ray showed hyperinflation suggestive of COPD, small bilateral pleural effusions. Troponins are abnormal. She was started on IV Cardizem and converted to sinus rhythm with a long postconversion pause. Patient seen and examined resting in bed. States she had some dizziness while in the hospital but is feeling better. Continues to have a productive cough and some shortness of breath. Denies chest pain. 06/17/2019 Patient was seen and examined this morning, she does state that her breathing is improved significantly from presentation here. Patient is currently in a normal sinus rhythm. Blood pressure 140/60 with a heart rate in the 50s, 97% on 2 L of oxygen. Blood cell count 7.4, hemoglobin 12.8, platelet count 228. Sodium 138, potassium 4.0, BUN 14 and creatinine 0.6. We will repeat a chest x-ray tomorrow morning. 06/18/2019 Patient seen and examined this morning, breathing is significantly improved overall. Lungs are clear today.blood pressure 140/60 with a heart rate in the 60s, 93% on room air.White blood cell count 7.7, hemoglobin 12.6, platelet count 226. Sodium 139, potassium 3.9, BUN 13 and creatinine 0.6.we'll continue patient on her current medications. We did again have a discussion with the patient regarding her ablation procedure. Dr. Linda will be in to discuss this further again with her tomorrow. Probable flutter ablation next week. Objective - Vital Signs Vital signs: Vital Signs Temp 97.3 F L 06/18/19 11:28 Pulse 64 06/18/19 11:28 Resp 20 06/18/19 11:28 BP 144/68 06/18/19 11:28 Pulse Ox 93 L 06/18/19 11:28 Intake & Output 06/17/19 06/18/19 06/18/19 18:59 06:59 18:59 Intake Total 240 400 Output Total 3 Balance 240 397 Weight 56.5 kg Intake: Oral 240 400 Output: Stool 3 Other: Voiding Method Toilet Toilet Toilet Incontinent Incontinent Incontinent # Voids 1 2 - Exam GENERAL EXAM: Alert, frail, cachectic 79-year-old female patient, on BiPAP 12/6 and 30% FiO2, more comfortable in no apparent distress. HEAD: Normocephalic. EYES: Normal reaction of pupils, equal size. NOSE: Clear with pink turbinates. THROAT: No erythema or exudates. NECK: No masses, no JVD. CHEST: No chest wall deformity. LUNGS: Equal air entry with crackles bilaterally to the bases. Diminished throughout. CVS: S1 and S2 normal with no audible murmur,regular rhythm. ABDOMEN: No hepatosplenomegaly, normal bowel sounds, no guarding or rigidity. SPINE: No scoliosis or deformity SKIN: No rashes CENTRAL NERVOUS SYSTEM: No focal deficits, tone is normal in all 4 extremities. EXTREMITIES: There is no peripheral edema. No clubbing, no cyanosis. Peripher al pulses are intact. - Labs CBC & Chem 7: 06/18/19 06:10 06/18/19 06:10 Labs: Abnormal Lab Results - Last 24 Hours (Table) 06/17/19 06/18/19 06/18/19 Range/Units 20:37 06:10 06:33 Carbon Dioxide 34 H (22-30) mmol/L POC Glucose (mg/dL) 280 H 119 H (75-99) mg/dL 06/18/19 Range/Units 12:00 Carbon Dioxide (22-30) mmol/L POC Glucose (mg/dL) 106 H (75-99) mg/dL Assessment and Plan Plan: IMPRESSION / ASSESSMENT: #1Symptomatic atrial flutter with RVR, converted on IV Cardizem with long postconversion pause, anticoagulated #2Abnormal troponins, likely type II ID, secondary to demand ischemia secondary to tachycardia arrhythmia #3History of CVA #4Hypertension #5Dyslipidemia #6Current smoker Plan We will repeat the patient's chest x-ray in the morning tomorrow. Dr. Linda again will be reevaluating the patient tomorrow morning, possible flutter ablation early next week. DNP note has been reviewed, I agree with a documented findings and plan of care. Patient was seen and examined.
--- NOTE | 2019-06-18 14:03 | XR ---
EXAMINATION TYPE: XR chest 2V DATE OF EXAM: 06/18/2019 COMPARISON: 06/15/2019 TECHNIQUE: PA and lateral views submitted. HISTORY: Follow-up CHF FINDINGS: The lungs are clear and there is no pneumothorax, pleural effusion, or focal pneumonia. Calcificati ons are seen within the lungs. Atherosclerotic change aorta. Annular calcification seen. Hyperinflati on suggests COPD. Hypertrophic and degenerative change spine. IMPRESSION: 1. No acute process.
--- NOTE | 2019-06-18 17:02 | P.PN ---
Subjective Progress Note Date: 06/18/19 Principal diagnosis: This is a 79-year-old female who was recently admitted with atrial flutter with fast ventricular rate also had elevated troponins and is being closely monitored . Cardiology is following. Currently patient is sitting up in bed and appears to be in no acute distress. Currently patient denies any chest pain, shortness of breath, or palpitations. Patient is afebrile. Patient denies any nausea or vomiting and has been tolerating diet. Active Medications Acetaminophen (Tylenol Tab) 500 mg PO Q6HR PRN PRN Reason: Fever and/ or Mild Pain Hydrocodone Bitart/Acetaminophen ([place] 5-325) 1 each PO Q6HR PRN PRN Reason: Pain Albuterol/Ipratropium (Duoneb 0.5 Mg-3 Mg/3 Ml Soln) 3 ml INHALATION RT-Q6H PRN PRN Reason: Shortness Of Breath Or Wheezing Alprazolam (Xanax) 0.25 mg PO TID PRN PRN Reason: Anxiety Apixaban (Eliquis) 5 mg PO BID [facility] Last Admin: 06/18/19 09:25 Dose: 5 mg Documented by: Atorvastatin Calcium (Lipitor) 20 mg PO [facility] Last Admin: 06/17/19 21:21 Dose: 20 mg Documented by: Clopidogrel Bisulfate (Plavix) 75 mg PO [facility] Last Admin: 06/17/19 21:21 Dose: 75 mg Documented by: Famotidine (Pepcid) 20 mg PO BID [facility] Last Admin: 06/18/19 09:25 Dose: 20 mg Documented by: Fluticasone Propionate (Flonase Nasal [place]) 2 spray EA NOSTRIL [facility] Last Admin: 06/17/19 21:25 Dose: 2 spray Documented by: Levetiracetam (Keppra) 750 mg PO BID@0800,2000 [facility] Last Admin: 06/18/19 09:25 Dose: 750 mg Documented by: Loratadine (Claritin) 10 mg PO [facility] Last Admin: 06/17/19 21:21 Dose: 10 mg Documented by: Metoprolol Tartrate (Lopressor) 25 mg PO BID [facility] Last Admin: 06/18/19 09:25 Dose: 25 mg Documented by: Multivitamins (Theragran) 1 each PO DAILY@1200 [facility] Last Admin: 06/18/19 12:22 Dose: 1 each Documented by: Nicotine (Habitrol 14mg/24hr Patch) 1 patch TRANSDERM DAILY [facility] Last Admin: 06/18/19 09:25 Dose: 1 patch Documented by: Nitroglycerin (Nitrostat) 0.4 mg SUBLINGUAL Q5M PRN PRN Reason: Chest Pain Pantoprazole Sodium (Protonix) 40 mg PO AC-BRKFST [facility] Last Admin: 06/18/19 06:47 Dose: 40 mg Documented by: Objective - Vital Signs Vital signs: Vital Signs Temp 98.1 F 06/18/19 15:12 Pulse 54 L 06/18/19 15:12 Resp 20 06/18/19 15:12 BP 136/65 06/18/19 15:12 Pulse Ox 94 L 06/18/19 15:12 Intake & Output 06/17/19 06/18/19 06/18/19 18:59 06:59 18:59 Intake Total 240 400 Output Total 3 Balance 240 397 Weight 56.5 kg Intake: Oral 240 400 Output: Stool 3 Other: Voiding Method Toilet Toilet Toilet Incontinent Incontinent Incontinent # Voids 1 2 - Exam Gen: This is a 79-year-old female sitting up in bed and appears to be in no acute distress. Temp is 98.1F, pulse is 54, respirations are 20, blood pressure is 136/65, oxygen saturation is 94% on room air. HEENT: Head is atraumatic, normocephalic. Pupils equal, round. Sclerae is anicteric. NECK: Supple. No JVD. No lymphadenopathy. No thyromegaly. LUNGS: Diminished breath sounds at the bases with a few scattered rhonchi and crackles noted. No intercostal retractions. HEART: S1, S2 are muffled ABDOMEN: Soft. Thin. Bowel sounds are present. No masses. No tenderness. EXTREMITIES: No pedal edema. No calf tenderness. NEUROLOGICAL: Patient is awake, alert and oriented x3. Cranial nerves 2 through 12 are grossly intact. - Labs CBC & Chem 7: 06/18/19 06:10 06/18/19 06:10 Labs: Abnormal Lab Results - Last 24 Hours (Table) 06/17/19 06/18/19 06/18/19 Range/Units 20:37 06:10 06:33 Carbon Dioxide 34 H (22-30) mmol/L POC Glucose (mg/dL) 280 H 119 H (75-99) mg/dL 06/18/19 Range/Units 12:00 Carbon Dioxide (22-30) mmol/L POC Glucose (mg/dL) 106 H (75-99) mg/dL Assessment and Plan Assessment: Chronic obstructive pulmonary disease, acute exacerbation Atrial flutter with fast ventricular rate with possible 2:1 AV block converted normal sinus rhythm, paroxysmal Troponin 0.39. Possible acute non-ST segment elevation myocardial infarction type II for supply demand mismatch Increased random blood sugars Increased WBC History of cerebrovascular accident/TIA Hypertension Hyperlipidemia History of degenerative joint disease History of pneumonia History of multiple transient ischemic attacks History of pituitary dysfunction History of ALLERGIES History of adenoidectomy History of cholecystectomy Continue ongoing nicotine dependence Public legal guardian Recommendations and discussions: Recommend to continue current medications, management, and symptomatic treatment. Will continue to monitor closely. Cardiology is following closely and planning for atrial flutter ablation. Repeat chest x-ray today shows no acute process with some hyperinflation suggesting COPD and some calcifications within the lungs. Prognosis is guarded due to multiple complex medical issues. Further recommendations to follow.
[2019-06-18 17:05] LABS: Glucose,Whole Blood 113 mg/dL (75-99)
[2019-06-18] MEDS: LORATADINE 10 MG TAB PO SCH (20:07)
[2019-06-18] MEDS: ATORVASTATIN 20 MG TAB PO SCH (20:07)
[2019-06-18] MEDS: FLUTICASONE 50MCG/SPRAY NASAL 16GM EA NOSTRIL SCH (20:07)
[2019-06-18] MEDS: CLOPIDOGREL 75 MG TAB PO SCH (20:07)
[2019-06-18 20:40] LABS: Glucose,Whole Blood 186 mg/dL (75-99)
[2019-06-19 06:18] LABS: Glucose,Whole Blood 104 mg/dL (75-99)
[2019-06-19] MEDS: APIXABAN 5 MG TAB PO SCH ×2 (08:22→21:36)
[2019-06-19] MEDS: FAMOTIDINE 20 MG TAB PO SCH ×2 (08:22→21:35)
[2019-06-19] MEDS: METOPROLOL TARTRATE 25 MG TAB PO SCH ×2 (08:22→21:35)
[2019-06-19] MEDS: NICOTINE 14MG/24HR PATCH TRANSDERM SCH (08:22)
[2019-06-19] MEDS: PANTOPRAZOLE 40 MG TABLET PO SCH (08:22)
--- NOTE | 2019-06-19 11:13 | P.PN ---
Subjective Progress Note Date: 06/19/19 Patient is a 79-year-old female with a medical history significant for CVA, hypertension, dyslipidemia, and atrial fibrillation who presented with complaints of shortness of breath. Patient states she has seen a cuff runner in the past but does not follow with a cuff runner regularly. She states she w as at home when she became short of breath and felt a tightness and heaviness in her chest. She felt dizzy but she did not pass out. Denies palpitations. She states she has had symptoms like this before and she has passed out from it. She has also had a productive cough. No fevers. She presented to the emergency department for further evaluation. EKG upon admission shows likely atrial flutt er RVR, rate 156. Chest x-ray showed hyperinflation suggestive of COPD, small bilateral pleural effusions. Troponins are abnormal. She was started on IV Cardizem and converted to sinus rhythm with a long postconversion pause. Patient seen and examined resting in bed. States she had some dizziness while in the hospital but is feeling better. Continues to have a productive cough and some shortness of breath. Denies chest pain. 06/17/2019 Patient was seen and examined this morning, she does state that her breathing is improved significantly from presentation here. Patient is currently in a normal sinus rhythm. Blood pressure 140/60 with a heart rate in the 50s, 97% on 2 L of oxygen. Blood cell count 7.4, hemoglobin 12.8, platelet count 228. Sodium 138, potassium 4.0, BUN 14 and creatinine 0.6. We will repeat a chest x-ray tomorrow morning. 06/18/2019 Patient seen and examined this morning, breathing is significantly improved overall. Lungs are clear today.blood pressure 140/60 with a heart rate in the 60s, 93% on room air.White blood cell count 7.7, hemoglobin 12.6, platelet count 226. Sodium 139, potassium 3.9, BUN 13 and creatinine 0.6.we'll continue patient on her current medications. We did again have a discussion with the patient regarding her ablation procedure. Dr. Linda will be in to discuss this further again with her tomorrow. Probable flutter ablation next week. 06/19/2019 Patient seen and examined this morning, overall doing well, breathing is stable. Chest x-ray did not reveal any acute process. Blood pressure 138/70 with a heart rate in the 60s, 94% on 2 L of oxygen. Objective - Vital Signs Vital signs: Vital Signs Temp 97.2 F L 06/19/19 04:00 Pulse 82 06/19/19 08:00 Resp 20 06/19/19 08:00 BP 141/94 06/19/19 08:00 Pulse Ox 95 06/19/19 08:00 Intake & Output 06/18/19 06/19/19 06/19/19 18:59 06:59 18:59 Intake Total 400 240 Output Total 565 Balance -165 240 Intake: Oral 400 240 Output: Urine 560 Stool 5 Other: Voiding Method Toilet Toilet Incontinent Incontinent # Voids 1 1 1 - Exam GENERAL EXAM: Alert, frail, cachectic 79-year-old female patient, on BiPAP 12/6 and 30% FiO2, more comfortable in no apparent distress. HEAD: Normocephalic. EYES: Normal reaction of pupils, equal size. NOSE: Clear with pink turbinates. THROAT: No erythema or exudates. NECK: No masses, no JVD. CHEST: No chest wall deformity. LUNGS: Clear to auscultation with decreased air exchange, improved significantly overall. CVS: S1 and S2 normal with no audible murmur,regular rhythm. ABDOMEN: No hepatosplenomegaly, normal bowel sounds, no guarding or rigidity. SPINE: No scoliosis or deformity SKIN: No rashes CENTRAL NERVOUS SYSTEM: No focal deficits, tone is normal in all 4 extremities. EXTREMITIES: There is no peripheral edema. No clubbing, no cyanosis. Cele pheral pulses are intact. - Labs CBC & Chem 7: 06/18/19 06:10 06/18/19 06:10 Labs: Abnormal Lab Results - Last 24 Hours (Table) 06/18/19 06/18/19 06/18/19 Range/Units 12:00 17:04 20:38 POC Glucose (mg/dL) 106 H 113 H 186 H (75-99) mg/dL 06/19/19 Range/Units 06:17 POC Glucose (mg/dL) 104 H (75-99) mg/dL Assessment and Plan Plan: IMPRESSION / ASSESSMENT: #1Symptomatic atrial flutter with RVR, converted on IV Cardizem with long postconversion pause, anticoagulated #2Abnormal troponins, likely type II VT, secondary to demand ischemia secondary to tachycardia arrhythmia #3History of CVA #4Hypertension #5Dyslipidemia #6Current smoker Plan We'll continue this patient on her current medications. Dr. Linda will be in to speak with the patient regarding timing of ablation. DNP note has been reviewed, I agree with a documented findings and plan of care. Patient was seen and examined.
[2019-06-19] MEDS: MULTIVITAMINS, THERA 1 EACH TAB PO SCH (12:14)
[2019-06-19 12:23] LABS: Glucose,Whole Blood 93 mg/dL (75-99)
[2019-06-19 17:27] LABS: Glucose,Whole Blood 122 mg/dL (75-99)
[2019-06-19 21:14] LABS: Glucose,Whole Blood 123 mg/dL (75-99)
[2019-06-19] MEDS: CLOPIDOGREL 75 MG TAB PO SCH (21:35)
[2019-06-19] MEDS: LORATADINE 10 MG TAB PO SCH (21:35)
[2019-06-19] MEDS: FLUTICASONE 50MCG/SPRAY NASAL 16GM EA NOSTRIL SCH (21:35)
[2019-06-19] MEDS: ATORVASTATIN 20 MG TAB PO SCH (21:36)
--- NOTE | 2019-06-19 21:37 | PN ---
PROGRESS NOTE DATE OF SERVICE: 06/19/2019 This 79-year-old woman was admitted with COPD acute exacerbation, atrial flutter with fast ventricular rate, is being closely monitored. Cardiology is following the patient. The most recent chest x-ray reviewed. The patient is on multiple medications. EXAM: Alert and oriented x3. Pulse 52, blood pressure 150/60, respiration 20, temperature 98.7, pulse ox 94% on room air. HEENT: Conjunctivae normal. Oral mucosa moist. NECK: No jugular venous distention. No lymph node enlargement. CARDIOVASCULAR: S1, S2. RESPIRATORY: Diminished breath sounds at the bases. Scattered rhonchi, no crackles. ABDOMEN: Soft, nontender. LEGS: No edema, no swelling. NERVOUS SYSTEM: No focal deficits. LABS: CBC, BMP noted. ASSESSMENT: 1. Chronic obstructive pulmonary disease acute exacerbation, present on admission. 2. Atrial flutter with fast ventricular rate with possible 2:1 AV block, converted to normal sinus rhythm paroxysmal. 3. Troponin 0.39, indeterminate, possibly supply demand mismatch. 4. Increased random blood sugar. 5. Increased WBC. 6. History of cerebrovascular accident/transient ischemic attack. 7. Hypertension. 8. Hyperlipidemia. 9. History of degenerative joint disease. 10.History of pneumonia. 11.History of multiple transient ischemic attacks. 12.History of pituitary dysfunction. 13.History of multiple allergies. 14.History of adenoidectomy. 15.History of cholecystectomy. 16.History of continued ongoing nicotine dependence. 17.Multiple seasonal allergies. 18.Probate legal guardian. RECOMMENDATIONS AND DISCUSSION: Recommend to continue current medications, continue symptomatic treatment. Otherwise, continue monitoring. The patient is on beta blockers, closely follow with Cardiology. Continue with Eliquis. Guarded prognosis because of multiple complex medical issues. Further recommendations to follow. MMODL / IJN: [id number] /
[2019-06-20 06:18] LABS: Glucose,Whole Blood 97 mg/dL (75-99)
[2019-06-20] MEDS: NICOTINE 14MG/24HR PATCH TRANSDERM SCH ×2 (07:07→08:51)
[2019-06-20] MEDS: METOPROLOL TARTRATE 25 MG TAB PO SCH ×2 (08:51→22:02)
[2019-06-20] MEDS: FAMOTIDINE 20 MG TAB PO SCH ×2 (08:51→22:03)
[2019-06-20] MEDS: APIXABAN 5 MG TAB PO SCH ×2 (08:51→22:03)
--- NOTE | 2019-06-20 11:31 | P.PN ---
Subjective Progress Note Date: 06/20/19 Patient is a 79-year-old female with a medical history significant for CVA, hypertension, dyslipidemia, and atrial fibrillation who presented with complaints of shortness of breath. Patient states she has seen a bi analyst in the past but does not follow with a bi analyst regularly. She states she w as at home when she became short of breath and felt a tightness and heaviness in her chest. She felt dizzy but she did not pass out. Denies palpitations. She states she has had symptoms like this before and she has passed out from it. She has also had a productive cough. No fevers. She presented to the emergency department for further evaluation. EKG upon admission shows likely atrial flutt er RVR, rate 156. Chest x-ray showed hyperinflation suggestive of COPD, small bilateral pleural effusions. Troponins are abnormal. She was started on IV Cardizem and converted to sinus rhythm with a long postconversion pause. Patient seen and examined resting in bed. States she had some dizziness while in the hospital but is feeling better. Continues to have a productive cough and some shortness of breath. Denies chest pain. 06/17/2019 Patient was seen and examined this morning, she does state that her breathing is improved significantly from presentation here. Patient is currently in a normal sinus rhythm. Blood pressure 140/60 with a heart rate in the 50s, 97% on 2 L of oxygen. Blood cell count 7.4, hemoglobin 12.8, platelet count 228. Sodium 138, potassium 4.0, BUN 14 and creatinine 0.6. We will repeat a chest x-ray tomorrow morning. 06/18/2019 Patient seen and examined this morning, breathing is significantly improved overall. Lungs are clear today.blood pressure 140/60 with a heart rate in the 60s, 93% on room air.White blood cell count 7.7, hemoglobin 12.6, platelet count 226. Sodium 139, potassium 3.9, BUN 13 and creatinine 0.6.we'll continue patient on her current medications. We did again have a discussion with the patient regarding her ablation procedure. Dr. Linda will be in to discuss this further again with her tomorrow. Probable flutter ablation next week. 06/19/2019 Patient seen and examined this morning, overall doing well, breathing is stable. Chest x-ray did not reveal any acute process. Blood pressure 138/70 with a heart rate in the 60s, 94% on 2 L of oxygen. 06/20/2019 Patient seen and examined this morning, overall feeling well. Remaining in normal sinus rhythm. We will discuss with Dr. Tsang regarding timing of ab lation, continue current medications. Blood pressure 142/60 with a heart rate in the 50s, 97% on room air. Objective - Vital Signs Vital signs: Vital Signs Temp 98.2 F 06/20/19 08:00 Pulse 56 L 06/20/19 08:00 Resp 20 06/20/19 08:00 BP 149/67 06/20/19 08:00 Pulse Ox 97 06/20/19 08:00 Intake & Output 06/19/19 06/20/19 06/20/19 18:59 06:59 18:59 Intake Total 240 400 240 Output Total 284 Balance 240 116 240 Weight 55.6 kg Intake: Oral 240 400 240 Output: Urine 280 Stool 4 Other: Voiding Method Toilet Incontinent # Voids 1 1 - Exam GENERAL EXAM: Alert, frail, cachectic 79-year-old female patient, on BiPAP 12/6 and 30% FiO2, more comfortable in no apparent distress. HEAD: Normocephalic. EYES: Normal reaction of pupils, equal size. NOSE: Clear with pink turbinates. THROAT: No erythema or exudates. NECK: No masses, no JVD. CHEST: No chest wall deformity. LUNGS: Clear to auscultation with decreased air exchange, improved significantly overall. CVS: S1 and S2 normal with no audible murmur,regular rhythm. ABDOMEN: No hepatosplenomegaly, normal bowel sounds, no guarding or rigidity. SPINE: No scoliosis or deformity SKIN: No rashes CENTRAL NERVOUS SYSTEM: No focal deficits, tone is normal in all 4 extremities. EXTREMITIES: There is no peripheral edema. No clubbing, no cyanosis. Peripheral pulses are intact. - Labs CBC & Chem 7: 06/18/19 06:10 06/18/19 06:10 Labs: Abnormal Lab Results - Last 24 Hours (Table) 06/19/19 06/19/19 Range/Units 17:26 21:13 POC Glucose (mg/dL) 122 H 123 H (75-99) mg/dL Assessment and Plan Plan: IMPRESSION / ASSESSMENT: #1Symptomatic atrial flutter with RVR, converted on IV Cardizem with long postconversion pause, anticoagulated #2Abnormal troponins, likely type II [place], secondary to demand ischemia secondary to tachycardia arrhythmia #3History of CVA #4Hypertension #5Dyslipidemia #6Current smoker Plan We'll continue this patient on her current medications. We'll discuss with Dr. Linda regarding timing of ablation. DNP note has been reviewed, I agree with a documented findings and plan of care. Patient was seen and examined.
[2019-06-20 12:07] LABS: Glucose,Whole Blood 129 mg/dL (75-99)
[2019-06-20] MEDS: MULTIVITAMINS, THERA 1 EACH TAB PO SCH (12:31)
[2019-06-20 17:37] LABS: Glucose,Whole Blood 125 mg/dL (75-99)
[2019-06-20 20:55] LABS: Glucose,Whole Blood 127 mg/dL (75-99)
[2019-06-20] MEDS: LORATADINE 10 MG TAB PO SCH (22:03)
[2019-06-20] MEDS: CLOPIDOGREL 75 MG TAB PO SCH (22:03)
[2019-06-20] MEDS: ATORVASTATIN 20 MG TAB PO SCH (22:03)
[2019-06-20] MEDS: FLUTICASONE 50MCG/SPRAY NASAL 16GM EA NOSTRIL SCH (22:04)
--- NOTE | 2019-06-21 00:21 | PN ---
PROGRESS NOTE DATE OF SERVICE: 06/20/2019 This 79-year-old woman was admitted with COPD acute exacerbation also had atrial flutter. Dr. Linda is planning further evaluation including EP studies. No chest pain. No palpitation. The patient on bronchodilators. EXAM: Alert and oriented times three. Pulse is 50. Blood pressure 141/60, respiration 20, temperature 97.8, pulse ox 94% on room air. HEENT: Conjunctivae normal. NECK: No JVD. CARDIOVASCULAR: S1, S2 muffled. RESPIRATORY: Breath sounds diminished in the bases. Bilateral scattered rhonchi and crackles. ABDOMEN is soft, nontender. LEGS are no edema. No swelling. CENTRAL NERVOUS SYSTEM: No focal deficits. LABS: CBC noted. Accu-Cheks 123, 125. ASSESSMENT: 1. Chronic obstructive pulmonary disease acute exacerbation with acute purulent tracheobronchitis, present on admission. 2. Atrial flutter with fast ventricular rate with possible 2:1 AV block converted to normal sinus rhythm proximal. 3. Troponin 0.39, indeterminate possibly supply demand mismatch. 4. Increased random blood sugar. 5. Increased WBC. 6. History of cerebrovascular accident, transient ischemic attack. 7. Hypertension. 8. Hyperlipidemia. 9. History of degenerative joint disease. 10.History of pneumonia. 11.History of multiple transient ischemic attacks. 12.History of pituitary dysfunction. 13.History of multiple allergies. 14.History of adenoidectomy. 15.History of cholecystectomy. 16.History of continued ongoing nicotine dependence. 17.Multiple seasonal allergies. 18.Probate legal guardian. RECOMMENDATIONS AND DISCUSSION: I recommend to continue current medications, management and symptomatic treatment. Continue the bronchodilators. Continue with symptomatic treatment. Patient is on apixaban as well as beta blockers. Closely follow with Cardiology. Guarded prognosis. Further recommendations to follow. MMODL / IJN: [id number] /
[2019-06-21 03:11] VITALS: RESP 18
[2019-06-21 06:27] LABS: Glucose,Whole Blood 124 mg/dL (75-99)
[2019-06-21 06:38] LABS: African American GFR (CKD) >90 (>60 ml/min/1.73 sqM); Anion Gap 7 mmol/L; Blood Urea Nitrogen 9 mg/dL (7-17); Calcium 9.1 mg/dL (8.4-10.2); Carbon Dioxide 27 mmol/L (22-30); Chloride 106 mmol/L (98-107); Glucose 106 mg/dL (74-99); Non-African American GFR(CKD) 88 (>60 ml/min/1.73 sqM); Potassium 4.5 mmol/L (3.5-5.1); Sodium 140 mmol/L (137-145)
[2019-06-21] MEDS: METOPROLOL TARTRATE 25 MG TAB PO SCH (09:08)
[2019-06-21] MEDS: MULTIVITAMINS, THERA 1 EACH TAB PO SCH (09:08)
[2019-06-21] MEDS: FAMOTIDINE 20 MG TAB PO SCH (09:08)
[2019-06-21] MEDS: APIXABAN 5 MG TAB PO SCH (09:08)
[2019-06-21] MEDS: NICOTINE 14MG/24HR PATCH TRANSDERM SCH (09:09)
[2019-06-21 10:53] VITALS: TEMP 97.6
--- NOTE | 2019-06-21 12:16 | P.PN ---
Subjective Progress Note Date: 06/21/19 Patient is a 79-year-old female with a medical history significant for CVA, hypertension, dyslipidemia, and atrial fibrillation who presented with complaints of shortness of breath. Patient states she has seen a pediatric licensed practical nurse in the past but does not follow with a pediatric licensed practical nurse regularly. She states she w as at home when she became short of breath and felt a tightness and heaviness in her chest. She felt dizzy but she did not pass out. Denies palpitations. She states she has had symptoms like this before and she has passed out from it. She has also had a productive cough. No fevers. She presented to the emergency department for further evaluation. EKG upon admission shows likely atrial flutt er RVR, rate 156. Chest x-ray showed hyperinflation suggestive of COPD, small bilateral pleural effusions. Troponins are abnormal. She was started on IV Cardizem and converted to sinus rhythm with a long postconversion pause. Patient seen and examined resting in bed. States she had some dizziness while in the hospital but is feeling better. Continues to have a productive cough and some shortness of breath. Denies chest pain. 06/17/2019 Patient was seen and examined this morning, she does state that her breathing is improved significantly from presentation here. Patient is currently in a normal sinus rhythm. Blood pressure 140/60 with a heart rate in the 50s, 97% on 2 L of oxygen. Blood cell count 7.4, hemoglobin 12.8, platelet count 228. Sodium 138, potassium 4.0, BUN 14 and creatinine 0.6. We will repeat a chest x-ray tomorrow morning. 06/18/2019 Patient seen and examined this morning, breathing is significantly improved overall. Lungs are clear today.blood pressure 140/60 with a heart rate in the 60s, 93% on room air.White blood cell count 7.7, hemoglobin 12.6, platelet count 226. Sodium 139, potassium 3.9, BUN 13 and creatinine 0.6.we'll continue patient on her current medications. We did again have a discussion with the patient regarding her ablation procedure. Dr. Linda will be in to discuss this further again with her tomorrow. Probable flutter ablation next week. 06/19/2019 Patient seen and examined this morning, overall doing well, breathing is stable. Chest x-ray did not reveal any acute process. Blood pressure 138/70 with a heart rate in the 60s, 94% on 2 L of oxygen. 06/20/2019 Patient seen and examined this morning, overall feeling well. Remaining in normal sinus rhythm. We will discuss with Dr. Tsang regarding timing of ab lation, continue current medications. Blood pressure 142/60 with a heart rate in the 50s, 97% on room air. 06/21/2019 Patient seen and examined this morning, remaining in normal sinus rhythm, doing well. I spoke with Dr. Linda this afternoon, he will schedule her ablation procedure as an outpatient, she may be able to be discharged from our perspective, the office will call her with an appointment. Objective - Vital Signs Vital signs: Vital Signs Temp 97.6 F 06/21/19 08:10 Pulse 68 06/21/19 08:10 Resp 18 06/21/19 08:10 BP 107/68 06/21/19 08:10 Pulse Ox 97 06/21/19 08:10 Intake & Output 06/20/19 06/21/19 06/21/19 18:59 06:59 18:59 Intake Total 240 240 240 Balance 240 240 240 Weight 53 kg Intake: Oral 240 240 240 Other: Voiding Method Toilet Incontinent # Voids 1 1 # Bowel Movements 1 1 - Exam GENERAL EXAM: Alert, frail, cachectic 79-year-old female patient, on BiPAP 12/6 and 30% FiO2, more comfortable in no apparent distress. HEAD: Normocephalic. EYES: Normal reaction of pupils, equal size. NOSE: Clear with pink turbinates. THROAT: No erythema or exudates. NECK: No masses, no JVD. CHEST: No chest wall deformity. LUNGS: Clear to auscultation with decreased air exchange, improved significantly overall. CVS: S1 and S2 normal with no audible murmur,regular rhythm. ABDOMEN: No hepatosplenomegaly, normal bowel sounds, no guarding or rigidity. SPINE: No scoliosis or deformity SKIN: No rashes CENTRAL NERVOUS SYSTEM: No focal deficits, tone is normal in all 4 extremities. EXTREMITIES: There is no peripheral edema. No clubbing, no cyanosis. Peripheral pulses are intact. - Labs CBC & Chem 7: 06/18/19 06:10 06/21/19 05:47 Labs: Abnormal Lab Results - Last 24 Hours (Table) 06/20/19 06/20/19 06/21/19 Range/Units 17:36 20:53 05:47 Glucose 106 H (74-99) mg/dL POC Glucose (mg/dL) 125 H 127 H (75-99) mg/dL 06/21/19 Range/Units 06:25 Glucose (74-99) mg/dL POC Glucose (mg/dL) 124 H (75-99) mg/dL Assessment and Plan Plan: IMPRESSION / ASSESSMENT: #1Symptomatic atrial flutter with RVR, converted on IV Cardizem with long postconversion pause, anticoagulated #2Abnormal troponins, likely type II MA, secondary to demand ischemia secondary to tachycardia arrhythmia #3History of CVA #4Hypertension #5Dyslipidemia #6Current smoker Plan We'll continue this patient on her current medications. Patient may be discharged home from our perspective. The office will call regarding timing of her flutter ablation. DNP note has been reviewed, I agree with a documented findings and plan of care. Patient was seen and examined.
[2019-06-21 12:36] LABS: Glucose,Whole Blood 102 mg/dL (75-99)
[2019-06-21 13:39] VITALS: BMI 21.3
--- NOTE | 2019-06-21 14:56 | DS ---
DISCHARGE SUMMARY DATE OF ADMISSION: 06/15/2019 DATE OF DISCHARGE: 06/21/2019 FINAL DIAGNOSES: 1. Acute chronic obstructive pulmonary disease exacerbation in a current smoker. 2. Paroxysmal atrial flutter, now in sinus rhythm. 3. Troponin leak secondary to atrial flutter, not acute coronary syndrome. 4. Hyperlipidemia. 5. Essential hypertension. 6. Primary osteoarthritis. 7. Moderate mitral regurgitation, moderate tricuspid regurgitation, moderate mitral stenosis, nonrheumatic. 8. Hypertensive heart disease. 9. CODE STATUS: DO NOT RESUSCITATE. 10.Patient has a probate legal guardian. CONSULTATION: Dr. Neptali Linda from Cardiology. HOSPITAL COURSE: This patient is a smoker, presented with COPD exacerbation and atrial flutter. Patient went back into sinus rhythm, rate was uncontrolled when initially presented. Seen by Dr. Linda from EP services. The patient will follow up as an outpatient for further studies. The patient had a 2-D echocardiogram in February of 2019 that showed EF of 60%-65%. Moderate mitral regurgitation, moderate mitral stenosis, moderate tricuspid regurgitation and severe concentric left ventricular hypertrophy. The patient was stable at the time of discharge. Breathing was stable. Care was discussed with the patient. PHYSICAL EXAMINATION: Temperature 97.6, pulse 68, respirations 16, blood pressure 115/63, pulse 99% on room air lungs. Decreased breath sounds. CARDIOVASCULAR: First and second sounds sound normal. PSYCHIATRY: Answering questions. MUSCULOSKELETAL: Evidence of osteoarthritis. INVESTIGATIONS: Potassium 4.5, BUN 9, creatinine 0.61. DISCHARGE MEDICATIONS: Flonase 2 sprays each nostril q.h.s., Claritin 10 mg q.h.s., Lopressor 25 mg b.i.d., nicotine 14 mg patch. FOLLOWUP: Follow up with Dr. Linda in 1 week. Follow up with Dr. Rodriguez at the [facility]. DISPOSITION: [facility], [place]. MMODL / IJN: [id number] /
[2019-06-21 16:42] VITALS: BP 144/67; PULSE 58
== END 2019-06-21 17:40 | DRG 191 ==
LOC: EC 12:40 → 3SCARD 14:20
PROVIDERS: ADMIT Hospitalist; ATTEND Hospitalist
DX: J44.1 Chronic obstructive pulmonary disease with (acute) exacerbation (principal); I48.92 Unspecified atrial flutter; E78.5 Hyperlipidemia, unspecified; F17.200 Nicotine dependence, unspecified, uncomplicated; F41.9 Anxiety disorder, unspecified; I08.1 Rheumatic disorders of both mitral and tricuspid valves; I11.9 Hypertensive heart disease without heart failure; M19.91 Primary osteoarthritis, unspecified site; Z66 Do not resuscitate; J30.2 Other seasonal allergic rhinitis; Z79.01 Long term (current) use of anticoagulants; Z79.02 Long term (current) use of antithrombotics/antiplatelets; Z79.899 Other long term (current) drug therapy; Z79.82 Long term (current) use of aspirin; Z80.9 Family history of malignant neoplasm, unspecified; Z86.73 Personal history of transient ischemic attack (TIA), and cerebral infarction without residual deficits; Z87.01 Personal history of pneumonia (recurrent); Z90.49 Acquired absence of other specified parts of digestive tract; Z90.89 Acquired absence of other organs; Z98.890 Other specified postprocedural states
CPT/HCPCS: 36415; 71046; 80048; 80053; 80061; 83735; 84443; 84484; 85025; 85610; 85730; 93005; 94760; 96365; 96366; 96376; 99291

== ENCOUNTER 2019-07-07 05:35 | Day surgery (SDC) | payer MEDICARE ==
[2019-07-05 14:43] VITALS: BMI 21.2
[~2019-07-07 05:35] MED LIST: DEXAMETHASONE SOD PHOSPHATE 10 MG/ML 1 ML VIAL IV ONE; LIDOCAINE 1% 20 ML VIAL (10MG/ML) FOR IV START INTRADERMA PRN; ONDANSETRON 4 MG/2 ML VIAL IVP ONE
[2019-07-07] MEDS: SODIUM CHLORIDE 0.9% 1,000 ML IV SCH (06:25)
[2019-07-07] MEDS ORDERED: PROPOFOL 10 MG/ML 20 ML VIAL IV ONE (07:30)
[2019-07-07] MEDS ORDERED: GLYCOPYRROLATE 0.2 MG/ML 2 ML VIAL ONE (07:30)
[2019-07-07] MEDS ORDERED: ROCURONIUM BROMIDE 10 MG/ML 10 ML VIAL IV ONE (07:30)
[2019-07-07] MEDS ORDERED: PHENYLEPHRINE-0.9% NACL SYG 1 MG/10 ML SYRINGE ONE (07:30)
[2019-07-07] MEDS ORDERED: ISOPROTERENOL 250 MCG/1.25 ML SYR IV ONE (07:30)
[2019-07-07] MEDS ORDERED: fentaNYL (PF) 50 MCG/ML 2 ML AMP ONE (07:30)
[2019-07-07] MEDS ORDERED: SUCCINYLCHOLINE CHLORIDE 100 MG/5 ML SYR IV ONE (07:30)
[2019-07-07] MEDS ORDERED: ePHEDrine SULFATE/0.9% NACL/PF 50 MG/5 ML SYRINGE IV ONE (07:30)
[2019-07-07] MEDS ORDERED: MIDAZOLAM 2 MG/2 ML VIAL ONE (07:30)
[2019-07-07] MEDS ORDERED: WATER FOR INJECTION, STERILE 10 ML VIAL IV ONE (07:30)
[2019-07-07] MEDS ORDERED: NEOSTIGMINE 1 MG/ML 10 ML VIAL ONE (07:30)
[2019-07-07] MEDS ORDERED: LIDOCAINE 1% INJ 10MG/ML (20 ML MDV) ONE (07:42)
[2019-07-07] MEDS ORDERED: HEPARIN SODIUM 1,000 UN/ML (10ML VL) ONE (07:43)
[2019-07-07] MEDS ORDERED: HEPARIN SODIUM (1,000 UNIT/ML) 1,000 UNIT in SODIUM CHLORIDE 0.9% 1,000 ML IRRIGATION ONE (07:57)
[2019-07-07] MEDS ORDERED: LIDOCAINE 1% INJ 10MG/ML (20 ML MDV) SQ ONE ×2 (08:01)
[2019-07-07] MEDS ORDERED: HYDROcodone/APAP 5-325MG 1 EACH TAB PO PRN (09:02)
[2019-07-07] MEDS ORDERED: ACETAMINOPHEN TAB 325 MG TAB PO PRN (09:02)
[2019-07-07] MEDS ORDERED: APIXABAN 5 MG TAB PO ONE (09:15)
[2019-07-07] MEDS ORDERED: SODIUM CHLORIDE 0.9% 1,000 ML IV ONE (10:11)
[2019-07-07] MEDS ORDERED: ACETAMINOPHEN IV (For NPO) 1,000 MG in EMPTY BAG 1 BAG IVPB ONE (13:00)
[2019-07-07] MEDS: LACTATED RINGERS 1,000 ML IV SCH ×2 (15:19→15:20)
--- NOTE | 2019-07-07 20:46 | PCN ---
PROCEDURE NOTE This is a 79-year-old female who presented with typical atrial flutter with RVR followed by a very long post-conversion pause, was anticoagulated and the she was brought in for an EP study and radiofrequency ablation. DESCRIPTION OF PROCEDURE: The patient is brought to the EP lab in a fasting state. Written informed consent was obtained prior to the procedure. The procedure was performed under general anesthesia. The patient was in sinus rhythm at the start of the study. Sinus cycle length 831 milliseconds. KS interval 142 milliseconds, QRS 99 milliseconds, QT 416 milliseconds. AH interval 99 millisecond, HV interval 45 milliseconds. Sinus node recovery times of 600, 500 and 400 millisecond were 1338, 1314 and 929 milliseconds. AV node Wenckebach block 300 milliseconds. No slow pathway conduction. No delta waves. VA Wenckebach block 420 milliseconds. The coronary sinus catheter was placed and high right atrial catheter was placed in the high right atrium, HIS bundle area RV. Intracardiac echocardiography was performed. No pericardial effusion was noted. LV function was normal. The right atrial isthmus was mapped. 3D anatomic mapping was performed. The patient had a short isthmus but with at least 3 punctures in the isthmus. RF ablation was applied. Linear ablation was performed, each lesion was delivered for 15 seconds at 40 duarte. A complete RF line of block was made. Following that, a bidirectional block was confirmed. Thereafter, high-dose Isuprel was used to induce atrial pacing. No atrial fibrillation was induced. IMPRESSION: 1. Typical atrial flutter with RVR. 2. Very long post-conversion pause documented as an inpatient. 3. Underlying sick sinus syndrome. 4. Status post atrial flutter ablation with confirmed bidirectional block. PLAN: Continue anticoagulation and follow with Dr. Linda. Continue that. MMODL / IJN: [id number] /
[2019-07-07] MEDS ORDERED: LORATADINE 10 MG TAB PO SCH (21:00)
[2019-07-07] MEDS ORDERED: ATORVASTATIN 20 MG TAB PO SCH (21:00)
[2019-07-07] MEDS ORDERED: CLOPIDOGREL 75 MG TAB PO SCH (21:00)
[2019-07-07] MEDS: FLUTICASONE 50MCG/SPRAY NASAL 16GM EA NOSTRIL SCH (21:39)
[2019-07-07] MEDS: FAMOTIDINE 20 MG TAB PO SCH (21:39)
[2019-07-07] MEDS: METOPROLOL TARTRATE 25 MG TAB PO SCH (21:40)
[2019-07-07] MEDS: APIXABAN 5 MG TAB PO SCH (21:40)
[2019-07-07 21:59] VITALS: RESP 16
[2019-07-08] MEDS: FAMOTIDINE 20 MG TAB PO SCH (08:38)
[2019-07-08] MEDS: METOPROLOL TARTRATE 25 MG TAB PO SCH (08:38)
[2019-07-08] MEDS: FLUTICASONE 50MCG/SPRAY NASAL 16GM EA NOSTRIL SCH (08:38)
[2019-07-08] MEDS: APIXABAN 5 MG TAB PO SCH (08:38)
[2019-07-08] MEDS ORDERED: ASPIRIN 81 MG PO SCH (09:00)
[2019-07-08] MEDS: SODIUM CHLORIDE 0.9% 1,000 ML IV SCH (10:12)
[2019-07-08] MEDS: LACTATED RINGERS 1,000 ML IV SCH (10:12)
[2019-07-08 11:38] VITALS: BP 131/60; PULSE 70; TEMP 98.2
--- NOTE | 2019-07-08 12:46 | P.DS ---
Providers Attending physician: Neptali Linda Primary care physician: [facility] Course: Patient is doing well No chest discomfort dizziness lightheadedness palpitations she feels well Groins of healed well No hematoma no swelling Blood pressure 131/60 mmHg pulse rate in the 70s afebrile 98.2F Breath sounds are clear no rhonchi no crackles Heart sounds S1 and S2 are normal no murmurs gallop or rub Abdomen soft Impression Typical atrial flutter with RVR Very prolonged postconversion pauses with underlying Sick Sinus Syndrome Status post successful atrial flutter ablation with bidirectional block Suggest Discharge home No changes in medications Continue ELIQUIS continue Plavix Follow-up in one week Plan - Discharge Summary Discharge Rx Participant: No New Discharge Prescriptions: No Action Fluticasone Nasal [place] [Flonase Nasal [place]] 2 spray EA NOSTRIL HS Loratadine [Claritin] 10 mg PO HS Atorvastatin [Lipitor] 20 mg PO HS Clopidogrel [Plavix] 75 mg PO HS Famotidine [Pepcid] 20 mg PO BID levETIRAcetam [Keppra] 750 mg PO BID@ Metoprolol Tartrate [Lopressor] 25 mg PO BID #0 tab Aspirin 81 mg PO DAILY Apixaban [Eliquis] 5 mg PO BID Discharge Medication List Fluticasone Nasal [place] [Flonase Nasal [place]] 2 spray EA NOSTRIL HS 02/25/19 [History] Loratadine [Claritin] 10 mg PO HS 02/25/19 [History] Atorvastatin [Lipitor] 20 mg PO HS 05/02/19 [History] Clopidogrel [Plavix] 75 mg PO HS 06/09/19 [History] Famotidine [Pepcid] 20 mg PO BID 06/09/19 [History] levETIRAcetam [Keppra] 750 mg PO BID@799,199906/09/19 [History] Metoprolol Tartrate [Lopressor] 25 mg PO BID #0 tab 06/21/19 [Rx] Apixaban [Eliquis] 5 mg PO BID 07/06/19 [History] Aspirin 81 mg PO DAILY 07/06/19 [History] Follow up Appointment(s)/Referral(s): Neptali Linda MD [STAFF PHYSICIAN] - 07/16/19 4:00 pm (With Jacquelline CL[facility]ORTER.) Patient Instructions/Handouts: Heart Healthy Diet (DC), Cardiac Ablation (DC) Activity/Diet/Wound Care/Special Instructions: Post EP study - Ablation instructions 1. Keep access sites dry for 2 days. 2. No heavy lifting or straining for 2 days. 3. Avoid bending the hips repeatedly for 2 days. 4. You may go up and down stairs slowly Call if the following is noted 1. Bleeding, increasing swelling or pain at the access sites. 2. Increasing chest discomfort, especially upon taking a deep breath. 3. Increasing shortness of breath, at rest or with exertion. 4. Undue cough / phlegm 5. Difficulty or pain while swallowing. 6. Pain or change in color in the extremities. 7. Fever, chills, rigors. 8. Increasing headache or neurologic symptoms. 9. Dizziness, fainting, palpitations Continue and granulation
== END 2019-07-08 13:30 | disposition home or self-care (01) ==
LOC: CATHEP 05:35 → 3SCARD 12:43 → CATHEP 07-08 13:30
PROVIDERS: ATTEND Internal Medicine Clinical Cardiac Electrophysiology
DX: I48.3 Typical atrial flutter (principal); I49.5 Sick sinus syndrome; I34.0 Nonrheumatic mitral (valve) insufficiency; I11.9 Hypertensive heart disease without heart failure; I69.354 Hemiplegia and hemiparesis following cerebral infarction affecting left non-dominant side; F03.90 Unspecified dementia, unspecified severity, without behavioral disturbance, psychotic disturbance, mood disturbance, and anxiety; E23.7 Disorder of pituitary gland, unspecified; E78.5 Hyperlipidemia, unspecified; F17.210 Nicotine dependence, cigarettes, uncomplicated; Z79.01 Long term (current) use of anticoagulants; Z79.02 Long term (current) use of antithrombotics/antiplatelets; Z82.49 Family history of ischemic heart disease and other diseases of the circulatory system; Z79.82 Long term (current) use of aspirin; Z90.49 Acquired absence of other specified parts of digestive tract
CPT/HCPCS: 93623; 93662; 93613; 93653; C1894 ×2; C1769 ×3; C1730; C1759; C1893; C1732; J2250; J2710; J2001; J3010; J1644; J2370; J0330; J2704

== ENCOUNTER 2019-08-21 23:15 | Emergency (ER) | payer MEDICARE, OTHER ==
[2019-08-21 23:28] VITALS: TEMP 98
[2019-08-21 23:59] LABS: Basophils % (A) 0 %; Eosinophils # (A) 0.2 k/uL (0-0.7); Eosinophils % (A) 4 %; HCT 40.1 % (34.0-46.0); HGB 13.2 gm/dL (11.4-16.0); Lymphocytes # (A) 1.5 k/uL (1.0-4.8); Lymphocytes % (A) 26 %; MCH 28.2 pg (25.0-35.0); MCV 85.4 fL (80.0-100.0); Monocytes # (A) 0.4 k/uL (0-1.0); Monocytes % (A) 8 %; Neutrophils # (A) 3.2 k/uL (1.3-7.7); Neutrophils % (A) 57 %; Platelet Count 170 k/uL (150-450); RBC 4.69 m/uL (3.80-5.40); RDW 13.1 % (11.5-15.5); WBC 5.6 k/uL (3.8-10.6)
[2019-08-22 00:08] LABS: ALT 13 U/L (4-34); AST 29 U/L (14-36); African American GFR (CKD) >90 (>60 ml/min/1.73 sqM); Albumin 4.2 g/dL (3.5-5.0); Alkaline Phosphatase 135 U/L (38-126); Anion Gap 10 mmol/L; Blood Urea Nitrogen 16 mg/dL (7-17); Calcium 9.2 mg/dL (8.4-10.2); Carbon Dioxide 25 mmol/L (22-30); Chloride 104 mmol/L (98-107); Glucose 106 mg/dL (74-99); Non-African American GFR(CKD) >90 (>60 ml/min/1.73 sqM); Potassium 4.5 mmol/L (3.5-5.1); Sodium 139 mmol/L (137-145); Total Bilirubin 0.6 mg/dL (0.2-1.3)
[2019-08-22] MEDS ORDERED: LORazepam 2 MG/ML INJ IV STA ×3 (00:12→04:13)
[2019-08-22 00:16] LABS: INR 2.9 (<1.2); Prothrombin Time 28.4 sec (9.0-12.0)
[2019-08-22 00:17] LABS: Partial Thromboplastin Time 36.6 sec (22.0-30.0)
[2019-08-22] MEDS ORDERED: levETIRAcetam IV 1,000 MG in SALINE 1 100ML.BAG IVPB STA (00:21)
[2019-08-22 00:23] LABS: Glucose,Whole Blood 165 mg/dL (75-99)
--- NOTE | 2019-08-22 00:24 | CT ---
EXAMINATION TYPE: CT brain wo con DATE OF EXAM: 08/22/2019 COMPARISON: 05/02/2019 HISTORY: Patient presents with neuro deficits. CT DLP: 1113.4 mGycm Automated exposure control for dose reduction was used. There is cerebral cortical atrophy. There is no mass effect nor midline shift. There is extensive hyp odensity in the periventricular white matter. There is no evidence of intracranial hemorrhage. IMPRESSION: Advanced atrophy and chronic small vessel ischemia. No acute intracranial abnormality. No change.
[2019-08-22] MEDS ORDERED: MIDAZOLAM 1 MG/ML 5 ML VIAL IV STA (00:37)
[2019-08-22] MEDS ORDERED: ROCURONIUM BROMIDE 10 MG/ML 5 ML VIAL IV STA (00:38)
[2019-08-22] MEDS ORDERED: PROPOFOL 10 MG/ML 20 ML VIAL IV ONE (00:39)
[2019-08-22] MEDS ORDERED: ADENOSINE 3 MG/ML 2 ML VIAL IVP STA (00:44)
[2019-08-22] MEDS ORDERED: SODIUM CHLORIDE 0.9% 1,000 ML IV STA (00:50)
--- NOTE | 2019-08-22 00:53 | ED ---
General Adult HPI <Beryl Poe - Last Filed: 08/22/19 03:09> - General Source: patient, EMS Mode of arrival: EMS Limitations: physical limitation <Austin Valle - Last Filed: 08/22/19 17:12> - General Chief complaint: Seizure Stated complaint: Seizure Time Seen by Provider: 08/21/19 23:22 - History of Present Illness Initial comments: 79-year-old female patient with past medical history significant for A. fib, CVA, hyperlipidemia, hypertension, pneumonia, and seizure disorder on and off for the last year she has been having intermittent episodes initial have shaking on the left side of her body. Patient states that current symptoms started 2 days ago. States she is unable to control the shaking. Patient states she is having some numbness and tingling to the left side of her body as well. patient is reporting mild generalized headache. Patient states she does take Keppra for seizure disorder. She denies any chest pain or shortness of breath. Denies any blurred vision, double vision, or dizziness. Patient denies any recent rash, fever, chills, abdominal pain, nausea, vomiting, diarrhea, constipation, back pain, hematuria, dysuria, urinary urgency, urinary frequency, or any other complaints. (Beryl Poe) - Related Data Home Medications Medication Instructions Recorded Confirmed Fluticasone Nasal [place] [Flonase 2 spray EA NOSTRIL HS 02/25/19 07/07/19 Nasal [place]] Loratadine [Claritin] 10 mg PO HS 02/25/19 07/07/19 Atorvastatin [Lipitor] 20 mg PO HS 05/02/19 07/07/19 Clopidogrel [Plavix] 75 mg PO HS 06/09/19 07/07/19 Famotidine [Pepcid] 20 mg PO BID 06/09/19 07/07/19 levETIRAcetam [Keppra] 750 mg PO BID@0800,2000 06/09/19 07/07/19 Apixaban [Eliquis] 5 mg PO BID 07/06/19 07/06/19 Previous Rx's Medication Instructions Recorded Metoprolol Tartrate [Lopressor] 25 mg PO BID #0 tab 06/21/19 Allergies Allergy/AdvReac Type Severity Reaction Status Date / Time No Known Allergies Allergy Verified 07/05/19 14:43 Review of Systems ROS Other: All systems not noted in ROS Statement are negative. <Merritt Poemirlande Mathew - Last Filed: 08/22/19 03:09> ROS Other: All systems not noted in ROS Statement are negative. <Austin Valle - Last Filed: 08/22/19 17:12> ROS Statement: Those systems with pertinent positive or pertinent negative responses have been documented in the HPI. Past Medical History Past Medical History: Atrial Fibrillation, CVA/TIA, Hyperlipidemia, Hypertension, Osteoarthritis (OA), Pneumonia, Seizure Disorder Additional Past Medical History / Comment(s): Possible TIAs in past per pt, pt believes she has the beginnings of dementia, bronchitis, pituitary dysfunction, seasonal allergies/sinus problems, arthritis in multiple joints, just returned to assisted living from [place] recently after recent hospitalization here History of Any Multi-Drug Resistant Organisms: None Reported Past Surgical History: Adenoidectomy, Appendectomy, Cholecystectomy, Tonsillectomy Past Anesthesia/Blood Transfusion Reactions: No Reported Reaction Past Psychological History: No Psychological Hx Reported Smoking Status: Current every day smoker Past Alcohol Use History: None Reported Past Drug Use History: None Reported - Past Family History Father Family Medical History: Cancer Additional Family Medical History / Comment(s): Pt states by the time they found out that her father had cancer, it was thru out his body. Mother Family Medical History: No Reported History Additional Family Medical History / Comment(s): Mother was healthy. <Austin Valle - Last Filed: 08/22/19 17:12> General Exam General appearance: alert, in no apparent distress, other (Physical well- developed, well-nourished elderly female patient in no acute distress. Vital signs upon presentation are temperature 98.0F, pulse 105, respirations 20, blood pressure 191/83, pulse ox 98% on room air.) Eye exam: Present: normal appearance, PERRL, EOMI. Absent: scleral icterus, conjunctival injection, periorbital swelling ENT exam: Present: normal exam, normal oropharynx, mucous membranes moist Respiratory exam: Present: normal lung sounds bilaterally. Absent: respiratory distress, wheezes, rales, rhonchi, stridor Cardiovascular Exam: Present: regular rate, normal rhythm, normal heart sounds. Absent: systolic murmur, diastolic murmur, rubs, gallop, clicks GI/Abdominal exam: Present: soft, normal bowel sounds. Absent: distended, tenderness, guarding, rebound, rigid Neurological exam: Present: alert, oriented X3, CN II-XII intact, other (Patient exhibiting contracture to the left arm, there is an involuntary tremor noted to the arm and the left side of the face. No tremor noted to the left leg. Patient has weakness to the left upper extremity and the left leg) Expanded Speech: Present: fluid speech Cranial nerves: EOM's Intact: Normal, Tongue Deviation: Normal, Nystagmus: Normal, Facial Sensation: Abnormal Left Motor strength exam: RUE: 4, LUE: 2/1, RLE: 4, LLE: 3 Psychiatric exam: Present: normal affect, normal mood Skin exam: Present: warm, dry, intact, normal color. Absent: rash <Beryl Poe M - Last Filed: 08/22/19 03:09> Limitations: physical limitation <Austin Valle - Last Filed: 08/22/19 17:12> Course Vital Signs 08/21/19 08/21/19 08/22/19 23:23 23:49 00:43 Temperature 98 F Pulse Rate 105 H 105 H 140 H Respiratory 20 20 16 Rate Blood Pressure 191/83 158/95 57/46 O2 Sat by Pulse 98 93 L 95 Oximetry 08/22/19 08/22/19 08/22/19 01:00 01:15 01:30 Temperature Pulse Rate 158 H 133 H 101 H Respiratory 18 18 Rate Blood Pressure 123/63 156/76 184/90 O2 Sat by Pulse 99 99 99 Oximetry 08/22/19 08/22/19 03:15 04:00 Temperature Pulse Rate 109 H 101 H Respiratory 20 20 Rate Blood Pressure 152/82 164/99 O2 Sat by Pulse 99 99 Oximetry EKG Findings - EKG Comments: EKG Findings:: EKG #1 obtained at 00 41 shows supraventricular tachycardia at a ventricular rate of 165, QRS duration 76, QT 278, QTC 460. EKG #2 obtained at 00 49 shows sinus tachycardia with a ventricular rate of 140, MT interval 100, QRS duration 78, QT 354, QTC 540. <Beryl Poe - Last Filed: 08/22/19 03:09> Procedures - Intubation Sedative: Versed Mg Given: 5 Paralytic: Rocuronium Mg Given: 50 Laryngoscope: Arthur Size: 3 ET Tube Size: 7.5 ET Tube Uncuffed: No Tube Secured Depth (cm): 22 Tube Secured Location: lips Tube Placement Confirmation: visualized tube passing through cords, equal breath sounds bilaterally, no breath sounds over epigastrium, confirmation by capnometry Patient Tolerated Procedure: well Intubation Complications: none <Austin Valle - Last Filed: 08/22/19 17:12> Medical Decision Making - Lab Data Result diagrams: 08/21/19 23:35 08/21/19 23:35 - Radiology Data Radiology results: report reviewed, image reviewed <Beryl Poe - Last Filed: 08/22/19 03:09> - Lab Data Result diagrams: 08/21/19 23:35 08/21/19 23:35 <Austin Valle - Last Filed: 08/22/19 17:12> - Medical Decision Making 79-year-old female patient presented to the emergency department today for evaluation of possible seizure activity. Patient is reporting increased shaking to the left arm and the left side of her face over the last 2 days. Patient states she has had similar symptoms on and off over the last year. Patient was admitted here in February 2019 for CVA with syncope versus seizure. Patient was started on Keppra at that time. Patient states she has been working on her insurance to follow-up with neurology but has not yet done so. Patient was answering questions appropriately upon initial evaluation. She did exhibit some twitching to the left side of her face and shaking to the left arm. She did have weakness to the left arm and leg which she states was residual from her CVA in February. Once taken down to CT scan patient did have a short seizure. 1 mg of Ativan was ordered upon return to her room. Patient then became unresponsive and exhibited seizure-like activity for at least 18-20 minutes. Patient was not maintaining her airway and oxygen saturation decreased to 80%. Respirations were assited with bag valve mask. She was given a total of 4 mg of Ativan without improvement. My attending Dr. Valle was in to see the patient, did perform endotracheal intubation to protect airway. During seizure activity and intubation patient's heart rate did increase. EKG showed SVT. She was given 6mg of Adenosine x1. This was successful, patient converted to sinus tachycardia. CT scanning and labs reviewed and are relatively unremarkable. Patient will be transferred for further evaluation as we do not currently have neurology coverage. (Beryl Poe) 79-year-old female presenting for evaluation of possible seizure. Initially this was likely focal seizure. While in the emergency department patient does develop tonic-clonic seizure activity she becomes unresponsive tachycardic, hypoxic she is given a total 4 mg of Ativan 5 mg of Versed with persistent seizure activity. Total seizure lasting approximately 15 minutes. She did receive BVM ventilation assist with normal oxygenation throughout this period ultimately patient was intubated and placed on a propofol drip, loaded with Keppra. During the intubation she developed SVT and converted with 1 dose of [address] reviewed, negative for acute intracranial hemorrhage or mass effect. Normal electrolytes. This institution does not have neurology and the patient was transferred to [facility]. Diagnosis: Status epilepticus, vent dependent respiratory failure, SVT (Austin Valle) - Lab Data Lab Results 08/21/19 08/21/19 08/21/19 Range/Units 23:35 23:35 23:35 WBC 5.6 (3.8-10.6) k/uL RBC 4.69 (3.80-5.40) m/uL Hgb 13.2 (11.4-16.0) gm/dL Hct 40.1 (34.0-46.0) % MCV 85.4 (80.0-100.0) fL MCH 28.2 (25.0-35.0) pg MCHC 33.0 (31.0-37.0) g/dL RDW 13.1 (11.5-15.5) % Plt Count 170 (150-450) k/uL Neutrophils % 57 % Lymphocytes % 26 % Monocytes % 8 % Eosinophils % 4 % Basophils % 0 % Neutrophils # 3.2 (1.3-7.7) k/uL Lymphocytes # 1.5 (1.0-4.8) k/uL Monocytes # 0.4 (0-1.0) k/uL Eosinophils # 0.2 (0-0.7) k/uL Basophils # 0.0 (0-0.2) k/uL PT 28.4 H (9.0-12.0) sec INR 2.9 H (<1.2) APTT 36.6 H (22.0-30.0) sec Sample Site ABG pH (7.35-7.45) ABG pCO2 (35-45) mmHg ABG pO2 (83-108) mmHg ABG HCO3 (21-25) mmol/L ABG Total CO2 (19-24) mmol/L ABG O2 Saturation (94-97) % ABG Base Excess mmol/L Navin Test FiO2 % Sodium 139 (137-145) mmol/L Potassium 4.5 (3.5-5.1) mmol/L Chloride 104 (98-107) mmol/L Carbon Dioxide 25 (22-30) mmol/L Anion Gap 10 mmol/L BUN 16 (7-17) mg/dL Creatinine 0.52 (0.52-1.04) mg/dL Est GFR (CKD-EPI)AfAm >90 (>60 ml/min/1.73 sqM) Est GFR (CKD-EPI)NonAf >90 (>60 ml/min/1.73 sqM) Glucose 106 H (74-99) mg/dL POC Glucose (mg/dL) (75-99) mg/dL POC Glu Career Agent ID Calcium 9.2 (8.4-10.2) mg/dL Total Bilirubin 0.6 (0.2-1.3) mg/dL AST 29 (14-36) U/L ALT 13 (4-34) U/L Alkaline Phosphatase 135 H (38-126) U/L Troponin I (0.000-0.034) ng/mL Total Protein 7.0 (6.3-8.2) g/dL Albumin 4.2 (3.5-5.0) g/dL Urine Color Urine Appearance (Clear) Urine pH (5.0-8.0) Ur Specific [place] (1.001-1.035) Urine Protein (Negative) Urine Glucose (UA) (Negative) Urine Ketones (Negative) Urine Blood (Negative) Urine Nitrite (Negative) Urine Bilirubin (Negative) Urine Urobilinogen (<2.0) mg/dL Ur Leukocyte Esterase (Negative) 08/21/19 08/22/19 08/22/19 Range/Units 23:35 00:21 01:39 WBC (3.8-10.6) k/uL RBC (3.80-5.40) m/uL Hgb (11.4-16.0) gm/dL Hct (34.0-46.0) % MCV (80.0-100.0) fL MCH (25.0-35.0) pg MCHC (31.0-37.0) g/dL RDW (11.5-15.5) % Plt Count (150-450) k/uL Neutrophils % % Lymphocytes % % Monocytes % % Eosinophils % % Basophils % % Neutrophils # (1.3-7.7) k/uL Lymphocytes # (1.0-4.8) k/uL Monocytes # (0-1.0) k/uL Eosinophils # (0-0.7) k/uL Basophils # (0-0.2) k/uL PT (9.0-12.0) sec INR (<1.2) APTT (22.0-30.0) sec Sample Site ABG pH (7.35-7.45) ABG pCO2 (35-45) mmHg ABG pO2 (83-108) mmHg ABG HCO3 (21-25) mmol/L ABG Total CO2 (19-24) mmol/L ABG O2 Saturation (94-97) % ABG Base Excess mmol/L Navin Test FiO2 % Sodium (137-145) mmol/L Potassium (3.5-5.1) mmol/L Chloride (98-107) mmol/L Carbon Dioxide (22-30) mmol/L Anion Gap mmol/L BUN (7-17) mg/dL Creatinine (0.52-1.04) mg/dL Est GFR (CKD-EPI)AfAm (>60 ml/min/1.73 sqM) Est GFR (CKD-EPI)NonAf (>60 ml/min/1.73 sqM) Glucose (74-99) mg/dL POC Glucose (mg/dL) 165 H (75-99) mg/dL POC Glu Career Agent ID Friday, [place] Calcium (8.4-10.2) mg/dL Total Bilirubin (0.2-1.3) mg/dL AST (14-36) U/L ALT (4-34) U/L Alkaline Phosphatase (38-126) U/L Troponin I 0.012 (0.000-0.034) ng/mL Total Protein (6.3-8.2) g/dL Albumin (3.5-5.0) g/dL Urine Color Light Yellow Urine Appearance Clear (Clear) Urine pH 6.5 (5.0-8.0) Ur Specific [place] 1.009 (1.001-1.035) Urine Protein Trace H (Negative) Urine Glucose (UA) Negative (Negative) Urine Ketones Negative (Negative) Urine Blood Negative (Negative) Urine Nitrite Negative (Negative) Urine Bilirubin Negative (Negative) Urine Urobilinogen <2.0 (<2.0) mg/dL Ur Leukocyte Esterase Negative (Negative) 08/22/19 Range/Units 03:02 WBC (3.8-10.6) k/uL RBC (3.80-5.40) m/uL Hgb (11.4-16.0) gm/dL Hct (34.0-46.0) % MCV (80.0-100.0) fL MCH (25.0-35.0) pg MCHC (31.0-37.0) g/dL RDW (11.5-15.5) % Plt Count (150-450) k/uL Neutrophils % % Lymphocytes % % Monocytes % % Eosinophils % % Basophils % % Neutrophils # (1.3-7.7) k/uL Lymphocytes # (1.0-4.8) k/uL Monocytes # (0-1.0) k/uL Eosinophils # (0-0.7) k/uL Basophils # (0-0.2) k/uL PT (9.0-12.0) sec INR (<1.2) APTT (22.0-30.0) sec Sample Site r rad ABG pH 7.22 L (7.35-7.45) ABG pCO2 63 H (35-45) mmHg ABG pO2 >400 H (83-108) mmHg ABG HCO3 26 H (21-25) mmol/L ABG Total CO2 28 H (19-24) mmol/L ABG O2 Saturation 99.8 H (94-97) % ABG Base Excess -2.0 mmol/L Navin Test Yes FiO2 100 % Sodium (137-145) mmol/L Potassium (3.5-5.1) mmol/L Chloride (98-107) mmol/L Carbon Dioxide (22-30) mmol/L Anion Gap mmol/L BUN (7-17) mg/dL Creatinine (0.52-1.04) mg/dL Est GFR (CKD-EPI)AfAm (>60 ml/min/1.73 sqM) Est GFR (CKD-EPI)NonAf (>60 ml/min/1.73 sqM) Glucose (74-99) mg/dL POC Glucose (mg/dL) (75-99) mg/dL POC Glu Career Agent ID Calcium (8.4-10.2) mg/dL Total Bilirubin (0.2-1.3) mg/dL AST (14-36) U/L ALT (4-34) U/L Alkaline Phosphatase (38-126) U/L Troponin I (0.000-0.034) ng/mL Total Protein (6.3-8.2) g/dL Albumin (3.5-5.0) g/dL Urine Color Urine Appearance (Clear) Urine pH (5.0-8.0) Ur Specific [place] (1.001-1.035) Urine Protein (Negative) Urine Glucose (UA) (Negative) Urine Ketones (Negative) Urine Blood (Negative) Urine Nitrite (Negative) Urine Bilirubin (Negative) Urine Urobilinogen (<2.0) mg/dL Ur Leukocyte Esterase (Negative) - Radiology Data CT brain without contrast was obtained. Report was reviewed and showed advanced atrophy and chronic small vessel ischemia. No acute intracranial abnormality. No change One view x-ray of the chest is obtained. Report was reviewed in its entirety. Impression by Dr. Scott shows no active cardiopulmonary disease. Heart and lungs unchanged. Endotracheal tube and gastric tube appears to be in good position. (Beryl Poe) Critical Care Time Critical Care Time: Yes Total Critical Care Time: 45 (Time spent reviewing labs, EKG, Cardiac monitoring, assisting respirations with BVM, OG tube insertion, patient monitoring, and consulting with the multidisciplinary team) <Beryl Poe - Last Filed: 08/22/19 03:09> Disposition - Out of Hospital Transfer - Req. Specs Out of Hospital Transfer - Requested Specifics: Other Emergency Center ([facility]) <Beryl Poe - Last Filed: 08/22/19 03:09> - Out of Hospital Transfer - Req. Specs Out of Hospital Transfer - Requested Specifics: Other Emergency Center <Austin Valle - Last Filed: 08/22/19 17:12> Clinical Impression: Prolonged seizure, Supraventricular tachycardia, Respiratory depression, Generalized seizure, Respiratory failure with hypoxia Disposition: OTHER INSTITUTION NOT DEFINED Condition: Serious Referrals: None,Stated [REFERRING] - 1-2 days
--- NOTE | 2019-08-22 01:16 | XR ---
EXAMINATION TYPE: XR chest 1V portable DATE OF EXAM: 08/22/2019 COMPARISON: 06/18/2019 HISTORY: Check tube placement TECHNIQUE: Single view FINDINGS: Endotracheal tube is 6 cm from the [place]. Lungs are clear of infiltrate. There is no heart failure. There are chest leads. Heart size is fairly normal. There is no pleural effusion. Is a gastric tube is in the stomach. IMPRESSION: No active cardiopulmonary disease. Heart and lungs unchanged.
[2019-08-22 03:06] LABS: ABG HCO3 26 mmol/L (21-25); ABG Oxygen Saturation 99.8 % (94-97); ABG PCO2 63 mmHg (35-45); ABG PH 7.22 (7.35-7.45); ABG PO2 >400 mmHg (83-108); ABG TCO2 28 mmol/L (19-24); Allen Test Performed? Yes
[2019-08-22 03:09] LABS: Appearance,Urine Clear (Clear); Bilirubin,Urine Negative (Negative); Blood,Urine Negative (Negative); Color,Urine Light Yellow; Glucose,Urine (UA) Negative (Negative); Ketones,Urine Negative (Negative); Leukocyte Esterase,Urine Negative (Negative); Nitrite,Urine Negative (Negative); PH, Urine 6.5 (5.0-8.0); Protein,Urine Trace (Negative); Specific Gravity,Urine 1.009 (1.001-1.035); Urobilinogen,Urine <2.0 mg/dL (<2.0)
[2019-08-22 03:21] VITALS: RESP 20
[2019-08-22] MEDS ORDERED: PROPOFOL 1,000 MG in EMPTY BAG 1 BAG IV ONE (03:36)
[2019-08-22 04:05] VITALS: BP 164/99; PULSE 101
== END 2019-08-22 04:20 | disposition other institution (70) ==
LOC: EC 23:15
DX: G40.401 Other generalized epilepsy and epileptic syndromes, not intractable, with status epilepticus (principal); I47.1 Supraventricular tachycardia; J96.91 Respiratory failure, unspecified with hypoxia; R51 Headache; M62.81 Muscle weakness (generalized); I69.954 Hemiplegia and hemiparesis following unspecified cerebrovascular disease affecting left non-dominant side; I48.91 Unspecified atrial fibrillation; E78.5 Hyperlipidemia, unspecified; J30.2 Other seasonal allergic rhinitis; F17.200 Nicotine dependence, unspecified, uncomplicated; Z79.01 Long term (current) use of anticoagulants; Z79.02 Long term (current) use of antithrombotics/antiplatelets; Z79.51 Long term (current) use of inhaled steroids; Z79.899 Other long term (current) drug therapy; Z99.11 Dependence on respirator [ventilator] status
CPT/HCPCS: 99291; 96374; 96375 ×5; 96376; 96361; 31500; 36415 ×2; 36600; 93005; 80053; 82805; 84484; 85025; 85610; 85730; 81003; 71045; 70450; J2060; J2250; J0153; J2704 ×2; J1953; 94002

== ENCOUNTER 2019-09-23 10:14 | Inpatient (IN) | payer MEDICARE ==
[2019-09-23] MEDS ORDERED: SODIUM CHLORIDE 0.9% 500 ML 500 ML IV STA (10:22)
[2019-09-23] MEDS ORDERED: levETIRAcetam IV 1,000 MG in SALINE 1 100ML.BAG IVPB STA (10:24)
[2019-09-23] MEDS ORDERED: levETIRAcetam IV 500 MG in SODIUM CHLORIDE 0.9% 100 ML IVPB STA (10:30)
[2019-09-23] MEDS ORDERED: LORazepam 2 MG/ML INJ IV STA ×3 (10:34→11:21)
--- NOTE | 2019-09-23 10:34 | ED ---
General Adult HPI - General Chief complaint: Seizure Stated complaint: Tremors Time Seen by Provider: 09/23/19 10:21 Source: patient, RN notes reviewed Mode of arrival: EMS Limitations: no limitations - History of Present Illness Initial comments: 79-year-old female with a past medical history atrial afibrillation anticoagulated on Coumadin, TIA, hyperlipidemia, hypertension, pneumonia, possible TIAs, seizure disorder presents to the emergency department for a chief possible seizure activity. According to EMS patient was having some tremors today. States that she has a history of seizures. Patient recently was increased in Keppra dose from 750-1000 mg. This was after she was transferred to [facility] from our facility about 3 weeks ago. Patient also short of breath today. States that she does have a mild cough.Patient has no other co mplaints at this time including chest pain, abdominal pain, nausea or vomiting, headache, or visual changes. - Related Data Home Medications Medication Instructions Recorded Confirmed Fluticasone Nasal [place] [Flonase 2 spray EA NOSTRIL HS@209902/25/19 09/23/19 Nasal [place]] Loratadine [Claritin] 10 mg PO HS@209902/25/19 09/23/19 Atorvastatin [Lipitor] 20 mg PO HS@199905/02/19 09/23/19 Clopidogrel [Plavix] 75 mg PO HS@209906/09/19 09/23/19 Famotidine [Pepcid] 20 mg PO BID@0800,209906/09/19 09/23/19 Ipratropium-Albuterol Nebulize 3 ml INHALATION RT-Q6H PRN 09/23/19 09/23/19 [Duoneb 0.5 mg-3 mg/3 ml Soln] Warfarin [Coumadin] 5 mg PO HS@209909/23/19 09/23/19 levETIRAcetam [Keppra] 1,000 mg PO BID@0800,209909/23/19 09/23/19 Allergies Allergy/AdvReac Type Severity Reaction Status Date / Time No Known Allergies Allergy Verified 09/23/19 10:25 Review of Systems ROS Statement: Those systems with pertinent positive or pertinent negative responses have been documented in the HPI. ROS Other: All systems not noted in ROS Statement are negative. Past Medical History Past Medical History: Atrial Fibrillation, CVA/TIA, Hyperlipidemia, Hypertension, Osteoarthritis (OA), Pneumonia, Seizure Disorder Additional Past Medical History / Comment(s): Possible TIAs in past per pt, pt believes she has the beginnings of dementia, bronchitis, pituitary dysfunction, seasonal allergies/sinus problems, arthritis in multiple joints, just returned to assisted living from [place] recently after recent hospitalization here History of Any Multi-Drug Resistant Organisms: None Reported Past Surgical History: Adenoidectomy, Appendectomy, Cholecystectomy, Tonsillectomy Past Anesthesia/Blood Transfusion Reactions: No Reported Reaction Past Psychological History: No Psychological Hx Reported Smoking Status: Current every day smoker Past Alcohol Use History: None Reported Past Drug Use History: None Reported - Past Family History Father Family Medical History: Cancer Additional Family Medical History / Comment(s): Pt states by the time they found out that her father had cancer, it was thru out his body. Mother Family Medical History: No Reported History Additional Family Medical History / Comment(s): Mother was healthy. General Exam Limitations: no limitations General appearance: alert, in no apparent distress Head exam: Present: atraumatic, normocephalic, normal inspection Eye exam: Present: normal appearance, PERRL, EOMI. Absent: scleral icterus, conjunctival injection, periorbital swelling ENT exam: Present: normal exam, mucous membranes moist Neck exam: Present: normal inspection, full ROM. Absent: tenderness, meningismus, lymphadenopathy Respiratory exam: Present: normal lung sounds bilaterally. Absent: respiratory distress, wheezes, rales, rhonchi, stridor Cardiovascular Exam: Present: regular rate, normal rhythm, normal heart sounds. Absent: systolic murmur, diastolic murmur, rubs, gallop, clicks GI/Abdominal exam: Present: soft, normal bowel sounds. Absent: distended, tenderness, guarding, rebound, rigid Extremities exam: Present: other (Patient is having some tremors noted to the left arm and leg) Neurological exam: Present: alert, oriented X3 Course Vital Signs 09/23/19 09/23/19 09/23/19 10:16 11:02 11:26 Temperature 98.2 F Pulse Rate 109 H 111 H 130 H Respiratory 20 22 22 Rate Blood Pressure 161/79 192/80 192/80 O2 Sat by Pulse 97 96 97 Oximetry 09/23/19 12:33 Temperature Pulse Rate 122 H Respiratory 18 Rate Blood Pressure 106/75 O2 Sat by Pulse 97 Oximetry - Reevaluation(s) Reevaluation #1: 09/23/19 10:30 I discussed this case with the patient's patient care provider from her assisted living facility. States that this morning patient had a 4 minute "seizure" followed by a 20 minute "seizure". States that during this time patient is alert and oriented and able to speak however has shaking of her left arm and leg. States that at baseline she does not generally have tremors. Report from Thom De Paz requested. Reevaluation #2: 09/23/19 11:[address] Odell and he will come to ER in 20-30 minutes to observe patient while having this episode. patient was given another 0.5 mg of ativan which would be her second dose. She was also given 500 mg IVPB Keppra. Received 1000mg Keppra PO at 8 am. Reevaluation #3: 09/23/19 12:37 Patient was seen and evaluated by Dr. Em emergency room. Still awaiting consult from Dr. Odell Medical Decision Making - Medical Decision Making Vitals are unremarkable. Patient is mildly tachycardic with sinus tach. Patient does have a history of atrial fibrillation and is anticoagulated on Coumadin. Patient is alert and oriented throughout her stay. She has slight tremoring noted of the left arm. CBC CMP unremarkable. INR 1.3. Mildly subtherapeutic. Chest x-ray shows improving infiltrates. CT brain was reviewed from visit from August which was negative for acute process. Patient does not have any fevers. Patient received 1000 mg by mouth Keppra this morning with her mother normal medications while at her assisted living facility. Patient was given 0.5 mg of Ativan and 500 grams of Keppra here. She was reevaluated and had worsening tremors of her left arm and leg as well as left face. She was given another 0.5 mg of Ativan. We contacted Dr. Odell so that he could evaluate patient while she is having this episode. Patient was seen and evaluated by Dr. Em, pending Dr. Guzman on consultation. - Lab Data Result diagrams: 09/23/19 10:32 09/23/19 10:32 Lab Results 09/23/19 09/23/19 09/23/19 Range/Units 10:32 10:32 10:32 WBC 4.7 (3.8-10.6) k/uL RBC 4.90 (3.80-5.40) m/uL Hgb 13.4 (11.4-16.0) gm/dL Hct 41.3 (34.0-46.0) % MCV 84.3 (80.0-100.0) fL MCH 27.4 (25.0-35.0) pg MCHC 32.5 (31.0-37.0) g/dL RDW 13.7 (11.5-15.5) % Plt Count 162 (150-450) k/uL Neutrophils % 64 % Lymphocytes % 21 % Monocytes % 9 % Eosinophils % 3 % Basophils % 0 % Neutrophils # 3.0 (1.3-7.7) k/uL Lymphocytes # 1.0 (1.0-4.8) k/uL Monocytes # 0.4 (0-1.0) k/uL Eosinophils # 0.1 (0-0.7) k/uL Basophils # 0.0 (0-0.2) k/uL PT 13.1 H (9.0-12.0) sec INR 1.3 H (<1.2) APTT 27.5 (22.0-30.0) sec Sodium 139 (137-145) mmol/L Potassium 5.1 (3.5-5.1) mmol/L Chloride 104 (98-107) mmol/L Carbon Dioxide 24 (22-30) mmol/L Anion Gap 11 mmol/L BUN 12 (7-17) mg/dL Creatinine 0.60 (0.52-1.04) mg/dL Est GFR (CKD-EPI)AfAm >90 (>60 ml/min/1.73 sqM) Est GFR (CKD-EPI)NonAf 88 (>60 ml/min/1.73 sqM) Glucose 91 (74-99) mg/dL Calcium 9.3 (8.4-10.2) mg/dL Magnesium 1.8 (1.6-2.3) mg/dL Total Bilirubin 1.1 (0.2-1.3) mg/dL AST 36 (14-36) U/L ALT 14 (4-34) U/L Alkaline Phosphatase 100 (38-126) U/L Troponin I (0.000-0.034) ng/mL NT-Pro-B Natriuret Pep pg/mL Total Protein 7.4 (6.3-8.2) g/dL Albumin 4.3 (3.5-5.0) g/dL 09/23/19 09/23/19 Range/Units 10:32 10:32 WBC (3.8-10.6) k/uL RBC (3.80-5.40) m/uL Hgb (11.4-16.0) gm/dL Hct (34.0-46.0) % MCV (80.0-100.0) fL MCH (25.0-35.0) pg MCHC (31.0-37.0) g/dL RDW (11.5-15.5) % Plt Count (150-450) k/uL Neutrophils % % Lymphocytes % % Monocytes % % Eosinophils % % Basophils % % Neutrophils # (1.3-7.7) k/uL Lymphocytes # (1.0-4.8) k/uL Monocytes # (0-1.0) k/uL Eosinophils # (0-0.7) k/uL Basophils # (0-0.2) k/uL PT (9.0-12.0) sec INR (<1.2) APTT (22.0-30.0) sec Sodium (137-145) mmol/L Potassium (3.5-5.1) mmol/L Chloride (98-107) mmol/L Carbon Dioxide (22-30) mmol/L Anion Gap mmol/L BUN (7-17) mg/dL Creatinine (0.52-1.04) mg/dL Est GFR (CKD-EPI)AfAm (>60 ml/min/1.73 sqM) Est GFR (CKD-EPI)NonAf (>60 ml/min/1.73 sqM) Glucose (74-99) mg/dL Calcium (8.4-10.2) mg/dL Magnesium (1.6-2.3) mg/dL Total Bilirubin (0.2-1.3) mg/dL AST (14-36) U/L ALT (4-34) U/L Alkaline Phosphatase (38-126) U/L Troponin I <0.012 (0.000-0.034) ng/mL NT-Pro-B Natriuret Pep 361 pg/mL Total Protein (6.3-8.2) g/dL Albumin (3.5-5.0) g/dL Disposition Clinical Impression: Continuous tremor Disposition: ADMITTED IP TO THIS HOSP Condition: Fair Is patient prescribed a controlled substance at d/c from ED?: No Referrals: Danny Rodriguez DO [Primary Care Provider] - 1-2 days Time of Disposition: 12:36
--- NOTE | 2019-09-23 10:50 | XR ---
EXAMINATION TYPE: XR chest 1V portable DATE OF EXAM: 09/23/2019 COMPARISON: 09/03/2019 INDICATION: Short of breath TECHNIQUE: Single frontal view of the chest is obtained. FINDINGS: The heart size is normal. The pulmonary vasculature is normal. Some mild right lower lobe infiltrate may be present. Right upper lobe infiltrate may be improving. Endotracheal tube and nasogastric tube is been removed. IMPRESSION: 1. Improving right lung infiltrate. 2. Lines and catheters removed.
[2019-09-23 11:05] LABS: Basophils % (A) 0 %; Eosinophils # (A) 0.1 k/uL (0-0.7); Eosinophils % (A) 3 %; HCT 41.3 % (34.0-46.0); HGB 13.4 gm/dL (11.4-16.0); Lymphocytes % (A) 21 %; MCH 27.4 pg (25.0-35.0); MCHC 32.5 g/dL (31.0-37.0); MCV 84.3 fL (80.0-100.0); Mean Platelet Volume 7.9; Monocytes # (A) 0.4 k/uL (0-1.0); Monocytes % (A) 9 %; Neutrophils % (A) 64 %; Platelet Count 162 k/uL (150-450); RDW 13.7 % (11.5-15.5); WBC 4.7 k/uL (3.8-10.6)
[2019-09-23 11:11] LABS: INR 1.3 (<1.2); Partial Thromboplastin Time 27.5 sec (22.0-30.0); Prothrombin Time 13.1 sec (9.0-12.0)
[2019-09-23 11:17] LABS: ALT 14 U/L (4-34); AST 36 U/L (14-36); African American GFR (CKD) >90 (>60 ml/min/1.73 sqM); Albumin 4.3 g/dL (3.5-5.0); Alkaline Phosphatase 100 U/L (38-126); Anion Gap 11 mmol/L; Blood Urea Nitrogen 12 mg/dL (7-17); Calcium 9.3 mg/dL (8.4-10.2); Carbon Dioxide 24 mmol/L (22-30); Chloride 104 mmol/L (98-107); Glucose 91 mg/dL (74-99); Magnesium 1.8 mg/dL (1.6-2.3); Non-African American GFR(CKD) 88 (>60 ml/min/1.73 sqM); Sodium 139 mmol/L (137-145); Total Bilirubin 1.1 mg/dL (0.2-1.3); Total Protein 7.4 g/dL (6.3-8.2)
[2019-09-23 11:25] LABS: Potassium 5.1 mmol/L (3.5-5.1)
[2019-09-23] MEDS ORDERED: NALOXONE 0.4 MG/ML 1 ML VIAL IV PRN (12:33)
[2019-09-23] MEDS: SODIUM CHLORIDE 0.9% 1,000 ML IV SCH (12:44)
[2019-09-23] MEDS ORDERED: IPRATROPIUM-ALBUTEROL 3 ML NEB INHALATION PRN (16:18)
--- NOTE | 2019-09-23 17:09 | P.HPIM ---
History of Present Illness H&P Date: 09/23/19 Chief Complaint: Short of breath, tremors History of presenting complaint: This is a 79-year-old patient of Dr. Rodriguez. Chronic stable medical conditions include atrial flutter-fibrillation, hyperlipidemia, hypertension, Fidel arthritis, seizure disorder some pituitary dysfunction osteoarthritis. Patient was here in the ER about a month ago with possible seizure activity. Patient does take Keppra at home. Patient also states that for about 3-4 weeks she's becoming weak on the left side. It doesn't seem that this was worked up. Patient not able to give more detailed history. Patient's last few days. Having increasing short of breath. Some chest tightness. Dry cough. Has felt warm though temperature was not recorded. She is also having some jerking more so on the upper part of the right body in the arm. Consciousness is maintained. Awake. Symptoms seem to predominantly respiratory. Review of systems: GEN.: None EYES: None HEENT: None NECK: None RESPIRATORY: As above CARDIOVASCULAR: None GASTROINTESTINAL: None GENITOURINARY: None MUSCULOSKELETAL: Some joint pains LYMPHATICS: None HEMATOLOGICAL: None PSYCHIATRY: None NEUROLOGICAL: As above, no change in speech no change in vision Past medical history to include: Atrial flutter fibrillation, COPD, hyperlipidemia, hypertension, osteoarthritis, seizure disorder, carotid artery disease, valvular regurgitation, cognitive impairment arthritis Social history: Popliteal guardian. Resident of [facility]. Does use a walker. Smoking since 1957. About a pack a day. No about a half a pack a day. No alcohol. Physical examination: VITAL SIGNS: 98.2, 109, 20, 161/79, 97% on room air GENERAL: BMI 23.2, laying in bed, short of breath, some shaking more of the jerking fashion on the right upper body [place]. EYES: Pupils equal. Conjunctiva normal. HEENT: External appearance of nose and ears normal, oral cavity grossly normal. NECK: JVD not raised; masses not palpable. HEART: First and second heart sounds are normal; no edema. LUNGS: Respiratory rate increased, decreased breaths on prolonged expiration. ABDOMEN: Soft, nontender, liver spleen not palpable, no masses palpable. PSYCH: Able to answer simple questions though reluctantl. NEUROLOGICAL: [Cranial nerves grossly intact; no facial asymmetry, power on the left side 3/5 LYMPHATICS: No lymph nodes palpable in the axilla and neck INVESTIGATIONS, reviewed in the clinical context: White count 4.7 hemoglobin 13.4 platelets 162 potassium 5.1 bun 12 creatinine 0.6 EKG tracing personally reviewed by me-normal sinus rhythm with PVC Chest x-ray film personally reviewed by me-possible chronic changes versus infiltrate in the right side Assessment: -Acute COPD exacerbation and a current smoker -Some jerking movements on the right side of the body, cannot rule out focal seizure -Paroxysmal atrial flutter fibrillation chronically on anticoagulation currently sinus rhythm -Hyperlipidemia -Essential hypertension -Primary osteoarthritis -Moderate cognitive impairment possibly from late onset dementia -Given short of breath, dry cough feeling off feverish at home need to rule out COVID-19 -Left hemiparesis from a stroke over 3 weeks ago -Patient has a legal guardian Plan: Home medications resumed. Start the patient on albuterol inhaler 4 puffs every 4 and Spiriva 1 puff a day. Also add Symbicort 2 puffs twice a day. Did tolerate she was consulted. They did give an extra dose of Keppra. INR will be followed. Past Medical History Past Medical History: Atrial Fibrillation, Atrial Flutter, COPD, CVA/TIA, Hyperlipidemia, Hypertension, Osteoarthritis (OA), Pneumonia, Seizure Disorder, Syncope Additional Past Medical History / Comment(s): Possible TIAs in past per pt, caratid artery disease, mitral valve regurgitation/ tricuspid regurgitation, pt believes she has the beginnings of dementia, bronchitis, pituitary dysfunction, seasonal allergies/sinus problems, arthritis in multiple joints, UTI, syncope/possible seizure 02/25/19. History of Any Multi-Drug Resistant Organisms: None Reported Past Surgical History: Adenoidectomy, Appendectomy, Cholecystectomy, Tonsillectomy Additional Past Surgical History / Comment(s): 07/08/19 A flutter ablation, colonoscopy Past Anesthesia/Blood Transfusion Reactions: No Reported Reaction Past Psychological History: No Psychological Hx Reported Additional Psychological History / Comment(s): Pt has a public legal guardian. She states that she was not functioning well at one point and a legal guardian was appointed. She resides at [facility]. She uses a walker to ambulate. She has a nebulizer. Staff manages her meds. Pt states she is able to perform the rest of her ADLs. Smoking Status: Current every day smoker Past Alcohol Use History: None Reported Additional Past Alcohol Use History / Comment(s): Pt started smoking in 1958 and is a ppd smoker. Past Drug Use History: None Reported - Past Family History Father Family Medical History: Cancer Additional Family Medical History / Comment(s): Pt states by the time they found out that her father had cancer, it was thru out his body. Mother Family Medical History: No Reported History Additional Family Medical History / Comment(s): Mother was healthy. Medications and Allergies Home Medications Medication Instructions Recorded Confirmed Type Fluticasone Nasal [place] [Flonase 2 spray EA NOSTRIL HS@209902/25/19 09/23/19 History Nasal [place]] Loratadine [Claritin] 10 mg PO HS@209902/25/19 09/23/19 History Atorvastatin [Lipitor] 20 mg PO HS@199905/02/19 09/23/19 History Clopidogrel [Plavix] 75 mg PO HS@209906/09/19 09/23/19 History Famotidine [Pepcid] 20 mg PO BID@799,209906/09/19 09/23/19 History Ipratropium-Albuterol Nebulize 3 ml INHALATION RT-Q6H PRN 09/23/19 09/23/19 History [Duoneb 0.5 mg-3 mg/3 ml Soln] Warfarin [Coumadin] 5 mg PO HS@209909/23/19 09/23/19 History levETIRAcetam [Keppra] 1,000 mg PO BID@799,209909/23/19 09/23/19 History Allergies Allergy/AdvReac Type Severity Reaction Status Date / Time No Known Allergies Allergy Verified 09/23/19 10:25 Physical Exam Vitals: Vital Signs Temp Pulse Pulse Resp BP BP Pulse Ox 09/23/19 14:30 98.1 F 79 17 146/67 98 09/23/19 13:36 102 H 18 116/66 98 09/23/19 12:51 118 H 20 98/62 97 09/23/19 12:33 122 H 18 106/75 97 09/23/19 11:26 130 H 22 192/80 97 09/23/19 11:02 111 H 22 192/80 96 09/23/19 10:16 98.2 F 109 H 20 161/79 97 Intake and Output 09/23/19 09/23/19 09/23/19 06:59 14:59 22:59 Intake Total 250 Balance 250 Intake: Intake, IV Titration 250 Amount Sodium Chloride 0.9% 1, 250 000 ml @ 75 mls/hr IV . [id number] ISREAL Rx#:[id number] Other: Weight 57.606 kg Results CBC & Chem 7: 09/23/19 10:32 09/23/19 10:32 Labs: Abnormal Lab Results - Last 24 Hours (Table) 09/23/19 Range/Units 10:32 PT 13.1 H (9.0-12.0) sec INR 1.3 H (<1.2) Thrombosis Risk Factor Assmnt - Choose All That Apply Any of the Below Risk Factors Present?: Yes Each Factor Represents 1 point: Abnormal pulmonary function (COPD) Other Risk Factors: Yes Each Risk Factor Represents 3 Points: Age 75 years or older Other congenital or acquired thrombophilia - If yes, enter type in comment: No Thrombosis Risk Factor Assessment Total Risk Factor Score: 4 Thrombosis Risk Factor Assessment Level: Moderate Risk
[2019-09-23] MEDS: WARFARIN 5 MG TAB PO SCH (17:49)
[2019-09-23] MEDS ORDERED: ALBUTEROL HFA INHALER INHALATION PRN (19:30)
[2019-09-23] MEDS ORDERED: ALBUTEROL NEBULIZED 2.5 MG/3 ML INHALATION SCH (20:00)
[2019-09-23] MEDS ORDERED: IPRATROPIUM-ALBUTEROL 3 ML NEB INHALATION SCH (20:00)
--- NOTE | 2019-09-23 20:09 | P.CNNES ---
History of Present Illness Consult date: 09/23/19 Requesting physician: Nathen Mora Reason for Consult: Possible focal seizure, tremor History of Present Illness: Patient is a 79-year-old female admitted to the hospital for possible seizure- type activity and tremors. Patient states that for the past couple months, she has been having episodes in which she falls "like a rock". It can happen while she is sitting or standing, and she collapses. There is no tongue bite or urinary incontinence. Patient states that when she is sitting, she feels it coming on, and she puts her head down and goes to sleep or passes out. If she gets up fast, she also feels dizzy, lightheaded and can pass out. These later symptoms appear more orthostatic. Patient stated that she is out for "few minutes". She believes that she has had 6-7 such episodes. Couple of them occu rred while she was standing and a few of them occurred while sitting. When she arrived to the hospital, she was having some left-sided tremoring, shaking. Patient already has received 1000 mg of her Keppra. She was given an extra 500 mg of Keppra in the ER. Now these tremors of the left side has resolved. Patient does have atrial flutter fibrillation for which she is on anticoagulation. She also has hyperlipidemia, hypertension. Also has possible seizure disorder. Patient denies any history of obvious stroke. Patient has history of smoking half to 1 pack per day for last 50-60 years. Rarely drinks alcohol. 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 Patient's workup showed Chest x-ray with improving right lung infiltrate. EKG showed sinus tachycardia with premature atrial complexes with aberrant conduction. Possible left atrial enlargement. Left-ventricular hypertrophy with repolarization abnormality. Patient's blood test shows normal CBC, CMP, INR is 1.3. Maddox virus PCR negative as of today. Patient's hemoglobin A1c 5.4 on 06/10/2019. Total cholesterol 132, LDL 66, HDL 42. TSH is normal. Her Keppra level was 44.2 on 06/24/2019. Patient's last computed tomography scan of head from 08/22/2019 showed advanced atrophy and chronic small vessel ischemia. No acute process. Patient apparently has presented with left-sided shaking back in February, when she was seen by Dr. Willis on 02/25/2019. Patient had an EEG on 02/26/2019, which was abnormal. The frequent focal right temporal theta range slowing mentioned is not epileptiform in nature. In combination with slow background, these findings indicate mild diffuse cerebral dysfunction with greater focal involvement of the right temporal region. No seizures were recorded. Patient also had an MRI of the brain without contrast on 02/25/2019, which revealed mode rately severe diffuse atrophy. Extensive chronic small vessel ischemia. Demyelinating disease not excluded. Patient had a CTA of head and neck on 03/26/2019, which revealed atherosclerotic plaque at the carotid artery bifurcation. No intracranial angiographic abnormality. Patient's 2-D echo on 06/10/2019 showed atrial fibrillation. EF is 55-60%. Severe concentric LVH. Left atrium is severely dilated. Moderate MR, moderate TR. Patient was started on Keppra 750 mg twice a day. Patient apparently has been on Keppra 1000 mg twice a day. She is also on Coumadin and Plavix. Review of Systems As mentioned in detail as above. Patient denies headache problem with the vision or hoarseness or dysphagia. Denies chest pain, wheezing or cough. Does have some shortness of breath. Denies nausea vomiting diarrhea. Past Medical History Past Medical History: Atrial Fibrillation, Atrial Flutter, COPD, CVA/TIA, Hyperlipidemia, Hypertension, Osteoarthritis (OA), Pneumonia, Seizure Disorder, Syncope Additional Past Medical History / Comment(s): Possible TIAs in past per pt, caratid artery disease, mitral valve regurgitation/ tricuspid regurgitation, pt believes she has the beginnings of dementia, bronchitis, pituitary dysfunction, seasonal allergies/sinus problems, arthritis in multiple joints, UTI, syncope/possible seizure 02/25/19. History of Any Multi-Drug Resistant Organisms: None Reported Past Surgical History: Adenoidectomy, Appendectomy, Cholecystectomy, Tonsillectomy Additional Past Surgical History / Comment(s): 07/08/19 A flutter ablation, colonoscopy Past Anesthesia/Blood Transfusion Reactions: No Reported Reaction Past Psychological History: No Psychological Hx Reported Additional Psychological History / Comment(s): Pt has a public legal guardian. She states that she was not functioning well at one point and a legal guardian was appointed. She resides at [facility]. She uses a walker to ambulate. She has a nebulizer. Staff manages her meds. Pt states she is able to perform the rest of her ADLs. Smoking Status: Current every day smoker Past Alcohol Use History: None Reported Additional Past Alcohol Use History / Comment(s): Pt started smoking in 1958 and is a ppd smoker. Past Drug Use History: None Reported - Past Family History Father Family Medical History: Cancer Additional Family Medical History / Comment(s): Pt states by the time they found out that her father had cancer, it was thru out his body. Mother Family Medical History: No Reported History Additional Family Medical History / Comment(s): Mother was healthy. Medications and Allergies Home Medications Medication Instructions Recorded Confirmed Type Fluticasone Nasal [place] [Flonase 2 spray EA NOSTRIL HS@209902/25/19 09/23/19 History Nasal [place]] Loratadine [Claritin] 10 mg PO HS@209902/25/19 09/23/19 History Atorvastatin [Lipitor] 20 mg PO HS@199905/02/19 09/23/19 History Clopidogrel [Plavix] 75 mg PO HS@209906/09/19 09/23/19 History Famotidine [Pepcid] 20 mg PO BID@799,209906/09/19 09/23/19 History Ipratropium-Albuterol Nebulize 3 ml INHALATION RT-Q6H PRN 09/23/19 09/23/19 History [Duoneb 0.5 mg-3 mg/3 ml Soln] Warfarin [Coumadin] 5 mg PO HS@209909/23/19 09/23/19 History levETIRAcetam [Keppra] 1,000 mg PO BID@799,209909/23/19 09/23/19 History Allergies Allergy/AdvReac Type Severity Reaction Status Date / Time No Known Allergies Allergy Verified 09/23/19 10:25 Physical Examination - Vital Signs Vital Signs: Vital Signs Temp Pulse Pulse Resp BP BP Pulse Ox 09/23/19 14:30 98.1 F 79 17 146/67 98 09/23/19 13:36 102 H 18 116/66 98 09/23/19 12:51 118 H 20 98/62 97 09/23/19 12:33 122 H 18 106/75 97 09/23/19 11:26 130 H 22 192/80 97 09/23/19 11:02 111 H 22 192/80 96 09/23/19 10:16 98.2 F 109 H 20 161/79 97 Intake and Output 09/23/19 09/23/19 09/23/19 06:59 14:59 22:59 Intake Total 250 Balance 250 Intake: Intake, IV Titration 250 Amount Sodium Chloride 0.9% 1, 250 000 ml @ 75 mls/hr IV . [id number] [facility] Rx#:[id number] Other: Weight 57.606 kg On examination patient is an elderly female, in no acute distress. Patient is alert and awake fairly well oriented. She knows that she is in [facility] in [place] and name of the current president. She however thinks it's March and the year is 2019. She thinks it's "late fall". Her speech and language functions are normal. No aphasia or dysarthria. On cranial nerves pupils are round and reactive to light, visual anguiano are full on confro ntation, extraocular muscles are intact with no nystagmus. Face is symmetric and tongue protrudes to the midline. Palatal elevation and sensation normal. On muscle strength testing patient has left pronator drift. The strength is normal in the right arm and right leg. In the left upper limb, her deltoid is 5-, biceps and triceps are normal. Speaker Mounter is 5-. In the left lower limb, her ankles toes and knees are normal but hip flexion is about 4. Sensory touch is equal with no neglect. Patient has some dysmetria for [id number] on the left. Tone and bulk of muscles normal. Reflexes symmetric and plantar is upgoing on the left, downgoing on the right. No obvious bruit S1 and S2 audibl e. Peripheral pulses present. Results - Laboratory Findings CBC and BMP: 09/23/19 10:32 09/23/19 10:32 Abnormal Lab Findings: Abnormal Labs 09/23/19 10:32 PT 13.1 H INR 1.3 H Assessment and Plan Assessment: * 79-year-old female with probable focal seizures, came with possible breakthrough focal seizure. Patient also mentions that she gets dizzy lightheaded and passes out on standing up, which appears more orthostatic. * Atrial fibrillation, on long-term antiplatelet medication with Coumadin. Her current INR is subtherapeutic 1.3. * Hyperlipidemia * Hypertension Plan: * EEG in a.m. to evaluate for interictal epileptiform activity. * I would suggest adding Vimpat 50 mg twice a day to help with these focal seizures (after EEG is completed). * Suggest follow-up with a neurologist locally as outpatient to manage seizure disorder. * Patient also has atrial fibrillation, on anticoagulation, however her INR is very subtherapeutic. Suggest optimizing INR to 2-3 to prevent CVA. Consider bridging with Lovenox or heparin in the interim.
[2019-09-23] MEDS: ALBUTEROL HFA INHALER INHALATION SCH (20:15)
[2019-09-23] MEDS: SYMBICORT 160-4.5 MCG INHALER INHALATION SCH (20:15)
[2019-09-23] MEDS: LORATADINE 10 MG TAB PO SCH (21:40)
[2019-09-23] MEDS: FAMOTIDINE 20 MG TAB PO SCH (21:40)
[2019-09-23] MEDS: CLOPIDOGREL 75 MG TAB PO SCH (21:40)
[2019-09-23] MEDS: ATORVASTATIN 20 MG TAB PO SCH (21:40)
[2019-09-23] MEDS: levETIRAcetam 500 MG TAB PO SCH (21:43)
[2019-09-23] MEDS: FLUTICASONE 50MCG/SPRAY NASAL 16GM EA NOSTRIL SCH (21:44)
[2019-09-24] MEDS: ALBUTEROL HFA INHALER INHALATION SCH ×7 (02:03→23:21)
[2019-09-24] MEDS: SODIUM CHLORIDE 0.9% 1,000 ML IV SCH ×2 (02:58→16:13)
[2019-09-24] MEDS: SYMBICORT 160-4.5 MCG INHALER INHALATION SCH ×2 (07:40→20:06)
[2019-09-24] MEDS: levETIRAcetam 500 MG TAB PO SCH ×2 (08:17→20:37)
[2019-09-24] MEDS: FAMOTIDINE 20 MG TAB PO SCH ×2 (08:17→20:37)
[2019-09-24 09:02] LABS: INR 1.7 (<1.2)
[2019-09-24] MEDS: TIOTROPIUM 18 MCG/PUFF INHALER INHALATION SCH (09:22)
--- NOTE | 2019-09-24 13:38 | EEG ---
ELECTROENCEPHALOGRAM REPORT DATE OF SERVICE: 09/24/2019 PREAMBLE: This is a 79-year-old female with possible seizure-like activity. The patient has been having episodes in which she feels like she falls "like a rock". This study is performed to evaluate for any epileptiform activity. EEG FINDINGS: A routine 21 channel portable EEG recorded in a patient utilizing the 10/20 international system with bipolar and referential montages. Background consists of well developed, well regulated, moderate voltage activity in 7 to 8 Hz alpha, seen mainly in the left hemispheric region. There is continuous focal dysrhythmic theta and delta activity seen in the right hemispheric region, maximal right temporal. Intermittent sharp waves were seen in the right temporal region. No seizure was recorded. Photic driving response was not clearly seen. Different stages of sleep were not seen. IMPRESSION: This is an abnormal EEG due to the presence of focal slowing in the right hemispheric region with focal epileptiform activity over the right temporal region. This is suggestive of focal cortical neuronal dysfunction with underlying cortical irritability and tendency for seizures. 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 MMODL / IJN: [id number] /
--- NOTE | 2019-09-24 16:41 | P.PN ---
Subjective Progress Note Date: 09/24/19 Feels fine, no new complaints Objective - Vital Signs Vital signs: Vital Signs Temp 98.2 F 09/24/19 15:29 Pulse 61 09/24/19 15:29 Resp 17 09/24/19 15:29 BP 148/59 09/24/19 15:29 Pulse Ox 96 09/24/19 15:29 Intake & Output 09/23/19 09/24/19 09/24/19 18:59 06:59 18:59 Intake Total 310 1000 60 Output Total 600 Balance 310 400 60 Weight 57.606 kg Intake: Intake, IV Titration 250 900 Amount Sodium Chloride 0.9% 1, 250 900 000 ml @ 75 mls/hr IV . [id number] [facility] Rx#:[id number] Oral 60 100 60 Output: Urine 600 Other: Voiding Method Bedpan Bedpan # Voids 1 1 - Exam Patient is laying comfortably in the bed. No further seizures or tremors noticed since she arrived to the hospital. - Labs CBC & Chem 7: 09/23/19 10:32 09/23/19 10:32 Labs: Abnormal Lab Results - Last 24 Hours (Table) 09/24/19 Range/Units 06:47 PT 17.0 H (9.0-12.0) sec INR 1.7 H (<1.2) Assessment and Plan Assessment: * 79-year-old female with probable focal seizures, came with possible breakthrou gh focal seizure. Patient also mentions that she gets dizzy lightheaded and passes out on standing up, which appears more orthostatic. * Atrial fibrillation, on long-term antiplatelet medication with Coumadin. * Hyperlipidemia * Hypertension Plan: * EEG performed this morning showed focal slowing in the right hemispheric region with focal epileptiform activity over the right temporal region. This is suggestive of focal cortical neuronal dysfunction with underlying cortical irritability and tendency for seizures. 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 * Start Vimpat 50 mg twice a day. Continue Keppra 1000 mg twice a day. * Neurologically clear for discharge. Suggest follow-up with a neurologist locally as outpatient to manage seizure disorder. * Patient also has atrial fibrillation, on anticoagulation with Coumadin, however her INR is still subtherapeutic 1.7. Suggest optimizing INR to 2-3 to prevent CVA. Consider bridging with Lovenox or heparin in the interim.
[2019-09-24] MEDS: WARFARIN 5 MG TAB PO SCH (17:42)
--- NOTE | 2019-09-24 20:02 | P.PN ---
Progress Note - Text Progress Note Date: 09/24/19 Chief Complaint: Short of breath, tremors History of presenting complaint: This is a 79-year-old patient of Dr. Rodriguez. Chronic stable medical conditions include atrial flutter-fibrillation, hyperlipidemia, hypertension, Fidel arthritis, seizure disorder some pituitary dysfunction osteoarthritis. Patient was here in the ER about a month ago with possible seizure activity. Patient does take Keppra at home. Patient also states that for about 3-4 weeks she's becoming weak on the left side. It doesn't seem that this was worked up. Patient not able to give more detailed history. Patient's last few days. Having increasing short of breath. Some chest tightness. Dry cough. Has felt warm though temperature was not recorded. She is also having some jerking more so on the upper part of the right body in the arm. Consciousness is maintained. Awake. Symptoms seem to predominantly respiratory. Admitted with COPD exacerbation and epilepsy. Was given extra dose of Keppra in the ER. COVID-19 was ruled out Today-breathing a bit better. No shaking episodes. Seen by neurology. Did tolerate some diet. Review of systems: Was done for constitutional, cardiovascular, GI, pulmonary. relevant finding as above Active Medications Albuterol Sulfate (Ventolin Hfa Inhaler) 2 puff INHALATION RT-Q4H [facility] Last Admin: 09/24/19 17:26 Dose: 2 puff Documented by: Albuterol Sulfate (Ventolin Hfa Inhaler) 2 puff INHALATION RT-Q6H PRN PRN Reason: Shortness of breath Atorvastatin Calcium (Lipitor) 20 mg PO HS@1999 [facility] Last Admin: 09/23/19 21:40 Dose: 20 mg Documented by: Budesonide/Formoterol Fumarate (Symbicort 160-4.5 Mcg Inhaler) 2 puff INHALATION RT-BID [facility] Last Admin: 09/24/19 07:40 Dose: 2 puff Documented by: Clopidogrel Bisulfate (Plavix) 75 mg PO HS@2099 [facility] Last Admin: 09/23/19 21:40 Dose: 75 mg Documented by: Famotidine (Pepcid) 20 mg PO BID@0800,2100 [facility] Last Admin: 09/24/19 08:17 Dose: 20 mg Documented by: Fluticasone Propionate (Flonase Nasal [place]) 2 spray EA NOSTRIL HS@2099 [facility] Last Admin: 09/23/19 21:44 Dose: 2 spray Documented by: Sodium Chloride (Saline 0.9%) 1,000 mls @ 75 mls/hr IV .[id number] [facility] Last Admin: 09/24/19 16:13 Dose: Not Given Documented by: Lacosamide (Vimpat) 50 mg PO BID [facility] Levetiracetam (Keppra) 1,000 mg PO BID@0800,2100 [facility] Last Admin: 09/24/19 08:17 Dose: 1,000 mg Documented by: Loratadine (Claritin) 10 mg PO HS@2100 [facility] Last Admin: 09/23/19 21:40 Dose: 10 mg Documented by: Miscellaneous Information (Coumadin Per Pharmacy) 0 each MISCELLANE DIRECTED PRN PRN Reason: Per Protocol Naloxone HCl (Narcan) 0.2 mg IV Q2M PRN PRN Reason: Opioid Reversal Tiotropium [place] (Spiriva) 1 puff INHALATION RT-DAILY [facility] Last Admin: 09/24/19 09:22 Dose: Not Given Documented by: Warfarin Sodium (Coumadin) 5 mg PO DAILY@1800 [facility]; Protocol Last Admin: 09/24/19 17:42 Dose: 5 mg Documented by: Physical examination: VITAL SIGNS: 98.2, 61, 17, 148/59, 96% on room air GENERAL: BMI 23.2, laying in bed, more comfortable today. Breathing improving EYES: Pupils equal. Conjunctiva normal. HEENT: External appearance of nose and ears normal, oral cavity grossly normal. NECK: JVD not raised; masses not palpable. HEART: First and second heart sounds are normal; no edema. LUNGS: Respiratory rate increased, decreased breath sounds. ABDOMEN: Soft, nontender, liver spleen not palpable, no masses palpable. PSYCH: Answering questions NEUROLOGICAL: [Cranial nerves grossly intact; no facial asymmetry, power on the left side 3/5 INVESTIGATIONS, reviewed in the clinical context: INR 1.7 EEG-showing focal slowing in the right hemispheric region in the right temporal region. Previous testing White count 4.7 hemoglobin 13.4 platelets 162 potassium 5.1 bun 12 creatinine 0.6 EKG tracing personally reviewed by me-normal sinus rhythm with PVC Chest x-ray film personally reviewed by me-possible chronic changes versus infiltrate in the right side Assessment: -Acute COPD exacerbation and a current smoker, improving -focal seizure upon presentation-improving -Paroxysmal atrial flutter fibrillation chronically on anticoagulation currently sinus rhythm -Hyperlipidemia -Essential hypertension -Primary osteoarthritis -Moderate cognitive impairment possibly from late onset dementia -Given short of breath, dry cough feeling off feverish at home need to rule out COVID-19 -Left hemiparesis from a stroke over 3 weeks ago -Patient has a legal guardian Plan: Continue current medication treatment plan. Discussed neurology. He starting the patient on Vimpat. Discussed with the patient. Hopefully discharge tomorrow.
[2019-09-24] MEDS: ATORVASTATIN 20 MG TAB PO SCH (20:36)
[2019-09-24] MEDS: LACOSAMIDE 50 MG TABLET PO SCH (20:37)
[2019-09-24] MEDS: CLOPIDOGREL 75 MG TAB PO SCH (20:37)
[2019-09-24] MEDS: LORATADINE 10 MG TAB PO SCH (20:49)
[2019-09-24] MEDS: FLUTICASONE 50MCG/SPRAY NASAL 16GM EA NOSTRIL SCH (20:51)
[2019-09-25] MEDS: ALBUTEROL HFA INHALER INHALATION SCH ×6 (01:25→23:44)
[2019-09-25] MEDS: SODIUM CHLORIDE 0.9% 1,000 ML IV SCH ×2 (04:27→17:15)
[2019-09-25] MEDS: FAMOTIDINE 20 MG TAB PO SCH ×2 (07:50→20:31)
[2019-09-25] MEDS: levETIRAcetam 500 MG TAB PO SCH ×2 (07:50→20:31)
[2019-09-25] MEDS: LACOSAMIDE 50 MG TABLET PO SCH ×2 (07:50→20:31)
[2019-09-25] MEDS: SYMBICORT 160-4.5 MCG INHALER INHALATION SCH ×2 (08:08→20:35)
[2019-09-25] MEDS: TIOTROPIUM 18 MCG/PUFF INHALER INHALATION SCH (08:08)
[2019-09-25 08:13] LABS: INR 2.7 (<1.2); Prothrombin Time 26.6 sec (9.0-12.0)
--- NOTE | 2019-09-25 16:32 | P.PN ---
Progress Note - Text Progress Note Date: 09/25/19 Chief Complaint: Short of breath, tremors History of presenting complaint: This is a 79-year-old patient of Dr. Rodriguez. Chronic stable medical conditions include atrial flutter-fibrillation, hyperlipidemia, hypertension, Fidel arthritis, seizure disorder some pituitary dysfunction osteoarthritis. Patient was here in the ER about a month ago with possible seizure activity. Patient does take Keppra at home. Patient also states that for about 3-4 weeks she's becoming weak on the left side. It doesn't seem that this was worked up. Patient not able to give more detailed history. Patient's last few days. Having increasing short of breath. Some chest tightness. Dry cough. Has felt warm though temperature was not recorded. She is also having some jerking more so on the upper part of the right body in the arm. Consciousness is maintained. Awake. Symptoms seem to predominantly respiratory. Admitted with COPD exacerbation and epilepsy. Was given extra dose of Keppra in the ER. COVID-19 was ruled out Today-feeling more comfortable. No further seizure. Breathing stable. Tolerated diet. Review of systems: Was done for constitutional, cardiovascular, GI, pulmonary. relevant finding as above Active Medications Albuterol Sulfate (Ventolin Hfa Inhaler) 2 puff INHALATION RT-Q4H [facility] Last Admin: 09/25/19 11:39 Dose: 2 puff Documented by: Albuterol Sulfate (Ventolin Hfa Inhaler) 2 puff INHALATION RT-Q6H PRN PRN Reason: Shortness of breath Atorvastatin Calcium (Lipitor) 20 mg PO HS@1999 [facility] Last Admin: 09/24/19 20:36 Dose: 20 mg Documented by: Budesonide/Formoterol Fumarate (Symbicort 160-4.5 Mcg Inhaler) 2 puff INHALATION RT-BID [facility] Last Admin: 09/25/19 08:08 Dose: 2 puff Documented by: Clopidogrel Bisulfate (Plavix) 75 mg PO HS@2099 [facility] Last Admin: 09/24/19 20:37 Dose: 75 mg Documented by: Famotidine (Pepcid) 20 mg PO BID@0800,2099 [facility] Last Admin: 09/25/19 07:50 Dose: 20 mg Documented by: Fluticasone Propionate (Flonase Nasal [place]) 2 spray EA NOSTRIL HS@2099 [facility] Last Admin: 09/24/19 20:51 Dose: 2 spray Documented by: Sodium Chloride (Saline 0.9%) 1,000 mls @ 75 mls/hr IV .[id number] [facility] Last Admin: 09/25/19 04:27 Dose: Not Given Documented by: Lacosamide (Vimpat) 50 mg PO BID [facility] Last Admin: 09/25/19 07:50 Dose: 50 mg Documented by: Levetiracetam (Keppra) 1,000 mg PO BID@0800,2100 [facility] Last Admin: 09/25/19 07:50 Dose: 1,000 mg Documented by: Loratadine (Claritin) 10 mg PO HS@2099 [facility] Last Admin: 09/24/19 20:49 Dose: 10 mg Documented by: Miscellaneous Information (Coumadin Per Pharmacy) 0 each MISCELLANE DIRECTED PRN PRN Reason: Per Protocol Naloxone HCl (Narcan) 0.2 mg IV Q2M PRN PRN Reason: Opioid Reversal Tiotropium [place] (Spiriva) 1 puff INHALATION RT-DAILY [facility] Last Admin: 09/25/19 08:08 Dose: 1 puff Documented by: Warfarin Sodium (Coumadin) 2 mg PO ONCE@1800 [facility]; Protocol Stop: 09/25/19 18:01 Physical examination: VITAL SIGNS: 97, 68, 17, 131/73, peripheral percent on room air GENERAL: laying in bed, comfortable EYES: Pupils equal. Conjunctiva normal. HEENT: External appearance of nose and ears normal, oral cavity grossly normal. NECK: JVD not raised; masses not palpable. HEART: First and second heart sounds are normal; no edema. LUNGS: Respiratory ratenormal,, decreased breath sounds. ABDOMEN: Soft, nontender, liver spleen not palpable, no masses palpable. PSYCH: Answering questions NEUROLOGICAL: [Cranial nerves grossly intact; no facial asymmetry, power on the left side 3/5 INVESTIGATIONS, reviewed in the clinical context: INR 2.7 Previous testing White count 4.7 hemoglobin 13.4 platelets 162 potassium 5.1 bun 12 creatinine 0.6 EKG tracing personally reviewed by me-normal sinus rhythm with PVC Chest x-ray film personally reviewed by me-possible chronic changes versus infiltrate in the right side EEG-showing focal slowing in the right hemispheric region in the right temporal region. Assessment: -Acute COPD exacerbation and a current smoker, improving -focal seizure upon presentation-improving -Paroxysmal atrial flutter fibrillation chronically on anticoagulation currently sinus rhythm -Hyperlipidemia -Essential hypertension -Primary osteoarthritis -Moderate cognitive impairment possibly from late onset dementia -Given short of breath, dry cough feeling off feverish at home need to rule out COVID-19 -Left hemiparesis from a stroke over 3 weeks ago -Patient has a legal guardian Plan: continue current medication treatment plan. Awaiting to go to the [facility].
[2019-09-25] MEDS ORDERED: WARFARIN 2 MG TAB PO ONE (18:00)
[2019-09-25] MEDS: FLUTICASONE 50MCG/SPRAY NASAL 16GM EA NOSTRIL SCH (20:30)
[2019-09-25] MEDS: CLOPIDOGREL 75 MG TAB PO SCH (20:31)
[2019-09-25] MEDS: ATORVASTATIN 20 MG TAB PO SCH (20:31)
[2019-09-25] MEDS: LORATADINE 10 MG TAB PO SCH (20:31)
[2019-09-26] MEDS: ALBUTEROL HFA INHALER INHALATION SCH ×5 (03:25→19:51)
[2019-09-26 07:44] LABS: INR 2.2 (<1.2); Prothrombin Time 21.5 sec (9.0-12.0)
[2019-09-26] MEDS: SYMBICORT 160-4.5 MCG INHALER INHALATION SCH ×2 (08:03→19:52)
[2019-09-26] MEDS: TIOTROPIUM 18 MCG/PUFF INHALER INHALATION SCH (08:03)
[2019-09-26] MEDS: FAMOTIDINE 20 MG TAB PO SCH ×2 (08:16→20:38)
[2019-09-26] MEDS: SODIUM CHLORIDE 0.9% 1,000 ML IV SCH (08:16)
[2019-09-26] MEDS: LACOSAMIDE 50 MG TABLET PO SCH ×2 (08:16→20:38)
[2019-09-26] MEDS: levETIRAcetam 500 MG TAB PO SCH ×2 (08:16→20:38)
--- NOTE | 2019-09-26 16:24 | P.PN ---
Progress Note - Text Progress Note Date: 09/26/19 Chief Complaint: Short of breath, tremors History of presenting complaint: This is a 79-year-old patient of Dr. Rodriguez. Chronic stable medical conditions include atrial flutter-fibrillation, hyperlipidemia, hypertension, Fidel arthritis, seizure disorder some pituitary dysfunction osteoarthritis. Patient was here in the ER about a month ago with possible seizure activity. Patient does take Keppra at home. Patient also states that for about 3-4 weeks she's becoming weak on the left side. It doesn't seem that this was worked up. Patient not able to give more detailed history. Patient's last few days. Having increasing short of breath. Some chest tightness. Dry cough. Has felt warm though temperature was not recorded. She is also having some jerking more so on the upper part of the right body in the arm. Consciousness is maintained. Awake. Symptoms seem to predominantly respiratory. Admitted with COPD exacerbation and epilepsy. Was given extra dose of Keppra in the ER. COVID-19 was ruled out Today-stable. No new issues. Pending to the ECF. Left-sided weakness actually is improved. Review of systems: Was done for constitutional, cardiovascular, GI, pulmonary. relevant finding as above Active Medications Albuterol Sulfate (Ventolin Hfa Inhaler) 2 puff INHALATION RT-Q4H [facility] Last Admin: 09/26/19 15:48 Dose: 2 puff Documented by: Albuterol Sulfate (Ventolin Hfa Inhaler) 2 puff INHALATION RT-Q6H PRN PRN Reason: Shortness of breath Atorvastatin Calcium (Lipitor) 20 mg PO HS@1999 [facility] Last Admin: 09/25/19 20:31 Dose: 20 mg Documented by: Budesonide/Formoterol Fumarate (Symbicort 160-4.5 Mcg Inhaler) 2 puff INHALATION RT-BID [facility] Last Admin: 09/26/19 08:03 Dose: 2 puff Documented by: Clopidogrel Bisulfate (Plavix) 75 mg PO HS@2099 [facility] Last Admin: 09/25/19 20:31 Dose: 75 mg Documented by: Famotidine (Pepcid) 20 mg PO BID@0800,2099 [facility] Last Admin: 09/26/19 08:16 Dose: 20 mg Documented by: Fluticasone Propionate (Flonase Nasal [place]) 2 spray EA NOSTRIL HS@2099 [facility] Last Admin: 09/25/19 20:30 Dose: 2 spray Documented by: Sodium Chloride (Saline 0.9%) 1,000 mls @ 75 mls/hr IV .[id number] [facility] Last Admin: 09/26/19 08:16 Dose: Not Given Documented by: Lacosamide (Vimpat) 50 mg PO BID [facility] Last Admin: 09/26/19 08:16 Dose: 50 mg Documented by: Levetiracetam (Keppra) 1,000 mg PO BID@0800,2100 [facility] Last Admin: 09/26/19 08:16 Dose: 1,000 mg Documented by: Loratadine (Claritin) 10 mg PO HS@2100 [facility] Last Admin: 09/25/19 20:31 Dose: 10 mg Documented by: Miscellaneous Information (Coumadin Per Pharmacy) 0 each MISCELLANE DIRECTED PRN PRN Reason: Per Protocol Naloxone HCl (Narcan) 0.2 mg IV Q2M PRN PRN Reason: Opioid Reversal Tiotropium [place] (Spiriva) 1 puff INHALATION RT-DAILY [facility] Last Admin: 09/26/19 08:03 Dose: 1 puff Documented by: Warfarin Sodium (Coumadin) 5 mg PO ONCE@1800 ONE Stop: 09/26/19 18:01 Physical examination: VITAL SIGNS: 97.6, 63, 16, 128/62, 97% on room air GENERAL: laying in bed, comfortable EYES: Pupils equal. Conjunctiva normal. HEENT: External appearance of nose and ears normal, oral cavity grossly normal. NECK: JVD not raised; masses not palpable. HEART: First and second heart sounds are normal; no edema. LUNGS: Respiratory ratenormal,, decreased breath sounds. ABDOMEN: Soft, nontender, liver spleen not palpable, no masses palpable. PSYCH: Answering questions NEUROLOGICAL: [Cranial nerves grossly intact; no facial asymmetry, power on the left side improved-4/5 INVESTIGATIONS, reviewed in the clinical context: INR 2.2 Previous testing White count 4.7 hemoglobin 13.4 platelets 162 potassium 5.1 bun 12 creatinine 0.6 EKG tracing personally reviewed by me-normal sinus rhythm with PVC Chest x-ray film personally reviewed by me-possible chronic changes versus infiltrate in the right side EEG-showing focal slowing in the right hemispheric region in the right temporal region. Assessment: -Acute COPD exacerbation and a current smoker, improving -focal seizure upon presentation-improving -Paroxysmal atrial flutter fibrillation chronically on anticoagulation currently sinus rhythm -Hyperlipidemia -Essential hypertension -Primary osteoarthritis -Moderate cognitive impairment possibly from late onset dementia -Given short of breath, dry cough feeling off feverish at home need to rule out COVID-19 -Left hemiparesis from a stroke over 3 weeks ago -Patient has a legal guardian Plan: DC saline. DC Claritin. Give melatonin at night. Awaiting to go to [facility].
[2019-09-26] MEDS ORDERED: WARFARIN 5 MG TAB PO ONE (18:00)
[2019-09-26] MEDS: CLOPIDOGREL 75 MG TAB PO SCH (20:38)
[2019-09-26] MEDS: FLUTICASONE 50MCG/SPRAY NASAL 16GM EA NOSTRIL SCH (20:38)
[2019-09-26] MEDS: ATORVASTATIN 20 MG TAB PO SCH (20:38)
[2019-09-26] MEDS ORDERED: MELATONIN 3 MG TABLET PO SCH (21:00)
[2019-09-27] MEDS: ALBUTEROL HFA INHALER INHALATION SCH ×5 (00:05→15:59)
[2019-09-27] MEDS: FAMOTIDINE 20 MG TAB PO SCH (07:20)
[2019-09-27] MEDS: levETIRAcetam 500 MG TAB PO SCH (07:20)
[2019-09-27] MEDS: LACOSAMIDE 50 MG TABLET PO SCH (07:20)
[2019-09-27 07:29] VITALS: PULSE 62; RESP 17
[2019-09-27 07:47] LABS: INR 2.1 (<1.2); Prothrombin Time 20.1 sec (9.0-12.0)
[2019-09-27] MEDS: SYMBICORT 160-4.5 MCG INHALER INHALATION SCH (08:09)
[2019-09-27] MEDS: TIOTROPIUM 18 MCG/PUFF INHALER INHALATION SCH (08:09)
[2019-09-27 14:59] VITALS: BP 125/70; TEMP 97.7
[2019-09-27] MEDS ORDERED: WARFARIN 5 MG TAB PO ONE (18:00)
--- NOTE | 2019-09-27 20:20 | P.PN ---
Subjective Progress Note Date: 09/27/19 Feels fine, no new complaints. No seizures. Patient states new medication is working well. Objective - Vital Signs Vital signs: Vital Signs Temp 97.7 F 09/27/19 14:58 Pulse 62 09/27/19 14:58 Resp 17 09/27/19 14:58 BP 125/70 09/27/19 14:58 Pulse Ox 96 09/27/19 14:58 Intake & Output 09/26/19 09/27/19 09/27/19 18:59 06:59 18:59 Intake Total 200 Balance 200 Intake: Oral 200 Other: Voiding Method Bedside Commode Bedside Commode # Voids 2 1 - Exam Patient is laying comfortably in the bed. No further seizures or tremors noticed since she arrived to the hospital. - Labs CBC & Chem 7: 09/23/19 10:32 09/23/19 10:32 Labs: Abnormal Lab Results - Last 24 Hours (Table) 09/27/19 Range/Units 06:59 PT 20.1 H (9.0-12.0) sec INR 2.1 H (<1.2) Assessment and Plan Assessment: * 79-year-old female with probable focal seizures, came with possible breakthrough focal seizure. 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 Patient also mentions that she gets dizzy lightheaded and passes out on standing up, which appears more orthostatic. * Atrial fibrillation, on long-term antiplatelet medication with Coumadin. * Hyperlipidemia * Hypertension Plan: * Patient is doing well on Vimpat 50 mg twice a day but her insurance does not cover this medication. I was considering Aptiom, but this probably will not be covered by insurance as well. I therefore started Lamictal 25 mg twice a day for 2 weeks and then increase to 50 mg twice a day. Patient was recommended to stop medication if she gets rash. Patient will be continued on Keppra 1000 mg twice a day as well. Vimpat discontinued. * EEG showed focal slowing in the right hemispheric region with focal epileptiform activity over the right temporal region. This is suggestive of focal cortical neuronal dysfunction with underlying cortical irritability and tendency for seizures. 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 * Neurologically clear for discharge. Suggest follow-up with a neurologist locally as outpatient to manage seizure disorder. * Patient also has atrial fibrillation, on anticoagulation with Coumadin. INR is therapeutic 2.1.
--- NOTE | 2019-09-27 21:42 | P.DS ---
Providers Date of admission: 09/23/19 12:40 Expected date of discharge: 09/27/19 Attending physician: Mariusz Em Consults: 09/23/19 12:34 Consult Physician Routine Consulting Provider: Lanre Odell Consult Reason/Comments: poss focal seizure, tremor Do you want consulting provider notified?: Yes Primary care physician: [facility] Course: Chief Complaint: Short of breath, tremors History of presenting complaint: This is a 79-year-old patient of Dr. Rodriguez. Chronic stable medical conditions include atrial flutter-fibrillation, hyperlipidemia, hypertension, Fidel arthritis, seizure disorder some pituitary dysfunction osteoarthritis. Patient was here in the ER about a month ago with possible seizure activity. Patient does take Keppra at home. Patient also states that for about 3-4 weeks she's becoming weak on the left side. It doesn't seem that this was worked up. Patient not able to give more detailed history. Patient's last few days. Having increasing short of breath. Some chest tightness. Dry cough. Has felt warm though temperature was not recorded. She is also having some jerking more so on the upper part of the right body in the arm. Consciousness is maintained. Awake. Symptoms seem to predominantly respiratory. Admitted with COPD exacerbation and epilepsy. Was given extra dose of Keppra in the ER. COVID-19 was ruled out Today-stable. No new issues. Discussed with social and political studies professor. Patient doing too well to go to ECF. Can be discharged back to her custodial. Patient's Vimpat is not covered. Discussed with Dr. Ohara and the social and political studies professor. Patient medication changed over to Lamictal. Prescribed. Left-sided weakness actually significant improvement. Discussion and discharge planning more than 35 minutes Consultation: Dr. Ohara from neurology Physical examination: VITAL SIGNS: 97.7, 62, 17, 125/70, 96% on room air GENERAL: laying in bed, comfortable EYES: Pupils equal. Conjunctiva normal. HEENT: External appearance of nose and ears normal, oral cavity grossly normal. NECK: JVD not raised; masses not palpable. HEART: First and second heart sounds are normal; no edema. LUNGS: Respiratory ratenormal,, decreased breath sounds. ABDOMEN: Soft, nontender, liver spleen not palpable, no masses palpable. PSYCH: Answering questions NEUROLOGICAL: [Cranial nerves grossly intact; no facial asymmetry, power on the left side improved-4/5 INVESTIGATIONS, reviewed in the clinical context: INR 2.1 Previous testing White count 4.7 hemoglobin 13.4 platelets 162 potassium 5.1 bun 12 creatinine 0.6 EKG tracing personally reviewed by me-normal sinus rhythm with PVC Chest x-ray film personally reviewed by me-possible chronic changes versus infiltrate in the right side EEG-showing focal slowing in the right hemispheric region in the right temporal region. Assessment: -Acute COPD exacerbation and a current smoker, POA -focal seizure POA -Paroxysmal atrial flutter fibrillation chronically on anticoagulation currently sinus rhythm -Hyperlipidemia -Essential hypertension -Primary osteoarthritis -Moderate cognitive impairment possibly from late onset dementia -Given short of breath, dry cough feeling off feverish at home need to rule out COVID-19 -Left hemiparesis from a stroke over 3 weeks ago -Patient has a legal guardian Disposition: [facility] Patient Condition at Discharge: Stable Plan - Discharge Summary Discharge Rx Participant: No New Discharge Prescriptions: New Melatonin 3 mg PO HS #30 tablet Budesonide-Formot 160-4.5 Mcg [Symbicort 160-4.5 Mcg Inhaler] 2 puff INHALATION RT-BID #1 puff lamoTRIgine [LaMICtal] 25 mg PO DIRECTED #1 tab Continue Fluticasone Nasal [place] [Flonase Nasal [place]] 2 spray EA NOSTRIL HS@2099 Atorvastatin [Lipitor] 20 mg PO HS@1999 Clopidogrel [Plavix] 75 mg PO HS@2100 Famotidine [Pepcid] 20 mg PO BID@0800,2100 Warfarin [Coumadin] 5 mg PO HS@2100 levETIRAcetam [Keppra] 1,000 mg PO BID@0800,2100 Ipratropium-Albuterol Nebulize [Duoneb 0.5 mg-3 mg/3 ml Soln] 3 ml INHALATION RT-Q6H PRN PRN Reason: Shortness Of Breath Discontinued Loratadine [Claritin] 10 mg PO HS@2100 Discharge Medication List Fluticasone Nasal [place] [Flonase Nasal [place]] 2 spray EA NOSTRIL HS@2100 02/25/19 [History] Atorvastatin [Lipitor] 20 mg PO HS@199905/02/19 [History] Clopidogrel [Plavix] 75 mg PO HS@2100 12/25/19 [History] Famotidine [Pepcid] 20 mg PO BID@0800,209906/09/19 [History] Ipratropium-Albuterol Nebulize [Duoneb 0.5 mg-3 mg/3 ml Soln] 3 ml INHALATION RT-Q6H PRN 09/23/19 [History] Warfarin [Coumadin] 5 mg PO HS@209909/23/19 [History] levETIRAcetam [Keppra] 1,000 mg PO BID@0800,209909/23/19 [History] Budesonide-Formot 160-4.5 Mcg [Symbicort 160-4.5 Mcg Inhaler] 2 puff INHALATION RT-BID #1 puff 09/27/19 [Rx] Melatonin 3 mg PO HS #30 tablet 09/27/19 [Rx] lamoTRIgine [LaMICtal] 25 mg PO DIRECTED #1 tab 09/27/19 [Rx] Follow up Appointment(s)/Referral(s): Danny Rodriguez DO [Primary Care Provider] - 1-2 days Carlos Bravo MD [STAFF PHYSICIAN] - 1 Week Patient Instructions/Handouts: Generalized Tonic Clonic Seizures (DC) Activity/Diet/Wound Care/Special Instructions: PLEASE DO NOT FILL THE VIMPAT MEDICATION (LACOSAMIDE) AT THE PHARMACY. PLEASE TAKE THE PAPER PRESCRIPTION FOR LAMICTAL TO THE PHARMACY TO BE FILLED - THIS IS A NEW ANTI-SEIZURE MEDICATION. PLEASE FOLLOW LABEL INSTRUCTIONS - 1 X 25mg TABLET TWICE A DAY FOR TWO WEEKS. THEN INCREASE TO 2 X 25mg TABLETS TWICE A DAY.
== END 2019-09-27 16:08 | disposition home or self-care (01) | DRG 191 ==
LOC: EC 10:14 → 4SSUR 12:40
PROVIDERS: ADMIT Hospitalist; ATTEND Hospitalist
DX: J44.1 Chronic obstructive pulmonary disease with (acute) exacerbation (principal); G40.009 Localization-related (focal) (partial) idiopathic epilepsy and epileptic syndromes with seizures of localized onset, not intractable, without status epilepticus; I69.354 Hemiplegia and hemiparesis following cerebral infarction affecting left non-dominant side; I48.92 Unspecified atrial flutter; Z20.828 Contact with and (suspected) exposure to other viral communicable diseases; E23.3 Hypothalamic dysfunction, not elsewhere classified; M89.49 Other hypertrophic osteoarthropathy, multiple sites; E78.5 Hyperlipidemia, unspecified; F17.210 Nicotine dependence, cigarettes, uncomplicated; G93.89 Other specified disorders of brain; I08.1 Rheumatic disorders of both mitral and tricuspid valves; I10 Essential (primary) hypertension; I48.0 Paroxysmal atrial fibrillation; Z79.01 Long term (current) use of anticoagulants; I49.1 Atrial premature depolarization; I65.29 Occlusion and stenosis of unspecified carotid artery; M19.91 Primary osteoarthritis, unspecified site; Z79.51 Long term (current) use of inhaled steroids; Z79.899 Other long term (current) drug therapy; Z80.9 Family history of malignant neoplasm, unspecified; Z87.01 Personal history of pneumonia (recurrent); Z87.440 Personal history of urinary (tract) infections; Z90.49 Acquired absence of other specified parts of digestive tract; Z79.02 Long term (current) use of antithrombotics/antiplatelets; F03.90 Unspecified dementia, unspecified severity, without behavioral disturbance, psychotic disturbance, mood disturbance, and anxiety
CPT/HCPCS: 36415; 71045; 80053; 83735; 83880; 84484; 85025; 85610; 85730; 87635; 93005; 94640; 95816; 96361; 96365; 96375; 96376; 99285

== ENCOUNTER 2019-10-31 16:58 | Emergency (ER) | payer MEDICARE ==
[2019-10-31 17:09] VITALS: TEMP 97.6
[2019-10-31] MEDS ORDERED: levETIRAcetam IV 500 MG in SODIUM CHLORIDE 0.9% 100 ML IVPB STA ×2 (17:09→18:29)
[2019-10-31 17:17] LABS: Basophils # (A) 0.1 k/uL (0-0.2); Basophils % (A) 1 %; Eosinophils # (A) 0.1 k/uL (0-0.7); Eosinophils % (A) 1 %; HCT 43.4 % (34.0-46.0); HGB 13.8 gm/dL (11.4-16.0); Lymphocytes # (A) 1.4 k/uL (1.0-4.8); Lymphocytes % (A) 19 %; MCH 27.3 pg (25.0-35.0); MCHC 31.8 g/dL (31.0-37.0); MCV 85.9 fL (80.0-100.0); Monocytes # (A) 0.5 k/uL (0-1.0); Monocytes % (A) 7 %; Neutrophils # (A) 5.2 k/uL (1.3-7.7); Neutrophils % (A) 70 %; Platelet Count 209 k/uL (150-450); RBC 5.06 m/uL (3.80-5.40); RDW 14.6 % (11.5-15.5); WBC 7.4 k/uL (3.8-10.6)
[2019-10-31 17:23] LABS: Prothrombin Time 19.3 sec (9.0-12.0)
--- NOTE | 2019-10-31 17:24 | ED ---
Seizure HPI - General Chief Complaint: Seizure Stated Complaint: Tremors Time Seen by Provider: 10/31/19 17:00 Source: patient, EMS, RN notes reviewed, old records reviewed Mode of arrival: EMS Limitations: no limitations - History of Present Illness Initial Comments: This is a 79-year-old female with a prior history of several evaluations for tremors who was seen here last month and currently diagnosed with a seizure disorder who is back today with complaints of left-sided mostly upper extremity shaking this started last night and persisted into today. She apparently has had no new medications no fevers chills nausea vomiting sweats no headache she's been awake alert oriented 3 throughout the entire time. The current complaints at this time per paramedics she seemed to have less tremor to her left upper extremity when she is distracted. MD Complaint: possible seizure - Related Data Home Medications Medication Instructions Recorded Confirmed Fluticasone Nasal [place] [Flonase 2 spray EA NOSTRIL HS@199902/25/19 10/31/19 Nasal [place]] Atorvastatin [Lipitor] 20 mg PO HS@199905/02/19 10/31/19 Clopidogrel [Plavix] 75 mg PO HS@199906/09/19 10/31/19 Famotidine [Pepcid] 20 mg PO BID@0800,199906/09/19 10/31/19 Ipratropium-Albuterol Nebulize 3 ml INHALATION RT-QID PRN 09/23/19 10/31/19 [Duoneb 0.5 mg-3 mg/3 ml Soln] Warfarin [Coumadin] 5 mg PO HS@199909/23/19 10/31/19 levETIRAcetam [Keppra] 1,000 mg PO BID@0800,199909/23/19 10/31/19 Loratadine [Claritin] 10 mg PO HS@199910/31/19 10/31/19 Melatonin 3 mg PO HS@199910/31/19 10/31/19 lamoTRIgine [LaMICtal] 50 mg PO 10/31/19 Allergies Allergy/AdvReac Type Severity Reaction Status Date / Time No Known Allergies Allergy Verified 10/31/19 18:28 Review of Systems ROS Statement: Those systems with pertinent positive or pertinent negative responses have been documented in the HPI. ROS Other: All systems not noted in ROS Statement are negative. Past Medical History Past Medical History: Atrial Fibrillation, Atrial Flutter, COPD, CVA/TIA, Hyperlipidemia, Hypertension, Osteoarthritis (OA), Pneumonia, Seizure Disorder, Syncope Additional Past Medical History / Comment(s): Possible TIAs in past per pt, carotid artery disease, mitral valve regurgitation/ tricuspid regurgitation, pt believes she has the beginnings of dementia, bronchitis, pituitary dysfunction, seasonal allergies/sinus problems, arthritis in multiple joints, UTI, syncope/possible seizure 02/25/19. History of Any Multi-Drug Resistant Organisms: None Reported Past Surgical History: Adenoidectomy, Appendectomy, Cholecystectomy, Tonsillectomy Additional Past Surgical History / Comment(s): 07/08/19 A flutter ablation, colonoscopy Past Anesthesia/Blood Transfusion Reactions: No Reported Reaction Past Psychological History: No Psychological Hx Reported Smoking Status: Current every day smoker Past Alcohol Use History: None Reported Past Drug Use History: None Reported - Past Family History Father Family Medical History: Cancer Additional Family Medical History / Comment(s): Pt states by the time they found out that her father had cancer, it was thru out his body. Mother Family Medical History: No Reported History Additional Family Medical History / Comment(s): Mother was healthy. General Exam - General Exam Comments Initial Comments: This is a well-developed asthenic appearing female who is awake alert oriented 3 she does demonstrate evidence of tremor with flexion of her left wrist. No other activity other than occasional twitch of her left lower extremity. No sensory or motor or vascular deficits otherwise Limitations: no limitations General appearance: alert, in no apparent distress Head exam: Present: atraumatic, normocephalic, normal inspection Eye exam: Present: normal appearance, PERRL, EOMI. Absent: scleral icterus, conjunctival injection, periorbital swelling ENT exam: Present: normal exam, mucous membranes moist Neck exam: Present: normal inspection. Absent: tenderness, meningismus, lymphadenopathy Respiratory exam: Present: normal lung sounds bilaterally. Absent: respiratory distress, wheezes, rales, rhonchi, stridor Cardiovascular Exam: Present: regular rate, normal rhythm, normal heart sounds. Absent: systolic murmur, diastolic murmur, rubs, gallop, clicks GI/Abdominal exam: Present: soft, normal bowel sounds. Absent: distended, tenderness, guarding, rebound, rigid Extremities exam: Present: full ROM, normal capillary refill. Absent: tenderness, pedal edema, joint swelling, calf tenderness Back exam: Present: normal inspection Neurological exam: Present: alert, oriented X3, CN II-XII intact, other (As noted above) Psychiatric exam: Present: normal affect, normal mood Skin exam: Present: warm, dry, intact, normal color. Absent: rash Course Vital Signs 10/31/19 10/31/19 10/31/19 16:59 18:30 18:48 Temperature 97.6 F Pulse Rate 102 H 147 H Respiratory 16 16 Rate Blood Pressure 149/91 113/87 O2 Sat by Pulse 94 L 93 L 98 Oximetry 10/31/19 10/31/19 10/31/19 19:16 19:30 19:45 Temperature Pulse Rate 176 H 128 H 104 H Respiratory 8 L 14 14 Rate Blood Pressure 55/36 58/30 O2 Sat by Pulse 98 100 Oximetry 10/31/19 10/31/19 10/31/19 20:00 20:07 20:18 Temperature Pulse Rate 87 90 87 Respiratory 23 18 20 Rate Blood Pressure 84/51 104/56 128/61 O2 Sat by Pulse 100 100 99 Oximetry - Reevaluation(s) Reevaluation #1: 10/31/19 20:26 Patient was noted to go into an A. fib RVR just after arrival. She initially presented with a apparent sinus rhythm and upon arrival was noted be tachycardic 142 was a heart rate on EKG QRS 82 QT since QTC to 78/427 LVH evidence of old inferior infarct the EKG machine read a sinus tachycardia with a [place] interval of 148 though it did appear to be more so in A. fib with RVR. A repeat EKG did confirm this the rate was 199 A. fib RVR QRS 78 QT since QTC 180/327 pulses criteria for LVH and ST and her maladies noted in the anterolateral leads. Patient was started on a Cardizem drip and did require bolusing. Reevaluation #2: 10/31/19 20:27 The patient was noted to have initially progression of the left-sided tremor was sent for some seen at to go into a complete tonic-clonic seizure lasting about 3 minutes. I was at bedside during this time. No tongue biting or urinary incontinence noted. Patient remained in A. fib did get 2 mg Ativan IV and later IV Keppra was given 2 doses of 500 mg. After the seizure activity the patient had been awake alert oriented 3. Subsequent to this patient did develop difficulty with breathing this was before the Ativan was giving she was noted to be demonstrate some apneic episodes and respiratory distress. Reevaluation #3: 10/31/19 20:28 The patient did require oral tracheal intubation for airway protection. This was performed by the HAND II TUBE BENDER using rapid sequence intubation. Subsequently did have hypotensive episodes which did require IV fluids. This did correct that. 10/31/19 20:30 The intubation was performed by the HAND II TUBE BENDER a #7.5 ET tube was used. The x-ray did reveal the tip of the tube to be a proximal a 4 cm above the aurora. No evidence of a pneumothorax. I did evaluate the patient after intubation she did have good breath sounds bilaterally. Capnography was performed and later ABGs. Reevaluation #4: 10/31/19 20:29 Patient was noted to convert to a sinus rhythm with with PACs rate was 88. Interval 170 QRS duration 82 QT since QTC 396/479 possible LVH and inferior infarct age indeterminate Medical Decision Making - Lab Data Result diagrams: 10/31/19 17:00 10/31/19 17:00 Lab Results 10/31/19 10/31/19 10/31/19 Range/Units 17:00 17:00 17:00 WBC 7.4 (3.8-10.6) k/uL RBC 5.06 (3.80-5.40) m/uL Hgb 13.8 (11.4-16.0) gm/dL Hct 43.4 (34.0-46.0) % MCV 85.9 (80.0-100.0) fL MCH 27.3 (25.0-35.0) pg MCHC 31.8 (31.0-37.0) g/dL RDW 14.6 (11.5-15.5) % Plt Count 209 (150-450) k/uL Neutrophils % 70 % Lymphocytes % 19 % Monocytes % 7 % Eosinophils % 1 % Basophils % 1 % Neutrophils # 5.2 (1.3-7.7) k/uL Lymphocytes # 1.4 (1.0-4.8) k/uL Monocytes # 0.5 (0-1.0) k/uL Eosinophils # 0.1 (0-0.7) k/uL Basophils # 0.1 (0-0.2) k/uL PT 19.3 H (9.0-12.0) sec INR 2.0 H (<1.2) Sample Site ABG pH (7.35-7.45) ABG pCO2 (35-45) mmHg ABG pO2 (83-108) mmHg ABG HCO3 (21-25) mmol/L ABG Total CO2 (19-24) mmol/L ABG O2 Saturation (94-97) % ABG Base Excess mmol/L Navin Test FiO2 % Sodium 136 L (137-145) mmol/L Potassium 4.3 (3.5-5.1) mmol/L Chloride 103 (98-107) mmol/L Carbon Dioxide 22 (22-30) mmol/L Anion Gap 11 mmol/L BUN 12 (7-17) mg/dL Creatinine 0.66 (0.52-1.04) mg/dL Est GFR (CKD-EPI)AfAm >90 (>60 ml/min/1.73 sqM) Est GFR (CKD-EPI)NonAf 86 (>60 ml/min/1.73 sqM) Glucose 110 H (74-99) mg/dL Calcium 9.6 (8.4-10.2) mg/dL Magnesium 1.8 (1.6-2.3) mg/dL Total Bilirubin 0.8 (0.2-1.3) mg/dL AST 31 (14-36) U/L ALT 15 (4-34) U/L Alkaline Phosphatase 135 H (38-126) U/L Creatine Kinase (30-135) U/L Troponin I (0.000-0.034) ng/mL Total Protein 7.6 (6.3-8.2) g/dL Albumin 4.6 (3.5-5.0) g/dL Urine Color Urine Appearance (Clear) Urine pH (5.0-8.0) Ur Specific [place] (1.001-1.035) Urine Protein (Negative) Urine Glucose (UA) (Negative) Urine Ketones (Negative) Urine Blood (Negative) Urine Nitrite (Negative) Urine Bilirubin (Negative) Urine Urobilinogen (<2.0) mg/dL Ur Leukocyte Esterase (Negative) Urine RBC (0-5) /hpf Urine WBC (0-5) /hpf Ur Squamous Epith Cells (0-4) /hpf Amorphous Sediment (None) /hpf Urine Bacteria (None) /hpf Hyaline Casts (0-2) /lpf 10/31/19 10/31/19 10/31/19 Range/Units 17:00 17:00 19:17 WBC (3.8-10.6) k/uL RBC (3.80-5.40) m/uL Hgb (11.4-16.0) gm/dL Hct (34.0-46.0) % MCV (80.0-100.0) fL MCH (25.0-35.0) pg MCHC (31.0-37.0) g/dL RDW (11.5-15.5) % Plt Count (150-450) k/uL Neutrophils % % Lymphocytes % % Monocytes % % Eosinophils % % Basophils % % Neutrophils # (1.3-7.7) k/uL Lymphocytes # (1.0-4.8) k/uL Monocytes # (0-1.0) k/uL Eosinophils # (0-0.7) k/uL Basophils # (0-0.2) k/uL PT (9.0-12.0) sec INR (<1.2) Sample Site ABG pH (7.35-7.45) ABG pCO2 (35-45) mmHg ABG pO2 (83-108) mmHg ABG HCO3 (21-25) mmol/L ABG Total CO2 (19-24) mmol/L ABG O2 Saturation (94-97) % ABG Base Excess mmol/L Navin Test FiO2 % Sodium (137-145) mmol/L Potassium (3.5-5.1) mmol/L Chloride (98-107) mmol/L Carbon Dioxide (22-30) mmol/L Anion Gap mmol/L BUN (7-17) mg/dL Creatinine (0.52-1.04) mg/dL Est GFR (CKD-EPI)AfAm (>60 ml/min/1.73 sqM) Est GFR (CKD-EPI)NonAf (>60 ml/min/1.73 sqM) Glucose (74-99) mg/dL Calcium (8.4-10.2) mg/dL Magnesium (1.6-2.3) mg/dL Total Bilirubin (0.2-1.3) mg/dL AST (14-36) U/L ALT (4-34) U/L Alkaline Phosphatase (38-126) U/L Creatine Kinase 64 (30-135) U/L Troponin I 0.013 (0.000-0.034) ng/mL Total Protein (6.3-8.2) g/dL Albumin (3.5-5.0) g/dL Urine Color Light Yellow Urine Appearance Clear (Clear) Urine pH 6.0 (5.0-8.0) Ur Specific [place] 1.009 (1.001-1.035) Urine Protein 1+ H (Negative) Urine Glucose (UA) Negative (Negative) Urine Ketones Negative (Negative) Urine Blood Small H (Negative) Urine Nitrite Negative (Negative) Urine Bilirubin Negative (Negative) Urine Urobilinogen <2.0 (<2.0) mg/dL Ur Leukocyte Esterase Negative (Negative) Urine RBC 2 (0-5) /hpf Urine WBC 1 (0-5) /hpf Ur Squamous Epith Cells 1 (0-4) /hpf Amorphous Sediment Occasional H (None) /hpf Urine Bacteria Rare H (None) /hpf Hyaline Casts 7 H (0-2) /lpf 05/17/20 Range/Units 20:05 WBC (3.8-10.6) k/uL RBC (3.80-5.40) m/uL Hgb (11.4-16.0) gm/dL Hct (34.0-46.0) % MCV (80.0-100.0) fL MCH (25.0-35.0) pg MCHC (31.0-37.0) g/dL RDW (11.5-15.5) % Plt Count (150-450) k/uL Neutrophils % % Lymphocytes % % Monocytes % % Eosinophils % % Basophils % % Neutrophils # (1.3-7.7) k/uL Lymphocytes # (1.0-4.8) k/uL Monocytes # (0-1.0) k/uL Eosinophils # (0-0.7) k/uL Basophils # (0-0.2) k/uL PT (9.0-12.0) sec INR (<1.2) Sample Site rbrac ABG pH 7.15 L* (7.35-7.45) ABG pCO2 62 H (35-45) mmHg ABG pO2 >400 H (83-108) mmHg ABG HCO3 22 (21-25) mmol/L ABG Total CO2 24 (19-24) mmol/L ABG O2 Saturation 99.7 H (94-97) % ABG Base Excess -7.2 mmol/L Navin Test Yes FiO2 100 % Sodium (137-145) mmol/L Potassium (3.5-5.1) mmol/L Chloride (98-107) mmol/L Carbon Dioxide (22-30) mmol/L Anion Gap mmol/L BUN (7-17) mg/dL Creatinine (0.52-1.04) mg/dL Est GFR (CKD-EPI)AfAm (>60 ml/min/1.73 sqM) Est GFR (CKD-EPI)NonAf (>60 ml/min/1.73 sqM) Glucose (74-99) mg/dL Calcium (8.4-10.2) mg/dL Magnesium (1.6-2.3) mg/dL Total Bilirubin (0.2-1.3) mg/dL AST (14-36) U/L ALT (4-34) U/L Alkaline Phosphatase (38-126) U/L Creatine Kinase (30-135) U/L Troponin I (0.000-0.034) ng/mL Total Protein (6.3-8.2) g/dL Albumin (3.5-5.0) g/dL Urine Color Urine Appearance (Clear) Urine pH (5.0-8.0) Ur Specific [place] (1.001-1.035) Urine Protein (Negative) Urine Glucose (UA) (Negative) Urine Ketones (Negative) Urine Blood (Negative) Urine Nitrite (Negative) Urine Bilirubin (Negative) Urine Urobilinogen (<2.0) mg/dL Ur Leukocyte Esterase (Negative) Urine RBC (0-5) /hpf Urine WBC (0-5) /hpf Ur Squamous Epith Cells (0-4) /hpf Amorphous Sediment (None) /hpf Urine Bacteria (None) /hpf Hyaline Casts (0-2) /lpf Critical Care Time Critical Care Time: Yes Critical Care Time: 55 minutes of critical care time which includes initial presentation with history physical labs x-rays multiple reevaluation of the patient discussed with paramedics upon arrival scheduled with the transporting paramedics to the receiv ing facility discussed with Dr. Em discussion with the receiving physician. Review of old charting was available. Documentation of the above Disposition Clinical Impression: Intractable seizure disorder, Rapid atrial fibrillation, Respiratory failure, Hypotensive episode Disposition: OTHER INSTITUTION NOT DEFINED Condition: Serious Referrals: Mir Sosa MD [Primary Care Provider] - 1-2 days - Out of Hospital Transfer - Req. Specs Out of Hospital Transfer - Requested Specifics: Other Emergency Center
[2019-10-31 17:29] LABS: ALT 15 U/L (4-34); AST 31 U/L (14-36); African American GFR (CKD) >90 (>60 ml/min/1.73 sqM); Albumin 4.6 g/dL (3.5-5.0); Alkaline Phosphatase 135 U/L (38-126); Anion Gap 11 mmol/L; Blood Urea Nitrogen 12 mg/dL (7-17); Calcium 9.6 mg/dL (8.4-10.2); Carbon Dioxide 22 mmol/L (22-30); Chloride 103 mmol/L (98-107); Glucose 110 mg/dL (74-99); Magnesium 1.8 mg/dL (1.6-2.3); Non-African American GFR(CKD) 86 (>60 ml/min/1.73 sqM); Potassium 4.3 mmol/L (3.5-5.1); Sodium 136 mmol/L (137-145); Total Bilirubin 0.8 mg/dL (0.2-1.3); Total Protein 7.6 g/dL (6.3-8.2)
--- NOTE | 2019-10-31 17:39 | CT ---
EXAMINATION TYPE: CT brain wo con DATE OF EXAM: 10/31/2019 COMPARISON: 08/22/2019 HISTORY: seizure CT DLP: 1158.4 mGycm Automated exposure control for dose reduction was used. There is extensive cerebral cortical atrophy. There are multiple patchy areas of hypodensity througho ut the periventricular white matter involving the frontal temporal and parietal lobes consistent with advanced chronic small vessel ischemia. There is bilateral parietal lobe atrophy and encephalomalaci a. There is old 3.5 x 2.5 cm right parietal cortical infarct. The calvarium is intact. Skull base melissa ears intact. IMPRESSION: Cerebral atrophy and chronic small vessel ischemia. Old right parietal cortical infarct. No change co mpared to old exam.
[2019-10-31] MEDS ORDERED: DILTIAZEM DRIP BOLUS FROM BAG 1 MG SOLN IV ONE ×3 (17:53→18:47)
[2019-10-31] MEDS ORDERED: DILTIAZEM 125 MG in SODIUM CHLORIDE 0.9% 100 ML IV SCH (18:00)
[2019-10-31] MEDS ORDERED: LORazepam 2 MG/ML INJ IV STA (18:28)
[2019-10-31] MEDS ORDERED: MAGNESIUM SULFATE-D5W PMX 1 GM in DEXTROSE/WATER 1 100ML.BAG IVPB ONE (18:30)
[2019-10-31] MEDS ORDERED: SODIUM CHLORIDE 0.9% 1,000 ML IV STA (19:25)
[2019-10-31] MEDS ORDERED: SUCCINYLCHOLINE CHLORIDE VIAL 200 MG/10 ML VIAL IV STA (19:26)
[2019-10-31] MEDS ORDERED: PROPOFOL 10 MG/ML 20 ML VIAL IV STA (19:28)
[2019-10-31 19:47] LABS: Amorphous Sediment,Urine Occasional /hpf; Appearance,Urine Clear (Clear); Bacteria,Urine Rare /hpf; Bilirubin,Urine Negative (Negative); Blood,Urine Small (Negative); Color,Urine Light Yellow; Glucose,Urine (UA) Negative (Negative); Hyaline Casts,Urine 7 /lpf (0-2); Ketones,Urine Negative (Negative); Leukocyte Esterase,Urine Negative (Negative); Nitrite,Urine Negative (Negative); Protein,Urine 1+ (Negative); RBC,Urine 2 /hpf (0-5); Specific Gravity,Urine 1.009 (1.001-1.035); Squamous Epithelial Cell,Urine 1 /hpf (0-4); Urobilinogen,Urine <2.0 mg/dL (<2.0); WBC,Urine 1 /hpf (0-5)
--- NOTE | 2019-10-31 19:51 | XR ---
EXAMINATION TYPE: XR chest 1V confirm line [facility] DATE OF EXAM: 10/31/2019 COMPARISON: 09/23/2019 HISTORY: Short of breath TECHNIQUE: Single view FINDINGS: Endotracheal tube is 4 cm from the aurora. There is mild pulmonary interstitial edema. Hear t size is normal. There is no pleural effusion. There are no hilar masses. There are chest leads. Tho racic aorta is atheromatous. IMPRESSION: Mild pulmonary interstitial edema is new compared to old exam. Normal heart.
[2019-10-31 20:06] LABS: ABG Base Excess -7.2 mmol/L; ABG HCO3 22 mmol/L (21-25); ABG Oxygen Saturation 99.7 % (94-97); ABG PCO2 62 mmHg (35-45); ABG PO2 >400 mmHg (83-108); ABG TCO2 24 mmol/L (19-24); Allen Test Performed? Yes
[2019-10-31] MEDS ORDERED: PROPOFOL 1,000 MG in EMPTY BAG 1 BAG IV ONE (20:14)
[2019-10-31 20:20] LABS: ABG PH 7.15 (7.35-7.45)
[2019-10-31] MEDS ORDERED: fentaNYL (PF) 50 MCG/ML 2 ML AMP IV STA (20:36)
--- NOTE | 2019-10-31 20:37 | ED ---
Medical Decision Making - Lab Data Result diagrams: 10/31/19 17:00 10/31/19 17:00 Lab Results 10/31/19 10/31/19 10/31/19 Range/Units 17:00 17:00 17:00 WBC 7.4 (3.8-10.6) k/uL RBC 5.06 (3.80-5.40) m/uL Hgb 13.8 (11.4-16.0) gm/dL Hct 43.4 (34.0-46.0) % MCV 85.9 (80.0-100.0) fL MCH 27.3 (25.0-35.0) pg MCHC 31.8 (31.0-37.0) g/dL RDW 14.6 (11.5-15.5) % Plt Count 209 (150-450) k/uL Neutrophils % 70 % Lymphocytes % 19 % Monocytes % 7 % Eosinophils % 1 % Basophils % 1 % Neutrophils # 5.2 (1.3-7.7) k/uL Lymphocytes # 1.4 (1.0-4.8) k/uL Monocytes # 0.5 (0-1.0) k/uL Eosinophils # 0.1 (0-0.7) k/uL Basophils # 0.1 (0-0.2) k/uL PT 19.3 H (9.0-12.0) sec INR 2.0 H (<1.2) Sample Site ABG pH (7.35-7.45) ABG pCO2 (35-45) mmHg ABG pO2 (83-108) mmHg ABG HCO3 (21-25) mmol/L ABG Total CO2 (19-24) mmol/L ABG O2 Saturation (94-97) % ABG Base Excess mmol/L Navin Test FiO2 % Sodium 136 L (137-145) mmol/L Potassium 4.3 (3.5-5.1) mmol/L Chloride 103 (98-107) mmol/L Carbon Dioxide 22 (22-30) mmol/L Anion Gap 11 mmol/L BUN 12 (7-17) mg/dL Creatinine 0.66 (0.52-1.04) mg/dL Est GFR (CKD-EPI)AfAm >90 (>60 ml/min/1.73 sqM) Est GFR (CKD-EPI)NonAf 86 (>60 ml/min/1.73 sqM) Glucose 110 H (74-99) mg/dL Calcium 9.6 (8.4-10.2) mg/dL Magnesium 1.8 (1.6-2.3) mg/dL Total Bilirubin 0.8 (0.2-1.3) mg/dL AST 31 (14-36) U/L ALT 15 (4-34) U/L Alkaline Phosphatase 135 H (38-126) U/L Creatine Kinase (30-135) U/L Troponin I (0.000-0.034) ng/mL Total Protein 7.6 (6.3-8.2) g/dL Albumin 4.6 (3.5-5.0) g/dL Urine Color Urine Appearance (Clear) Urine pH (5.0-8.0) Ur Specific [place] (1.001-1.035) Urine Protein (Negative) Urine Glucose (UA) (Negative) Urine Ketones (Negative) Urine Blood (Negative) Urine Nitrite (Negative) Urine Bilirubin (Negative) Urine Urobilinogen (<2.0) mg/dL Ur Leukocyte Esterase (Negative) Urine RBC (0-5) /hpf Urine WBC (0-5) /hpf Ur Squamous Epith Cells (0-4) /hpf Amorphous Sediment (None) /hpf Urine Bacteria (None) /hpf Hyaline Casts (0-2) /lpf 10/31/19 10/31/19 10/31/19 Range/Units 17:00 17:00 19:17 WBC (3.8-10.6) k/uL RBC (3.80-5.40) m/uL Hgb (11.4-16.0) gm/dL Hct (34.0-46.0) % MCV (80.0-100.0) fL MCH (25.0-35.0) pg MCHC (31.0-37.0) g/dL RDW (11.5-15.5) % Plt Count (150-450) k/uL Neutrophils % % Lymphocytes % % Monocytes % % Eosinophils % % Basophils % % Neutrophils # (1.3-7.7) k/uL Lymphocytes # (1.0-4.8) k/uL Monocytes # (0-1.0) k/uL Eosinophils # (0-0.7) k/uL Basophils # (0-0.2) k/uL PT (9.0-12.0) sec INR (<1.2) Sample Site ABG pH (7.35-7.45) ABG pCO2 (35-45) mmHg ABG pO2 (83-108) mmHg ABG HCO3 (21-25) mmol/L ABG Total CO2 (19-24) mmol/L ABG O2 Saturation (94-97) % ABG Base Excess mmol/L Navin Test FiO2 % Sodium (137-145) mmol/L Potassium (3.5-5.1) mmol/L Chloride (98-107) mmol/L Carbon Dioxide (22-30) mmol/L Anion Gap mmol/L BUN (7-17) mg/dL Creatinine (0.52-1.04) mg/dL Est GFR (CKD-EPI)AfAm (>60 ml/min/1.73 sqM) Est GFR (CKD-EPI)NonAf (>60 ml/min/1.73 sqM) Glucose (74-99) mg/dL Calcium (8.4-10.2) mg/dL Magnesium (1.6-2.3) mg/dL Total Bilirubin (0.2-1.3) mg/dL AST (14-36) U/L ALT (4-34) U/L Alkaline Phosphatase (38-126) U/L Creatine Kinase 64 (30-135) U/L Troponin I 0.013 (0.000-0.034) ng/mL Total Protein (6.3-8.2) g/dL Albumin (3.5-5.0) g/dL Urine Color Light Yellow Urine Appearance Clear (Clear) Urine pH 6.0 (5.0-8.0) Ur Specific [place] 1.009 (1.001-1.035) Urine Protein 1+ H (Negative) Urine Glucose (UA) Negative (Negative) Urine Ketones Negative (Negative) Urine Blood Small H (Negative) Urine Nitrite Negative (Negative) Urine Bilirubin Negative (Negative) Urine Urobilinogen <2.0 (<2.0) mg/dL Ur Leukocyte Esterase Negative (Negative) Urine RBC 2 (0-5) /hpf Urine WBC 1 (0-5) /hpf Ur Squamous Epith Cells 1 (0-4) /hpf Amorphous Sediment Occasional H (None) /hpf Urine Bacteria Rare H (None) /hpf Hyaline Casts 7 H (0-2) /lpf 10/31/19 Range/Units 20:05 WBC (3.8-10.6) k/uL RBC (3.80-5.40) m/uL Hgb (11.4-16.0) gm/dL Hct (34.0-46.0) % MCV (80.0-100.0) fL MCH (25.0-35.0) pg MCHC (31.0-37.0) g/dL RDW (11.5-15.5) % Plt Count (150-450) k/uL Neutrophils % % Lymphocytes % % Monocytes % % Eosinophils % % Basophils % % Neutrophils # (1.3-7.7) k/uL Lymphocytes # (1.0-4.8) k/uL Monocytes # (0-1.0) k/uL Eosinophils # (0-0.7) k/uL Basophils # (0-0.2) k/uL PT (9.0-12.0) sec INR (<1.2) Sample Site rbrac ABG pH 7.15 L* (7.35-7.45) ABG pCO2 62 H (35-45) mmHg ABG pO2 >400 H (83-108) mmHg ABG HCO3 22 (21-25) mmol/L ABG Total CO2 24 (19-24) mmol/L ABG O2 Saturation 99.7 H (94-97) % ABG Base Excess -7.2 mmol/L Navin Test Yes FiO2 100 % Sodium (137-145) mmol/L Potassium (3.5-5.1) mmol/L Chloride (98-107) mmol/L Carbon Dioxide (22-30) mmol/L Anion Gap mmol/L BUN (7-17) mg/dL Creatinine (0.52-1.04) mg/dL Est GFR (CKD-EPI)AfAm (>60 ml/min/1.73 sqM) Est GFR (CKD-EPI)NonAf (>60 ml/min/1.73 sqM) Glucose (74-99) mg/dL Calcium (8.4-10.2) mg/dL Magnesium (1.6-2.3) mg/dL Total Bilirubin (0.2-1.3) mg/dL AST (14-36) U/L ALT (4-34) U/L Alkaline Phosphatase (38-126) U/L Creatine Kinase (30-135) U/L Troponin I (0.000-0.034) ng/mL Total Protein (6.3-8.2) g/dL Albumin (3.5-5.0) g/dL Urine Color Urine Appearance (Clear) Urine pH (5.0-8.0) Ur Specific [place] (1.001-1.035) Urine Protein (Negative) Urine Glucose (UA) (Negative) Urine Ketones (Negative) Urine Blood (Negative) Urine Nitrite (Negative) Urine Bilirubin (Negative) Urine Urobilinogen (<2.0) mg/dL Ur Leukocyte Esterase (Negative) Urine RBC (0-5) /hpf Urine WBC (0-5) /hpf Ur Squamous Epith Cells (0-4) /hpf Amorphous Sediment (None) /hpf Urine Bacteria (None) /hpf Hyaline Casts (0-2) /lpf Disposition Clinical Impression: Intractable seizure disorder, Rapid atrial fibrillation, Respiratory failure, H ypotensive episode, Smoker Disposition: OTHER INSTITUTION NOT DEFINED Condition: Serious Referrals: Mir Sosa MD [Primary Care Provider] - 1-2 days - Out of Hospital Transfer - Req. Specs Out of Hospital Transfer - Requested Specifics: Other Emergency Center
[2019-10-31 21:26] VITALS: BP 111/68; PULSE 82; RESP 18
== END 2019-10-31 21:31 | disposition other institution (70) ==
LOC: EC 16:58
DX: G40.919 Epilepsy, unspecified, intractable, without status epilepticus (principal); I95.9 Hypotension, unspecified; J96.90 Respiratory failure, unspecified, unspecified whether with hypoxia or hypercapnia; I48.20 Chronic atrial fibrillation, unspecified; J44.9 Chronic obstructive pulmonary disease, unspecified; I25.2 Old myocardial infarction; I48.92 Unspecified atrial flutter; E78.5 Hyperlipidemia, unspecified; I10 Essential (primary) hypertension; M19.90 Unspecified osteoarthritis, unspecified site; F17.200 Nicotine dependence, unspecified, uncomplicated; Z79.01 Long term (current) use of anticoagulants; Z79.02 Long term (current) use of antithrombotics/antiplatelets; Z79.51 Long term (current) use of inhaled steroids; Z79.899 Other long term (current) drug therapy; Z86.73 Personal history of transient ischemic attack (TIA), and cerebral infarction without residual deficits; Z86.79 Personal history of other diseases of the circulatory system
CPT/HCPCS: 99291; 96365; 96368; 96375 ×3; 96376; 31500; 36415; 36600; 93005; 80053; 82550; 82805; 83735; 84484; 85025; 85610; 81001; 70450; J0330; J2060; J3010; J3475; J1953; J2704 ×2; 94002

== ENCOUNTER 2019-11-12 12:48 | Emergency (ER) | payer MEDICARE ==
[2019-11-12 12:54] VITALS: TEMP 98.2
[2019-11-12 13:29] LABS: Basophils # (A) 0.1 k/uL (0-0.2); Basophils % (A) 1 %; Eosinophils # (A) 0.1 k/uL (0-0.7); Eosinophils % (A) 2 %; HCT 43.3 % (34.0-46.0); HGB 13.9 gm/dL (11.4-16.0); Lymphocytes # (A) 0.9 k/uL (1.0-4.8); Lymphocytes % (A) 16 %; MCH 27.3 pg (25.0-35.0); MCHC 32.2 g/dL (31.0-37.0); MCV 84.7 fL (80.0-100.0); Mean Platelet Volume 7.6; Monocytes # (A) 0.3 k/uL (0-1.0); Monocytes % (A) 5 %; Neutrophils # (A) 4.2 k/uL (1.3-7.7); Neutrophils % (A) 74 %; Platelet Count 185 k/uL (150-450); RBC 5.11 m/uL (3.80-5.40); RDW 14.4 % (11.5-15.5); WBC 5.7 k/uL (3.8-10.6)
--- NOTE | 2019-11-12 13:39 | ED ---
General Adult HPI <Austin Mcnamara - Last Filed: 11/12/19 15:25> - General Source: EMS, RN notes reviewed Mode of arrival: EMS Limitations: no limitations <Nathen Mora - Last Filed: 11/12/19 15:58> - General Chief complaint: Altered Mental Status Stated complaint: Altered Mental Time Seen by Provider: 11/12/19 12:54 - History of Present Illness Initial comments: 79-year-old female with a past medical history of seizure disorder, atrial fibrillation currently taking Plavix and Coumadin, COPD, hyperlipidemia, hypertension, possible TIAs presents to the emergency department for a chief, and altered mental status. Patient currently lives at [facility]. Apparently today patient was walking differently with her walker and talking to people that weren't there. They were concerned that she was becoming altered. Patient has had recent intubation 2 weeks ago for seizure disorder. She was transferred to [facility] for this. I will attempt to get records. Patient feels fine now.Patient has no other complaints at this time including shortness of breath, chest pain, abdominal pain, nausea or vomiting, headache, or visual changes. (Nathen Mora) - Related Data Home Medications Medication Instructions Recorded Confirmed Fluticasone Nasal [place] [Flonase 2 spray EA NOSTRIL HS@199902/25/19 10/31/19 Nasal [place]] Atorvastatin [Lipitor] 20 mg PO HS@199905/02/19 10/31/19 Clopidogrel [Plavix] 75 mg PO HS@199906/09/19 10/31/19 Famotidine [Pepcid] 20 mg PO BID@0806/09/19 10/31/19 Ipratropium-Albuterol Nebulize 3 ml INHALATION RT-QID PRN 09/23/19 10/31/19 [Duoneb 0.5 mg-3 mg/3 ml Soln] Warfarin [Coumadin] 5 mg PO HS@199909/23/19 10/31/19 levETIRAcetam [Keppra] 1,000 mg PO BID@0800,199909/23/19 10/31/19 Loratadine [Claritin] 10 mg PO HS@199910/31/19 10/31/19 Melatonin 3 mg PO HS@199910/31/19 10/31/19 lamoTRIgine [LaMICtal] 50 mg PO 10/31/19 Allergies Allergy/AdvReac Type Severity Reaction Status Date / Time No Known Allergies Allergy Verified 10/31/19 18:28 Review of Systems ROS Other: All systems not noted in ROS Statement are negative. <Austin Mcnamara - Last Filed: 11/12/19 15:25> ROS Other: All systems not noted in ROS Statement are negative. <Nathen Mora - Last Filed: 11/12/19 15:58> ROS Statement: Those systems with pertinent positive or pertinent negative responses have been documented in the HPI. Past Medical History Past Medical History: Atrial Fibrillation, Atrial Flutter, COPD, CVA/TIA, Hyperlipidemia, Hypertension, Osteoarthritis (OA), Pneumonia, Seizure Disorder, Syncope Additional Past Medical History / Comment(s): Possible TIAs in past per pt, carotid artery disease, mitral valve regurgitation/ tricuspid regurgitation, pt believes she has the beginnings of dementia, bronchitis, pituitary dysfunction, seasonal allergies/sinus problems, arthritis in multiple joints, UTI, syncope/possible seizure 02/25/19. History of Any Multi-Drug Resistant Organisms: None Reported Past Surgical History: Adenoidectomy, Appendectomy, Cholecystectomy, Tonsillectomy Additional Past Surgical History / Comment(s): 07/08/19 A flutter ablation, colonoscopy Past Anesthesia/Blood Transfusion Reactions: No Reported Reaction Past Psychological History: No Psychological Hx Reported Smoking Status: Current every day smoker Past Alcohol Use History: None Reported Past Drug Use History: None Reported - Past Family History Father Family Medical History: Cancer Additional Family Medical History / Comment(s): Pt states by the time they found out that her father had cancer, it was thru out his body. Mother Family Medical History: No Reported History Additional Family Medical History / Comment(s): Mother was healthy. <Nathen Mora - Last Filed: 11/12/19 15:58> General Exam Limitations: no limitations General appearance: alert, in no apparent distress Head exam: Present: atraumatic, normocephalic, normal inspection Eye exam: Present: normal appearance, PERRL, EOMI. Absent: scleral icterus, conjunctival injection, periorbital swelling ENT exam: Present: normal exam, mucous membranes moist Neck exam: Present: normal inspection, full ROM. Absent: tenderness, meningismus, lymphadenopathy Respiratory exam: Present: normal lung sounds bilaterally. Absent: respiratory distress, wheezes, rales, rhonchi, stridor Cardiovascular Exam: Present: regular rate, normal rhythm, normal heart sounds. Absent: systolic murmur, diastolic murmur, rubs, gallop, clicks GI/Abdominal exam: Present: soft, normal bowel sounds. Absent: distended, tenderness, guarding, rebound, rigid Neurological exam: Present: alert. Absent: oriented X3 (A and O [address]) <Nathen Mora - Last Filed: 11/12/19 15:58> Course <Austin Mcnamara - Last Filed: 11/12/19 15:25> Vital Signs 11/12/19 11/12/19 11/12/19 12:49 13:00 13:30 Temperature 98.2 F Pulse Rate 83 75 66 Respiratory 18 17 18 Rate Blood Pressure 157/80 157/80 162/82 O2 Sat by Pulse 98 95 95 Oximetry 11/12/19 11/12/19 11/12/19 14:00 14:30 15:00 Temperature Pulse Rate 67 65 63 Respiratory 17 17 18 Rate Blood Pressure 150/72 155/69 157/68 O2 Sat by Pulse 96 95 97 Oximetry 11/12/19 11/12/19 15:30 15:40 Temperature Pulse Rate 59 L 63 Respiratory 17 18 Rate Blood Pressure 166/76 175/67 O2 Sat by Pulse 96 98 Oximetry - Reevaluation(s) Reevaluation #1: 11/12/19 15:25 PA supervision: I personally evaluate the patient. She was recently here for intractable seizure disorder and transferred to [facility] at that time. She is back today with complaints of altered mental status. No acute findings thus far however. No neurology is available this facility this weekend. Patient is to be transferred to [facility]. (Austin Mcnamara) Medical Decision Making - Lab Data Result diagrams: 11/12/19 13:06 11/12/19 13:06 <Austin Mcnamara - Last Filed: 11/12/19 15:25> - Lab Data Result diagrams: 11/12/19 13:06 11/12/19 13:06 <Nathen Mora - Last Filed: 11/12/19 15:58> - Medical Decision Making Extensive review of patient's stay at [facility]. Patient was seen at [facility] on October 30 discharge November 04 and diagnosis acute breakthrough seizures, metabolic encephalopathy atrial fibrillation, status post status epilepticus. Patient continued on Keppra 1000 mg twice daily limit to 50 mg daily. Vimpat 100 mg daily was added every 12 hours. EEG was performed on November 06 that showed abnormal long-term video EEG. No seizure recorded however. No epileptiform activity was present. Findings indicate mild to moderate diffuse cerebral dysfunction which may be in part related to medication. She had CT angiography of the neck which showed no branch occlusion high-grade stenosis dissection or aneurysm. CT angiogram of the head showed no branch occlusion, high-grade stenosis, or acute intracranial hemorrhage. Nonspecific confluent. Ventricular and subcortical white matter changes seen. 79-year-old female presents alert and oriented times one to the emergency department. Patient is pleasant at this time. According to patient's [facility] she became somewhat confused yesterday and it worsened significantly today. They have visiting physician see her and he wanted her sent to the emergency room. They state this is not like patient whatsoever. Patient was recently at [facility] and had been started on Vimpat with a neurology workup for status epilepticus. Patient's legal guardian think she needs to be placed in a jail with more medical management. CBC CMP unremarkable although patient does have elevated INR of 5.8. She does take Coumadin as well as Plavix. Urinalysis does show 40 white blood cells with moderate white blood cell clumps and many bacteria. CT brain without shows degenerative and diffuse evidence of remote ischemia with no evidence of acute hemorrhage or mass effect. Patient was treated with Keflex for possible urinary tract infection. However given recent events of status epilepticus and extensive neurological workup with changes in seizure medication that we felt it was best for the patient to have neurology consult in coverage. There is no neurology coverage here today or this weekend. Discussed this case with Dr. Owens from [facility]. Accepts transfer (Nathen Mroa) - Lab Data Lab Results 11/12/19 11/12/19 11/12/19 Range/Units 13:06 13:06 13:06 WBC 5.7 (3.8-10.6) k/uL RBC 5.11 (3.80-5.40) m/uL Hgb 13.9 (11.4-16.0) gm/dL Hct 43.3 (34.0-46.0) % MCV 84.7 (80.0-100.0) fL MCH 27.3 (25.0-35.0) pg MCHC 32.2 (31.0-37.0) g/dL RDW 14.4 (11.5-15.5) % Plt Count 185 (150-450) k/uL Neutrophils % 74 % Lymphocytes % 16 % Monocytes % 5 % Eosinophils % 2 % Basophils % 1 % Neutrophils # 4.2 (1.3-7.7) k/uL Lymphocytes # 0.9 L (1.0-4.8) k/uL Monocytes # 0.3 (0-1.0) k/uL Eosinophils # 0.1 (0-0.7) k/uL Basophils # 0.1 (0-0.2) k/uL PT 59.0 H (9.0-12.0) sec INR 5.8 H* (<1.2) APTT 38.5 H (22.0-30.0) sec Sodium 141 (137-145) mmol/L Potassium 4.0 (3.5-5.1) mmol/L Chloride 104 (98-107) mmol/L Carbon Dioxide 28 (22-30) mmol/L Anion Gap 9 mmol/L BUN 10 (7-17) mg/dL Creatinine 0.72 (0.52-1.04) mg/dL Est GFR (CKD-EPI)AfAm >90 (>60 ml/min/1.73 sqM) Est GFR (CKD-EPI)NonAf 82 (>60 ml/min/1.73 sqM) Glucose 102 H (74-99) mg/dL Calcium 9.4 (8.4-10.2) mg/dL Total Bilirubin 0.9 (0.2-1.3) mg/dL AST 40 H (14-36) U/L ALT 17 (4-34) U/L Alkaline Phosphatase 115 (38-126) U/L Troponin I (0.000-0.034) ng/mL Total Protein 7.5 (6.3-8.2) g/dL Albumin 4.4 (3.5-5.0) g/dL Urine Color Urine Appearance (Clear) Urine pH (5.0-8.0) Ur Specific [place] (1.001-1.035) Urine Protein (Negative) Urine Glucose (UA) (Negative) Urine Ketones (Negative) Urine Blood (Negative) Urine Nitrite (Negative) Urine Bilirubin (Negative) Urine Urobilinogen (<2.0) mg/dL Ur Leukocyte Esterase (Negative) Urine RBC (0-5) /hpf Urine WBC (0-5) /hpf Urine WBC Clumps (None) /hpf Ur Squamous Epith Cells (0-4) /hpf Urine Bacteria (None) /hpf Urine Mucus (None) /hpf Urine Opiates Screen (NotDetected) Ur Oxycodone Screen (NotDetected) Urine Methadone Screen (NotDetected) Ur Propoxyphene Screen (NotDetected) Ur Barbiturates Screen (NotDetected) U Tricyclic Antidepress (NotDetected) Ur Phencyclidine Scrn (NotDetected) Ur Amphetamines Screen (NotDetected) U Methamphetamines Scrn (NotDetected) U Benzodiazepines Scrn (NotDetected) Urine Cocaine Screen (NotDetected) U Marijuana (THC) Screen (NotDetected) 11/12/19 11/12/19 Range/Units 13:06 13:06 WBC (3.8-10.6) k/uL RBC (3.80-5.40) m/uL Hgb (11.4-16.0) gm/dL Hct (34.0-46.0) % MCV (80.0-100.0) fL MCH (25.0-35.0) pg MCHC (31.0-37.0) g/dL RDW (11.5-15.5) % Plt Count (150-450) k/uL Neutrophils % % Lymphocytes % % Monocytes % % Eosinophils % % Basophils % % Neutrophils # (1.3-7.7) k/uL Lymphocytes # (1.0-4.8) k/uL Monocytes # (0-1.0) k/uL Eosinophils # (0-0.7) k/uL Basophils # (0-0.2) k/uL PT (9.0-12.0) sec INR (<1.2) APTT (22.0-30.0) sec Sodium (137-145) mmol/L Potassium (3.5-5.1) mmol/L Chloride (98-107) mmol/L Carbon Dioxide (22-30) mmol/L Anion Gap mmol/L BUN (7-17) mg/dL Creatinine (0.52-1.04) mg/dL Est GFR (CKD-EPI)AfAm (>60 ml/min/1.73 sqM) Est GFR (CKD-EPI)NonAf (>60 ml/min/1.73 sqM) Glucose (74-99) mg/dL Calcium (8.4-10.2) mg/dL Total Bilirubin (0.2-1.3) mg/dL AST (14-36) U/L ALT (4-34) U/L Alkaline Phosphatase (38-126) U/L Troponin I 0.015 (0.000-0.034) ng/mL Total Protein (6.3-8.2) g/dL Albumin (3.5-5.0) g/dL Urine Color Yellow Urine Appearance Turbid H (Clear) Urine pH 6.5 (5.0-8.0) Ur Specific [place] 1.016 (1.001-1.035) Urine Protein 1+ H (Negative) Urine Glucose (UA) Negative (Negative) Urine Ketones Negative (Negative) Urine Blood Small H (Negative) Urine Nitrite Negative (Negative) Urine Bilirubin Negative (Negative) Urine Urobilinogen 3.0 (<2.0) mg/dL Ur Leukocyte Esterase Large H (Negative) Urine RBC 2 (0-5) /hpf Urine WBC 40 H (0-5) /hpf Urine WBC Clumps Moderate H (None) /hpf Ur Squamous Epith Cells 55 H (0-4) /hpf Urine Bacteria Many H (None) /hpf Urine Mucus Rare H (None) /hpf Urine Opiates Screen Not Detected (NotDetected) Ur Oxycodone Screen Not Detected (NotDetected) Urine Methadone Screen Not Detected (NotDetected) Ur Propoxyphene Screen Not Detected (NotDetected) Ur Barbiturates Screen Not Detected (NotDetected) U Tricyclic Antidepress Not Detected (NotDetected) Ur Phencyclidine Scrn Not Detected (NotDetected) Ur Amphetamines Screen Not Detected (NotDetected) U Methamphetamines Scrn Not Detected (NotDetected) U Benzodiazepines Scrn Not Detected (NotDetected) Urine Cocaine Screen Not Detected (NotDetected) U Marijuana (THC) Screen Not Detected (NotDetected) Disposition <Austin Mcnamara - Last Filed: 11/12/19 15:25> Time of Disposition: 15:58 - Out of Hospital Transfer - Req. Specs Out of Hospital Transfer - Requested Specifics: Other Emergency Center ([facility]) <Nathen Mora - Last Filed: 11/12/19 15:58> Clinical Impression: Confusion, Altered mental status, Seizure disorder Disposition: OTHER INSTITUTION NOT DEFINED Condition: Fair Instructions (If sedation given, give patient instructions): Altered Mental Status (ED) Referrals: Mir Sosa MD [Primary Care Provider] - 1-2 days
[2019-11-12 13:42] LABS: ALT 17 U/L (4-34); AST 40 U/L (14-36); African American GFR (CKD) >90 (>60 ml/min/1.73 sqM); Albumin 4.4 g/dL (3.5-5.0); Alkaline Phosphatase 115 U/L (38-126); Anion Gap 9 mmol/L; Blood Urea Nitrogen 10 mg/dL (7-17); Calcium 9.4 mg/dL (8.4-10.2); Carbon Dioxide 28 mmol/L (22-30); Chloride 104 mmol/L (98-107); Glucose 102 mg/dL (74-99); Non-African American GFR(CKD) 82 (>60 ml/min/1.73 sqM); Sodium 141 mmol/L (137-145); Total Bilirubin 0.9 mg/dL (0.2-1.3); Total Protein 7.5 g/dL (6.3-8.2)
--- NOTE | 2019-11-12 13:46 | XR ---
EXAMINATION TYPE: XR chest 2V DATE OF EXAM: 11/12/2019 COMPARISON: 10/31/2019 TECHNIQUE: PA and lateral views submitted. HISTORY: Altered mental status FINDINGS: The lungs are clear and there is no pneumothorax, pleural effusion, or focal pneumonia. I calcifica tions involving the upper lobes likely pleural-based. Hyperinflation suggests COPD. Heart size normal with no acute infiltrate or overt failure. Atherosclerotic change aorta. Degenerative change of the spine. Diffuse osteopenia noted. IMPRESSION: 1. No acute process. 2. Correlate for COPD.
[2019-11-12 13:49] LABS: Appearance,Urine Turbid (Clear); Bacteria,Urine Many /hpf; Bilirubin,Urine Negative (Negative); Blood,Urine Small (Negative); Color,Urine Yellow; Glucose,Urine (UA) Negative (Negative); Ketones,Urine Negative (Negative); Leukocyte Esterase,Urine Large (Negative); Mucus,Urine Rare /hpf; Nitrite,Urine Negative (Negative); PH, Urine 6.5 (5.0-8.0); Protein,Urine 1+ (Negative); RBC,Urine 2 /hpf (0-5); Specific Gravity,Urine 1.016 (1.001-1.035); Squamous Epithelial Cell,Urine 55 /hpf (0-4); WBC,Urine 40 /hpf (0-5)
[2019-11-12 13:53] LABS: Partial Thromboplastin Time 38.5 sec (22.0-30.0)
[2019-11-12 13:54] LABS: Amphetamine Screen,Urine Not Detected (NotDetected); Barbiturate Screen,Urine Not Detected (NotDetected); Benzodiazepines Screen,Urine Not Detected (NotDetected); Cocaine Screen,Urine Not Detected (NotDetected); Methadone Screen, Urine Not Detected (NotDetected); Opiate Screen,Urine Not Detected (NotDetected); Oxycodone Screen, Urine Not Detected (NotDetected); Phencyclidine Screen,Urine Not Detected (NotDetected); Tricyclic Antidepressant,Urine Not Detected (NotDetected); Urn Cannabinoid Scrn Not Detected (NotDetected)
[2019-11-12 14:05] LABS: INR 5.8 (<1.2)
--- NOTE | 2019-11-12 14:12 | CT ---
EXAMINATION TYPE: CT brain wo con DATE OF EXAM: 11/12/2019 COMPARISON: 10/31/2019 HISTORY: altered mental status, fall CT DLP: 1099.4 mGycm Automated exposure control for dose reduction was used. FINDINGS: Intracranial atherosclerotic changes are noted. Moderate generalized degenerative change with diffuse low-attenuation the white matter which is nonspecific but most typical remote microvascular ischemia . Areas of encephalomalacia involving the parietal lobes are noted. This is similar in appearance to the prior exams. No acute hemorrhage or mass effect. Calvarium intact. Craniocervical junction maintained. Sella turci ca has a normal appearance. IMPRESSION: DEGENERATIVE AND DIFFUSE EVIDENCE OF REMOTE ISCHEMIA WITH NO EVIDENCE OF ACUTE HEMORRHAGE OR MASS EFF ECT. IF THERE IS CLINICAL CONCERN FOR ACUTE ISCHEMIA CORRELATE WITH MRI CLINICALLY WARRANTED.
[2019-11-12] MEDS ORDERED: cefTRIAXone IN SWFI 1,000 MG/10 ML SYRINGE IVP STA (15:27)
[2019-11-12 15:41] VITALS: RESP 18
[2019-11-12 16:29] VITALS: BP 160/72; PULSE 66
== END 2019-11-12 16:34 | disposition other institution (70) ==
LOC: EC 12:48
DX: G40.909 Epilepsy, unspecified, not intractable, without status epilepticus (principal); R41.82 Altered mental status, unspecified; I48.91 Unspecified atrial fibrillation; G93.41 Metabolic encephalopathy; I48.92 Unspecified atrial flutter; E78.5 Hyperlipidemia, unspecified; I10 Essential (primary) hypertension; J44.9 Chronic obstructive pulmonary disease, unspecified; F17.200 Nicotine dependence, unspecified, uncomplicated; Z79.51 Long term (current) use of inhaled steroids; Z79.02 Long term (current) use of antithrombotics/antiplatelets; Z79.01 Long term (current) use of anticoagulants; Z79.899 Other long term (current) drug therapy; Z86.73 Personal history of transient ischemic attack (TIA), and cerebral infarction without residual deficits
CPT/HCPCS: 36415; 93005; 80053; 84484; 85025; 85610; 85730; 81001; 80306; 87086; 71046; 70450; 99285; 96374; J0696

== ENCOUNTER 2019-11-26 15:31 | Emergency (ER) | payer MEDICARE ==
[2019-11-26 15:48] VITALS: RESP 18
--- NOTE | 2019-11-26 16:37 | ED ---
General Adult HPI - General Source: patient, EMS, RN notes reviewed Mode of arrival: EMS Limitations: no limitations <Nathen Mora - Last Filed: 11/26/19 16:34> <Austin Mcnamara - Last Filed: 11/26/19 17:01> - General Chief complaint: Seizure Stated complaint: seizure Time Seen by Provider: 11/26/19 15:50 - History of Present Illness Initial comments: 79-year-old female with a Negative past medical history presents to the emergency department for a chief complaint of seizure. The patient apparently had a seizure at her assisted living home [facility]. Apparently EMS was called and patient was taken to the hospital. Upon presentation seizure has resolved and patient is feeling her normal self. We did discuss this with legal guardian who does not want patient evaluated in the emergency department. She states that they want patient discharged home for hospice care. Nurse confirm this with a legal guardian named Heidi. I also spoke with Barbara who is in agreement. I discussed this with the patient was also in agreement. Patient will be discharged home without further evaluation. (Nathen Mora) - Related Data Home Medications Medication Instructions Recorded Confirmed Fluticasone Nasal [place] [Flonase 2 spray EA NOSTRIL HS@199902/25/19 10/31/19 Nasal [place]] Atorvastatin [Lipitor] 20 mg PO HS@199905/02/19 10/31/19 Clopidogrel [Plavix] 75 mg PO HS@199906/09/19 10/31/19 Famotidine [Pepcid] 20 mg PO BID@0806/09/19 10/31/19 Ipratropium-Albuterol Nebulize 3 ml INHALATION RT-QID PRN 09/23/19 10/31/19 [Duoneb 0.5 mg-3 mg/3 ml Soln] Warfarin [Coumadin] 5 mg PO HS@199909/23/19 10/31/19 levETIRAcetam [Keppra] 1,000 mg PO BID@0800,199909/23/19 10/31/19 Loratadine [Claritin] 10 mg PO HS@199910/31/19 10/31/19 Melatonin 3 mg PO HS@199910/31/19 10/31/19 lamoTRIgine [LaMICtal] 50 mg PO 10/31/19 Allergies Allergy/AdvReac Type Severity Reaction Status Date / Time No Known Allergies Allergy Verified 11/26/19 15:43 Review of Systems ROS Other: All systems not noted in ROS Statement are negative. <Nathen Mora - Last Filed: 11/26/19 16:34> ROS Other: All systems not noted in ROS Statement are negative. <Austin Mcnamara - Last Filed: 11/26/19 17:01> ROS Statement: Those systems with pertinent positive or pertinent negative responses have been documented in the HPI. Past Medical History Past Medical History: Atrial Fibrillation, Atrial Flutter, COPD, CVA/TIA, Hyperlipidemia, Hypertension, Osteoarthritis (OA), Pneumonia, Seizure Disorder, Syncope Additional Past Medical History / Comment(s): Possible TIAs in past per pt, carotid artery disease, mitral valve regurgitation/ tricuspid regurgitation, pt believes she has the beginnings of dementia, bronchitis, pituitary dysfunction, seasonal allergies/sinus problems, arthritis in multiple joints, UTI, sync ope/possible seizure 02/25/19. History of Any Multi-Drug Resistant Organisms: None Reported Past Surgical History: Adenoidectomy, Appendectomy, Cholecystectomy, Tonsillectomy Additional Past Surgical History / Comment(s): 07/08/19 A flutter ablation, colonoscopy Past Anesthesia/Blood Transfusion Reactions: No Reported Reaction Past Psychological History: No Psychological Hx Reported Smoking Status: Current every day smoker Past Alcohol Use History: None Reported Past Drug Use History: None Reported - Past Family History Father Family Medical History: Cancer Additional Family Medical History / Comment(s): Pt states by the time they found out that her father had cancer, it was thru out his body. Mother Family Medical History: No Reported History Additional Family Medical History / Comment(s): Mother was healthy. <Nathen Mora - Last Filed: 11/26/19 16:34> General Exam Limitations: no limitations General appearance: alert, in no apparent distress Head exam: Present: atraumatic, normocephalic, normal inspection Eye exam: Present: normal appearance, PERRL, EOMI. Absent: scleral icterus, conjunctival injection, periorbital swelling ENT exam: Present: normal exam, mucous membranes moist Neck exam: Present: normal inspection. Absent: tenderness, meningismus, lymphadenopathy Respiratory exam: Present: normal lung sounds bilaterally. Absent: respiratory distress, wheezes, rales, rhonchi, stridor Cardiovascular Exam: Present: regular rate, normal rhythm, normal heart sounds. Absent: systolic murmur, diastolic murmur, rubs, gallop, clicks <Nathen Mora - Last Filed: 11/26/19 16:34> Course <Austin Mcnamara - Last Filed: 11/26/19 17:01> Vital Signs 11/26/19 15:44 Temperature 97.5 F L Pulse Rate 90 Respiratory 18 Rate Blood Pressure 105/56 O2 Sat by Pulse 98 Oximetry - Reevaluation(s) Reevaluation #1: 11/26/19 17:00 PA supervision: I personally evaluate this case /patient did present with a seizure from a local adult care facility. She is back to her normal baseline at this time per reports she does have a history of CVA a flutter with RVR seizures with respiratory failure. Per the guardian however the patient is to be placed in hospice. The patient will be returned to her current residence. (Austin Mcnamara) Medical Decision Making <Nathen Mora - Last Filed: 11/26/19 16:34> - Medical Decision Making Patient is alert and oriented, no seizure activity noted. She is well appearing. The as discussed legal guardian wants patient discharged back home for hospice care. Patient is agreeable to this and does not want further management in the hospital either. Patient will be discharged home. Transient patient will be arranged.I discussed this case with attending Dr. Mcnamara who agrees with this assessment and treatment plan. (Nathen Mora) Disposition Is patient prescribed a controlled substance at d/c from ED?: No Time of Disposition: 16:37 <Nathen Mora - Last Filed: 11/26/19 16:34> <Austin Mcnamara - Last Filed: 11/26/19 17:01> Clinical Impression: Seizure disorder Disposition: HOME SELF-CARE Condition: Good Instructions (If sedation given, give patient instructions): Recurrent Seizures in Adults (ED) Additional Instructions: Please follow up with primary care. Please follow-up with hospice. Return here to the emergency department for any worsening symptoms. Referrals: Mir oSsa MD [Primary Care Provider] - 1-2 days
[2019-11-26 17:01] VITALS: BP 108/75; PULSE 75; TEMP 97.8
== END 2019-11-26 17:09 | disposition home or self-care (01) ==
LOC: EC 15:31
DX: G40.909 Epilepsy, unspecified, not intractable, without status epilepticus (principal); I48.91 Unspecified atrial fibrillation; I48.92 Unspecified atrial flutter; I10 Essential (primary) hypertension; J44.9 Chronic obstructive pulmonary disease, unspecified; E78.5 Hyperlipidemia, unspecified; F17.200 Nicotine dependence, unspecified, uncomplicated; Z79.01 Long term (current) use of anticoagulants; Z79.51 Long term (current) use of inhaled steroids; Z79.02 Long term (current) use of antithrombotics/antiplatelets; Z79.899 Other long term (current) drug therapy; Z86.73 Personal history of transient ischemic attack (TIA), and cerebral infarction without residual deficits
CPT/HCPCS: 99284